=== PATIENT | male | born 1955 | race African-American/Black ===

== ENCOUNTER 2021-09-23 06:32 | Inpatient (IN) | payer MEDICARE, MEDICAID, SELFPAY ==
[2021-09-23] VITALS (21 sets, daily range): BP systolic 114–186; BP diastolic 67–95; PULSE 62–111; RESP 14–22; TEMP 35–37.8; O2SAT 78–100; BMI 43.9
--- NOTE | ~2021-09-23 | XR_ITS ---
EXAMINATION: XR CHEST CLINICAL INFORMATION: Post intubation. COMPARISON: Most recent CT chest dated 07/17/2018. TECHNIQUE: Frontal view of the chest was obtained. FINDINGS: Endotracheal tube with its tip approximately 3.7 cm proximal to the irma. Endotracheal tube with its tip beneath the left hemidiaphragm and extending beyond the imaged field of view. Patchy bibasilar opacities which may represent atelectasis versus early infiltrates. Trace right-sided pleural effusion. No pneumothorax. XR/XR chest 1V IMPRESSION: 1. Endotracheal tube with its tip approximately 3.7 cm proximal to the irma. Enterogastric tube in appropriate position. 2. Patchy bibasilar atelectasis versus early infiltrates. 3. Trace right-sided pleural effusion.
--- NOTE | ~2021-09-23 | CT_ITS ---
EXAMINATION: CT HEAD WITHOUT CONTRAST CT CERVICAL SPINE WITHOUT CONTRAST CLINICAL INFORMATION: Fall. COMPARISON: None TECHNIQUE: Contiguous axial imaging was performed from the skull base to vertex without intravenous administration of contrast. Contiguous axial CT images of the cervical spine were obtained without contrast. Sagittal and coronal reformats were provided and reviewed. This CT examination was performed using dose optimization techniques as appropriate, variously including the following: *Automated exposure control *Adjustment of mA and/or kV according to patient size (this includes techniques or standardized protocols for targeted exams where dose is matched to indication/reason for exam; i.e. extremities or head) *Use of iterative reconstruction technique DLP: 1843 mGy-cm FINDINGS: HEAD: There is no evidence of acute intracranial hemorrhage or territorial infarction. No abnormal mass effect or midline shift is seen. [place] to white matter differentiation is well preserved. No extra-axial fluid collections are identified. The ventricles are normal in size. There is no abnormal attenuation within the brain parenchyma. The osseous structures and soft tissues are normal. The mastoid air cells and visualized portions of the paranasal sinuses are well aerated. CERVICAL SPINE: Straightening of the normal cervical lordosis, which may be positional or related to muscular spasm. No acute fracture or subluxation. No loss of vertebral body height. Multilevel loss of intervertebral disc with anterior endplate osteophytes at C3 through C7. Mild bilateral facet arthropathy, right greater than left. Unremarkable prevertebral soft tissues. No abnormal soft tissue mass or fluid collection. Partially visualized enterogastric and endotracheal tubes. Small layering effusion within the right lung apex. Mild right neural foraminal stenosis at C5-C6. CT/CT cervical spine wo con IMPRESSION: HEAD: No acute intracranial hemorrhage or mass effect. CERVICAL SPINE: No acute fracture or subluxation. Straightening of the normal cervical lordosis, which may be positional or related to muscular spasm. Multilevel degenerative disc disease and mild bilateral facet arthropathy with mild right neural foraminal stenosis at C5-C6. Small, layering right-sided pleural effusion seen within the right lung apex.
--- NOTE | ~2021-09-23 | CT_ITS ---
EXAMINATION: CT ANGIOGRAM OF THE CHEST WITH AND WITHOUT CONTRAST (CT PULMONARY ANGIOGRAM FOR PE) CLINICAL INFORMATION: Reason for Exam hypoxia, covid+ COMPARISON: None TECHNIQUE: Prior to contrast administration, noncontrast localization images were obtained. Subsequently, multidetector volumetric imaging was performed from the thoracic inlet to below the diaphragms following the administration of 80 mL Omnipaque 350 intravenous contrast. No contrast reaction reported Sagittal, coronal, and MIP oblique sagittal reformatted images were obtained on the CT workstation, uploaded to PACS, and reviewed. This CT examination was performed using dose optimization techniques as appropriate, variously including the following: *Automated exposure control *Adjustment of mA and/or kV according to patient size (this includes techniques or standardized protocols for targeted exams where dose is matched to indication/reason for exam; i.e. extremities or head) *Use of iterative reconstruction technique Total exam dose-length product 646 mGy-cm FINDINGS: QUALITY OF STUDY/CONTRAST BOLUS: Satisfactory. PULMONARY ARTERIES: No central or segmental pulmonary emboli. THORACIC AORTA: No aneurysm or dissection. LUNG: There is dependent bibasilar atelectasis/consolidation. PLEURA: Small bilateral pleural effusions seen minimally greater on the right. Rest lungs are clear. MEDIASTINUM: Heart size is enlarged. No pericardial effusion seen. The central trachea and the bronchi widely patent. There is an endotracheal tube with its tip 3.2 cm above the correct irma. Tip of enteric tube is in the pylorus. No abnormal size based lymph nodes or mass seen. CHEST WALL/AXILLA: No axillary or internal mammary lymphadenopathy. OSSEOUS STRUCTURES: No lytic or sclerotic process seen UPPER ABDOMEN: Visualized liver and spleen is unremarkable., spleen, pancreas and bilateral No reflux of contrast into the hepatic veins to suggest elevated right heart pressures. CT/CT angio chest PE protocol IMPRESSION: No evidence of PE. No evidence aortic dissection or aneurysm. Bilateral lower lobe consolidation with small bilateral pleural effusions. VTE: negative
--- NOTE | ~2021-09-23 | XR_ITS ---
EXAMINATION: XR CHEST CLINICAL INFORMATION: New CVP COMPARISON: Chest x-ray 09/24/2021 TECHNIQUE: Frontal portable view of the chest was obtained. 1700 hours FINDINGS: Right IJ catheter tip just distal to the caval atrial junction in the right atrium by about 2 cm. There is no pneumothorax. The cardiac and mediastinal contours are unchanged. Lung volume remains low. No focal dense consolidation. No large pleural effusion XR/XR chest 1V IMPRESSION: Right IJ catheter tip just distal to the caval atrial junction in the right atrium by about 2 cm. There is no pneumothorax.
--- NOTE | ~2021-09-23 | XR_ITS ---
EXAMINATION: XR CHEST CLINICAL INFORMATION: Status post CVP attempt COMPARISON: Chest radiograph 09/23/2021 TECHNIQUE: Frontal view of the chest was obtained. FINDINGS: Endotracheal and enteric tubes have been removed since the previous study. Lung volumes are diminished resulting in crowding of bronchovascular structures. Previously noted atelectasis and pleural fluid are better demonstrated on previous studies. There are no new focal airspace opacities. There is no pneumothorax. Structures of the chest wall are unremarkable and the cardiomediastinal contours are unchanged. XR/XR chest 1V IMPRESSION: Low lung volume study without evidence of periprocedural complication relating to CVP attempt. Pleural fluid and atelectasis are better demonstrated on prior studies and likely unchanged. Interval removal of endotracheal and enteric tubes.
--- NOTE | 2021-09-23 06:53 | PC.NURSE ---
call placed to [facility] transfer for ICU bed at [id number], no bed available
--- NOTE | 2021-09-23 06:57 | PC.NURSE ---
call placed to [facility] for ICU bed, no bed available
--- NOTE | 2021-09-23 07:01 | PC.NURSE ---
call placed to [facility] for ICU bed, no bed available at this time
--- NOTE | 2021-09-23 07:02 | ED_ITS ---
HPI - Fall General Chief Complaint: Altered Mental Status Stated Complaint: Fall w/ AMS/head strike/low O2 from SNF Time Seen by Provider: 09/23/21 07:02 Source: EMS Mode of arrival: EMS History of Present Illness HPI Narrative: Patient from snf arrived at 06:47 with history of schizophrenia had an unwitnessed fall was in his room going to the bathroom and fell roommate called the nurse when they went to see him he was sitting in his bed with bleeding from the nose and broken front to when EMS reached patient was not responding saturating low 70s blood pressure [id number], RR 19 On arrival in the ER patient on not responding supple to be verbal but nonverbal when EMS arrived on arrival patient was sedated and intubated for airway protection as there was no gag reflex Related Data Home Medications Medication Instructions Recorded Confirmed amlodipine 10 mg tablet 1 tab PO DAILY 09/23/21 09/23/21 benztropine 0.5 mg tablet 1 tab PO DAILY 09/23/21 09/23/21 budesonide-formoterol HFA 160 INHALATION 09/23/21 mcg-4.5 mcg/actuation aerosol inhaler (Symbicort) gabapentin 300 mg capsule 1 cap PO TID 09/23/21 09/23/21 metoprolol succinate 50 mg 1 tab PO DAILY 09/23/21 09/23/21 tablet,extended release 24 hr montelukast 10 mg tablet 1 tab PO DAILY 09/23/21 09/23/21 pravastatin 20 mg tablet 1 tab PO DAILY 09/23/21 09/23/21 risperidone 1 mg tablet 1 tab PO BID 09/23/21 09/23/21 tiotropium bromide 18 mcg capsule 1 cap INHALATION DAILY 09/23/21 09/23/21 with inhalation device (Spiriva with HandiHaler) Allergies Allergy/AdvReac Type Severity Reaction Status Date / Time No Known Allergies Allergy Verified 09/23/21 07:03 Review of Systems Review of Systems: Yes Unobtainable due to mental condition [facility] Past Medical History Medical History (Updated 09/23/21 @ 16:24 by Delon Minor MD) COPD (chronic obstructive pulmonary disease) History of COVID-19 Hypertension Metabolic encephalopathy Obstructive sleep apnea Schizophrenia Thrombocytopenia Social History Social History Alcohol intake: unknown Patient Tobacco Use Status: Tobacco use Unknown Use of substances other than those prescribed or required for medical reasons: Unknown Advance Directives: No Advance Directives Information Provided: No Physical Exam Vital Signs: Vital Signs: Last Vital Signs Temp 99.7 F 09/23/21 14:26 Pulse 102 H 09/23/21 14:26 Resp 16 09/23/21 14:26 BP 180/90 H 09/23/21 14:26 Pulse Ox 86 L 09/23/21 14:26 BMI result Body Mass Index 43.9 Appearance: Obese not responding dried blood in the nostril Eyes: PERRLA, No Nystagmus ENT: Pharynx normal. Oral Mucosa moist Neck: Normal inspection. Neck supple. CVS: Normal heart rate and rhythm. Pulses normal. Respiratory: No respiratory distress. Equal air entry bilateral, no wheezing/rales/rhonchi Abdomen: Soft and nontender. Bowel sounds are present, no mass palpable, no CVA tenderness Skin: Skin warm and dry. Normal skin color. Normal skin turgor. Extremities: No lower extremity edema. No calf tenderness Neuro: Oriented X 3. No motor deficit. 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 aware and watching patient, will admit to ICU once extubated and bed is available Time: 16:22 Procedures Intubation Time out performed: Yes sedative: Etomidate Mg Given: 20 paralytic: Rocuronium Mg Given: 100 Laryngoscope: Reny ET Tube Size: 7.5 ET Tube Uncuffed: Yes Tube Secured Depth (cm): 23 Tube Secured Location: lips Tube Placement Confirmation: visualized tube passing through cords Patient Tolerated Procedure: well Intubation Complications: none MDM - Fall MDM Narrative Medical decision making narrative: Case discussed with the staff at the snf patient has sleep apnea and COPD heavy smoker ambulatory is supposed to use oxygen as needed and BiPAP in the night but patient is not using it patient was lethargic after the fall likely hypoxic secondary to COVID. Patient was intubated as had poor gag reflex CTA chest done which showed no PE only bilateral lower lobe infiltrate at this time patient is saturating 92% on 40% ventilator plan is to taper him off from the ventilator and plan to put him on BiPAP if he tolerates and admit to ICU Lab Data Attestation: I reviewed the patient's lab results. Result diagrams: 09/23/21 07:25 09/23/21 10:47 Labs: Lab Results 09/23/21 09/23/21 09/23/21 Range/Units 07:25 07:25 07:25 WBC 10.7 (4.8-10.8) X10*3/uL RBC 4.69 (4.60-5.80) X10*6/uL Hgb 13.4 L (14.0-18.0) g/dl Hct 44.7 (42.0-52.0) % MCV 95.3 (80.0-98.0) fL MCH 28.6 (27.0-33.0) pg MCHC 30.0 L (31.0-36.0) g/dl RDW 14.2 (11.0-16.0) % Plt Count 124 L (160-400) X10*3/uL MPV 10.8 (9.4-12.4) fL Immature Gran % (Auto) Cancelled Neut % (Auto) Cancelled Lymph % (Auto) Cancelled [place] % (Auto) Cancelled Eos % (Auto) Cancelled Baso % (Auto) Cancelled Lymph # (Auto) Cancelled [place] # (Auto) Cancelled Eos # (Auto) Cancelled Baso # (Auto) Cancelled Abs Immat Gran (auto) Cancelled Absolute Neuts (auto) Cancelled Absolute Nucleated RBC 0.060 H (0.0-0.012) X10*3/uL Nucleated RBC % (auto) 0.6 H (0.0-0.2) /100WBC Neutrophils % (Manual) 86 H (45-73) % Band Neutrophils % 3 (3-5) % Lymphocytes % (Manual) 5 L (20-40) % Monocytes % (Manual) 5 (2-11) % Eosinophils % (Manual) 1 (0-4) % Abs Neuts (Manual) 9.5 H (2.0-8.3) X10*3/uL Lymphocytes # (Manual) 0.5 L (1.2-4.9) X10*3/uL Monocytes # (Manual) 0.5 (0.1-1.2) X10*3/uL Eosinophils # (Manual) 0.1 (0.0-0.4) X10*3/uL Toxic Vacuolation PRESENT Platelet Estimate DECREASED (NORMAL) Large Platelets PRESENT Plt Morphology Comment NOTED RBC Morphology NOTED Macrocytosis 1+ (5-14) /OIF Ovalocytes 1+ (5-14) /OIF Fountain Cells 1+ (0-2) /OIF PT 11.9 (9.9-13.0) SEC INR 1.0 (0.9-1.1) O2 Saturation % ABG pH at Pt Temp (7.35-7.45) ABG pH (Temp Correct) (7.35-7.45) ABG pCO2 at Pt Temp (32-45) mmHg ABG pCO2 (Temp Corrct (32-45) mmHg ABG pO2 at Pt Temp (83-108) mmHg ABG pO2 (Temp Correct (83-108) ABG HCO3 (22-26) mmol/L ABG Base Excess (Actual) mmol/L Sodium 132 L (135-145) mmol/L Potassium 6.4 H* (3.3-5.1) mmol/L Chloride 94 L (96-108) mmol/L Carbon Dioxide 36 H (22-29) mmol/L Anion Gap 8 L (12-20) BUN 19 H (9-16) mg/dL Creatinine 0.80 (0.5-1.4) mg/dL Estim Creat Clear Calc 129.4 Estimated GFR > 60 Random Glucose 139 H (60-115) mg/dL Lactic Acid (0.5-2.0) mmol/L Calcium 8.9 (8.4-10.2) mg/dL Magnesium 2.0 (1.6-2.6) mg/dL Total Bilirubin 0.2 (0.0-1.0) mg/dL AST 21 (5-37) U/L ALT 18 (0-40) U/L Alkaline Phosphatase 86 (39-117) U/L Troponin I High Sens (<3.5-35.0) ng/L B-Natriuretic Peptide (<100) pg/mL Total Protein 6.9 (6.5-8.0) g/dL Albumin 3.8 (3.5-5.0) g/dL Urine Color Urine Appearance Urine pH (5.0-8.0) Ur Specific [place] (1.005-1.025) Urine Protein (NEG-TRACE) MG/DL Urine Glucose (UA) (NEG) MG/DL Urine Ketones (NEG) MG/DL Urine Blood (NEG) Urine Nitrite (NEG) Ur Leukocyte Esterase (NEG) Urine RBC (0) /HPF Urine WBC (0-4) /HPF Ur Squamous Epith Cells /LPF Amorphous Sediment /LPF Urine Bacteria /LPF Hyaline Casts /LPF Urine Mucus /LPF Urine Opiates Screen (Not Detect) Urine Fentanyl Screen (Not Detect) Ur Barbiturates Screen (Not Detect) Ur Phencyclidine Scrn (Not Detect) Ur Amphetamines Screen (Not Detect) U Benzodiazepines Scrn (Not Detect) Urine Cocaine Screen (Not Detect) U Marijuana (THC) Screen (Not Detect) COVID-19 ([facility]) (Negative) COVID-19 Clin Com 09/23/21 09/23/21 09/23/21 Range/Units 07:25 07:25 07:25 WBC (4.8-10.8) X10*3/uL RBC (4.60-5.80) X10*6/uL Hgb (14.0-18.0) g/dl Hct (42.0-52.0) % MCV (80.0-98.0) fL MCH (27.0-33.0) pg MCHC (31.0-36.0) g/dl RDW (11.0-16.0) % Plt Count (160-400) X10*3/uL MPV (9.4-12.4) fL Immature Gran % (Auto) Neut % (Auto) Lymph % (Auto) [place] % (Auto) Eos % (Auto) Baso % (Auto) Lymph # (Auto) [place] # (Auto) Eos # (Auto) Baso # (Auto) Abs Immat Gran (auto) Absolute Neuts (auto) Absolute Nucleated RBC (0.0-0.012) X10*3/uL Nucleated RBC % (auto) (0.0-0.2) /100WBC Neutrophils % (Manual) (45-73) % Band Neutrophils % (3-5) % Lymphocytes % (Manual) (20-40) % Monocytes % (Manual) (2-11) % Eosinophils % (Manual) (0-4) % Abs Neuts (Manual) (2.0-8.3) X10*3/uL Lymphocytes # (Manual) (1.2-4.9) X10*3/uL Monocytes # (Manual) (0.1-1.2) X10*3/uL Eosinophils # (Manual) (0.0-0.4) X10*3/uL Toxic Vacuolation Platelet Estimate (NORMAL) Large Platelets Plt Morphology Comment RBC Morphology Macrocytosis /OIF Ovalocytes /OIF Marcus Cells /OIF PT (9.9-13.0) SEC INR (0.9-1.1) O2 Saturation % ABG pH at Pt Temp (7.35-7.45) ABG pH (Temp Correct) (7.35-7.45) ABG pCO2 at Pt Temp (32-45) mmHg ABG pCO2 (Temp Corrct (32-45) mmHg ABG pO2 at Pt Temp (83-108) mmHg ABG pO2 (Temp Correct (83-108) ABG HCO3 (22-26) mmol/L ABG Base Excess (Actual) mmol/L Sodium (135-145) mmol/L Potassium (3.3-5.1) mmol/L Chloride (96-108) mmol/L Carbon Dioxide (22-29) mmol/L Anion Gap (12-20) BUN (9-16) mg/dL Creatinine (0.5-1.4) mg/dL Estim Creat Clear Calc Estimated GFR Random Glucose (60-115) mg/dL Lactic Acid (0.5-2.0) mmol/L Calcium (8.4-10.2) mg/dL Magnesium (1.6-2.6) mg/dL Total Bilirubin (0.0-1.0) mg/dL AST (5-37) U/L ALT (0-40) U/L Alkaline Phosphatase (39-117) U/L Troponin I High Sens 10.4 (<3.5-35.0) ng/L B-Natriuretic Peptide 213 H (<100) pg/mL Total Protein (6.5-8.0) g/dL Albumin (3.5-5.0) g/dL Urine Color Urine Appearance Urine pH (5.0-8.0) Ur Specific [place] (1.005-1.025) Urine Protein (NEG-TRACE) MG/DL Urine Glucose (UA) (NEG) MG/DL Urine Ketones (NEG) MG/DL Urine Blood (NEG) Urine Nitrite (NEG) Ur Leukocyte Esterase (NEG) Urine RBC (0) /HPF Urine WBC (0-4) /HPF Ur Squamous Epith Cells /LPF Amorphous Sediment /LPF Urine Bacteria /LPF Hyaline Casts /LPF Urine Mucus /LPF Urine Opiates Screen (Not Detect) Urine Fentanyl Screen (Not Detect) Ur Barbiturates Screen (Not Detect) Ur Phencyclidine Scrn (Not Detect) Ur Amphetamines Screen (Not Detect) U Benzodiazepines Scrn (Not Detect) Urine Cocaine Screen (Not Detect) U Marijuana (THC) Screen (Not Detect) COVID-19 ([facility]) Positive A (Negative) COVID-19 Clin Com See Note 09/23/21 09/23/21 09/23/21 Range/Units 07:31 07:31 10:18 WBC (4.8-10.8) X10*3/uL RBC (4.60-5.80) X10*6/uL Hgb (14.0-18.0) g/dl Hct (42.0-52.0) % MCV (80.0-98.0) fL MCH (27.0-33.0) pg MCHC (31.0-36.0) g/dl RDW (11.0-16.0) % Plt Count (160-400) X10*3/uL MPV (9.4-12.4) fL Immature Gran % (Auto) Neut % (Auto) Lymph % (Auto) [place] % (Auto) Eos % (Auto) Baso % (Auto) Lymph # (Auto) [place] # (Auto) Eos # (Auto) Baso # (Auto) Abs Immat Gran (auto) Absolute Neuts (auto) Absolute Nucleated RBC (0.0-0.012) X10*3/uL Nucleated RBC % (auto) (0.0-0.2) /100WBC Neutrophils % (Manual) (45-73) % Band Neutrophils % (3-5) % Lymphocytes % (Manual) (20-40) % Monocytes % (Manual) (2-11) % Eosinophils % (Manual) (0-4) % Abs Neuts (Manual) (2.0-8.3) X10*3/uL Lymphocytes # (Manual) (1.2-4.9) X10*3/uL Monocytes # (Manual) (0.1-1.2) X10*3/uL Eosinophils # (Manual) (0.0-0.4) X10*3/uL Toxic Vacuolation Platelet Estimate (NORMAL) Large Platelets Plt Morphology Comment RBC Morphology Macrocytosis /OIF Ovalocytes /OIF Fountain Cells /OIF PT (9.9-13.0) SEC INR (0.9-1.1) O2 Saturation 91.0 % ABG pH at Pt Temp 7.48 H (7.35-7.45) ABG pH (Temp Correct) 7.48 H (7.35-7.45) ABG pCO2 at Pt Temp 38 (32-45) mmHg ABG pCO2 (Temp Corrct 38 (32-45) mmHg ABG pO2 at Pt Temp 59 L (83-108) mmHg ABG pO2 (Temp Correct 60 L (83-108) ABG HCO3 29 H (22-26) mmol/L ABG Base Excess (Actual) 5.6 mmol/L Sodium (135-145) mmol/L Potassium (3.3-5.1) mmol/L Chloride (96-108) mmol/L Carbon Dioxide (22-29) mmol/L Anion Gap (12-20) BUN (9-16) mg/dL Creatinine (0.5-1.4) mg/dL Estim Creat Clear Calc Estimated GFR Random Glucose (60-115) mg/dL Lactic Acid (0.5-2.0) mmol/L Calcium (8.4-10.2) mg/dL Magnesium (1.6-2.6) mg/dL Total Bilirubin (0.0-1.0) mg/dL AST (5-37) U/L ALT (0-40) U/L Alkaline Phosphatase (39-117) U/L Troponin I High Sens (<3.5-35.0) ng/L B-Natriuretic Peptide (<100) pg/mL Total Protein (6.5-8.0) g/dL Albumin (3.5-5.0) g/dL Urine Color YELLOW Urine Appearance HAZY Urine pH 5.5 (5.0-8.0) Ur Specific [place] >= 1.030 H (1.005-1.025) Urine Protein 2+ H (NEG-TRACE) MG/DL Urine Glucose (UA) NEG (NEG) MG/DL Urine Ketones NEG (NEG) MG/DL Urine Blood 3+ H (NEG) Urine Nitrite NEG (NEG) Ur Leukocyte Esterase NEG (NEG) Urine RBC 5-9 H (0) /HPF Urine WBC 0 (0-4) /HPF Ur Squamous Epith Cells NONE /LPF Amorphous Sediment 1+ /LPF Urine Bacteria NONE /LPF Hyaline Casts 0-2 /LPF Urine Mucus 1+ /LPF Urine Opiates Screen Not Detected (Not Detect) Urine Fentanyl Screen POSITIVE H (Not Detect) Ur Barbiturates Screen Not Detected (Not Detect) Ur Phencyclidine Scrn Not Detected (Not Detect) Ur Amphetamines Screen Not Detected (Not Detect) U Benzodiazepines Scrn Not Detected (Not Detect) Urine Cocaine Screen Not Detected (Not Detect) U Marijuana (THC) Screen Not Detected (Not Detect) COVID-19 ([facility]) (Negative) COVID-19 Clin Com 09/23/21 09/23/21 09/23/21 Range/Units 10:47 10:47 14:33 WBC (4.8-10.8) X10*3/uL RBC (4.60-5.80) X10*6/uL Hgb (14.0-18.0) g/dl Hct (42.0-52.0) % MCV (80.0-98.0) fL MCH (27.0-33.0) pg MCHC (31.0-36.0) g/dl RDW (11.0-16.0) % Plt Count (160-400) X10*3/uL MPV (9.4-12.4) fL Immature Gran % (Auto) Neut % (Auto) Lymph % (Auto) [place] % (Auto) Eos % (Auto) Baso % (Auto) Lymph # (Auto) [place] # (Auto) Eos # (Auto) Baso # (Auto) Abs Immat Gran (auto) Absolute Neuts (auto) Absolute Nucleated RBC (0.0-0.012) X10*3/uL Nucleated RBC % (auto) (0.0-0.2) /100WBC Neutrophils % (Manual) (45-73) % Band Neutrophils % (3-5) % Lymphocytes % (Manual) (20-40) % Monocytes % (Manual) (2-11) % Eosinophils % (Manual) (0-4) % Abs Neuts (Manual) (2.0-8.3) X10*3/uL Lymphocytes # (Manual) (1.2-4.9) X10*3/uL Monocytes # (Manual) (0.1-1.2) X10*3/uL Eosinophils # (Manual) (0.0-0.4) X10*3/uL Toxic Vacuolation Platelet Estimate (NORMAL) Large Platelets Plt Morphology Comment RBC Morphology Macrocytosis /OIF Ovalocytes /OIF Fountain Cells /OIF PT (9.9-13.0) SEC INR (0.9-1.1) O2 Saturation 81.0 % ABG pH at Pt Temp 7.34 L (7.35-7.45) ABG pH (Temp Correct) 7.33 L (7.35-7.45) ABG pCO2 at Pt Temp 69 H* (32-45) mmHg ABG pCO2 (Temp Corrct 69 H* (32-45) mmHg ABG pO2 at Pt Temp 55 L (83-108) mmHg ABG pO2 (Temp Correct 55 L (83-108) ABG HCO3 37 H (22-26) mmol/L ABG Base Excess (Actual) 8.5 mmol/L Sodium 133 L (135-145) mmol/L Potassium 5.4 H (3.3-5.1) mmol/L Chloride 93 L (96-108) mmol/L Carbon Dioxide 32 H (22-29) mmol/L Anion Gap 13 (12-20) BUN 20 H (9-16) mg/dL Creatinine 0.74 (0.5-1.4) mg/dL Estim Creat Clear Calc 139.9 Estimated GFR > 60 Random Glucose 121 H (60-115) mg/dL Lactic Acid 2.5 H* (0.5-2.0) mmol/L Calcium 9.7 D (8.4-10.2) mg/dL Magnesium (1.6-2.6) mg/dL Total Bilirubin (0.0-1.0) mg/dL AST (5-37) U/L ALT (0-40) U/L Alkaline Phosphatase (39-117) U/L Troponin I High Sens (<3.5-35.0) ng/L B-Natriuretic Peptide (<100) pg/mL Total Protein (6.5-8.0) g/dL Albumin (3.5-5.0) g/dL Urine Color Urine Appearance Urine pH (5.0-8.0) Ur Specific [place] (1.005-1.025) Urine Protein (NEG-TRACE) MG/DL Urine Glucose (UA) (NEG) MG/DL Urine Ketones (NEG) MG/DL Urine Blood (NEG) Urine Nitrite (NEG) Ur Leukocyte Esterase (NEG) Urine RBC (0) /HPF Urine WBC (0-4) /HPF Ur Squamous Epith Cells /LPF Amorphous Sediment /LPF Urine Bacteria /LPF Hyaline Casts /LPF Urine Mucus /LPF Urine Opiates Screen (Not Detect) Urine Fentanyl Screen (Not Detect) Ur Barbiturates Screen (Not Detect) Ur Phencyclidine Scrn (Not Detect) Ur Amphetamines Screen (Not Detect) U Benzodiazepines Scrn (Not Detect) Urine Cocaine Screen (Not Detect) U Marijuana (THC) Screen (Not Detect) COVID-19 ([facility]) (Negative) COVID-19 Clin Com Critical Care Time Critical Care Time Critical Care Time: Yes Total Critical Care Time: 70 Attestation: I spent 70 minutes of critical care, with interventions, assessments, speaking to patient, consultants, Discharge Plan Discharge Clinical Impression: Acute hypoxemic respiratory failure due to COVID-19, Status post fall Patient Disposition: Admitted As Inpatient
--- NOTE | 2021-09-23 07:02 | PC.NURSE ---
call placed to [facility] for ICU bed, no beds available at this time
--- NOTE | 2021-09-23 07:03 | PC.NURSE ---
call placed to [facility] for ICU beds, no beds available at this time
--- NOTE | 2021-09-23 07:03 | ECG_ITS ---
Test Reason : dyspnea Blood Pressure : / mmHG Vent. Rate : 068 BPM Atrial Rate : 068 BPM P-R Int : 168 ms QRS Dur : 112 ms QT Int : 374 ms P-R-T Axes : 028 -13 031 degrees QTc Int : 397 ms Sinus rhythm with Premature atrial complexes Otherwise normal ECG No previous ECGs available Referred By: Delon Minor Electronically Signed By:PHILIP CALDWELL
--- NOTE | 2021-09-23 07:09 | PC.NURSE ---
call placed to [facility], no beds available
[2021-09-23 07:38] LABS: Appearance Urine HAZY; Color Urine YELLOW; Glucose Urine UA NEG (NEG); Leukocyte Esterase Urine NEG (NEG); Nitrite Urine NEG (NEG); PH 5.5 (5.0-8.0); Specific Gravity - Urine >= 1.030 (1.005-1.025); UACC Culture Trigger NO; Urine Blood 3+ (NEG); Urine Ketones NEG (NEG); Urine Protein 2+ MG/DL (NEG-TRACE)
[2021-09-23 07:39] LABS: Hematocrit 44.7 % (42.0-52.0); Hemoglobin 13.4 g/dl (14.0-18.0); Mean Corpuscular Hemoglobin 28.6 pg (27.0-33.0); Mean Corpuscular Volume 95.3 fL (80.0-98.0); Mean Platelet Volume 10.8 fL (9.4-12.4); NRBC Pct Auto 0.6 /100WBC (0.0-0.2); Platelet Count 124 X10*3/uL (160-400); Red Blood Count 4.69 X10*6/uL (4.60-5.80); Red Cell Distribution Width 14.2 % (11.0-16.0)
[2021-09-23 07:40] LABS: WBC ABN SCTR FOR CBC 1
[2021-09-23 07:42] LABS: Prothrombin Time 11.9 SEC (9.9-13.0)
[2021-09-23 07:46] LABS: COVID-19 Test Positive (Negative); IDNOW Serial# 9DD0AD1C
[2021-09-23] MEDS: 0.9 % Sodium Chloride 1,000 ML 999 ML IV (07:48)
[2021-09-23 07:49] LABS: WBC Urine 0 /HPF (0-4)
[2021-09-23] MEDS: propofoL 1,000 MG/100 ML VIAL 16.68 MG IVCONT (07:49)
[2021-09-23 07:50] LABS: Mucus Urine 1+ /LPF
[2021-09-23 07:52] LABS: Amorphous Sediment Urine 1+ /LPF; Hyaline Casts Urine 0-2 /LPF
[2021-09-23 07:54] LABS: Amphetamine Screen Urine Not Detected (Not Detect); Barbiturates, Urine Not Detected (Not Detect); Benzodiazepines Screen Urine Not Detected (Not Detect); Cannabinoid Screen Urine Not Detected (Not Detect); Cocaine Screen Urine Not Detected (Not Detect); Fentanyl, urine POSITIVE (Not Detect); Opiate Screen Urine Not Detected (Not Detect); Phencyclidine Screen Urine Not Detected (Not Detect)
[2021-09-23 07:56] LABS: Band Neutrophils Percent 3 % (3-5); Eosinophils Percent Manual 1 % (0-4); Lymphocytes Percent Manual 5 % (20-40); Monocytes Percent Manual 5 % (2-11); Neutrophils Percent Manual 86 % (45-73)
[2021-09-23 07:57] LABS: Large Platelet PRESENT; Macrocytosis 1+ (5-14) /OIF; Platelet Estimate DECREASED (NORMAL); Platelet Morphology Comment NOTED; RBC Morphology NOTED
[2021-09-23 07:58] LABS: Burr Cells 1+ (0-2) /OIF; Ovalocytes 1+ (5-14) /OIF; Toxic Vacuolation PRESENT
[2021-09-23 07:59] LABS: B Type Natriuretic Peptide 213 pg/mL (<100); Eosinophils Absolute Manual 0.1 X10*3/uL (0.0-0.4); Lymphocytes Absolute Manual 0.5 X10*3/uL (1.2-4.9); Monocytes Absolute Manual 0.5 X10*3/uL (0.1-1.2); Neutrophils Absolute Manual 9.5 X10*3/uL (2.0-8.3); Troponin-I High Sensitivity 10.4 ng/L (<3.5-35.0); White Blood Count 10.7 X10*3/uL (4.8-10.8)
[2021-09-23 08:05] LABS: Alanine Aminotransferase 18 U/L (0-40); Albumin Level 3.8 g/dL (3.5-5.0); Alkaline Phosphatase 86 U/L (39-117); Anion Gap 8 (12-20); Aspartate Amino Transferase 21 U/L (5-37); Bilirubin Total 0.2 mg/dL (0.0-1.0); Blood Urea Nitrogen 19 mg/dL (9-16); Calcium 8.9 mg/dL (8.4-10.2); Carbon Dioxide 36 mmol/L (22-29); Chloride 94 mmol/L (96-108); Creatinine Clr Calc Pharmacy 129.4; Estimated Glomerular Filt Rate > 60; Glucose Random 139 mg/dL (60-115); Potassium 6.4 mmol/L (3.3-5.1); Sodium 132 mmol/L (135-145); Total Protein 6.9 g/dL (6.5-8.0)
[2021-09-23] MEDS: Midazolam HCl/NS 50 MG/50 ML PLAST..BAG IVCONT (08:22)
[2021-09-23] MEDS: Insulin Regular, Human 100 UNIT/ML 3 ML VIAL IVPUSH (08:57)
[2021-09-23] MEDS: Calcium Gluconate/NaCl,Iso-Osm 1 GM/50 ML PLAST..BAG IV (08:59)
[2021-09-23 10:24] LABS: ABG Refer to POC result
[2021-09-23 10:25] LABS: ABG Base Excess 5.6 mmol/L; ABG HCO3 29 mmol/L (22-26); ABG pCO2 38 mmHg (32-45); ABG pCO2 TC 38 mmHg (32-45); ABG pH 7.48 (7.35-7.45); ABG pH TC 7.48 (7.35-7.45); ABG pO2 59 mmHg (83-108); ABG pO2 TC 60 (83-108)
--- NOTE | 2021-09-23 10:27 | PC.NURSE ---
pt intubated and sedated, had head ct and cxr, unremarkable. blood work completed, further blood work needed for cultures and lactic, pt very difficult stick requiring phlebotomy. pt also given meds for potassium shift, awaiting repeat chemistry. [facility] for dc needs.
[2021-09-23] MEDS: cefTRIAXone sodium 1 GM in 0.9 % Sodium Chloride 50 ML IV (10:48)
[2021-09-23 11:06] LABS: Lactic Acid 2.5 mmol/L (0.5-2.0)
[2021-09-23 11:09] LABS: Anion Gap 13 (12-20); Blood Urea Nitrogen 20 mg/dL (9-16); Calcium 9.7 mg/dL (8.4-10.2); Carbon Dioxide 32 mmol/L (22-29); Chloride 93 mmol/L (96-108); Creatinine Clr Calc Pharmacy 139.9; Estimated Glomerular Filt Rate > 60; Glucose Random 121 mg/dL (60-115); Potassium 5.4 mmol/L (3.3-5.1); Sodium 133 mmol/L (135-145)
[2021-09-23 12:48] LABS: Reflex Lactate? Lactic Acid Added
[2021-09-23] MEDS: iohexoL 350 MG/ML 100 ML INFUS..BTL IV (12:56)
[2021-09-23] MEDS: Albuterol Sulfate (0.083%) 2.5 MG/3 ML VIAL.NEB 5 MG INHALE (14:09)
[2021-09-23] MEDS: Albuterol/Iprat 2.5/0.5MG 3 ML AMPUL.NEB INHALE (14:09)
[2021-09-23] MEDS: fentaNYL citrate/PF 100 MCG/2 ML VIAL IVPUSH ×2 (14:23→14:25)
[2021-09-23] MEDS: Glycopyrrolate 0.2 MG/ML VIAL IVPUSH (14:23)
[2021-09-23] MEDS: flumazeniL 0.5 MG/5 ML VIAL 0.2 MG IVPUSH (14:23)
[2021-09-23] MEDS: dexAMETHasone sod phosphate 10 MG/ML VIAL IVPUSH (14:25)
--- NOTE | 2021-09-23 14:27 | PC.NURSE ---
attempting to ween pt off mechanical vent, sedation turned off. pt slow to wake up, tidal volumes low, poor o2 sat. pt given flumazenil and fentanyl to facilitate better work of breathing, pt more comfortable, waking up and able to follow some commands. will monitor for opportunity to extubate.
[2021-09-23 14:39] LABS: ABG Refer to POC result
[2021-09-23 14:44] LABS: ABG Base Excess 8.5 mmol/L; ABG HCO3 37 mmol/L (22-26); ABG pCO2 69 mmHg (32-45); ABG pCO2 TC 69 mmHg (32-45); ABG pH 7.34 (7.35-7.45); ABG pH TC 7.33 (7.35-7.45); ABG pO2 55 mmHg (83-108); ABG pO2 TC 55 (83-108)
--- NOTE | 2021-09-23 14:49 | W.PM.CCCN ---
History of Present Illness Data of Consult Service Date: 09/23/21 Requesting physician: Delon Minor Primary Care Provider: Unknown Physician HPI Reason for consult: Acute respiratory failure I was asked by Dr. Bailey to assist with mgmnt of Mr. Traore who in intubated and mechanically ventilated in the ED. History is from the ED staff. The patient is a 66 yo senior care resident w PMHx of schizophrenia, HTN, heavy smoker, COPD on prn oxygen, LYNN noncompliant with BiPAP, metabolic encephalopathy, thrombocytopenia. ?According to the ED note, the patient has a h/o COVID-19, but I don?t know whether that?s a recent dx or a past dx.? No report from the [facility] that the patient had any recent acute resp problems.? The patient has never been to [facility] before. Had an unwitnessed fall was in his room going to the bathroom.? His roommate called the nurse.? The patient had reportedly gotten up and was sitting on his bed with bleeding from his nose and broken front tooth.? When EMS arrived, the patient was not responding.? Sat low 70s on room air.? BP 186/95, RR 19.? Transported by ambulance to the [facility] ED. On arrival in the ER, patient was not responding, no gag reflex.? The patient was intubated for airway protection.? He was put on propofol, versed, and given Abx. Labs in ED notable for white count 10, hemoglobin 13, platelet count [id number], sodium 132, BUN/creatinine 19/0.8, potassium 6.4, bicarb 36, glucose 139, normal LFTs, albumin 3.8, normal troponin, BNP 213.? Urinalysis showed 0 WBCs. Head and C-spine CT negative. CXR shows patchy bibasilar atelectasis with likely right-sided pleural effusion. CHEST CTPA shows marked LVH w underfilled LV.? RV looks enlarged, with RV:LV cavity ratio approx 1.5.? RA is enlarged.? Main PA top normal.? No PE.? Lungs are clear with some shmutz in both dependent LL areas, along with tiny left pleural eff, slightly larger right pleural eff. On my exam in the ED at about 1430, this is a large man, with a large head and short neck, classic LYNN anatomy, almost Pickwickian appearing.? HR 102, SR, BP 180/90.? On PSV 8/100%/+5, RR was 60, Vt 150cc, Sat 90%.? He had copious secretions drooling from his mouth.? 700cc orange fluid in the canister from his OG-tube. The propofol and Versed drips were turned off. ?We gave him flumazenil 0.5 mg, fentanyl 100 mcg, and glycopyrrolate.? RR slowed to 12, Vt jodi to 480 cc.? On 50%/+10, sat was 86%.? Arterial blood gas showed 7.34/69/55/8.? We gave him additional fentanyl.? At the end of about half an hour in the room, RR 15, Vt 500-600 cc, Ve 8L, Sat 93%. I went back at 1535.? Dropped his PSV to 16/34%/+8 -> RR 14, Vt 580cc, Ve 7.8L, Sat 96%.? At that time, with prompting, the patient opened his eyes to stimulation and was consistently appropriately responsive to simple commands.? He has an excellent cough. IMPRESSION: 1. Underlying obesity and mental illness 2. Undoubtedly has LYNN, based on history, head and neck habitus, and obesity. 3. History of COPD.? 2? smoking. 4. He is definitely a CO2 retainer based on his serum bicarb and the arterial blood gases.? No surprise.? Started him on Dimaox. 5. Altered mental status after the fall at the senior care.? Given the negative head CT, not sure what happened, but it could be a close head injury.? Now seems to be returning to normal mental status. 6. Acute resp failure.? I?m not surprised that he was intubated.? He has fearsome looking head and neck anatomy, not surprised that he was intubated right off the bat when he presented obtunded and with no gag reflex.? Otherwise, there?s not much on his CXR or Chest CT to explain his resp failure and signif hypoxemia.? Certainly doesn?t have COVID pneumonia.? It may be mostly atelectasis (low lung volumes), which would explain the rapid improvement in oxygenation once PEEP was applied. 7. GI.? Has had quite a bit of output from his gtube since the morning.? I gave him Robinul, which has definitely dried up his secretions, and gave him Reglan to improve gastric emptying. Plan to admit him to ICU later tonight when a better opens up.? Hopefully will be extubatable later tonight or by tomorrow morning.? Needs to wake up a bit more.? The Versed infusion he was on earlier today didn?t help. ADDENDUM at 7pm. Saw the patient in ED. Fully awake, appropriate, and strong. HR 93, BP 165/90. On PSV 8/30%/+10, RR 24, Vt 280, Sat 98%. We'll slow his RR with fentanyl now and then extubate. Critical care time:? 90+ min [facility] Past Medical History Medical History (Updated 09/23/21 @ 16:24 by Delon Minor MD) COPD (chronic obstructive pulmonary disease) History of COVID-19 Hypertension Metabolic encephalopathy Obstructive sleep apnea Schizophrenia Thrombocytopenia Social History Social History Alcohol intake: unknown Patient Tobacco Use Status: Tobacco use Unknown Use of substances other than those prescribed or required for medical reasons: Unknown Advance Directives: No Advance Directives Information Provided: No Meds Allergies Allergy/AdvReac Type Severity Reaction Status Date / Time No Known Allergies Allergy Verified 09/23/21 07:03 Active Medications: Current Medications Propofol (Diprivan) 1,000 mg in 100 mls @ 0 mls/hr IVCONT .Q0M [facility]; Protocol Last Titration: 09/23/21 14:06 Dose: Infused Documented by: Midazolam HCl (Versed) 50 mg in 50 mls @ 2 mls/hr IVCONT .Q24H [facility] Last Admin: 09/23/21 08:22 Dose: 2 mg/hr, 2 mls/hr Documented by: Home Medications Medication Instructions Recorded Confirmed Last Taken Type amlodipine 10 mg tablet 1 tab PO DAILY 09/23/21 09/23/21 Unknown History benztropine 0.5 mg tablet 1 tab PO DAILY 09/23/21 09/23/21 Unknown History budesonide-formoterol HFA 160 INHALATION 09/23/21 Unknown History mcg-4.5 mcg/actuation aerosol inhaler (Symbicort) gabapentin 300 mg capsule 1 cap PO TID 09/23/21 09/23/21 Unknown History metoprolol succinate 50 mg 1 tab PO DAILY 09/23/21 09/23/21 Unknown History tablet,extended release 24 hr montelukast 10 mg tablet 1 tab PO DAILY 09/23/21 09/23/21 Unknown History pravastatin 20 mg tablet 1 tab PO DAILY 09/23/21 09/23/21 Unknown History risperidone 1 mg tablet 1 tab PO BID 09/23/21 09/23/21 Unknown History tiotropium bromide 18 mcg capsule 1 cap INHALATION DAILY 09/23/21 09/23/21 Unknown History with inhalation device (Spiriva with HandiHaler) Physical Exam Vital Signs: Vital Signs: Last Vital Signs Temp 99.7 F 09/23/21 14:26 Pulse 102 H 09/23/21 14:26 Resp 16 09/23/21 14:26 BP 180/90 H 09/23/21 14:26 Pulse Ox 86 L 09/23/21 14:26 BMI result Body Mass Index 43.9 Results Labs CBC & Chem 7: 09/23/21 07:25 09/23/21 10:47 Labs: Short CBC 09/23/21 Range/Units 07:25 WBC 10.7 (4.8-10.8) X10*3/uL Hgb 13.4 L (14.0-18.0) g/dl Hct 44.7 (42.0-52.0) % Plt Count 124 L (160-400) X10*3/uL BMP 09/23/21 09/23/21 07:25 10:47 Sodium 132 L 133 L Potassium 6.4 H* 5.4 H Chloride 94 L 93 L Carbon Dioxide 36 H 32 H BUN 19 H 20 H Creatinine 0.80 0.74 Calcium 8.9 9.7 D Liver Function 09/23/21 Range/Units 07:25 Total Bilirubin 0.2 (0.0-1.0) mg/dL AST 21 (5-37) U/L ALT 18 (0-40) U/L Alkaline Phosphatase 86 (39-117) U/L Albumin 3.8 (3.5-5.0) g/dL Urine 09/23/21 Range/Units 07:31 Urine Color YELLOW Urine Appearance HAZY Urine pH 5.5 (5.0-8.0) Ur Specific [place] >= 1.030 H (1.005-1.025) Urine Protein 2+ H (NEG-TRACE) MG/DL Urine Glucose (UA) NEG (NEG) MG/DL Critical Care Time Critical Care Time (minutes): 90
[2021-09-23] MEDS: Famotidine/PF 20 MG/2 ML VIAL 40 MG IVPUSH (14:52)
[2021-09-23] MEDS: Metoclopramide HCl 10 MG/2 ML VIAL IVPUSH (14:52)
[2021-09-23] MEDS: acetaZOLAMIDE sodium 500 MG VIAL IVPUSH (15:14)
[2021-09-23 18:19] LABS: ABG Refer to POC result
[2021-09-23 18:20] LABS: ABG Base Excess 6.7 mmol/L; ABG HCO3 34 mmol/L (22-26); ABG pCO2 60 mmHg (32-45); ABG pCO2 TC 63 mmHg (32-45); ABG pH 7.36 (7.35-7.45); ABG pH TC 7.34 (7.35-7.45); ABG pO2 54 mmHg (83-108); ABG pO2 TC 58 (83-108)
[2021-09-23] MEDS: HYDROmorphone HCl 1 MG/ML SYRINGE IVPUSH (19:11)
--- NOTE | 2021-09-23 19:20 | PC.NURSE ---
this RN at bedside with RT and tile grinder (PA) to extubate pt
[2021-09-23 21:37] LABS: ABG Refer to POC result
[2021-09-23 21:37] LABS: ABG Base Excess 3.2 mmol/L; ABG HCO3 34 mmol/L (22-26); ABG pCO2 84 mmHg (32-45); ABG pCO2 TC 87 mmHg (32-45); ABG pH 7.21 (7.35-7.45); ABG pO2 75 mmHg (83-108); ABG pO2 TC 79 (83-108)
--- NOTE | 2021-09-23 23:07 | PM.CCHP ---
History of Present Illness Date of Service: 09/23/21 Attending physician on admission: Xavier Ackerman Chief Complaint: hypoxic respiratory failure with hypercarbic state, COVID-19 infection HPI: ?Patient 66-year-old gentleman from a retirement facility who has a history of hypertension, COPD due to smoking on p.r.n. oxygen, schizophrenia, obstructive sleep apnea noncompliant with BiPAP, metabolic encephalopathy, thrombocytopenia among others.? Patient had arrived to the emergency room via ambulance, he has a history of COVID but the actual diagnosis date is unknown, per ER records and retirement did not report any respiratory symptoms.? The patient had an unwitnessed fall while going to the bathroom, he had then gotten up and was sitting on his bed with bleeding from his nose and with a broken tooth, his roommate alerted the nursing personnel.? Upon arrival of EMS the patient was not responding with a sat in the 70s room air and a blood pressure of 186/95, on arrival to the ER the patient had no gag reflex and the patient was intubated for airway protection. ?At the time, his workup revealed a white count of 10 hemoglobin 13, platelet count of 124 1000, sodium 132, creatinine 0.8, potassium 6.4, bicarb of 36, BNP of 213 in no evidence of UTI.? His trauma survey including head and neck CT were negative, chest x-ray showed patchy bibasilar atelectasis with likely right-sided pleural effusion.? Chest CT a showed no PE.? Pleural effusions on both sides right greater than left. ?Slowly into the day the patient had been taking of sedation and his Versed and propofol were turned off, secretions were managed and the patient was switched 2 PSVT with a subsequent extubation done in the emergency room by me, subsequently placed on high-flow O2 but the patient continued to retain CO2 the R4 and even though he was mentating well, the patient was placed on BiPAP and will be taken to the ICU for further management.? Certainly he is a chronic CO2 retainer and will be placed on Diamox and Lasix. ?Currently patient mental status still great and he is following commands, answering questions appropriately. ?ROS:? Not able to obtain at this point as the patient is on BiPAP ?Past Medical History:? As above ?Past Surgical History:? As above ?Family history: ?Noncontributory ?Social History:? Patient is from a senior care facility, it is not high a was a smoker but the quantity is unknown, unknown if he ever use drugs or alcohol. CODE STATUS:? Full code Allergies: ?No known drug allergies Home Medications:? Please see [facility] rec PHYSICAL EXAM: VS: ?Blood pressure 144/82, heart rate 84, respirations 15, O2 sat 95% on BiPAP with FiO2 of 55% General:? Morbidly obese Alert oriented to person no acute distress.? Speaking slow full sentences.? Speech is well articulated. Following all commands. Skin:? Intact, no lesions, edema, erythema, clubbing or cyanosis.? No ulcers. HEENT:? Head is normocephalic, atraumatic, pupils equal round reactive to light accommodation bilaterally.? Extraocular movements appear intact.? Buccal mucosa is moist, Neck is supple thick and large. Cardiac:? Clear S1-S2, no murmurs rubs or gallops. Pulmonary:? Diminished lung sounds bilaterally with fine minor crackles at the right base, no wheezes, rales, rhonchi. Abdomen:? Protuberant, positive bowel sounds in all 4 quadrants.? Soft, nontender, no rebound or guarding.? Musculoskeletal:? Moving all 4 extremities upon request a major joints, there is no crepitus or tenderness.? The strength is 5/5 bilaterally and throughout all 4 extremities.? There 1+ pitting edema bilaterally, no calf tenderness , no leg asymmetry.? Gait not assessed at this point. Neurologic:? As above, cranial nerves 2-12 are grossly intact.? No focal deficits noted. Motor strength as above.? Vascular:? 2+ pulses upper and lower extremities distally. SIGNIFICANT LABORATORY DATA: ?As above, in addition REVIEW OF IMAGES: ?As above EKG REVIEW: ?Sinus rhythm with PACs, rate 68 beats per minute.? No ST elevations, no depressions.? QTC 397, no comparison available. ASSESSMENT AND PLAN: 1. Hypoxic respiratory failure with hypercarbic state status post intubation currently on BiPAP 2. PickwickIan syndrome 3. COVID positive without evidence of COVID pneumonia 4. Obstructive sleep apnea noncompliant with BiPAP 5. Metabolic encephalopathy 6. Stable hypertension 7. History of COPD due to smoking without active exacerbation 8. Morbid obesity 9. Right-sided heart failure appears acute Patient was successfully extubated in the ED by me, placed on high-flow initially with 30% FiO2 but did require increased to 50% as the patient got Dilaudid.? A repeat blood gas 1 hour after revealed respiratory acidosis with a increase pCO2 of 89 from 60 to and although the patient is mentating well, I will place the patient on BiPAP.? Will diurese him with Lasix and add Diamox as he does have chronic CO2 retention and a significant base excess. Will continue with supportive support and repeat labs in the morning, blood gas and management of his comorbidities. GI PROPHYLAXIS:? IV Protonix DVT PROPHYLAXIS:? Lovenox subQ Critical care time used for critical evaluation of this patient, diagnosis, treatment and coordination of care, review her records and documentation TOTAL CRITICAL CARE TIME 90 MIN . Patient's care was discussed in detail with Dr. Ackerman.? He is aware of all the above as well as the plan of care for this patient. [facility] Past Medical History Medical History (Updated 09/23/21 @ 16:24 by Delon Minor MD) COPD (chronic obstructive pulmonary disease) History of COVID-19 Hypertension Metabolic encephalopathy Obstructive sleep apnea Schizophrenia Thrombocytopenia Social History Social History Alcohol intake: unknown Patient Tobacco Use Status: Tobacco use Unknown Use of substances other than those prescribed or required for medical reasons: Unknown Advance Directives: No Advance Directives Information Provided: No Meds Allergies Allergy/AdvReac Type Severity Reaction Status Date / Time No Known Allergies Allergy Verified 09/23/21 07:03 Active Medications: Current Medications Acetazolamide (Acetazolamide Sodium 500 Mg Vial) 500 mg IVPUSH Q8H DOMINGUEZ Enoxaparin Sodium (Enoxaparin Sodium 40 Mg/0.4 Ml Syringe) 40 mg SUBCUT Q24H DOMINGUEZ Furosemide (Furosemide 40 Mg/4 Ml Vial) 40 mg IVPUSH DAILY STA; Protocol Stop: 09/23/21 23:01 Hydromorphone HCl (Hydromorphone Hcl 1 Mg/Ml Syringe) 1 mg IVPUSH Q1H PRN; Protocol PRN Reason: WOB Hydromorphone HCl (Hydromorphone Hcl 1 Mg/Ml Syringe) 0.5 mg IVPUSH Q1H PRN; Protocol PRN Reason: WOB Propofol (Diprivan) 1,000 mg in 100 mls @ 0 mls/hr IVCONT .Q0M DOMINGUEZ; Protocol Last Titration: 09/23/21 14:06 Dose: Infused Documented by: Midazolam HCl (Versed) 50 mg in 50 mls @ 2 mls/hr IVCONT .Q24H DOMINGUEZ Last Infusion: 09/23/21 19:00 Dose: 0 mg/hr, 0 mls/hr Documented by: Metoprolol Tartrate 5 mg/ (Sodium Chloride) 55 mls @ 220 mls/hr IV Q6H DOMINGUEZ Pantoprazole Sodium (Pantoprazole Sodium 40 Mg/10 Ml Vial) 40 mg IVPUSH DAILY ONE Stop: 09/23/21 23:01 Home Medications Medication Instructions Recorded Confirmed Last Taken Type amlodipine 10 mg tablet 1 tab PO DAILY 09/23/21 09/23/21 Unknown History benztropine 0.5 mg tablet 1 tab PO DAILY 09/23/21 09/23/21 Unknown History budesonide-formoterol HFA 160 INHALATION 09/23/21 Unknown History mcg-4.5 mcg/actuation aerosol inhaler (Symbicort) gabapentin 300 mg capsule 1 cap PO TID 09/23/21 09/23/21 Unknown History metoprolol succinate 50 mg 1 tab PO DAILY 09/23/21 09/23/21 Unknown History tablet,extended release 24 hr montelukast 10 mg tablet 1 tab PO DAILY 09/23/21 09/23/21 Unknown History pravastatin 20 mg tablet 1 tab PO DAILY 09/23/21 09/23/21 Unknown History risperidone 1 mg tablet 1 tab PO BID 09/23/21 09/23/21 Unknown History tiotropium bromide 18 mcg capsule 1 cap INHALATION DAILY 09/23/21 09/23/21 Unknown History with inhalation device (Spiriva with HandiHaler) Physical Exam Vital Signs: Vital Signs: Last Vital Signs Temp 100.1 F 09/23/21 19:21 Pulse 84 09/23/21 22:29 Resp 15 09/23/21 22:29 BP 144/82 H 09/23/21 22:29 Pulse Ox 95 09/23/21 22:29 BMI result Body Mass Index 43.9 Results Labs CBC and Chem 7: 09/23/21 07:25 09/23/21 23:26 Labs: Laboratory Results - last 24 hr 01/06/0609/23/21 09/23/21 07:25 07:25 07:25 MCV 95.3 MCH 28.6 MCHC 30.0 L RDW 14.2 Plt Count 124 L MPV 10.8 Immature Gran % (Auto) Cancelled Neut % (Auto) Cancelled Lymph % (Auto) Cancelled [place] % (Auto) Cancelled Eos % (Auto) Cancelled Baso % (Auto) Cancelled Lymph # (Auto) Cancelled [place] # (Auto) Cancelled Eos # (Auto) Cancelled Baso # (Auto) Cancelled Abs Immat Gran (auto) Cancelled Absolute Neuts (auto) Cancelled Absolute Nucleated RBC 0.060 H Nucleated RBC % (auto) 0.6 H Neutrophils % (Manual) 86 H Band Neutrophils % 3 Lymphocytes % (Manual) 5 L Monocytes % (Manual) 5 Eosinophils % (Manual) 1 Abs Neuts (Manual) 9.5 H Lymphocytes # (Manual) 0.5 L Monocytes # (Manual) 0.5 Eosinophils # (Manual) 0.1 Toxic Vacuolation PRESENT Platelet Estimate DECREASED Large Platelets PRESENT Plt Morphology Comment NOTED RBC Morphology NOTED Macrocytosis 1+ (5-14) Ovalocytes 1+ (5-14) Marcus Cells 1+ (0-2) PT 11.9 INR 1.0 O2 Saturation ABG pH at Pt Temp ABG pH (Temp Correct) ABG pCO2 at Pt Temp ABG pCO2 (Temp Corrct ABG pO2 at Pt Temp ABG pO2 (Temp Correct ABG HCO3 ABG Base Excess (Actual) Anion Gap 8 L Estim Creat Clear Calc 129.4 Estimated GFR > 60 Random Glucose 139 H Lactic Acid Calcium 8.9 Magnesium 2.0 Total Bilirubin 0.2 AST 21 ALT 18 Alkaline Phosphatase 86 Troponin I High Sens B-Natriuretic Peptide Total Protein 6.9 Albumin 3.8 Urine Color Urine Appearance Urine pH Ur Specific [place] Urine Protein Urine Glucose (UA) Urine Ketones Urine Blood Urine Nitrite Ur Leukocyte Esterase Urine RBC Urine WBC Ur Squamous Epith Cells Amorphous Sediment Urine Bacteria Hyaline Casts Urine Mucus Urine Opiates Screen Urine Fentanyl Screen Ur Barbiturates Screen Ur Phencyclidine Scrn Ur Amphetamines Screen U Benzodiazepines Scrn Urine Cocaine Screen U Marijuana (THC) Screen COVID-19 ([facility]) COVID-19 Clin Com 09/23/21 09/23/21 09/23/21 07:25 07:25 07:25 MCV MCH MCHC RDW Plt Count MPV Immature Gran % (Auto) Neut % (Auto) Lymph % (Auto) [place] % (Auto) Eos % (Auto) Baso % (Auto) Lymph # (Auto) [place] # (Auto) Eos # (Auto) Baso # (Auto) Abs Immat Gran (auto) Absolute Neuts (auto) Absolute Nucleated RBC Nucleated RBC % (auto) Neutrophils % (Manual) Band Neutrophils % Lymphocytes % (Manual) Monocytes % (Manual) Eosinophils % (Manual) Abs Neuts (Manual) Lymphocytes # (Manual) Monocytes # (Manual) Eosinophils # (Manual) Toxic Vacuolation Platelet Estimate Large Platelets Plt Morphology Comment RBC Morphology Macrocytosis Ovalocytes [place] Cells PT INR O2 Saturation ABG pH at Pt Temp ABG pH (Temp Correct) ABG pCO2 at Pt Temp ABG pCO2 (Temp Corrct ABG pO2 at Pt Temp ABG pO2 (Temp Correct ABG HCO3 ABG Base Excess (Actual) Anion Gap Estim Creat Clear Calc Estimated GFR Random Glucose Lactic Acid Calcium Magnesium Total Bilirubin AST ALT Alkaline Phosphatase Troponin I High Sens 10.4 B-Natriuretic Peptide 213 H Total Protein Albumin Urine Color Urine Appearance Urine pH Ur Specific [place] Urine Protein Urine Glucose (UA) Urine Ketones Urine Blood Urine Nitrite Ur Leukocyte Esterase Urine RBC Urine WBC Ur Squamous Epith Cells Amorphous Sediment Urine Bacteria Hyaline Casts Urine Mucus Urine Opiates Screen Urine Fentanyl Screen Ur Barbiturates Screen Ur Phencyclidine Scrn Ur Amphetamines Screen U Benzodiazepines Scrn Urine Cocaine Screen U Marijuana (THC) Screen COVID-19 ([facility]) Positive A COVID-19 Clin Com See Note 09/23/21 09/23/21 09/23/21 07:31 07:31 10:18 MCV MCH MCHC RDW Plt Count MPV Immature Gran % (Auto) Neut % (Auto) Lymph % (Auto) [place] % (Auto) Eos % (Auto) Baso % (Auto) Lymph # (Auto) [place] # (Auto) Eos # (Auto) Baso # (Auto) Abs Immat Gran (auto) Absolute Neuts (auto) Absolute Nucleated RBC Nucleated RBC % (auto) Neutrophils % (Manual) Band Neutrophils % Lymphocytes % (Manual) Monocytes % (Manual) Eosinophils % (Manual) Abs Neuts (Manual) Lymphocytes # (Manual) Monocytes # (Manual) Eosinophils # (Manual) Toxic Vacuolation Platelet Estimate Large Platelets Plt Morphology Comment RBC Morphology Macrocytosis Ovalocytes [place] Cells PT INR O2 Saturation 91.0 ABG pH at Pt Temp 7.48 H ABG pH (Temp Correct) 7.48 H ABG pCO2 at Pt Temp 38 ABG pCO2 (Temp Corrct 38 ABG pO2 at Pt Temp 59 L ABG pO2 (Temp Correct 60 L ABG HCO3 29 H ABG Base Excess (Actual) 5.6 Anion Gap Estim Creat Clear Calc Estimated GFR Random Glucose Lactic Acid Calcium Magnesium Total Bilirubin AST ALT Alkaline Phosphatase Troponin I High Sens B-Natriuretic Peptide Total Protein Albumin Urine Color YELLOW Urine Appearance HAZY Urine pH 5.5 Ur Specific [place] >= 1.030 H Urine Protein 2+ H Urine Glucose (UA) NEG Urine Ketones NEG Urine Blood 3+ H Urine Nitrite NEG Ur Leukocyte Esterase NEG Urine RBC 5-9 H Urine WBC 0 Ur Squamous Epith Cells NONE Amorphous Sediment 1+ Urine Bacteria NONE Hyaline Casts 0-2 Urine Mucus 1+ Urine Opiates Screen Not Detected Urine Fentanyl Screen POSITIVE H Ur Barbiturates Screen Not Detected Ur Phencyclidine Scrn Not Detected Ur Amphetamines Screen Not Detected U Benzodiazepines Scrn Not Detected Urine Cocaine Screen Not Detected U Marijuana (THC) Screen Not Detected COVID-19 ([facility]) COVID-19 Clin Com 09/23/21 09/23/21 09/23/21 10:47 10:47 14:33 MCV MCH MCHC RDW Plt Count MPV Immature Gran % (Auto) Neut % (Auto) Lymph % (Auto) [place] % (Auto) Eos % (Auto) Baso % (Auto) Lymph # (Auto) [place] # (Auto) Eos # (Auto) Baso # (Auto) Abs Immat Gran (auto) Absolute Neuts (auto) Absolute Nucleated RBC Nucleated RBC % (auto) Neutrophils % (Manual) Band Neutrophils % Lymphocytes % (Manual) Monocytes % (Manual) Eosinophils % (Manual) Abs Neuts (Manual) Lymphocytes # (Manual) Monocytes # (Manual) Eosinophils # (Manual) Toxic Vacuolation Platelet Estimate Large Platelets Plt Morphology Comment RBC Morphology Macrocytosis Ovalocytes [place] Cells PT INR O2 Saturation 81.0 ABG pH at Pt Temp 7.34 L ABG pH (Temp Correct) 7.33 L ABG pCO2 at Pt Temp 69 H* ABG pCO2 (Temp Corrct 69 H* ABG pO2 at Pt Temp 55 L ABG pO2 (Temp Correct 55 L ABG HCO3 37 H ABG Base Excess (Actual) 8.5 Anion Gap 13 Estim Creat Clear Calc 139.9 Estimated GFR > 60 Random Glucose 121 H Lactic Acid 2.5 H* Calcium 9.7 D Magnesium Total Bilirubin AST ALT Alkaline Phosphatase Troponin I High Sens B-Natriuretic Peptide Total Protein Albumin Urine Color Urine Appearance Urine pH Ur Specific [place] Urine Protein Urine Glucose (UA) Urine Ketones Urine Blood Urine Nitrite Ur Leukocyte Esterase Urine RBC Urine WBC Ur Squamous Epith Cells Amorphous Sediment Urine Bacteria Hyaline Casts Urine Mucus Urine Opiates Screen Urine Fentanyl Screen Ur Barbiturates Screen Ur Phencyclidine Scrn Ur Amphetamines Screen U Benzodiazepines Scrn Urine Cocaine Screen U Marijuana (THC) Screen COVID-19 ([facility]) COVID-19 Clin Com 09/23/21 09/23/21 18:08 21:21 MCV MCH MCHC RDW Plt Count MPV Immature Gran % (Auto) Neut % (Auto) Lymph % (Auto) [place] % (Auto) Eos % (Auto) Baso % (Auto) Lymph # (Auto) [place] # (Auto) Eos # (Auto) Baso # (Auto) Abs Immat Gran (auto) Absolute Neuts (auto) Absolute Nucleated RBC Nucleated RBC % (auto) Neutrophils % (Manual) Band Neutrophils % Lymphocytes % (Manual) Monocytes % (Manual) Eosinophils % (Manual) Abs Neuts (Manual) Lymphocytes # (Manual) Monocytes # (Manual) Eosinophils # (Manual) Toxic Vacuolation Platelet Estimate Large Platelets Plt Morphology Comment RBC Morphology Macrocytosis Ovalocytes Marcus Cells PT INR O2 Saturation 80.0 90.0 ABG pH at Pt Temp 7.36 7.21 L ABG pH (Temp Correct) 7.34 L 7.20 L* ABG pCO2 at Pt Temp 60 H* 84 H* ABG pCO2 (Temp Corrct 63 H* 87 H* ABG pO2 at Pt Temp 54 L 75 L ABG pO2 (Temp Correct 58 L 79 L ABG HCO3 34 H 34 H ABG Base Excess (Actual) 6.7 3.2 Anion Gap Estim Creat Clear Calc Estimated GFR Random Glucose Lactic Acid Calcium Magnesium Total Bilirubin AST ALT Alkaline Phosphatase Troponin I High Sens B-Natriuretic Peptide Total Protein Albumin Urine Color Urine Appearance Urine pH Ur Specific [place] Urine Protein Urine Glucose (UA) Urine Ketones Urine Blood Urine Nitrite Ur Leukocyte Esterase Urine RBC Urine WBC Ur Squamous Epith Cells Amorphous Sediment Urine Bacteria Hyaline Casts Urine Mucus Urine Opiates Screen Urine Fentanyl Screen Ur Barbiturates Screen Ur Phencyclidine Scrn Ur Amphetamines Screen U Benzodiazepines Scrn Urine Cocaine Screen U Marijuana (THC) Screen COVID-19 ([facility]) COVID-19 Clin Com Imaging Radiologist's Impressions: Impressions Head CT 09/23/21 08:02 IMPRESSION: HEAD: No acute intracranial hemorrhage or mass effect. CERVICAL SPINE: No acute fracture or subluxation. Straightening of the normal cervical lordosis, which may be positional or related to muscular spasm. Multilevel degenerative disc disease and mild bilateral facet arthropathy with mild right neural foraminal stenosis at C5-C6. Small, layering right-sided pleural effusion seen within the right lung apex. Cervical Spine CT 09/23/21 08:03 IMPRESSION: HEAD: No acute intracranial hemorrhage or mass effect. CERVICAL SPINE: No acute fracture or subluxation. Straightening of the normal cervical lordosis, which may be positional or related to muscular spasm. Multilevel degenerative disc disease and mild bilateral facet arthropathy with mild right neural foraminal stenosis at C5-C6. Small, layering right-sided pleural effusion seen within the right lung apex. Chest X-Ray 09/23/21 08:15 IMPRESSION: 1. Endotracheal tube with its tip approximately 3.7 cm proximal to the irma. Enterogastric tube in appropriate position. 2. Patchy bibasilar atelectasis versus early infiltrates. 3. Trace right-sided pleural effusion. Chest CTA 09/23/21 12:59 IMPRESSION: No evidence of PE. No evidence aortic dissection or aneurysm. Bilateral lower lobe consolidation with small bilateral pleural effusions. VTE: negative
[2021-09-23 23:36] LABS: Venous Blood Gas Refer to POC result
[2021-09-23 23:36] LABS: VBG Base Excess 3.1 mmol/L; VBG HCO3 32 mmol/L (22-26); VBG pCO2 68 mmHg; VBG pH 7.28 (7.32-7.43); VBG pO2 83 mmHg
[2021-09-23] MEDS: Furosemide 40 MG/4 ML VIAL IVPUSH (23:41)
[2021-09-23] MEDS: Metoprolol Tartrate 5 MG in 0.9 % Sodium Chloride 50 ML 220 MG IV (23:44)
[2021-09-23 23:47] LABS: ~Lactic Acid-LAB USE ONLY 0.7 mmol/L (0.5-2.0)
--- NOTE | 2021-09-23 23:54 | PC.NURSE ---
nurse to nurse report given to Raudel RN in ICU
[2021-09-23 23:55] LABS: Alanine Aminotransferase 18 U/L (0-40); Albumin Level 3.9 g/dL (3.5-5.0); Alkaline Phosphatase 90 U/L (39-117); Anion Gap 9 (12-20); Aspartate Amino Transferase 20 U/L (5-37); Bilirubin Total 0.3 mg/dL (0.0-1.0); Blood Urea Nitrogen 17 mg/dL (9-16); Calcium 9.5 mg/dL (8.4-10.2); Carbon Dioxide 34 mmol/L (22-29); Chloride 97 mmol/L (96-108); Creatinine Clr Calc Pharmacy 124.7; Estimated Glomerular Filt Rate > 60; Glucose Random 121 mg/dL (60-115); Potassium 4.8 mmol/L (3.3-5.1); Sodium 135 mmol/L (135-145); Total Protein 7.2 g/dL (6.5-8.0)
[2021-09-24] VITALS (29 sets, daily range): BP systolic 126–161; BP diastolic 54–92; PULSE 71–88; RESP 11–21; TEMP 37–37.3; O2SAT 90–97; BMI 43.9
[2021-09-24 00:01] LABS: Troponin-I High Sensitivity 19.8 ng/L (<3.5-35.0)
--- NOTE | 2021-09-24 02:15 | W.PM.CCHP ---
Procedures Date of Service Date of Service: 09/24/21 Central Line Placement Right IJ: Consent for Procedure: Elective - informed consent obtained (from pt) Time out performed: Yes Sterile Technique Used: Yes Patient placed on monitor/pulse ox: Yes prep: mask, gown and gloves Central line prep: Chlorhexidine scrub Local anesthesia used: lidocaine 1% Amount of anesthesia used (ml): 5 Ultrasound used for placement: Yes Central line lumen inserted: triple Post procedure: sutured in place, good blood return and all ports aspirated, flushed, capped (all the ports aspirated well, when flushed the blue port showed a leak at the base of the catheter neck and saline leaked to the side of the patient's body; this was recheck and it happened again only with the same port, therefore the cath was removed as it appears to be a defective one) Post procedure x-ray: other (as above cath removed despite its good placement and good blood return, I tried to refeed the guide wire over it to change it but it would not advance, so the cath was removed. ) Patient tolerated procedure: well Complications: other (some 20 ccs of bleeding was noted, patient monitored, no hypoxia, no hypotension, no tachypnea so I am not concern for Ptx no xr obtained. )
[2021-09-24] MEDS: Enoxaparin Sodium 40 MG/0.4 ML SYRINGE SUBCUT ×2 (03:32→23:10)
--- NOTE | 2021-09-24 05:02 | PC.NURSE ---
ADMIT TO 260-1 APPROX 12:30AM...CONTINUED ON BIPAP 18/10 FIO2 45%...RR 15-20...Ve 8-11 L/M...SAO2 92-94%...NAPPING...AWAKE TO VERBAL STIMULI...VAGUE BUT FOLLOWS COMMANDS..TOBAR..ASSISTS REPOSITIONING IN BED...NSR..NO ECTOPY...SOUZA DRAINING LARGE AMOUNTS YELLOW URINE...LEFT AC IV SITELEAKING...LEFT HAND IV SITE PAINFUL WITH ATTEMPTED FLUSHE..MULTIPLE ATTEMPTS AT PERIPHERAL IV RESTART BY SEVERAL RN'S W/O SUCCESS...ICU GISELLE ATTEMPTED ULTRASOUND GUIDED PERIPHERAL IV ACCESS W/O SUCCESS...LEFT IJ TLC INSERTION INSERTION ATTEMPTED BY GISELLE W/O SUCCESS...SEE PROGRESS NOTE...IV MEDS HELD BY GISELLE...#20 ANGIO/PRN ADAPTOR EVENTUALLY INSERTED RIGHT ARM...
[2021-09-24 06:10] LABS: Hemoglobin 14.5 g/dl (14.0-18.0); Lymphocytes Percent Auto 9.7 % (20-40); Mean Corpuscular Hemoglobin 28.7 pg (27.0-33.0); NRBC Pct Auto 0.3 /100WBC (0.0-0.2); PLT CLUMP 1; SCAN SMEAR FLAG 1
[2021-09-24 06:12] LABS: Basophils Percent Auto 0.1 % (0-2); Hematocrit 47.5 % (42.0-52.0); Imm Gran Abs Auto 0.07 X10*3/uL (0.00-0.03); Imm Gran Pct Auto 0.6 % (0.0-0.4); Lymphocytes Absolute Auto 1.1 X10*3/uL (1.2-4.9); MANUAL DIFF FLAG NO; Mean Corpuscular HGB Conc 30.5 g/dl (31.0-36.0); Mean Corpuscular Volume 93.9 fL (80.0-98.0); Mean Platelet Volume 11.6 fL (9.4-12.4); Monocytes Absolute Auto 1.3 X10*3/uL (0.1-1.2); Monocytes Percent Auto 11.3 % (2-11); Neutrophils Absolute Auto 9.2 x10*3/uL (2.0-8.3); Neutrophils Percent Auto 78.3 % (45-73); Red Blood Count 5.06 X10*6/uL (4.60-5.80); Red Cell Distribution Width 14.5 % (11.0-16.0); White Blood Count 11.7 X10*3/uL (4.8-10.8)
[2021-09-24 06:39] LABS: Alanine Aminotransferase 16 U/L (0-40); Albumin Level 3.9 g/dL (3.5-5.0); Alkaline Phosphatase 86 U/L (39-117); Anion Gap 12 (12-20); Aspartate Amino Transferase 21 U/L (5-37); Bilirubin Total 0.5 mg/dL (0.0-1.0); Blood Urea Nitrogen 17 mg/dL (9-16); Calcium 9.2 mg/dL (8.4-10.2); Carbon Dioxide 29 mmol/L (22-29); Chloride 99 mmol/L (96-108); Creatinine Clr Calc Pharmacy 132.7; Estimated Glomerular Filt Rate > 60; Glucose Random 88 mg/dL (60-115); Potassium 4.7 mmol/L (3.3-5.1); Sodium 135 mmol/L (135-145); Total Protein 7.2 g/dL (6.5-8.0)
[2021-09-24 06:40] LABS: Platelet Count 122 X10*3/uL (160-400)
[2021-09-24 06:58] LABS: VBG Base Excess 6.9 mmol/L; VBG HCO3 37 mmol/L (22-26); VBG pCO2 77 mmHg; VBG pH 7.28 (7.32-7.43); VBG pO2 79 mmHg
[2021-09-24 06:59] LABS: Venous Blood Gas Refer to POC result
[2021-09-24] MEDS: acetaZOLAMIDE sodium 500 MG VIAL IVPUSH (09:02)
[2021-09-24] MEDS: Metoprolol Tartrate 5 MG in 0.9 % Sodium Chloride 50 ML 220 MG IV (09:59)
--- NOTE | 2021-09-24 10:12 | MHC.CM.PN ---
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 Original Note: PATIENT IS IN FROM [facility] CALL TO CONTACT NORMA @ [phone] MESSAGE LEFT FOR CALL BACK TO THIS BOX TR[employer] W[employer]ER. OF THIS NOTE, IT IS UNCLEAR IF NORMA IS HCP AGENT. IF SO, COPY WILL BE REQUESTED, NO DOCUMENTS FROM FACILITY WERE FOUND IN PATIENT CHART. REFERRAL PLACED FOR PATIENT'S RETURN. IMM WILL BE ADDRESSED AT TIME OF CONTACT WITH NORMA.
[2021-09-24] MEDS: Albuterol/Iprat 2.5/0.5MG 3 ML AMPUL.NEB INHALE ×2 (12:28→20:10)
[2021-09-24] MEDS: Enalaprilat Dihydrate 1.25 MG/ML VIAL 0.625 MG IVPUSH ×3 (12:40→23:11)
[2021-09-24] MEDS: levoFLOXacin/D5W 500 MG/100 ML PIGGYBACK 100 MG IV (12:40)
[2021-09-24] MEDS: methylPREDNISolone Sod Succ 40 MG/ML VIAL IVPUSH ×3 (12:40→23:10)
--- NOTE | 2021-09-24 16:11 | MHC.CM.PN ---
HCP RECEIVED FROM [facility] HCP IS ANA/ SISTER [phone]) SAYS THAT PATIENT AT [facility] LIVES ALONE WITH HELP IN THE HOME FOR CLEANING AND COOKING. ANA ALSO TAKES CARE OF PATIENT'S BILL PAYING. HER PLAN IS FOR PATIENT TO RETURN TO [facility], UNLESS HE DECIDES HE WANTS TO HOME HCP UPLOADED INTO [email or web address] AND PLACED IN CHART. IMM 09/24 DISCUSSED AND PLACED IN CHART
[2021-09-24] MEDS: Midazolam HCl/PF 2 MG/2 ML VIAL 3 MG IM (16:15)
--- NOTE | 2021-09-24 16:42 | P.PCNCC_ITS ---
Procedures Date of Service Date of Service: 09/24/21 Central Line Placement Right IJ: Central Line Comments: after explaining to the patient who had no IV access and sterile preparation and draping utilizing ultrasound guidance I gained easy access to the right internal jugular vein passing retrograde with Seldinger technique J tipped guidewire to the right atrium over which a triple- lumen central venous pressure catheter 20 cm length was then placed sterilely dressed sewn into place chest x-ray is pending without complication Consent for Procedure: Elective - informed consent obtained Time out performed: Yes Sterile Technique Used: Yes Patient placed on monitor/pulse ox: Yes prep: mask, gown and gloves Central line prep: Chlorhexidine scrub Local anesthesia used: lidocaine 1% Ultrasound used for placement: Yes Central line lumen inserted: triple Post procedure: sutured in place, good blood return, all ports aspirated, flushed, capped and sterile dressing applied Post procedure x-ray: tip of catheter in good position and no pneumothorax seen Patient tolerated procedure: well and no complications Complications: none
[2021-09-24 18:05] LABS: VBG Base Excess 4.9 mmol/L; VBG HCO3 34 mmol/L (22-26); VBG pCO2 68 mmHg; VBG pO2 76 mmHg
[2021-09-24 18:05] LABS: Venous Blood Gas Refer to POC result
[2021-09-24 20:52] LABS: VBG Base Excess 2.4 mmol/L; VBG HCO3 31 mmol/L (22-26); VBG pCO2 62 mmHg; VBG pH 7.29 (7.32-7.43); VBG pO2 67 mmHg
[2021-09-24 21:28] LABS: Venous Blood Gas Refer to POC result
[2021-09-25] VITALS (29 sets, daily range): BP systolic 118–158; BP diastolic 50–98; PULSE 75–92; RESP 11–25; TEMP 36.9–37.3; O2SAT 88–98; BMI 41.3
[2021-09-25] MEDS: methylPREDNISolone Sod Succ 40 MG/ML VIAL IVPUSH ×4 (04:15→23:32)
[2021-09-25] MEDS: Enalaprilat Dihydrate 1.25 MG/ML VIAL 0.625 MG IVPUSH ×4 (04:15→23:32)
[2021-09-25 05:51] LABS: VBG Base Excess 2.7 mmol/L; VBG HCO3 31 mmol/L (22-26); VBG pCO2 63 mmHg; VBG pH 7.29 (7.32-7.43); VBG pO2 61 mmHg
[2021-09-25 05:53] LABS: Venous Blood Gas Refer to POC result
[2021-09-25 05:56] LABS: HIV AB/AG Nonreactive (Nonreactive)
[2021-09-25 05:57] LABS: Hemoglobin 14.5 g/dl (14.0-18.0); Lymphocytes Percent Auto 8.7 % (20-40); PLT CLUMP 1; Red Cell Distribution Width 14.3 % (11.0-16.0); SCAN SMEAR FLAG 1
[2021-09-25 05:59] LABS: Basophils Percent Auto 0.1 % (0-2); Hematocrit 47.9 % (42.0-52.0); Imm Gran Abs Auto 0.02 X10*3/uL (0.00-0.03); Imm Gran Pct Auto 0.3 % (0.0-0.4); Lymphocytes Absolute Auto 0.6 X10*3/uL (1.2-4.9); Mean Corpuscular HGB Conc 30.3 g/dl (31.0-36.0); Mean Corpuscular Hemoglobin 28.6 pg (27.0-33.0); Mean Corpuscular Volume 94.5 fL (80.0-98.0); Mean Platelet Volume 12.1 fL (9.4-12.4); Monocytes Absolute Auto 0.2 X10*3/uL (0.1-1.2); Monocytes Percent Auto 3.1 % (2-11); Neutrophils Absolute Auto 6.2 x10*3/uL (2.0-8.3); Neutrophils Percent Auto 87.8 % (45-73); Red Blood Count 5.07 X10*6/uL (4.60-5.80)
[2021-09-25 06:01] LABS: MANUAL DIFF FLAG NO; Platelet Count 125 X10*3/uL (160-400); White Blood Count 7.1 X10*3/uL (4.8-10.8)
[2021-09-25 06:15] LABS: Alanine Aminotransferase 12 U/L (0-40); Albumin Level 3.6 g/dL (3.5-5.0); Alkaline Phosphatase 82 U/L (39-117); Anion Gap 9 (12-20); Aspartate Amino Transferase 13 U/L (5-37); Bilirubin Total 0.5 mg/dL (0.0-1.0); Blood Urea Nitrogen 24 mg/dL (9-16); Calcium 9.2 mg/dL (8.4-10.2); Carbon Dioxide 32 mmol/L (22-29); Chloride 99 mmol/L (96-108); Creatinine Clr Calc Pharmacy 129.4; Estimated Glomerular Filt Rate > 60; Glucose Random 115 mg/dL (60-115); Potassium 4.8 mmol/L (3.3-5.1); Sodium 135 mmol/L (135-145); Total Protein 6.8 g/dL (6.5-8.0)
[2021-09-25] MEDS: Albuterol/Iprat 2.5/0.5MG 3 ML AMPUL.NEB INHALE ×3 (07:50→20:25)
[2021-09-25 08:00] LABS: HBc Num1 0.06 S/CO (0.00-0.79); Hepatitis B Core Antibody Nonreactive (Nonreactive); Hepatitis B Surface Antigen Negative (Negative)
[2021-09-25 08:09] LABS: HBsAGNum1 0.18 S/CO (0.00-0.99); ~HepC Num1 0.15 S/CO (0.00-0.79)
[2021-09-25 08:15] LABS: HBS Num1 0.22 mIU/mL (0-7.99); ~Hepatitis B Surface Antibody NONREACTIVE (Nonreactive)
[2021-09-25 08:27] LABS: Hepatitis C Ab Exposure Source NonReactive (Nonreactive)
[2021-09-25 08:36] LABS: HIV Num 1 0.09 S/CO (0.00-0.99)
[2021-09-25] MEDS: levoFLOXacin/D5W 500 MG/100 ML PIGGYBACK 100 MG IV (11:08)
--- NOTE | 2021-09-25 14:04 | MHC.CM.PN ---
Pt continues in ICU: now on nasal cannula and showing signs of improvement. Clinical updates sent to [facility] where pt had been receiving STR. D/C plan is for a return when medically stable.
--- NOTE | 2021-09-25 17:55 | PM.CCPN ---
Subjective Subjective Date of Service: 09/25/21 Interval History: 66-year-old morbidly obese man who is a heavy smoker with severe COPD and untreated obstructive sleep apnea and was noted to have had a syncopal episode and face planted on the floor brought in with acute on chronic hypoxic and hypercapnic respiratory failure was briefly intubated and sedated for due to encephalopathy and and the subsequently extubated placed on BiPAP and very gradually acute hypercapnia resolving and he is very close to complete compensation with pCO2 comfortably at 53-56 and my bedside echo revealing mild left ventricular hypertrophy but normal LV dimensions and reserve but there is some dilatation of the right ventricle probably reflecting chronic pulmonary hypertension and just from the support mechanism he has diuresed considerably with a minimal pre renal azotemia but he is eating he is tolerating the nasal cannula for long periods and only is now requiring nocturnal BiPAP he has been and empirically on Levaquin but probably simply had by a basilar atelectasis and also he has been on steroids which can begin to wean as well as inhaled bronchodilator treatment and clearly improving Critical Care Time (minutes): 45 Physical Exam Vital Signs: Vital Signs: Last Vital Signs Temp 99.1 F 09/25/21 17:00 Pulse 79 09/25/21 17:00 Resp 15 09/25/21 17:00 BP 151/77 H 09/25/21 17:00 Pulse Ox 95 09/25/21 17:00 BMI result Body Mass Index 41.3 awaken cooperative despite schizophrenia diagnosis and nonfocal neurologically CVP measurement was approximately 6 with normal bedside echo lungs without adventitious sounds abdomen soft and no organomegaly skin intact and no peripheral edema Objective Data Labs CBC & Chem 7: 09/26/21 05:20 09/26/21 05:20 Labs: Laboratory Results - last 24 hr 09/24/21 09/24/21 09/24/21 17:58 20:46 22:29 WBC RBC Hgb Hct MCV MCH MCHC RDW Plt Count MPV Immature Gran % (Auto) Neut % (Auto) Lymph % (Auto) [place] % (Auto) Eos % (Auto) Baso % (Auto) Lymph # (Auto) [place] # (Auto) Eos # (Auto) Baso # (Auto) Abs Immat Gran (auto) Absolute Neuts (auto) Absolute Nucleated RBC Nucleated RBC % (auto) VBG pH 7.30 L 7.29 L VBG pCO2 68 62 VBG pO2 76 67 VBG HCO3 34 H 31 H VBG O2 Saturation 94.0 89.0 VBG Base Excess 4.9 2.4 Sodium Potassium Chloride Carbon Dioxide Anion Gap BUN Creatinine Estim Creat Clear Calc Estimated GFR Random Glucose Calcium Total Bilirubin AST ALT Alkaline Phosphatase Total Protein Albumin Hepatitis A IgM Ab Cancelled Hep Bs Antigen Negative Hep Bs Antibody NONREACTIVE Hep B Core Total Ab Nonreactive Hepatitis C Antibody NonReactive Hepatitis C Ab (EIA) Cancelled HIV 1&2 Ab/P24 Ag 4thGn Nonreactive 09/25/21 09/25/21 09/25/21 05:45 05:47 05:47 WBC 7.1 RBC 5.07 Hgb 14.5 Hct 47.9 MCV 94.5 MCH 28.6 MCHC 30.3 L RDW 14.3 Plt Count 125 L MPV 12.1 Immature Gran % (Auto) 0.3 Neut % (Auto) 87.8 H Lymph % (Auto) 8.7 L [place]kinson % (Auto) 3.1 Eos % (Auto) 0.0 Baso % (Auto) 0.1 Lymph # (Auto) 0.6 L [place]kinson # (Auto) 0.2 Eos # (Auto) 0.0 Baso # (Auto) 0.0 Abs Immat Gran (auto) 0.02 Absolute Neuts (auto) 6.2 Absolute Nucleated RBC 0.000 Nucleated RBC % (auto) 0.0 VBG pH 7.29 L VBG pCO2 63 VBG pO2 61 VBG HCO3 31 H VBG O2 Saturation 85.0 VBG Base Excess 2.7 Sodium 135 Potassium 4.8 Chloride 99 Carbon Dioxide 32 H Anion Gap 9 L BUN 24 H Creatinine 0.80 Estim Creat Clear Calc 129.4 Estimated GFR > 60 Random Glucose 115 Calcium 9.2 Total Bilirubin 0.5 AST 13 ALT 12 Alkaline Phosphatase 82 Total Protein 6.8 Albumin 3.6 Hepatitis A IgM Ab Hep Bs Antigen Hep Bs Antibody Hep B Core Total Ab Hepatitis C Antibody Hepatitis C Ab (EIA) HIV 1&2 Ab/P24 Ag 4thGn Microbiology Microbiology Results: Microbiology 09/23/21 10:47 Blood - Venous Blood Culture - Preliminary No growth after 48 hours. 09/23/21 10:09 Blood - Venous Blood Culture - Preliminary No growth after 48 hours. Progress Note: A&P Assessment and plan (1) Acute hypoxemic respiratory failure due to COVID-19: Status: Acute (2) Status post fall: Status: Acute (3) Morbid obesity: Status: Acute (4) Obstructive sleep apnea: Status: Acute (5) COPD with exacerbation: Status: Acute (6) Cor, pulmonale, acute: Status: Acute Assessment and Plan: 66-year-old morbidly obese smoker with both COPD and untreated obstructive sleep apnea with acute on chronic hypercapnic and hypoxic respiratory failure with syncope is a manifestation and encephalopathy briefly intubated now weaned off of daytime BiPAP and just using it nocturnally with pCO2 now in the 50s close to his normal chronic state and and plan is to send him to the floor Quality Stroke Does the patient have a stroke diagnosis?: No VTE Prior VTE?: No VTE Risk Level:: Medical - moderate - high VTE Device Contraindication: N/A - Device Ordered VTE Drug Contraindication: N/A - Med Ordered
[2021-09-25 18:19] LABS: Venous Blood Gas Refer to POC result
[2021-09-25 18:20] LABS: VBG Base Excess 0.8 mmol/L; VBG HCO3 26 mmol/L (22-26); VBG pCO2 45 mmHg; VBG pH 7.37 (7.32-7.43); VBG pO2 110 mmHg
[2021-09-25 22:04] LABS: VBG Base Excess 1.1 mmol/L; VBG HCO3 28 mmol/L (22-26); VBG pCO2 53 mmHg; VBG pH 7.32 (7.32-7.43); VBG pO2 54 mmHg
[2021-09-25 22:09] LABS: Venous Blood Gas Refer to POC result
[2021-09-26] VITALS (21 sets, daily range): BP systolic 145–162; BP diastolic 70–109; PULSE 72–92; RESP 5–20; TEMP 36.8–37.5; O2SAT 90–96; BMI 41.3
[2021-09-26] MEDS: Enoxaparin Sodium 40 MG/0.4 ML SYRINGE SUBCUT ×2 (01:04→22:36)
--- NOTE | 2021-09-26 04:29 | PC.NURSE ---
initial contact. Pt was alert. Pt conversed appropriately. Pt was only oriented to self, so he was reoriented to time date, place, situation. Pt was able to demonstrate improved orientation upon later assessments. Pt was on jackson nasal cannula at 6 liters satting well. At approximately 2200 he was transitioned to Bipap for LYNN during sleep. Pt is tolerating at this time. Bipap settings are 18 IPAP, 10 EPAP, 40% rate of 12. No desaturations and tolerates appropriately. LS are dim throughout. Pt had an initial cardiac rhythm of 1st degree HB, but has since come out of it and is currently NS on the monitor. He does have +2 pitting edema on left hand. GI- pt abd is firm, large, and distended. Pt states he feels distended but denies pain. Pt states last BM was yesterday. BS present. - pt has campo in place with good output 30ml-50ml/hr. Pt has skin trear/abraision on left elbow bandaged with foam gauze clean dry intact. Pt has bilateral lower abd quadrant bruising, moderate in size, roughly size of pts hand. When asked pt states he did hit his belly on something the other day. Musculoskeletal, pt is able to shift positions in bed at will, moves all ext.
[2021-09-26] MEDS: methylPREDNISolone Sod Succ 40 MG/ML VIAL IVPUSH (05:17)
[2021-09-26] MEDS: Enalaprilat Dihydrate 1.25 MG/ML VIAL 0.625 MG IVPUSH (05:17)
[2021-09-26 05:28] LABS: VBG Base Excess 2.6 mmol/L; VBG HCO3 30 mmol/L (22-26); VBG pCO2 56 mmHg; VBG pH 7.33 (7.32-7.43); VBG pO2 53 mmHg
[2021-09-26 05:49] LABS: MANUAL DIFF FLAG NO
[2021-09-26 06:01] LABS: Eosinophils Percent Auto 0.1 % (0-4); Hematocrit 50.6 % (42.0-52.0); Hemoglobin 15.3 g/dl (14.0-18.0); Imm Gran Abs Auto 0.04 X10*3/uL (0.00-0.03); Imm Gran Pct Auto 0.4 % (0.0-0.4); Lymphocytes Absolute Auto 0.8 X10*3/uL (1.2-4.9); Lymphocytes Percent Auto 6.9 % (20-40); Mean Corpuscular HGB Conc 30.2 g/dl (31.0-36.0); Mean Corpuscular Volume 92.7 fL (80.0-98.0); Mean Platelet Volume 12.4 fL (9.4-12.4); Monocytes Absolute Auto 0.6 X10*3/uL (0.1-1.2); Monocytes Percent Auto 5.1 % (2-11); Neutrophils Percent Auto 87.5 % (45-73); Platelet Count 153 X10*3/uL (160-400); Red Blood Count 5.46 X10*6/uL (4.60-5.80); Red Cell Distribution Width 14.3 % (11.0-16.0); White Blood Count 11.4 X10*3/uL (4.8-10.8)
[2021-09-26 06:10] LABS: Alanine Aminotransferase 12 U/L (0-40); Albumin Level 3.9 g/dL (3.5-5.0); Alkaline Phosphatase 83 U/L (39-117); Anion Gap 11 (12-20); Aspartate Amino Transferase 14 U/L (5-37); Bilirubin Total 0.5 mg/dL (0.0-1.0); Blood Urea Nitrogen 29 mg/dL (9-16); Calcium 9.8 mg/dL (8.4-10.2); Carbon Dioxide 29 mmol/L (22-29); Chloride 102 mmol/L (96-108); Estimated Glomerular Filt Rate > 60; Glucose Random 124 mg/dL (60-115); Potassium 4.8 mmol/L (3.3-5.1); Sodium 137 mmol/L (135-145); Total Protein 7.2 g/dL (6.5-8.0)
[2021-09-26 06:42] LABS: Venous Blood Gas Refer to POC result
--- NOTE | 2021-09-26 07:20 | PM.CCPN ---
Subjective Subjective Date of Service: 09/26/21 Interval History: 66-year-old morbidly obese schizophrenic man who lives in a nursing facility syncopal episode and encephalopathy due to acute on chronic hypercapnic and hypoxic respiratory failure with COPD exacerbation on bronchodilator therapy and steroids which now need to be weaned and empiric Levaquin though he had only bibasilar atelectasis briefly intubated and has been extubated for several days now weaned off of the daytime BiPAP only on it nocturnally tolerating nasal cannula eating and resolved pCO2 now in the 50s and is ready for transfer to the floor possible physical therapy and maybe even psychiatric consult to determine any need for antipsychotic medication Critical Care Time (minutes): 35 Physical Exam Vital Signs: Vital Signs: Last Vital Signs Temp 98.2 F 09/26/21 07:00 Pulse 77 09/26/21 07:00 Resp 13 09/26/21 07:00 BP 149/104 H 09/26/21 07:00 Pulse Ox 95 09/26/21 07:00 Oxygen Flow Rate 23.7 09/26/21 00:00 BMI result Body Mass Index 41.3 he is awake alert good cognitive function nonfocal bedside echo with normal LV function but mild right ventricular dilatation and had had IVC dilatation but has since diuresed 6-7 L just from respiratory support lungs without adventitious sounds abdomen benign resolved peripheral edema Objective Data Labs CBC & Chem 7: 09/26/21 05:20 09/26/21 05:20 Labs: Laboratory Results - last 24 hr 09/24/21 09/25/21 09/25/21 22:29 18:14 21:58 WBC RBC Hgb Hct MCV MCH MCHC RDW Plt Count MPV Immature Gran % (Auto) Neut % (Auto) Lymph % (Auto) [place] % (Auto) Eos % (Auto) Baso % (Auto) Lymph # (Auto) [place] # (Auto) Eos # (Auto) Baso # (Auto) Abs Immat Gran (auto) Absolute Neuts (auto) Absolute Nucleated RBC Nucleated RBC % (auto) VBG pH 7.37 7.32 VBG pCO2 45 53 VBG pO2 110 54 VBG HCO3 26 28 H VBG O2 Saturation 99.0 83.0 VBG Base Excess 0.8 1.1 Sodium Potassium Chloride Carbon Dioxide Anion Gap BUN Creatinine Estim Creat Clear Calc Estimated GFR Random Glucose Calcium Total Bilirubin AST ALT Alkaline Phosphatase Total Protein Albumin Hep Bs Antigen Negative Hep Bs Antibody NONREACTIVE Hep B Core Total Ab Nonreactive Hepatitis C Antibody NonReactive 09/26/21 09/26/21 09/26/21 05:20 05:20 05:20 WBC 11.4 H RBC 5.46 Hgb 15.3 Hct 50.6 MCV 92.7 MCH 28.0 MCHC 30.2 L RDW 14.3 Plt Count 153 L MPV 12.4 Immature Gran % (Auto) 0.4 Neut % (Auto) 87.5 H Lymph % (Auto) 6.9 L [place] % (Auto) 5.1 Eos % (Auto) 0.1 Baso % (Auto) 0.0 Lymph # (Auto) 0.8 L [place] # (Auto) 0.6 Eos # (Auto) 0.0 Baso # (Auto) 0.0 Abs Immat Gran (auto) 0.04 H Absolute Neuts (auto) 10.0 H Absolute Nucleated RBC 0.000 Nucleated RBC % (auto) 0.0 VBG pH 7.33 VBG pCO2 56 VBG pO2 53 VBG HCO3 30 H VBG O2 Saturation 77.0 VBG Base Excess 2.6 Sodium 137 Potassium 4.8 Chloride 102 Carbon Dioxide 29 Anion Gap 11 L BUN 29 H Creatinine 0.80 Estim Creat Clear Calc 125.0 Estimated GFR > 60 Random Glucose 124 H Calcium 9.8 D Total Bilirubin 0.5 AST 14 ALT 12 Alkaline Phosphatase 83 Total Protein 7.2 Albumin 3.9 Hep Bs Antigen Hep Bs Antibody Hep B Core Total Ab Hepatitis C Antibody Microbiology Microbiology Results: Microbiology 09/23/21 10:47 Blood - Venous Blood Culture - Preliminary No growth after 48 hours. 09/23/21 10:09 Blood - Venous Blood Culture - Preliminary No growth after 48 hours. Progress Note: A&P Assessment and plan (1) Cor, pulmonale, acute: Status: Acute (2) COPD with exacerbation: Status: Acute (3) Obstructive sleep apnea: Status: Acute (4) Morbid obesity: Status: Acute (5) Acute hypoxemic respiratory failure due to COVID-19: Status: Acute (6) Status post fall: Status: Acute Assessment and Plan: plan is to continue his nocturnal BiPAP or CPAP possible pulmonary consult for and may discontinue the empiric use of Levaquin and begin to wean his steroids Quality Stroke Does the patient have a stroke diagnosis?: No VTE Prior VTE?: No VTE Risk Level:: Medical - moderate - high VTE Device Contraindication: N/A - Device Ordered VTE Drug Contraindication: N/A - Med Ordered
[2021-09-26] MEDS: predniSONE 20 MG TABLET 40 MG PO (08:05)
[2021-09-26] MEDS: Albuterol/Iprat 2.5/0.5MG 3 ML AMPUL.NEB INHALE ×3 (08:18→15:34)
--- NOTE | 2021-09-26 23:17 | PC.NURSE ---
Assumed care at 19:00 from [facility]. Patient transferred [place] [facility] Well tolerated. Maki removed at 21:00 and due to void at 3 am. full bed changed and bathed
[2021-09-27] VITALS (12 sets, daily range): BP systolic 127–153; BP diastolic 61–90; PULSE 70–89; RESP 15–25; TEMP 36.3–37.1; O2SAT 87–99; BMI 41.4
[2021-09-27] MEDS: Albuterol/Iprat 2.5/0.5MG 3 ML AMPUL.NEB INHALE ×4 (08:07→20:32)
[2021-09-27] MEDS: predniSONE 20 MG TABLET 40 MG PO (09:44)
--- NOTE | 2021-09-27 13:41 | P.PNIM_ITS ---
Subjective Subjective Date of Service: 09/27/21 Interval History: no acute issues overnight. Remains tolerant of BiPAP Review of Systems denies nausea vomiting diarrhea Denies shortness of breath Denies chest pain Physical Exam Vital Signs: Vital Signs: Last Vital Signs Temp 97.7 F 09/27/21 11:11 Pulse 84 09/27/21 11:11 Resp 18 09/27/21 11:34 BP 140/65 H 09/27/21 11:11 Pulse Ox 95 09/27/21 11:11 Oxygen Flow Rate 40 09/27/21 08:00 BMI result Body Mass Index 41.4 Const: Other: no acute distress Resp: Other: clear auscultation bilaterally no rales rhonchi or wheezes Cardio: Other: no S4; positive S1-S2; no S3 murmu GI: Other: soft nontender nondistended with normoactive bowel sounds no rebound or guarding Extrem: Other: no edema bilaterally Objective Data Active Medications Albuterol/Ipratropium (Albuterol/Iprat 2.5/0.5mg 3 Ml Ampul.Neb) 3 ml INHALE RQ4H WHILE AWAKE [facility] Last Admin: 09/27/21 11:30 Dose: 3 ml Documented by: PEPITO Budesonide (Budesonide 180 Mcg Aer.Pow.Ba) 1 puff INHALE BID [facility] Last Admin: 09/27/21 12:18 Dose: Not Given Documented by: NYA Non-Admin Reason: Med Not Available Enalapril Maleate (Enalapril Maleate 2.5 Mg Tablet) 2.5 mg PO BID [facility]; Protocol Last Admin: 09/27/21 09:44 Dose: 2.5 mg Documented by: NYA Enoxaparin Sodium (Enoxaparin Sodium 40 Mg/0.4 Ml Syringe) 40 mg SUBCUT Q24H [facility] Last Admin: 09/26/21 22:36 Dose: 40 mg Documented by: MANUEL Prednisone (Prednisone 20 Mg Tablet) 40 mg PO DAILY [facility] Last Admin: 09/27/21 09:44 Dose: 40 mg Documented by: NYA Labs CBC & Chem 7: 09/26/21 05:20 09/26/21 05:20 Assessment and Plan (1) Obstructive sleep apnea: Status: Acute (2) COPD with exacerbation: Status: Acute (3) Acute hypoxemic respiratory failure due to COVID-19: Status: Acute Assessment and Plan: 66-year-old morbidly obese schizophrenic man who lives in a nursing facility syncopal episode and encephalopathy due to acute on chronic hypercapnic and hypoxic respiratory failure with COPD exacerbation on bronchodilator therapy and steroids; initially intubated but quickly extubated now maintaining on BiPAP. 1.Acute on chronic hypoxic respiratory failure secondary to COVID-19 will continue slow taper of prednisone; continue inhalers as ordered 2.Hypercapnic respiratory failure continue nocturnal BiPAP supplemental O2 during the day. Wean as tolerated 3.Hypertension continue lisinopril as ordered disposition. . . PT consult hopeful return to SNF Lovenox/full code Quality Stroke Does the patient have a stroke diagnosis?: No VTE Prior VTE?: No VTE Risk Level:: Medical - moderate - high VTE Device Contraindication: N/A - Device Ordered VTE Drug Contraindication: N/A - Med Ordered
[2021-09-27] MEDS: Enoxaparin Sodium 40 MG/0.4 ML SYRINGE SUBCUT (21:52)
[2021-09-28] VITALS (9 sets, daily range): BP systolic 140–146; BP diastolic 75–84; PULSE 67–80; RESP 14–23; TEMP 36.3–36.7; O2SAT 91–98; BMI 42.3
[2021-09-28 05:59] LABS: PLT CLUMP 1
[2021-09-28 06:01] LABS: Hematocrit 46.2 % (42.0-52.0); Hemoglobin 13.9 g/dl (14.0-18.0); Mean Corpuscular HGB Conc 30.1 g/dl (31.0-36.0); Mean Corpuscular Hemoglobin 28.1 pg (27.0-33.0); Mean Corpuscular Volume 93.3 fL (80.0-98.0); Mean Platelet Volume 11.3 fL (9.4-12.4); Red Blood Count 4.95 X10*6/uL (4.60-5.80); Red Cell Distribution Width 14.3 % (11.0-16.0); WBC ABN SCTR FOR CBC 1
[2021-09-28 06:11] LABS: Platelet Count 116 X10*3/uL (160-400); White Blood Count 9.6 X10*3/uL (4.8-10.8)
[2021-09-28 06:43] LABS: Alanine Aminotransferase 8 U/L (0-40); Albumin Level 3.3 g/dL (3.5-5.0); Alkaline Phosphatase 72 U/L (39-117); Anion Gap 4 (12-20); Aspartate Amino Transferase 12 U/L (5-37); Band Neutrophils Percent 1 % (3-5); Bilirubin Total 0.6 mg/dL (0.0-1.0); Blood Urea Nitrogen 22 mg/dL (9-16); Carbon Dioxide 36 mmol/L (22-29); Chloride 98 mmol/L (96-108); Creatinine Clr Calc Pharmacy 140.9; Estimated Glomerular Filt Rate > 60; Glucose Fasting 99 mg/dL (60-99); Lymphocytes Absolute Manual 1.3 X10*3/uL (1.2-4.9); Lymphocytes Percent Manual 14 % (20-40); Monocytes Absolute Manual 0.9 X10*3/uL (0.1-1.2); Monocytes Percent Manual 9 % (2-11); Neutrophils Absolute Manual 7.4 X10*3/uL (2.0-8.3); Neutrophils Percent Manual 76 % (45-73); Sodium 134 mmol/L (135-145)
[2021-09-28 06:44] LABS: Burr Cells 1+ (0-2) /OIF; Platelet Estimate SLIGHTLY DECREASED (NORMAL); Polychromasia 1+ (0-2) /OIF; RBC Morphology NOTED
[2021-09-28 06:45] LABS: Large Platelet PRESENT; Platelet Morphology Comment NOTED
[2021-09-28 06:49] LABS: Calcium 9.2 mg/dL (8.4-10.2); Potassium 3.8 mmol/L (3.3-5.1)
[2021-09-28] MEDS: Albuterol/Iprat 2.5/0.5MG 3 ML AMPUL.NEB INHALE ×2 (08:05→11:55)
[2021-09-28] MEDS: predniSONE 20 MG TABLET 40 MG PO (09:23)
[2021-09-28] MEDS: Budesonide 180 MCG AER.POW.BA 1 PUFF INHALE (09:30)
--- NOTE | 2021-09-28 12:35 | MHC.CM.PN ---
Per [facility]OUNDS, Patient will be medically cleared for dc to STR/SNF today. Patient will dc to [facility] today at 2PM, via [facility].CM has left a message for only Contact/Josefa @ [phone], informing her of the dc plan. IMM to be sent with Patient.
--- NOTE | 2021-09-28 12:48 | MHC.CM.PN ---
CHRISTOPHER discovered HCP in paper chart. Francia @ [phone] is Patient's HCP and CHRISTOPHER informed her of the dc plan, to which she replied, oh wonderful; I have been waiting for some good news. It's a blessing.
--- NOTE | 2021-09-28 12:54 | PM.DS ---
DS: Providers Provider Date of Service: 09/28/21 Date of admission: 09/23/21 22:59 Date of discharge: 09/28/21 Primary care physician: Unknown Physician DS: Diagnosis Discharge Diagnosis (1) Obstructive sleep apnea: Status: Acute (2) COPD with exacerbation: Status: Acute (3) Acute hypoxemic respiratory failure due to COVID-19: Status: Acute DS: Summary Hospital Course Hospital Course: Patient 66-year-old gentleman from a residential facility who has a history of hypertension, COPD due to smoking on p.r.n. oxygen, schizophrenia, obstructive sleep apnea noncompliant with BiPAP, metabolic encephalopathy, thrombocytopenia among others.? Patient had arrived to the emergency room via ambulance, he has a history of COVID but the actual diagnosis date is unknown, per ER records and residential did not report any respiratory symptoms.? The patient had an unwitnessed fall while going to the bathroom, he had then gotten up and was sitting on his bed with bleeding from his nose and with a broken tooth, his roommate alerted the nursing personnel.? Upon arrival of EMS the patient was not responding with a sat in the 70s room air and a blood pressure of 186/95, on arrival to the ER the patient had no gag reflex and the patient was intubated for airway protection. Patient was successfully extubated in the ED by me, placed on high-flow initially with 30% FiO2 but did require increased to 50% as the patient got Dilaudid.? A repeat blood gas 1 hour after revealed respiratory acidosis with a increase pCO2 of 89 from 60 to and although the patient is mentating well, placed patient on BiPAP.?Diuresed him with Lasix and add Diamox as he does have chronic CO2 retention and a significant base excess. hospital course admitted to ICU: continued on BiPAP during the day and was subsequently weaned to nasal O2 during the day and BiPAP at night. Transferred to general medical floor without issue. At the time of transfer, he is satting appropriately with nasal cannula and utilizing BiPAP at night. He will be transferred to SNF for aggressive rehab Time Spent with Patient Time attestation: Total time spent providing and/or coordinating discharge services: Discharge coordination time: Greater than 30 minutes Quality: Stroke Does the patient have a stroke diagnosis?: No Physical Exam Vital Signs: Vital Signs: Last Vital Signs Temp 98.0 F 09/28/21 11:23 Pulse 67 09/28/21 11:55 Resp 16 09/28/21 11:55 BP 146/84 H 09/28/21 11:23 Pulse Ox 95 09/28/21 11:23 Oxygen Flow Rate 40 09/27/21 08:00 BMI result Body Mass Index 42.3 Const: Other: no acute distress Resp: Other: clear auscultation bilaterally no rales rhonchi or wheezes Cardio: Other: no S4; positive S1-S2; no S3 murmu GI: Other: soft nontender nondistended with normoactive bowel sounds no rebound or guarding Extrem: Other: no edema bilaterally DS: Data Data Completed and Pending Labs on day of discharge: Laboratory Results - last 24 hr 09/28/21 09/28/21 05:27 05:27 WBC 9.6 RBC 4.95 Hgb 13.9 L Hct 46.2 MCV 93.3 MCH 28.1 MCHC 30.1 L RDW 14.3 Plt Count 116 L MPV 11.3 Immature Gran % (Auto) Cancelled Neut % (Auto) Cancelled Lymph % (Auto) Cancelled [place] % (Auto) Cancelled Eos % (Auto) Cancelled Baso % (Auto) Cancelled Lymph # (Auto) Cancelled [place] # (Auto) Cancelled Eos # (Auto) Cancelled Baso # (Auto) Cancelled Abs Immat Gran (auto) Cancelled Absolute Neuts (auto) Cancelled Absolute Nucleated RBC 0.000 Nucleated RBC % (auto) 0.0 Neutrophils % (Manual) 76 H Band Neutrophils % 1 L Lymphocytes % (Manual) 14 L Monocytes % (Manual) 9 Abs Neuts (Manual) 7.4 Lymphocytes # (Manual) 1.3 Monocytes # (Manual) 0.9 Platelet Estimate SLIGHTLY DECREASED Large Platelets PRESENT Plt Morphology Comment NOTED RBC Morphology NOTED Polychromasia 1+ (0-2) [place] 1+ (0-2) Sodium 134 L Potassium 3.8 D Chloride 98 Carbon Dioxide 36 H Anion Gap 4 L BUN 22 H Creatinine 0.72 Estim Creat Clear Calc 140.9 Estimated GFR > 60 Fasting Glucose 99 Calcium 9.2 D Total Bilirubin 0.6 AST 12 ALT 8 Alkaline Phosphatase 72 Total Protein 6.0 L Albumin 3.3 L Discharge Plan Discharge Patient Disposition: [facility] Discharge Diagnosis: hypoxic respiratory failure secondary to Pickwickian syndrome Referrals: [facility] [Outside] - 1 Week Physician,Kushal Powers [Primary Care Provider] - 1 Week Discharge Medications: New enalapril maleate 2.5 mg Tablet 2.5 mg PO BID Qty: 30 RF: 0 Continued benztropine 0.5 mg tablet 1 tab PO DAILY RF: 0 metoprolol succinate 50 mg tablet extended release 24 hr 1 tab PO DAILY RF: 0 amlodipine 10 mg tablet 1 tab PO DAILY RF: 0 gabapentin 300 mg capsule 1 cap PO TID RF: 0 montelukast 10 mg tablet 1 tab PO DAILY RF: 0 pravastatin 20 mg tablet 1 tab PO DAILY RF: 0 risperidone 1 mg tablet 1 tab PO BID RF: 0 Spiriva with HandiHaler 18 mcg capsule, w/inhalation device 1 cap inhalation DAILY RF: 0 budesonide-formoterol [Symbicort] 160-4.5 mcg/actuation HFA aerosol inhaler inhalation RF: 0 Discharge Orders: Discharge Order (Routine); Ordered 09/28/21 Ordered By: Jesse Zhou Diet: advance to usual diet Activity on Discharge: As tolerated Stand Alone Forms: Patient Portal Discharge page Care Plan Goals: BiPAP at bedtime; IP AP 16 /EPA P 8; backup rate 12 Health Concerns: complete rehab as outlined by receiving facility Plan of Treatment: the plan as ordered Assessment: see H&P /discharge summary for details
[2021-09-28 14:39] LABS: COVID-19 Test Negative (Negative); IDNOW Serial# 9DD0AD1C
== END 2021-09-28 16:10 | disposition skilled nursing facility (03) | DRG 208 ==
LOC: HO.ED 16:24 → HO.EDOVER 23:03 → HO.ICU 23:46 → HO.IMC 09-26 18:43
PROVIDERS: Hospitalist; Internal Medicine Cardiovascular Disease; Physician Assistant Medical; Admitting Provider Anesthesiology; Emergency Provider Internal Medicine; Visit Provider Hospitalist
DX: U07.1 COVID-19 (principal); J96.01 Acute respiratory failure with hypoxia; J96.02 Acute respiratory failure with hypercapnia; G93.41 Metabolic encephalopathy; Z68.41 Body mass index [BMI] 40.0-44.9, adult; G47.33 Obstructive sleep apnea (adult) (pediatric); F20.9 Schizophrenia, unspecified; I11.0 Hypertensive heart disease with heart failure; F17.210 Nicotine dependence, cigarettes, uncomplicated; I27.81 Cor pulmonale (chronic); Z71.6 Tobacco abuse counseling; Z91.19 Patient's noncompliance with other medical treatment and regimen; E66.01 Morbid (severe) obesity due to excess calories; I50.811 Acute right heart failure; Z79.899 Other long term (current) drug therapy
CPT/HCPCS: 36415; 70450; 71045; 71275; 72125; 80048; 80053; 80307; 81001; 82803; 83605; 83735; 83880; 84484; 85007; 85025; 85027; 85610; 86704; 86706; 86709; 86803; 87040; 87340; 87389; 87635; 93005; 94002; 94003; 94640; 94644; 94660; 97162; 99285; J0610; J0696; J1100; J1170; J1650; J1940; J1956; J2250; J2765; J2920; J3010; Q9967

== ENCOUNTER 2021-09-29 12:32 | Emergency (ER) | payer MEDICARE, MEDICAID, SELFPAY ==
[2021-09-29 12:39] VITALS: BP 128/76; BP 163/68; PULSE 80; RESP 22; O2SAT 93; O2SAT 94; BMI 37.6
--- NOTE | 2021-09-29 12:50 | ED.GENADULT ---
HPI - General Adult General Chief complaint: General Medical Stated complaint: NEED FOR TRIPLE LUMEN CATH REMOVAL PER SNF Time Seen by Provider: 09/29/21 12:37 Source: patient and EMS Mode of arrival: EMS Limitations: no limitations History of Present Illness HPI narrative: 66-year-old male [facility] for right IJ triple-lumen catheter removal. This was placed on September 24 well in the intensive care unit at [facility]. He was accidentally discharged with the catheter in place on September 28. Hospitalist thought that the catheter was removed. He was not discharged on IV abx. He has not had any fevers, pain at the site, or concerns for infection. MD complaint: TLC removal Location: neck Radiation: non-radiation Relieving factors: none Exacerbating factors: none Associated symptoms: denies other symptoms Treatments prior to arrival: none Related Data Home Medications Medication Instructions Recorded Confirmed amlodipine 10 mg tablet 1 tab PO DAILY 09/23/21 09/23/21 benztropine 0.5 mg tablet 1 tab PO DAILY 09/23/21 09/23/21 budesonide-formoterol HFA 160 INHALATION 09/23/21 mcg-4.5 mcg/actuation aerosol inhaler (Symbicort) gabapentin 300 mg capsule 1 cap PO TID 09/23/21 09/23/21 metoprolol succinate 50 mg 1 tab PO DAILY 09/23/21 09/23/21 tablet,extended release 24 hr montelukast 10 mg tablet 1 tab PO DAILY 09/23/21 09/23/21 pravastatin 20 mg tablet 1 tab PO DAILY 09/23/21 09/23/21 risperidone 1 mg tablet 1 tab PO BID 09/23/21 09/23/21 tiotropium bromide 18 mcg capsule 1 cap INHALATION DAILY 09/23/21 09/23/21 with inhalation device (Spiriva with HandiHaler) Previous Rx's Medication Instructions Recorded enalapril maleate 2.5 mg tablet 2.5 mg PO BID #30 tab 09/28/21 Allergies Allergy/AdvReac Type Severity Reaction Status Date / Time No Known Allergies Allergy Verified 09/23/21 07:03 Review of Systems Review of Systems: Constitutional: No Fever, No Chills Cardiovascular: No Chest Pain, No SOB Skin: No Skin Lesions, No rash Neuro: No Weakness, No Numbness, No Dizziness, No Headache Heme/Lymph: No Bruising PMFSH Past Medical History Medical History (Updated 09/29/21 @ 12:53 by GISELLE Henderson) COPD (chronic obstructive pulmonary disease) History of COVID-19 Hypertension Metabolic encephalopathy Morbid obesity Obstructive sleep apnea Obstructive sleep apnea Schizophrenia Thrombocytopenia Social History Social History Alcohol intake: unknown Patient Tobacco Use Status: Tobacco use Unknown Advance Directives: No Advance Directives Information Provided: Yes service: No Current occupational status: disabled Physical Exam Vital Signs: Vital Signs: Last Vital Signs Pulse 80 09/29/21 12:39 Resp 22 H 09/29/21 12:39 BP 163/68 H 09/29/21 12:39 Pulse Ox 93 09/29/21 12:39 BMI result Body Mass Index 37.6 Appearance: Alert. Oriented X3. No acute distress. HEENT: Right IJ triple-lumen catheter in place in the right neck. Surrounding skin with no erythema, tenderness, drainage of pus. CVS: Normal heart rate and rhythm. Pulses normal. Respiratory: No respiratory distress. Skin: Skin warm and dry. Normal skin color. Normal skin turgor. No rashes. Extremities: normal inspection, normal ROM Neuro: Oriented X 3. Grossly normal, nonfocal Course Course Course Narrative: 66-year-old male presents to the ER for triple-lumen catheter removal. He was inadvertently discharge from [facility] with the catheter in place. No indication for triple-lumen catheter to be in place. This was successfully removed. Pressure dressing applied. No bleeding or complications. Stable for discharge back to [facility] peer Procedures Procedure Narrative Procedure Narrative: central line removal. Central line dressing was removed. Two sutures used to secure the catheter in place were cut and removed. Area was cleaned with Betadine. The catheter was removed, completely intact. No evidence of infection. Patient tolerated well. No bleeding at the site. Pressure was applied for several minutes. Pressure dressing was applied. Patient tolerated well without any complications. Critical Care Time Critical Care Time Critical Care Time: No Discharge Plan Discharge Clinical Impression: Central line complication Qualifiers: Encounter type: initial encounter Qualified Code(s): T82.9XXA - Unspecified complication of cardiac and vascular prosthetic device, implant and graft, initial encounter Patient Disposition: [facility] Transfer Details: Ama Additional Instructions: Triple-lumen catheter was removed in the emergency department today. Keep clean dry dressing on the area. If bleeding occurs apply pressure. Monitor for signs of infection including redness, swelling, pain, drainage of pus from the site. Prescriptions: No Action benztropine 0.5 mg tablet 1 tab PO DAILY RF: 0 metoprolol succinate 50 mg tablet extended release 24 hr 1 tab PO DAILY RF: 0 amlodipine 10 mg tablet 1 tab PO DAILY RF: 0 gabapentin 300 mg capsule 1 cap PO TID RF: 0 montelukast 10 mg tablet 1 tab PO DAILY RF: 0 pravastatin 20 mg tablet 1 tab PO DAILY RF: 0 risperidone 1 mg tablet 1 tab PO BID RF: 0 Spiriva with HandiHaler 18 mcg capsule, w/inhalation device 1 cap inhalation DAILY RF: 0 budesonide-formoterol [Symbicort] 160-4.5 mcg/actuation HFA aerosol inhaler inhalation RF: 0 enalapril maleate 2.5 mg Tablet 2.5 mg PO BID Qty: 30 RF: 0
[2021-09-29 16:36] VITALS: BP 144/69; PULSE 70; RESP 18; TEMP 36.1; O2SAT 92
--- NOTE | 2021-09-29 17:46 | PC.NURSE ---
PT AWAITING EMS RIDE HOME.
== END 2021-09-29 20:29 | disposition skilled nursing facility (03) ==
LOC: HO.ED 12:57
PROVIDERS: Emergency Provider Emergency Medicine
DX: T82.897A Other specified complication of cardiac prosthetic devices, implants and grafts, initial encounter (principal); Y71.3 Surgical instruments, materials and cardiovascular devices (including sutures) associated with adverse incidents; Y92.129 Unspecified place in nursing home as the place of occurrence of the external cause; I10 Essential (primary) hypertension
CPT/HCPCS: 99284

== ENCOUNTER 2021-11-04 21:54 | Inpatient (IN) | payer MEDICARE, MEDICAID, SELFPAY ==
[2021-11-04] VITALS (7 sets, daily range): BP systolic 130–187; BP diastolic 75–99; PULSE 66–81; RESP 15–23; TEMP 36; O2SAT 78–94; BMI 39.7; BMI 44.9
--- NOTE | ~2021-11-04 | XR_ITS ---
EXAMINATION: XR CHEST CLINICAL INFORMATION: Right IJ catheter placement COMPARISON: Earlier same date TECHNIQUE: Frontal view of the chest was obtained. XR/XR chest 1V FINDINGS/IMPRESSION: Endotracheal tube terminates 1.9 cm above the irma. Right internal jugular central venous catheter terminates near the superior cavoatrial junction. No pneumothorax. Small-moderate right and small left pleural effusions with accompanying atelectasis. Cardiomegaly and pulmonary venous congestion without overt edema. No acute osseous abnormalities.
--- NOTE | ~2021-11-04 | XR_ITS ---
EXAMINATION: XR CHEST CLINICAL INFORMATION: Fever COMPARISON: Previous day TECHNIQUE: Frontal view of the chest was obtained. FINDINGS: Endotracheal tube terminates 3.4 cm above the irma. Right internal jugular central venous catheter terminates at the superior cavoatrial junction. Enteric tube terminates within the stomach. Cardiomegaly and pulmonary venous congestion without overt edema. Small bilateral pleural effusions and accompanying atelectasis, larger on the right. No pneumothorax. XR/XR chest 1V IMPRESSION: Stable exam
--- NOTE | ~2021-11-04 | XR_ITS ---
EXAMINATION: XR CHEST CLINICAL INFORMATION: Shortness breath COMPARISON: 09/24/2021 TECHNIQUE: Frontal view of the chest was obtained. FINDINGS: Cardiomegaly and pulmonary venous congestion. No overt edema. No large pleural effusion. No pneumothorax. No acute or suspicious osseous abnormalities. XR/XR chest 1V IMPRESSION: Cardiomegaly and pulmonary venous congestion without overt edema.
--- NOTE | ~2021-11-04 | XR_ITS ---
EXAMINATION: XR CHEST CLINICAL INFORMATION: Intubation COMPARISON: 11/05/2021, 4 hours prior TECHNIQUE: Frontal view of the chest was obtained. XR/XR chest 1V FINDINGS/IMPRESSION: Endotracheal tube terminates 3.3 cm above the irma. New moderate right and likely small left pleural effusions with accompanying atelectasis. Pulmonary venous congestion without overt edema. No pneumothorax.
[2021-11-04 22:15] LABS: Glucose, Whole Blood 115 mg/dL (60-115)
--- NOTE | 2021-11-04 22:18 | ECG_ITS ---
Test Reason : COPD Blood Pressure : / mmHG Vent. Rate : 072 BPM Atrial Rate : 072 BPM P-R Int : 154 ms QRS Dur : 108 ms QT Int : 378 ms P-R-T Axes : 044 -11 030 degrees QTc Int : 413 ms Normal sinus rhythm with sinus arrhythmia Possible Left atrial enlargement RSR' or QR pattern in V1 suggests right ventricular conduction delay Minimal voltage criteria for LVH, may be normal variant ( [place] product ) Borderline ECG When compared with ECG of 23-SEP-2021 09:08, RSR' pattern in V1 is now Present Referred By: Delon Minor Electronically Signed By:PHILIP CALDWELL
[2021-11-04] MEDS: Albuterol/Iprat 2.5/0.5MG 3 ML AMPUL.NEB INHALE (22:32)
--- NOTE | 2021-11-04 22:32 | ED.SOB ---
HPI - SOB/Dyspnea General Chief Complaint: Dyspnea Stated Complaint: sob/confusion Time Seen by Provider: 11/04/21 22:17 Source: patient and EMS Mode of arrival: EMS Limitations: altered mental status History of Present Illness HPI Narrative: Patient is 66 years old, obese with history of schizophrenia, hypertension, heavy smoker, COPD on p.r.n. oxygen, LYNN noncompliant with BiPAP, metabolic encephalopathy, thrombocytopenia was admitted here last month with acute respiratory failure intubated comes here as nursing staff from below senior living noticed that patient is more short of breath since yesterday got worse today was saturating 30% at room air with increased lethargy and confusion was placed on 8 L increase to 78% EMS put him on non-rebreather was saturating 95% on arrival patient was lethargic falling asleep often. According to patient he is not using BiPAP very often, no fever no recent fall or head injury Related Data Home Medications Medication Instructions Recorded Confirmed Spiriva with HandiHaler 1 cap INHALATION BEDTIME 11/05/21 11/05/21 acetaminophen 325 mg tablet 650 mg PO Q4H PRN 11/05/21 11/05/21 (Tylenol) amlodipine 10 mg tablet 10 mg PO DAILY 11/05/21 11/05/21 benztropine 0.5 mg tablet 0.5 mg PO DAILY 11/05/21 11/05/21 bisacodyl 10 mg rectal suppository 10 mg VT PRN 11/05/21 budesonide-formoterol HFA 160 2 puff INHALATION BID 11/05/21 11/05/21 mcg-4.5 mcg/actuation aerosol inhaler (Symbicort) gabapentin 300 mg capsule 300 mg PO TID 11/05/21 11/05/21 losartan 50 mg tablet 50 mg PO DAILY 11/05/21 11/05/21 metoprolol succinate 25 mg 50 mg PO DAILY 11/05/21 11/05/21 tablet,extended release 24 hr montelukast 10 mg tablet 10 mg PO DAILY 11/05/21 11/05/21 (Singulair) pravastatin 20 mg tablet 20 mg PO DAILY 11/05/21 11/05/21 risperidone 1 mg tablet 1 mg PO BID 11/05/21 11/05/21 Allergies Allergy/AdvReac Type Severity Reaction Status Date / Time TRUMAN Inhibitors Allergy Unknown Verified 11/04/21 22:28 Review of Systems Review of Systems: Limited review of system as patient is lethargic falling sleep Yes Unobtainable due to mental status PMFSH Past Medical History Medical History COPD (chronic obstructive pulmonary disease) History of COVID-19 Hypertension Metabolic encephalopathy Morbid obesity Obstructive sleep apnea Obstructive sleep apnea Schizophrenia Thrombocytopenia Social History Social History Alcohol intake: unknown Patient Tobacco Use Status: Tobacco use Unknown Advance Directives: No Advance Directives Information Provided: No service: No Current occupational status: disabled Physical Exam Vital Signs: Vital Signs: Last Vital Signs Temp 98.2 F 11/05/21 00:53 Pulse 82 11/05/21 00:53 Resp 16 11/05/21 00:53 BP 167/95 H 11/05/21 00:53 Pulse Ox 98 11/05/21 00:53 BMI result Body Mass Index 44.9 Appearance: Alert. Oriented X2 falling asleep lethargic Eyes: People 2 mm bilateral slow to react ENT: Pharynx normal. Oral Mucosa moist atraumatic normocephalic Neck: Normal inspection. Neck supple. CVS: Normal heart rate and rhythm. Pulses normal. Respiratory: Moderate respiratory distress. Equal air entry bilateral, decreased air entry bilateral shallow respiration Abdomen: Soft and nontender. Bowel sounds are present, no mass palpable, Skin: Skin warm and dry. Normal skin color. Normal skin turgor. Extremities: 2+ lower extremity edema. No calf tenderness Neuro: Oriented X 3. No motor deficit. No sensory deficit MDM - SOB/Dyspnea MDM Narrative Medical decision making narrative: Patient with acute on chronic respiratory failure with history of sleep apnea and COPD obtunded but arousable on arrival venous gases on arrival showed pH of 7.25 with pCO2 100 placed on BiPAP ABG within half an hour of the venous gases showed pH of 7.18 pCO2 121 PO2 71. Case discussed with Dr. Garcia lead installer would like to hold on to intubation for now will take the patient to ICU and watch him closely and if gets worse will intubated in ICU at this time patient had a volume is 300-350 cc IPAP 20 EPAP 8 FiO2 40% saturating 88%. Medical Records Attestation: I reviewed the patient's medical records. Lab Data Attestation: I reviewed the patient's lab results. Result diagrams: 11/04/21 22:28 11/04/21 22:28 Labs: Lab Results 11/04/21 11/04/21 11/04/21 Range/Units 22:11 22:28 22:28 WBC 12.4 H (4.8-10.8) X10*3/uL RBC 4.92 (4.60-5.80) X10*6/uL Hgb 13.8 L (14.0-18.0) g/dl Hct 46.6 (42.0-52.0) % MCV 94.7 (80.0-98.0) fL MCH 28.0 (27.0-33.0) pg MCHC 29.6 L (31.0-36.0) g/dl RDW 14.5 (11.0-16.0) % Plt Count 191 D (160-400) X10*3/uL MPV 11.0 (9.4-12.4) fL Immature Gran % (Auto) Cancelled Neut % (Auto) Cancelled Lymph % (Auto) Cancelled [place] % (Auto) Cancelled Eos % (Auto) Cancelled Baso % (Auto) Cancelled Lymph # (Auto) Cancelled [place] # (Auto) Cancelled Eos # (Auto) Cancelled Baso # (Auto) Cancelled Abs Immat Gran (auto) Cancelled Absolute Neuts (auto) Cancelled Absolute Nucleated RBC 0.390 H (0.0-0.012) X10*3/uL Nucleated RBC % (auto) 3.1 H (0.0-0.2) /100WBC Neutrophils % (Manual) 67 (45-73) % Band Neutrophils % 0 L (3-5) % Lymphocytes % (Manual) 19 L (20-40) % Monocytes % (Manual) 14 H (2-11) % Abs Neuts (Manual) 8.3 (2.0-8.3) X10*3/uL Lymphocytes # (Manual) 2.4 (1.2-4.9) X10*3/uL Monocytes # (Manual) 1.7 H (0.1-1.2) X10*3/uL Nucleated RBCs 3 H (0-0) /100WBC Smudge Cells PRESENT Toxic Vacuolation PRESENT Platelet Estimate SLIGHTLY DECREASED (NORMAL) Large Platelets PRESENT Plt Morphology Comment NOTED RBC Morphology NORMAL Polychromasia 2+ (3-5) /OIF Ovalocytes 1+ (5-14) /OIF [place] Cells 2+ (3-5) /OIF Acanthocytes (Spur) 1+ (0-2) /OIF PT 13.0 (9.9-13.0) SEC INR 1.1 (0.9-1.1) O2 Saturation % ABG pH at Pt Temp (7.35-7.45) ABG pCO2 at Pt Temp (32-45) mmHg ABG pO2 at Pt Temp (83-108) mmHg ABG HCO3 (22-26) mmol/L ABG Base Excess (Actual) mmol/L VBG pH (7.32-7.43) VBG pCO2 mmHg VBG pO2 mmHg VBG HCO3 (22-26) mmol/L VBG O2 Saturation % VBG Base Excess mmol/L Sodium (135-145) mmol/L Potassium (3.3-5.1) mmol/L Chloride (96-108) mmol/L Carbon Dioxide (22-29) mmol/L Anion Gap (12-20) BUN (9-16) mg/dL Creatinine (0.5-1.4) mg/dL Estim Creat Clear Calc Estimated GFR POC Glucose 115 (60-115) mg/dL Random Glucose (60-115) mg/dL Lactic Acid (0.5-2.0) mmol/L Calcium (8.4-10.2) mg/dL Total Bilirubin (0.0-1.0) mg/dL AST (5-37) U/L ALT (0-40) U/L Alkaline Phosphatase (39-117) U/L Troponin I High Sens (<3.5-35.0) ng/L B-Natriuretic Peptide (<100) pg/mL Total Protein (6.5-8.0) g/dL Albumin (3.5-5.0) g/dL COVID-19 (MARINA) (Negative) COVID-19 Clin Com 11/04/21 11/04/21 11/04/21 Range/Units 22:28 22:28 22:28 WBC (4.8-10.8) X10*3/uL RBC (4.60-5.80) X10*6/uL Hgb (14.0-18.0) g/dl Hct (42.0-52.0) % MCV (80.0-98.0) fL MCH (27.0-33.0) pg MCHC (31.0-36.0) g/dl RDW (11.0-16.0) % Plt Count (160-400) X10*3/uL MPV (9.4-12.4) fL Immature Gran % (Auto) Neut % (Auto) Lymph % (Auto) [place] % (Auto) Eos % (Auto) Baso % (Auto) Lymph # (Auto) [place] # (Auto) Eos # (Auto) Baso # (Auto) Abs Immat Gran (auto) Absolute Neuts (auto) Absolute Nucleated RBC (0.0-0.012) X10*3/uL Nucleated RBC % (auto) (0.0-0.2) /100WBC Neutrophils % (Manual) (45-73) % Band Neutrophils % (3-5) % Lymphocytes % (Manual) (20-40) % Monocytes % (Manual) (2-11) % Abs Neuts (Manual) (2.0-8.3) X10*3/uL Lymphocytes # (Manual) (1.2-4.9) X10*3/uL Monocytes # (Manual) (0.1-1.2) X10*3/uL Nucleated RBCs (0-0) /100WBC Smudge Cells Toxic Vacuolation Platelet Estimate (NORMAL) Large Platelets Plt Morphology Comment RBC Morphology Polychromasia /OIF Ovalocytes /OIF [place] Cells /OIF Acanthocytes (Spur) /OIF PT (9.9-13.0) SEC INR (0.9-1.1) O2 Saturation % ABG pH at Pt Temp (7.35-7.45) ABG pCO2 at Pt Temp (32-45) mmHg ABG pO2 at Pt Temp (83-108) mmHg ABG HCO3 (22-26) mmol/L ABG Base Excess (Actual) mmol/L VBG pH (7.32-7.43) VBG pCO2 mmHg VBG pO2 mmHg VBG HCO3 (22-26) mmol/L VBG O2 Saturation % VBG Base Excess mmol/L Sodium 135 (135-145) mmol/L Potassium 5.4 H D (3.3-5.1) mmol/L Chloride 92 L (96-108) mmol/L Carbon Dioxide 39 H (22-29) mmol/L Anion Gap 9 L (12-20) BUN 28 H (9-16) mg/dL Creatinine 0.73 (0.5-1.4) mg/dL Estim Creat Clear Calc 138.2 Estimated GFR > 60 POC Glucose (60-115) mg/dL Random Glucose 111 (60-115) mg/dL Lactic Acid 0.5 (0.5-2.0) mmol/L Calcium 9.5 (8.4-10.2) mg/dL Total Bilirubin 0.5 (0.0-1.0) mg/dL AST 33 D (5-37) U/L ALT 37 (0-40) U/L Alkaline Phosphatase 89 D (39-117) U/L Troponin I High Sens 17.2 D (<3.5-35.0) ng/L B-Natriuretic Peptide 442 H (<100) pg/mL Total Protein 6.9 (6.5-8.0) g/dL Albumin 3.8 (3.5-5.0) g/dL COVID-19 (MARINA) (Negative) COVID-19 Clin Com 11/04/21 11/04/21 11/04/21 Range/Units 22:28 22:33 23:01 WBC (4.8-10.8) X10*3/uL RBC (4.60-5.80) X10*6/uL Hgb (14.0-18.0) g/dl Hct (42.0-52.0) % MCV (80.0-98.0) fL MCH (27.0-33.0) pg MCHC (31.0-36.0) g/dl RDW (11.0-16.0) % Plt Count (160-400) X10*3/uL MPV (9.4-12.4) fL Immature Gran % (Auto) Neut % (Auto) Lymph % (Auto) [place] % (Auto) Eos % (Auto) Baso % (Auto) Lymph # (Auto) [place] # (Auto) Eos # (Auto) Baso # (Auto) Abs Immat Gran (auto) Absolute Neuts (auto) Absolute Nucleated RBC (0.0-0.012) X10*3/uL Nucleated RBC % (auto) (0.0-0.2) /100WBC Neutrophils % (Manual) (45-73) % Band Neutrophils % (3-5) % Lymphocytes % (Manual) (20-40) % Monocytes % (Manual) (2-11) % Abs Neuts (Manual) (2.0-8.3) X10*3/uL Lymphocytes # (Manual) (1.2-4.9) X10*3/uL Monocytes # (Manual) (0.1-1.2) X10*3/uL Nucleated RBCs (0-0) /100WBC Smudge Cells Toxic Vacuolation Platelet Estimate (NORMAL) Large Platelets Plt Morphology Comment RBC Morphology Polychromasia /OIF Ovalocytes /OIF [place] Cells /OIF Acanthocytes (Spur) /OIF PT (9.9-13.0) SEC INR (0.9-1.1) O2 Saturation 86.0 % ABG pH at Pt Temp 7.18 L* (7.35-7.45) ABG pCO2 at Pt Temp 121 H* (32-45) mmHg ABG pO2 at Pt Temp 71 L (83-108) mmHg ABG HCO3 46 H (22-26) mmol/L ABG Base Excess (Actual) 11.6 mmol/L VBG pH 7.25 L (7.32-7.43) VBG pCO2 100 mmHg VBG pO2 114 mmHg VBG HCO3 44 H (22-26) mmol/L VBG O2 Saturation 98.0 % VBG Base Excess 11.9 mmol/L Sodium (135-145) mmol/L Potassium (3.3-5.1) mmol/L Chloride (96-108) mmol/L Carbon Dioxide (22-29) mmol/L Anion Gap (12-20) BUN (9-16) mg/dL Creatinine (0.5-1.4) mg/dL Estim Creat Clear Calc Estimated GFR POC Glucose (60-115) mg/dL Random Glucose (60-115) mg/dL Lactic Acid (0.5-2.0) mmol/L Calcium (8.4-10.2) mg/dL Total Bilirubin (0.0-1.0) mg/dL AST (5-37) U/L ALT (0-40) U/L Alkaline Phosphatase (39-117) U/L Troponin I High Sens (<3.5-35.0) ng/L B-Natriuretic Peptide (<100) pg/mL Total Protein (6.5-8.0) g/dL Albumin (3.5-5.0) g/dL COVID-19 (MARINA) Negative (Negative) COVID-19 Clin Com See Note ECG Data Attestation: I personally reviewed and interpreted this ECG as follows: Interpretation: Normal sinus rhythm heart rate 72 beats per minute LVH normal no acute ischemic change Critical Care Time Critical Care Time Critical Care Time: Yes Total Critical Care Time: 55 Attestation: I spent 55 minutes of critical care, with interventions, assessments, speaking to patient, consultants, Discharge Plan Discharge Clinical Impression: Acute and chronic respiratory failure with hypercapnia, Acute exacerbation of chronic obstructive airways disease, Congestive heart failure, Obstructive sleep apnea syndrome in adult Patient Disposition: Admitted As Inpatient
[2021-11-04] MEDS: methylPREDNISolone Sod Succ 125 MG/2 ML VIAL IVPUSH (22:34)
[2021-11-04] MEDS: 0.9 % Sodium Chloride 1,000 ML 999 ML IV (22:34)
--- NOTE | 2021-11-04 22:39 | PC.NURSE ---
Pt placed on bipap by RT per Dr Bailey instructions upon RT arrival to bedside, O2 increased to 88%, continues to improve
[2021-11-04 22:40] LABS: Hematocrit 46.6 % (42.0-52.0); Hemoglobin 13.8 g/dl (14.0-18.0); Mean Corpuscular HGB Conc 29.6 g/dl (31.0-36.0); Mean Corpuscular Volume 94.7 fL (80.0-98.0); Platelet Count 191 X10*3/uL (160-400); Red Blood Count 4.92 X10*6/uL (4.60-5.80); Red Cell Distribution Width 14.5 % (11.0-16.0)
[2021-11-04 22:41] LABS: Venous Blood Gas Refer to POC result
[2021-11-04 22:41] LABS: VBG Base Excess 11.9 mmol/L; VBG HCO3 44 mmol/L (22-26); VBG pCO2 100 mmHg; VBG pH 7.25 (7.32-7.43); VBG pO2 114 mmHg
[2021-11-04] MEDS: Naloxone HCl 0.4 MG/ML VIAL IVPUSH (22:45)
[2021-11-04 22:46] LABS: NRBC Pct Auto 3.1 /100WBC (0.0-0.2); WBC ABN SCTR FOR CBC 1
[2021-11-04 22:50] LABS: INTERNATIONAL NORM RATIO 1.1 (0.9-1.1)
--- NOTE | 2021-11-04 22:50 | PC.NURSE ---
This RN notes pinned pupils and RT reports minimal breath sounds. Anwer aware, thsi RN requests narcan. Med ordered and admin without good effect
[2021-11-04 22:53] LABS: Lactic Acid 0.5 mmol/L (0.5-2.0)
[2021-11-04 22:56] LABS: COVID-19 Test Negative (Negative)
[2021-11-04 23:04] LABS: B Type Natriuretic Peptide 442 pg/mL (<100); Troponin-I High Sensitivity 17.2 ng/L (<3.5-35.0)
[2021-11-04 23:06] LABS: Acanthocytes 1+ (0-2) /OIF; Band Neutrophils Percent 0 % (3-5); Large Platelet PRESENT; Lymphocytes Percent Manual 19 % (20-40); Monocytes Percent Manual 14 % (2-11); Neutrophils Percent Manual 67 % (45-73); Nucleated Red Blood Cells 3 /100WBC (0-0); Platelet Estimate SLIGHTLY DECREASED (NORMAL); Platelet Morphology Comment NOTED; RBC Morphology NORMAL
[2021-11-04 23:07] LABS: Burr Cells 2+ (3-5) /OIF; Ovalocytes 1+ (5-14) /OIF; Polychromasia 2+ (3-5) /OIF; Smudge Cells PRESENT; Toxic Vacuolation PRESENT
[2021-11-04 23:08] LABS: Lymphocytes Absolute Manual 2.4 X10*3/uL (1.2-4.9); Monocytes Absolute Manual 1.7 X10*3/uL (0.1-1.2); Neutrophils Absolute Manual 8.3 X10*3/uL (2.0-8.3); White Blood Count 12.4 X10*3/uL (4.8-10.8)
[2021-11-04 23:09] LABS: ABG Refer to POC result
[2021-11-04 23:09] LABS: ABG Base Excess 11.6 mmol/L; ABG HCO3 46 mmol/L (22-26); ABG pCO2 121 mmHg (32-45); ABG pH 7.18 (7.35-7.45); ABG pO2 71 mmHg (83-108)
[2021-11-04 23:09] LABS: Alanine Aminotransferase 37 U/L (0-40); Albumin Level 3.8 g/dL (3.5-5.0); Alkaline Phosphatase 89 U/L (39-117); Anion Gap 9 (12-20); Aspartate Amino Transferase 33 U/L (5-37); Bilirubin Total 0.5 mg/dL (0.0-1.0); Blood Urea Nitrogen 28 mg/dL (9-16); Calcium 9.5 mg/dL (8.4-10.2); Carbon Dioxide 39 mmol/L (22-29); Chloride 92 mmol/L (96-108); Creatinine Clr Calc Pharmacy 138.2; Estimated Glomerular Filt Rate > 60; Glucose Random 111 mg/dL (60-115); Potassium 5.4 mmol/L (3.3-5.1); Sodium 135 mmol/L (135-145); Total Protein 6.9 g/dL (6.5-8.0)
--- NOTE | 2021-11-04 23:13 | PC.NURSE ---
pt's critical labs provided to Dr Bailey who states pt is to be intubated.
--- NOTE | 2021-11-04 23:35 | PC.NURSE ---
pt transferred to ed 4 for intubation, sheet draw to stretcher with bedscale. pt weight entered. RT and anwer to bedside, [facility] states ICU GISELLE Shields does not want intubation at this time. Pt sat 84% on bipap 20/10 fio2 40% NPA placed in both nares by Dr Singh at bedside.
[2021-11-04] MEDS: Albuterol Sulfate (0.083%) 2.5 MG/3 ML VIAL.NEB 7.5 MG INHALE (23:37)
[2021-11-04] MEDS: Magnesium Sulfate/H2O 2 GM/50 ML PIGGYBACK IV (23:44)
[2021-11-04] MEDS: Furosemide 40 MG/4 ML VIAL IVPUSH (23:46)
--- NOTE | 2021-11-04 23:54 | PC.NURSE ---
pt becoming more responsive as he arouses to verbal and light touch, does not maintain eye opening as instructed. mag infusing, lasix given as ordered
[2021-11-05] VITALS (34 sets, daily range): BP systolic 104–167; BP diastolic 43–99; PULSE 62–90; RESP 10–30; TEMP 34.1–37.7; O2SAT 84–98; BMI 42.1
--- NOTE | 2021-11-05 00:23 | PC.NURSE ---
report called to roxi MAYER in ICU
[2021-11-05 00:30] LABS: Appearance Urine CLEAR; Color Urine STRAW; Glucose Urine UA NEG (NEG); Leukocyte Esterase Urine NEG (NEG); Nitrite Urine NEG (NEG); Urine Blood TRACE (NEG); Urine Ketones NEG (NEG); Urine Protein 1+ MG/DL (NEG-TRACE)
[2021-11-05 00:36] LABS: Calcium Phosphate Crystals Ur 1+ /LPF; Hyaline Casts Urine 0-2 /LPF; Mucus Urine 1+ /LPF; RBC Urine 0-2 /HPF (0); WBC Urine 0-2 /HPF (0-4)
[2021-11-05 00:55] LABS: Amphetamine Screen Urine Not Detected (Not Detect); Barbiturates, Urine Not Detected (Not Detect); Benzodiazepines Screen Urine Not Detected (Not Detect); Cannabinoid Screen Urine Not Detected (Not Detect); Cocaine Screen Urine Not Detected (Not Detect); Fentanyl, urine Not Detected (Not Detect); Opiate Screen Urine Not Detected (Not Detect); Phencyclidine Screen Urine Not Detected (Not Detect)
--- NOTE | 2021-11-05 01:14 | P.HPCC_ITS ---
History of Present Illness Date of Service: 11/05/21 Attending physician on admission: Xavier Ackerman Chief Complaint: Acute respiratory failure with hypoxic and hypercapnic state HPI:??Patient 66-year-old gentleman from a correction facility who recently admitted and discharged from this hospital on 09/28/2021 due to hypoxic respiratory failure with hypercarbic state who at the time was intubated, admitted to the ICU, then extubated and placed on BiPAP, patient resides at a correction, has a history of hypertension, COPD due to smoking on p.r.n. oxygen, schizophrenia, obstructive sleep apnea noncompliant with BiPAP, metabolic encephalopathy, thrombocytopenia among others.? Patient had arrived to the emergency room via ambulance, he has a history of COVID but the actual diagnosis date is unknown. Per the ER records, correction personal reported the patient has had difficulty breathing since yesterday and worsened today setting 30% her room air and having increased episodes of lethargy and confusion, placed on 8 L nasal cannula which increased his oxygen to 78%, patient was transported via EMS who put him on a non-rebreather mask and increase his saturation to 95%.? On arrival to the ER the patient appeared to be lethargic and falling asleep, reportedly the patient continues to be noncompliant with BiPAP. The ER workup revealed a white count of 12.4, H&H of 13.8 and 46.6 respectively, platelets of 191, differential shows no bandemia, coagulation profile is normal.? ABG shows pH of 7.18, pCO2 of 121, PO2 71, HC03 of 46, base excess 11.6.? Initially the thought was to intubate this patient but after consulting with Dr. Ackerman the patient was placed on BiPAP.? His chemistry shows sodium 135, potassium 5.4 for which Lasix and an albuterol extended treatment was given, chloride 92, anion gap of 9, BUN 28, creatinine 0.73 LFTs are normal.? BNP is 442 which is twice his baseline.? Urine tox screen is pending. ?No x-rays done in the ER. ?Currently patient continues to be on BiPAP, still somnolent, not following commands. ?ROS:??Not able to obtain at this point as the patient is on BiPAP ?Past Medical History:??As above ?Past Surgical History:??As above ?Family history: ?Noncontributory ?Social History:??Patient is from a detention facility, it is not high a was a smoker but the quantity is unknown, unknown if he ever use drugs or alcohol. CODE STATUS:??Full code Allergies: ?No known drug allergies Home Medications:??Please see med rec PHYSICAL EXAM: VS: ?Blood pressure 167/95, heart rate 80, respirations 20, O2 sat 9 4 % on BiPAP 20/10 with FiO2 of 40 % General:? Morbidly obese , somnolent no following commands Skin:? Intact, no lesions, edema, erythema, clubbing or cyanosis.? No ulcers. HEENT:? Head is normocephalic, atraumatic, pupils equal round reactive to light accommodation bilaterally.?Buccal mucosa is moist, Neck taking large, left EJ line in place Cardiac:? Clear S1-S2, no murmurs rubs or gallops. Pulmonary:? Diminished lung sounds bilaterally with fine minor crackles at the right base, no wheezes, rales, rhonchi. Abdomen:? Protuberant, positive bowel sounds in all 4 quadrants.? Soft, nontender, no rebound or guarding.? Musculoskeletal:? Moving all 4 extremities upon request a major joints, there is no crepitus or tenderness.? The strength is 5/5 bilaterally and throughout all 4 extremities.? There 1+ pitting edema bilaterally up to distal tibia, no calf tenderness , no leg asymmetry.? Gait not assessed at this point. Neurologic:? As above, No focal deficits noted. Motor strength as above.? Vascular:? 2+ pulses upper and lower extremities distally. SIGNIFICANT LABORATORY DATA: ?As above, in addition REVIEW OF IMAGES: ?A chest x-ray obtained at bedside in the ICU revealed patent airway, no bony abnormalities, cardiac silhouette appears to be enlarged.? Diaphragms are well-defined bilaterally without evidence of pleural effusions, no infiltrates to my view although there is minimal patchiness on the right lower lobe.? There is minimal increased vascular congestion noted in the upper aspect of the cardiac silhouette which could represent pulmonary edema.? Final reading by radiologist is pending. ? EKG REVIEW: ?Sinus rhythm 72 beats per minute.? LVH criteria.? Early development of possible right bundle-branch block noted.? No ST elevations, no depressions.? QTC 413.? No comparison available. ? ASSESSMENT AND PLAN: 1. Hypoxic respiratory failure with hypercarbic state currently on BiPAP 2. PickwickIan syndrome 3. Obstructive sleep apnea noncompliant with BiPAP 4. Metabolic encephalopathy 5. Stable hypertension 6. History of COPD due to smoking without active exacerbation 7. Morbid obesity 8. Right-sided heart failure appears acute 9. ?Acute respiratory acidosis due to 1 and mild superimpossed diastolic CHF likely due to uncontrolled HTN Patient will be admitted to the ICU, will continue with BiPAP at the current settings, repeat a blood gas in the morning, reassess for his hypoxic metabolic encephalopathy, I do not think he has a superimposed COPD exacerbation, I do however think that the patient has mild vascular congestion per chest x-ray and BNP is higher than usual, Lasix along with Diamox will be given for his known to be a CO2 retainer and he has the high base excess.? Will resume p.o. blood p ressure medications when the patient is of BiPAP, in the meantime I will use IV form low-dose Lopressor IV as he is on Metoprolol XL. GI PROPHYLAXIS:? IV Protonix DVT PROPHYLAXIS:? Lovenox subQ Critical care time used for critical evaluation of this patient, diagnosis, tr eatment and coordination of care, review her records and documentation?TOTAL CRITICAL CARE TIME 90?MIN . Patient's care was discussed in detail with Dr. Ackermna.? He is aware of all the above as well as the plan of care for this patient. [facility] Past Medical History Medical History COPD (chronic obstructive pulmonary disease) History of COVID-19 Hypertension Metabolic encephalopathy Morbid obesity Obstructive sleep apnea Obstructive sleep apnea Schizophrenia Thrombocytopenia Social History Social History Alcohol intake: unknown Patient Tobacco Use Status: Tobacco use Unknown Advance Directives: No Advance Directives Information Provided: No service: No Current occupational status: disabled Meds Allergies Allergy/AdvReac Type Severity Reaction Status Date / Time TRUMAN Inhibitors Allergy Unknown Verified 11/04/21 22:28 Home Medications Medication Instructions Recorded Confirmed Last Taken Type Spiriva with HandiHaler 1 cap INHALATION BEDTIME 11/05/21 11/05/21 Unknown History acetaminophen 325 mg tablet 650 mg PO Q4H PRN 11/05/21 11/05/21 Unknown History (Tylenol) amlodipine 10 mg tablet 10 mg PO DAILY 11/05/21 11/05/21 Unknown History benztropine 0.5 mg tablet 0.5 mg PO DAILY 11/05/21 11/05/21 Unknown History bisacodyl 10 mg rectal suppository 10 mg CO PRN 11/05/21 Unknown History budesonide-formoterol HFA 160 2 puff INHALATION BID 11/05/21 11/05/21 Unknown History mcg-4.5 mcg/actuation aerosol inhaler (Symbicort) gabapentin 300 mg capsule 300 mg PO TID 11/05/21 11/05/21 Unknown History losartan 50 mg tablet 50 mg PO DAILY 11/05/21 11/05/21 Unknown History metoprolol succinate 25 mg 50 mg PO DAILY 11/05/21 11/05/21 Unknown History tablet,extended release 24 hr montelukast 10 mg tablet 10 mg PO DAILY 11/05/21 11/05/21 Unknown History (Singulair) pravastatin 20 mg tablet 20 mg PO DAILY 11/05/21 11/05/21 Unknown History risperidone 1 mg tablet 1 mg PO BID 11/05/21 11/05/21 Unknown History Physical Exam Vital Signs: Vital Signs: Last Vital Signs Temp 98.2 F 11/05/21 00:53 Pulse 82 11/05/21 00:53 Resp 16 11/05/21 00:53 BP 167/95 H 11/05/21 00:53 Pulse Ox 98 11/05/21 00:53 BMI result Body Mass Index 44.9 Results Labs CBC and Chem 7: 11/04/21 22:28 11/04/21 22:28 Labs: Laboratory Results - last 24 hr 11/04/21 11/04/21 11/04/21 22:11 22:28 22:28 MCV 94.7 MCH 28.0 MCHC 29.6 L RDW 14.5 Plt Count 191 D MPV 11.0 Immature Gran % (Auto) Cancelled Neut % (Auto) Cancelled Lymph % (Auto) Cancelled [place] % (Auto) Cancelled Eos % (Auto) Cancelled Baso % (Auto) Cancelled Lymph # (Auto) Cancelled [place] # (Auto) Cancelled Eos # (Auto) Cancelled Baso # (Auto) Cancelled Abs Immat Gran (auto) Cancelled Absolute Neuts (auto) Cancelled Absolute Nucleated RBC 0.390 H Nucleated RBC % (auto) 3.1 H Neutrophils % (Manual) 67 Band Neutrophils % 0 L Lymphocytes % (Manual) 19 L Monocytes % (Manual) 14 H Abs Neuts (Manual) 8.3 Lymphocytes # (Manual) 2.4 Monocytes # (Manual) 1.7 H Nucleated RBCs 3 H Smudge Cells PRESENT Toxic Vacuolation PRESENT Platelet Estimate SLIGHTLY DECREASED Large Platelets PRESENT Plt Morphology Comment NOTED RBC Morphology NORMAL Polychromasia 2+ (3-5) Ovalocytes 1+ (5-14) Marcus Cells 2+ (3-5) Acanthocytes (Spur) 1+ (0-2) PT 13.0 INR 1.1 O2 Saturation ABG pH at Pt Temp ABG pCO2 at Pt Temp ABG pO2 at Pt Temp ABG HCO3 ABG Base Excess (Actual) VBG pH VBG pCO2 VBG pO2 VBG HCO3 VBG O2 Saturation VBG Base Excess Anion Gap Estim Creat Clear Calc Estimated GFR POC Glucose 115 Random Glucose Lactic Acid Calcium Total Bilirubin AST ALT Alkaline Phosphatase B-Natriuretic Peptide Total Protein Albumin Urine Color Urine Appearance Urine pH Ur Specific [place] Urine Protein Urine Glucose (UA) Urine Ketones Urine Blood Urine Nitrite Ur Leukocyte Esterase Urine RBC Urine WBC Ur Squamous Epith Cells Calcium Phosphate Cryst Urine Bacteria Hyaline Casts Urine Mucus Urine Opiates Screen Urine Fentanyl Screen Ur Barbiturates Screen Ur Phencyclidine Scrn Ur Amphetamines Screen U Benzodiazepines Scrn Urine Cocaine Screen U Marijuana (THC) Screen COVID-19 ([facility]) COVID-19 Clin Com 11/04/21 11/04/21 11/04/21 22:28 22:28 22:28 MCV MCH MCHC RDW Plt Count MPV Immature Gran % (Auto) Neut % (Auto) Lymph % (Auto) [place] % (Auto) Eos % (Auto) Baso % (Auto) Lymph # (Auto) [place] # (Auto) Eos # (Auto) Baso # (Auto) Abs Immat Gran (auto) Absolute Neuts (auto) Absolute Nucleated RBC Nucleated RBC % (auto) Neutrophils % (Manual) Band Neutrophils % Lymphocytes % (Manual) Monocytes % (Manual) Abs Neuts (Manual) Lymphocytes # (Manual) Monocytes # (Manual) Nucleated RBCs Smudge Cells Toxic Vacuolation Platelet Estimate Large Platelets Plt Morphology Comment RBC Morphology Polychromasia Ovalocytes Marcus Cells Acanthocytes (Spur) PT INR O2 Saturation ABG pH at Pt Temp ABG pCO2 at Pt Temp ABG pO2 at Pt Temp ABG HCO3 ABG Base Excess (Actual) VBG pH VBG pCO2 VBG pO2 VBG HCO3 VBG O2 Saturation VBG Base Excess Anion Gap 9 L Estim Creat Clear Calc 138.2 Estimated GFR > 60 POC Glucose Random Glucose 111 Lactic Acid 0.5 Calcium 9.5 Total Bilirubin 0.5 AST 33 D ALT 37 Alkaline Phosphatase 89 D B-Natriuretic Peptide 442 H Total Protein 6.9 Albumin 3.8 Urine Color Urine Appearance Urine pH Ur Specific [place] Urine Protein Urine Glucose (UA) Urine Ketones Urine Blood Urine Nitrite Ur Leukocyte Esterase Urine RBC Urine WBC Ur Squamous Epith Cells Calcium Phosphate Cryst Urine Bacteria Hyaline Casts Urine Mucus Urine Opiates Screen Urine Fentanyl Screen Ur Barbiturates Screen Ur Phencyclidine Scrn Ur Amphetamines Screen U Benzodiazepines Scrn Urine Cocaine Screen U Marijuana (THC) Screen COVID-19 ([facility]) COVID-19 Clin Com 11/04/21 11/04/21 11/04/21 22:28 22:33 23:01 MCV MCH MCHC RDW Plt Count MPV Immature Gran % (Auto) Neut % (Auto) Lymph % (Auto) [place] % (Auto) Eos % (Auto) Baso % (Auto) Lymph # (Auto) [place] # (Auto) Eos # (Auto) Baso # (Auto) Abs Immat Gran (auto) Absolute Neuts (auto) Absolute Nucleated RBC Nucleated RBC % (auto) Neutrophils % (Manual) Band Neutrophils % Lymphocytes % (Manual) Monocytes % (Manual) Abs Neuts (Manual) Lymphocytes # (Manual) Monocytes # (Manual) Nucleated RBCs Smudge Cells Toxic Vacuolation Platelet Estimate Large Platelets Plt Morphology Comment RBC Morphology Polychromasia Ovalocytes Marcus Cells Acanthocytes (Spur) PT INR O2 Saturation 86.0 ABG pH at Pt Temp 7.18 L* ABG pCO2 at Pt Temp 121 H* ABG pO2 at Pt Temp 71 L ABG HCO3 46 H ABG Base Excess (Actual) 11.6 VBG pH 7.25 L VBG pCO2 100 VBG pO2 114 VBG HCO3 44 H VBG O2 Saturation 98.0 VBG Base Excess 11.9 Anion Gap Estim Creat Clear Calc Estimated GFR POC Glucose Random Glucose Lactic Acid Calcium Total Bilirubin AST ALT Alkaline Phosphatase B-Natriuretic Peptide Total Protein Albumin Urine Color Urine Appearance Urine pH Ur Specific [place] Urine Protein Urine Glucose (UA) Urine Ketones Urine Blood Urine Nitrite Ur Leukocyte Esterase Urine RBC Urine WBC Ur Squamous Epith Cells Calcium Phosphate Cryst Urine Bacteria Hyaline Casts Urine Mucus Urine Opiates Screen Urine Fentanyl Screen Ur Barbiturates Screen Ur Phencyclidine Scrn Ur Amphetamines Screen U Benzodiazepines Scrn Urine Cocaine Screen U Marijuana (THC) Screen COVID-19 ([facility]) Negative COVID-19 Clin Com See Note 11/05/21 11/05/21 00:22 00:22 MCV MCH MCHC RDW Plt Count MPV Immature Gran % (Auto) Neut % (Auto) Lymph % (Auto) [place] % (Auto) Eos % (Auto) Baso % (Auto) Lymph # (Auto) [place] # (Auto) Eos # (Auto) Baso # (Auto) Abs Immat Gran (auto) Absolute Neuts (auto) Absolute Nucleated RBC Nucleated RBC % (auto) Neutrophils % (Manual) Band Neutrophils % Lymphocytes % (Manual) Monocytes % (Manual) Abs Neuts (Manual) Lymphocytes # (Manual) Monocytes # (Manual) Nucleated RBCs Smudge Cells Toxic Vacuolation Platelet Estimate Large Platelets Plt Morphology Comment RBC Morphology Polychromasia Ovalocytes Marcus Cells Acanthocytes (Spur) PT INR O2 Saturation ABG pH at Pt Temp ABG pCO2 at Pt Temp ABG pO2 at Pt Temp ABG HCO3 ABG Base Excess (Actual) VBG pH VBG pCO2 VBG pO2 VBG HCO3 VBG O2 Saturation VBG Base Excess Anion Gap Estim Creat Clear Calc Estimated GFR POC Glucose Random Glucose Lactic Acid Calcium Total Bilirubin AST ALT Alkaline Phosphatase B-Natriuretic Peptide Total Protein Albumin Urine Color STRAW Urine Appearance CLEAR Urine pH 6.0 Ur Specific [place] 1.020 Urine Protein 1+ H Urine Glucose (UA) NEG Urine Ketones NEG Urine Blood TRACE Urine Nitrite NEG Ur Leukocyte Esterase NEG Urine RBC 0-2 Urine WBC 0-2 Ur Squamous Epith Cells NONE Calcium Phosphate Cryst 1+ Urine Bacteria NONE Hyaline Casts 0-2 Urine Mucus 1+ Urine Opiates Screen Not Detected Urine Fentanyl Screen Not Detected Ur Barbiturates Screen Not Detected Ur Phencyclidine Scrn Not Detected Ur Amphetamines Screen Not Detected U Benzodiazepines Scrn Not Detected Urine Cocaine Screen Not Detected U Marijuana (THC) Screen Not Detected COVID-19 ([facility]) COVID-19 Clin Com
[2021-11-05] MEDS: acetaZOLAMIDE sodium 500 MG VIAL IVPUSH ×2 (01:55→08:13)
[2021-11-05] MEDS: Enoxaparin Sodium 40 MG/0.4 ML SYRINGE SUBCUT (01:55)
[2021-11-05] MEDS: Metoprolol Tartrate 5 MG/5 ML VIAL 2.5 MG IVPUSH (01:56)
[2021-11-05] MEDS: Naloxone HCl 0.4 MG/ML VIAL IVPUSH (04:20)
[2021-11-05 04:30] LABS: ABG Base Excess 13.7 mmol/L; ABG HCO3 52 mmol/L (22-26); ABG pCO2 158 mmHg (32-45); ABG pH 7.12 (7.35-7.45); ABG pO2 66 mmHg (83-108)
[2021-11-05] MEDS: propofoL 200 MG/20 ML VIAL 100 MG IVPUSH ×3 (04:49→05:20)
[2021-11-05] MEDS: Rocuronium Bromide 50 MG/5 ML VIAL 100 MG IVPUSH (04:52)
[2021-11-05] MEDS: propofoL 1,000 MG/100 ML VIAL 17.52 MG IVCONT (05:00)
--- NOTE | 2021-11-05 05:11 | W.PM.CCHP ---
Procedures Date of Service Date of Service: 11/05/21 <GISELLE Brito Last Filed: 11/05/21 06:24> Intubation Intubation Comments: initially the patient had been on BiPAP and chest like in the ER he was somewhat arousable, with react to touch stimuli however around 4 in the morning, nurse reported that the patient was less arousable on more obtunded, when they move him in the bed to change position, he was not responding. We checked his pupils, they appeared to be still pinpoint and fixed, Narcan 0.4 mg IV x1 was given without any effect, I obtained an ABG at bedside which shows a pH of 7.1 and a pCO2 158) higher than 122, at this point, I made decision to intubate him for clearly BiPAP is not working for him. His obtundation is most likely due to significant hypercapnia. <GISELLE Brito Last Filed: 11/05/21 06:24> Consent for Procedure: Emergent-no informed consent obtained <GISELLE Brito Last Filed: 11/05/21 06:24> Time out performed: Yes <GISELLE Brito Last Filed: 11/05/21 06:24> Sedative: propofol <GISELLE Brito Last Filed: 11/05/21 06:24> Mg given: 100 <GISELLE Brito Last Filed: 11/05/21 06:24> Paralytic: rocuronium <GISELLE Brito Last Filed: 11/05/21 06:24> Mg given: 50 <GISELLE Brito Last Filed: 11/05/21 06:24> Laryngoscope: fiber optic video scope <GISELLE Brito Last Filed: 11/05/21 06:24> ET tube size: 8 <GISELLE Brito Last Filed: 11/05/21 06:24> ET tube uncuffed: Yes <GISELLE Brito Last Filed: 11/05/21 06:24> Tube secured depth (cm): 27 <GISELLE Brito Last Filed: 11/05/21 06:24> Tube secured location: lips <GISELLE Brito Last Filed: 11/05/21 06:24> Tube placement confirmation: visualized tube passing through cords, equal breath sounds bilaterally, no breath sounds over epigastrium and confirmation by capnometry <GISELLE Brito - Last Filed: 11/05/21 06:24> Patient tolerated procedure: well and no complications <GISELLE Brito - Last Filed: 11/05/21 06:24> Intubation complications: none <GISELLE Brito Last Filed: 11/05/21 06:24>
--- NOTE | 2021-11-05 05:16 | W.PM.CCHP ---
Procedures Date of Service Date of Service: 11/05/21 <GISELLE Brito - Last Filed: 11/05/21 06:23> Central Line Placement Right IJ: Central Line Comments: ? A quick time-out was made for clarification and proper patient identification, patient was positioned, landmarks were identified, US used to locate a? large compressible IJ.? The right neck was widely prepped and draped in a full sterile fashion.? Ultrasound was used to locate again the right IJ, the vein was cannulated on the 1st pass with an 18 gauge thin needle, dark nonpulsatile blood return was obtained.? The wire was threaded, a small incision was made at its base and dilator inserted.? A triple-lumen central venous catheter was advanced into the vein up to the hub without problems, wired was removed. Ports had? good blood return and flushed x3.? The catheter was secured with 3 sutures at 3 sites, a Biopatch and dry sterile dressing were applied. Post procedure chest x-ray showed the line to be in good position without pneumothorax.? No bleeding or complications noted. <GISELLE Brito - Last Filed: 11/05/21 06:23> Consent for Procedure: Emergent-no informed consent obtained <GISELLE Brito - Last Filed: 11/05/21 06:23> Time out performed: Yes <GISELLE Brito Last Filed: 11/05/21 06:23> Sterile Technique Used: Yes <GISELLE Brito Last Filed: 11/05/21 06:23> Patient placed on monitor/pulse ox: Yes <GISELLE Brito Last Filed: 11/05/21 06:23> MD prep: mask, gown and gloves <GISELLE Brito Last Filed: 11/05/21 06:23> Central line prep: Chlorhexidine scrub <GISELLE Brito - Last Filed: 11/05/21 06:23> Ultrasound used for placement: Yes <GISELLE Brito - Last Filed: 11/05/21 06:23> Central line lumen inserted: triple <GISELLE Brito Last Filed: 11/05/21 06:23> Post procedure: sutured in place, good blood return, all ports aspirated, flushed, capped and sterile dressing applied <GISELLE Brito - Last Filed: 11/05/21 06:23> Post procedure x-ray: tip of catheter in good position and no pneumothorax seen <GISELLE Brito - Last Filed: 11/05/21 06:23> Patient tolerated procedure: well and no complications <GISELLE Brito - Last Filed: 11/05/21 06:23> Complications: none <GISELLE Brito - Last Filed: 11/05/21 06:23>
[2021-11-05] MEDS: fentaNYL citrate/NS 1,000 MCG/100 ML PLAST..BAG 20 MCG IVCONT (06:00)
--- NOTE | 2021-11-05 06:14 | PC.NURSE ---
At appx. 0400, this RN went into pt.'s room for assessment. SPO2 sat noted to be decreasing, went to assess pt. and make sure that BiPap did not have an air leak. GISELLE Shields notified re: pt.'s decreasing SPO2 sat and this RN repositioned pt. to improve oxygenation. Upon repositioning pt., it was noted that pt.'s limbs were flaccid and pt. was unresponsive to painful stimuli/sternal rubbing. GISELLE Shields at bedside as well. ABGs drawn. 0.4mg Narcan given at appx. 0420 re: pinpoint pupils. Decision to intubate and place central line. 0449 50 Prop. given, followed by an additional 100 Prop. at 0450, 0452 50 Jadiel given. Intubated size 8.0, 29 at lip. Started on Prop. gtt, Levophed gtt. Good breath sounds. Bedside x-ray complete. Prior to central line placement, pt. started to wake up. IVP Prop. 100 given. Additional Jadiel 50 given. Fentanyl gtt started at 200. 3x Lumen central line placed to R IJ. Bedside x-ray complete.
[2021-11-05] MEDS: propofoL 1,000 MG/100 ML VIAL 43.8 MG IVCONT ×2 (06:15→08:20)
[2021-11-05] MEDS: Pantoprazole Sodium 40 MG/10 ML VIAL IVPUSH (07:03)
[2021-11-05 07:07] LABS: VBG Base Excess 11.2 mmol/L; VBG HCO3 39 mmol/L (22-26); VBG pCO2 62 mmHg; VBG pO2 48 mmHg
[2021-11-05 07:11] LABS: Basophils Percent Auto 0.1 % (0-2); Hematocrit 46.5 % (42.0-52.0); Imm Gran Abs Auto 0.13 X10*3/uL (0.00-0.03); Imm Gran Pct Auto 1.2 % (0.0-0.4); Lymphocytes Absolute Auto 0.7 X10*3/uL (1.2-4.9); Lymphocytes Percent Auto 6.5 % (20-40); MANUAL DIFF FLAG SCAN; Mean Corpuscular HGB Conc 30.1 g/dl (31.0-36.0); Mean Corpuscular Hemoglobin 28.2 pg (27.0-33.0); Mean Corpuscular Volume 93.6 fL (80.0-98.0); Mean Platelet Volume 11.6 fL (9.4-12.4); Monocytes Absolute Auto 0.2 X10*3/uL (0.1-1.2); Monocytes Percent Auto 1.7 % (2-11); Neutrophils Absolute Auto 10.1 x10*3/uL (2.0-8.3); Neutrophils Percent Auto 90.5 % (45-73); Platelet Count 184 X10*3/uL (160-400); Red Blood Count 4.97 X10*6/uL (4.60-5.80); Red Cell Distribution Width 14.3 % (11.0-16.0); SCAN SMEAR FLAG 1; White Blood Count 11.2 X10*3/uL (4.8-10.8)
[2021-11-05 07:12] LABS: NRBC Pct Auto 3.7 /100WBC (0.0-0.2)
[2021-11-05 07:24] LABS: Alanine Aminotransferase 36 U/L (0-40); Albumin Level 3.7 g/dL (3.5-5.0); Alkaline Phosphatase 89 U/L (39-117); Anion Gap 10 (12-20); Aspartate Amino Transferase 25 U/L (5-37); Bilirubin Total 0.7 mg/dL (0.0-1.0); Blood Urea Nitrogen 24 mg/dL (9-16); Calcium 9.5 mg/dL (8.4-10.2); Carbon Dioxide 36 mmol/L (22-29); Chloride 93 mmol/L (96-108); Creatinine Clr Calc Pharmacy 133.5; Estimated Glomerular Filt Rate > 60; Glucose Random 162 mg/dL (60-115); Potassium 4.2 mmol/L (3.3-5.1); Sodium 135 mmol/L (135-145); Total Protein 6.7 g/dL (6.5-8.0)
[2021-11-05 07:48] LABS: SLIDE REVIEW VERIFIED
[2021-11-05] MEDS: Furosemide 20 MG/2 ML VIAL IVPUSH (08:13)
[2021-11-05 08:25] LABS: Venous Blood Gas Refer to POC result
--- NOTE | 2021-11-05 08:34 | PHA.MEDREC ---
Pharmacy Consult ? Medication Reconciliation Pharmacy has completed the medication reconciliation. Reviewed med rec completed by nurse, compared to senior living MAR and updated as needed. Rose KothariD
[2021-11-05] MEDS: fentaNYL citrate/NS 1,000 MCG/100 ML PLAST..BAG 15 MCG IVCONT (09:53)
[2021-11-05] MEDS: propofoL 1,000 MG/100 ML VIAL 35.04 MG IVCONT ×2 (10:51→13:45)
--- NOTE | 2021-11-05 10:58 | MHC.CM.PN ---
Pt transferred to ICU and required emergent intubation: Review of EMR notes pt resides at [facility]. MOLST on file indicating full supportive and resucitative measures: Message left for Josefa Araiza, pt's next of contact requesting a call back. Attempted to speak with staff at [facility] center x 4: staff on unit does not pickle pumper. Inquiring on COVID vax, HCP status. Will attempt on 11/06. IMM addendum completed and will be left in pt's room: Pt re referred to [facility] for continuation of care needs. CM to follow.
--- NOTE | 2021-11-05 12:19 | PM.CCPN ---
Subjective Subjective Date of Service: 11/05/21 Interval History: 66-year-old morbidly obese male with a history of untreated obstructive sleep apnea and probable chronic obesity/ hypoventilation syndrome and this of course because of his own lack of cooperation at as an underlying schizoaffective and the 1 of a number of presentations with acute on chronic hypercarbic and hypoxic respiratory failure with altered mental status and on arousability creating a need for intubation now completely compensated on the ventilator given at least 1 dose of intravenous Diamox and Lasix on the ventilator pCO2 is 62 with pH of 7.4 so now compensated with evidence of preserve renal function bedside echo demonstrating normal IVC size but lack of inspiratory collapse normal left ventricular systolic function with no wall motion abnormality 60% ejection fraction no primary valve or pericardial disease and possibly a borderline degree of right ventricular hypertrophy min I am sure reflecting chronic pulmonary hypertension and at this point he should auto diurese just based on the vaso dilatory effect from the ventilator so I will stop but diuretics of follow renal function and electrolytes no evidence of an infectious exacerbation that I could see and clearly the no there is evidence of chronic cor pulmonale with peripheral edema Critical Care Time (minutes): 45 Physical Exam Vital Signs: Vital Signs: Last Vital Signs Temp 98.4 F 11/05/21 11:53 Pulse 67 11/05/21 11:53 Resp 30 H 11/05/21 11:53 BP 118/65 11/05/21 11:53 Pulse Ox 91 L 11/05/21 11:53 Oxygen Flow Rate 50 11/05/21 04:00 BMI result Body Mass Index 42.1 vital signs are so are stable in normal sinus rhythm on a minimal amount of Levophed support because of the prop ofol and fentanyl affect nonfocal neurologically cardiovascular by bedside echo lungs clear to auscultation with no adventitious sounds no excessive respiratory effort abdomen benign even by imaging OG tube is placed Objective Data Labs CBC & Chem 7: 11/05/21 06:50 11/05/21 06:50 Labs: Laboratory Results - last 24 hr 11/04/21 11/04/21 11/04/21 22:11 22:28 22:28 WBC 12.4 H RBC 4.92 Hgb 13.8 L Hct 46.6 MCV 94.7 MCH 28.0 MCHC 29.6 L RDW 14.5 Plt Count 191 D MPV 11.0 Immature Gran % (Auto) Cancelled Neut % (Auto) Cancelled Lymph % (Auto) Cancelled [place] % (Auto) Cancelled Eos % (Auto) Cancelled Baso % (Auto) Cancelled Lymph # (Auto) Cancelled [place] # (Auto) Cancelled Eos # (Auto) Cancelled Baso # (Auto) Cancelled Abs Immat Gran (auto) Cancelled Absolute Neuts (auto) Cancelled Absolute Nucleated RBC 0.390 H Nucleated RBC % (auto) 3.1 H Neutrophils % (Manual) 67 Band Neutrophils % 0 L Lymphocytes % (Manual) 19 L Monocytes % (Manual) 14 H Abs Neuts (Manual) 8.3 Lymphocytes # (Manual) 2.4 Monocytes # (Manual) 1.7 H Nucleated RBCs 3 H Smudge Cells PRESENT Toxic Vacuolation PRESENT Platelet Estimate SLIGHTLY DECREASED Large Platelets PRESENT Plt Morphology Comment NOTED RBC Morphology NORMAL Polychromasia 2+ (3-5) Ovalocytes 1+ (5-14) Marcus Cells 2+ (3-5) Acanthocytes (Spur) 1+ (0-2) Smear Tech's Comments PT 13.0 INR 1.1 O2 Saturation ABG pH at Pt Temp ABG pCO2 at Pt Temp ABG pO2 at Pt Temp ABG HCO3 ABG Base Excess (Actual) VBG pH VBG pCO2 VBG pO2 VBG HCO3 VBG O2 Saturation VBG Base Excess Sodium Potassium Chloride Carbon Dioxide Anion Gap BUN Creatinine Estim Creat Clear Calc Estimated GFR POC Glucose 115 Random Glucose Lactic Acid Calcium Total Bilirubin AST ALT Alkaline Phosphatase Troponin I High Sens B-Natriuretic Peptide Total Protein Albumin Urine Color Urine Appearance Urine pH Ur Specific [place] Urine Protein Urine Glucose (UA) Urine Ketones Urine Blood Urine Nitrite Ur Leukocyte Esterase Urine RBC Urine WBC Ur Squamous Epith Cells Calcium Phosphate Cryst Urine Bacteria Hyaline Casts Urine Mucus Urine Opiates Screen Urine Fentanyl Screen Ur Barbiturates Screen Ur Phencyclidine Scrn Ur Amphetamines Screen U Benzodiazepines Scrn Urine Cocaine Screen U Marijuana (THC) Screen COVID-19 ([facility]) COVID-19 Clin Com 11/04/21 11/04/21 11/04/21 22:28 22:28 22:28 WBC RBC Hgb Hct MCV MCH MCHC RDW Plt Count MPV Immature Gran % (Auto) Neut % (Auto) Lymph % (Auto) [place] % (Auto) Eos % (Auto) Baso % (Auto) Lymph # (Auto) [place] # (Auto) Eos # (Auto) Baso # (Auto) Abs Immat Gran (auto) Absolute Neuts (auto) Absolute Nucleated RBC Nucleated RBC % (auto) Neutrophils % (Manual) Band Neutrophils % Lymphocytes % (Manual) Monocytes % (Manual) Abs Neuts (Manual) Lymphocytes # (Manual) Monocytes # (Manual) Nucleated RBCs Smudge Cells Toxic Vacuolation Platelet Estimate Large Platelets Plt Morphology Comment RBC Morphology Polychromasia Ovalocytes Marcus Cells Acanthocytes (Spur) Smear Tech's Comments PT INR O2 Saturation ABG pH at Pt Temp ABG pCO2 at Pt Temp ABG pO2 at Pt Temp ABG HCO3 ABG Base Excess (Actual) VBG pH VBG pCO2 VBG pO2 VBG HCO3 VBG O2 Saturation VBG Base Excess Sodium 135 Potassium 5.4 H D Chloride 92 L Carbon Dioxide 39 H Anion Gap 9 L BUN 28 H Creatinine 0.73 Estim Creat Clear Calc 138.2 Estimated GFR > 60 POC Glucose Random Glucose 111 Lactic Acid 0.5 Calcium 9.5 Total Bilirubin 0.5 AST 33 D ALT 37 Alkaline Phosphatase 89 D Troponin I High Sens 17.2 D B-Natriuretic Peptide 442 H Total Protein 6.9 Albumin 3.8 Urine Color Urine Appearance Urine pH Ur Specific [place] Urine Protein Urine Glucose (UA) Urine Ketones Urine Blood Urine Nitrite Ur Leukocyte Esterase Urine RBC Urine WBC Ur Squamous Epith Cells Calcium Phosphate Cryst Urine Bacteria Hyaline Casts Urine Mucus Urine Opiates Screen Urine Fentanyl Screen Ur Barbiturates Screen Ur Phencyclidine Scrn Ur Amphetamines Screen U Benzodiazepines Scrn Urine Cocaine Screen U Marijuana (THC) Screen COVID-19 ([facility]) COVID-19 Clin Com 11/04/21 11/04/21 11/04/21 22:28 22:33 23:01 WBC RBC Hgb Hct MCV MCH MCHC RDW Plt Count MPV Immature Gran % (Auto) Neut % (Auto) Lymph % (Auto) [place] % (Auto) Eos % (Auto) Baso % (Auto) Lymph # (Auto) [place] # (Auto) Eos # (Auto) Baso # (Auto) Abs Immat Gran (auto) Absolute Neuts (auto) Absolute Nucleated RBC Nucleated RBC % (auto) Neutrophils % (Manual) Band Neutrophils % Lymphocytes % (Manual) Monocytes % (Manual) Abs Neuts (Manual) Lymphocytes # (Manual) Monocytes # (Manual) Nucleated RBCs Smudge Cells Toxic Vacuolation Platelet Estimate Large Platelets Plt Morphology Comment RBC Morphology Polychromasia Ovalocytes Marcus Cells Acanthocytes (Spur) Smear Tech's Comments PT INR O2 Saturation 86.0 ABG pH at Pt Temp 7.18 L* ABG pCO2 at Pt Temp 121 H* ABG pO2 at Pt Temp 71 L ABG HCO3 46 H ABG Base Excess (Actual) 11.6 VBG pH 7.25 L VBG pCO2 100 VBG pO2 114 VBG HCO3 44 H VBG O2 Saturation 98.0 VBG Base Excess 11.9 Sodium Potassium Chloride Carbon Dioxide Anion Gap BUN Creatinine Estim Creat Clear Calc Estimated GFR POC Glucose Random Glucose Lactic Acid Calcium Total Bilirubin AST ALT Alkaline Phosphatase Troponin I High Sens B-Natriuretic Peptide Total Protein Albumin Urine Color Urine Appearance Urine pH Ur Specific [place] Urine Protein Urine Glucose (UA) Urine Ketones Urine Blood Urine Nitrite Ur Leukocyte Esterase Urine RBC Urine WBC Ur Squamous Epith Cells Calcium Phosphate Cryst Urine Bacteria Hyaline Casts Urine Mucus Urine Opiates Screen Urine Fentanyl Screen Ur Barbiturates Screen Ur Phencyclidine Scrn Ur Amphetamines Screen U Benzodiazepines Scrn Urine Cocaine Screen U Marijuana (THC) Screen COVID-19 ([facility]) Negative COVID-19 Clin Com See Note 11/05/21 11/05/21 11/05/21 00:22 00:22 04:23 WBC RBC Hgb Hct MCV MCH MCHC RDW Plt Count MPV Immature Gran % (Auto) Neut % (Auto) Lymph % (Auto) [place] % (Auto) Eos % (Auto) Baso % (Auto) Lymph # (Auto) [place] # (Auto) Eos # (Auto) Baso # (Auto) Abs Immat Gran (auto) Absolute Neuts (auto) Absolute Nucleated RBC Nucleated RBC % (auto) Neutrophils % (Manual) Band Neutrophils % Lymphocytes % (Manual) Monocytes % (Manual) Abs Neuts (Manual) Lymphocytes # (Manual) Monocytes # (Manual) Nucleated RBCs Smudge Cells Toxic Vacuolation Platelet Estimate Large Platelets Plt Morphology Comment RBC Morphology Polychromasia Ovalocytes Marcus Cells Acanthocytes (Spur) Smear Tech's Comments PT INR O2 Saturation 82.0 ABG pH at Pt Temp 7.12 L* ABG pCO2 at Pt Temp 158 H* ABG pO2 at Pt Temp 66 L ABG HCO3 52 H ABG Base Excess (Actual) 13.7 VBG pH VBG pCO2 VBG pO2 VBG HCO3 VBG O2 Saturation VBG Base Excess Sodium Potassium Chloride Carbon Dioxide Anion Gap BUN Creatinine Estim Creat Clear Calc Estimated GFR POC Glucose Random Glucose Lactic Acid Calcium Total Bilirubin AST ALT Alkaline Phosphatase Troponin I High Sens B-Natriuretic Peptide Total Protein Albumin Urine Color STRAW Urine Appearance CLEAR Urine pH 6.0 Ur Specific [place] 1.020 Urine Protein 1+ H Urine Glucose (UA) NEG Urine Ketones NEG Urine Blood TRACE Urine Nitrite NEG Ur Leukocyte Esterase NEG Urine RBC 0-2 Urine WBC 0-2 Ur Squamous Epith Cells NONE Calcium Phosphate Cryst 1+ Urine Bacteria NONE Hyaline Casts 0-2 Urine Mucus 1+ Urine Opiates Screen Not Detected Urine Fentanyl Screen Not Detected Ur Barbiturates Screen Not Detected Ur Phencyclidine Scrn Not Detected Ur Amphetamines Screen Not Detected U Benzodiazepines Scrn Not Detected Urine Cocaine Screen Not Detected U Marijuana (THC) Screen Not Detected COVID-19 ([facility]) COVID-19 Clin Com 11/05/21 11/05/21 11/05/21 06:50 06:50 06:59 WBC 11.2 H RBC 4.97 Hgb 14.0 Hct 46.5 MCV 93.6 MCH 28.2 MCHC 30.1 L RDW 14.3 Plt Count 184 MPV 11.6 Immature Gran % (Auto) 1.2 H Neut % (Auto) 90.5 H Lymph % (Auto) 6.5 L [place] % (Auto) 1.7 L Eos % (Auto) 0.0 Baso % (Auto) 0.1 Lymph # (Auto) 0.7 L [place] # (Auto) 0.2 Eos # (Auto) 0.0 Baso # (Auto) 0.0 Abs Immat Gran (auto) 0.13 H Absolute Neuts (auto) 10.1 H Absolute Nucleated RBC 0.410 H Nucleated RBC % (auto) 3.7 H Neutrophils % (Manual) Band Neutrophils % Lymphocytes % (Manual) Monocytes % (Manual) Abs Neuts (Manual) Lymphocytes # (Manual) Monocytes # (Manual) Nucleated RBCs Smudge Cells Toxic Vacuolation Platelet Estimate Large Platelets Plt Morphology Comment RBC Morphology Polychromasia Ovalocytes Marcus Cells Acanthocytes (Spur) Smear Tech's Comments VERIFIED PT INR O2 Saturation ABG pH at Pt Temp ABG pCO2 at Pt Temp ABG pO2 at Pt Temp ABG HCO3 ABG Base Excess (Actual) VBG pH 7.40 VBG pCO2 62 VBG pO2 48 VBG HCO3 39 H VBG O2 Saturation 79.0 VBG Base Excess 11.2 Sodium 135 Potassium 4.2 D Chloride 93 L Carbon Dioxide 36 H Anion Gap 10 L BUN 24 H Creatinine 0.78 Estim Creat Clear Calc 133.5 Estimated GFR > 60 POC Glucose Random Glucose 162 H D Lactic Acid Calcium 9.5 Total Bilirubin 0.7 AST 25 ALT 36 Alkaline Phosphatase 89 Troponin I High Sens B-Natriuretic Peptide Total Protein 6.7 Albumin 3.7 Urine Color Urine Appearance Urine pH Ur Specific [place] Urine Protein Urine Glucose (UA) Urine Ketones Urine Blood Urine Nitrite Ur Leukocyte Esterase Urine RBC Urine WBC Ur Squamous Epith Cells Calcium Phosphate Cryst Urine Bacteria Hyaline Casts Urine Mucus Urine Opiates Screen Urine Fentanyl Screen Ur Barbiturates Screen Ur Phencyclidine Scrn Ur Amphetamines Screen U Benzodiazepines Scrn Urine Cocaine Screen U Marijuana (THC) Screen COVID-19 ([facility]) COVID-19 Clin Com Progress Note: A&P Assessment and plan (1) Acute and chronic respiratory failure with hypercapnia: Status: Acute (2) Acute exacerbation of chronic obstructive airways disease: Status: Acute (3) Congestive heart failure: Status: Acute (4) Obstructive sleep apnea syndrome in adult: Status: Acute (5) Morbid obesity: Status: Acute (6) Schizoaffective disorder: Status: Acute (7) Cor pulmonale (chronic): Status: Acute Plan stopping diuretics no IV fluid withholding feeding for 24 hours continued sedation on the ventilator to allow him to auto diurese and become euvolemic and when we have achieved that assessment will then try to wean the ventilator and I have no expectations of cooperation on his part I might try to wean him to a nasal high-flow device to enable transfer to the floor Quality Stroke Does the patient have a stroke diagnosis?: No VTE Prior VTE?: No VTE Risk Level:: Medical - moderate - high VTE Device Contraindication: N/A - Device Ordered VTE Drug Contraindication: N/A - Med Ordered
[2021-11-05] MEDS: fentaNYL citrate/NS 1,000 MCG/100 ML PLAST..BAG 12.5 MCG IVCONT ×2 (14:59→23:05)
[2021-11-05] MEDS: propofoL 1,000 MG/100 ML VIAL 26.28 MG IVCONT ×3 (16:50→23:09)
[2021-11-05 20:30] LABS: Anion Gap 9 (12-20); Blood Urea Nitrogen 23 mg/dL (9-16); Calcium 9.4 mg/dL (8.4-10.2); Carbon Dioxide 32 mmol/L (22-29); Chloride 101 mmol/L (96-108); Creatinine Clr Calc Pharmacy 125.4; Estimated Glomerular Filt Rate > 60; Glucose Random 102 mg/dL (60-115); Phosphorus 4.1 mg/dL (2.7-4.5); Potassium 3.8 mmol/L (3.3-5.1); Sodium 138 mmol/L (135-145)
[2021-11-06] VITALS (32 sets, daily range): BP systolic 94–144; BP diastolic 48–101; PULSE 57–87; RESP 11–21; TEMP 34–37.1; O2SAT 26–96; BMI 40.8; BMI 37.6
[2021-11-06] MEDS: propofoL 1,000 MG/100 ML VIAL 26.28 MG IVCONT ×2 (02:23→05:34)
[2021-11-06] MEDS: Enoxaparin Sodium 40 MG/0.4 ML SYRINGE SUBCUT (02:24)
[2021-11-06] MEDS: fentaNYL citrate/NS 1,000 MCG/100 ML PLAST..BAG 12.5 MCG IVCONT (05:35)
[2021-11-06] MEDS: Pantoprazole Sodium 40 MG/10 ML VIAL IVPUSH (05:36)
[2021-11-06 05:38] LABS: VBG Base Excess 5.2 mmol/L; VBG HCO3 30 mmol/L (22-26); VBG pCO2 43 mmHg; VBG pH 7.44 (7.32-7.43); VBG pO2 52 mmHg
[2021-11-06 05:39] LABS: MANUAL DIFF FLAG NO
[2021-11-06 05:41] LABS: Basophils Percent Auto 0.2 % (0-2); Eosinophils Percent Auto 0.2 % (0-4); Hematocrit 43.5 % (42.0-52.0); Hemoglobin 13.4 g/dl (14.0-18.0); Imm Gran Abs Auto 0.06 X10*3/uL (0.00-0.03); Imm Gran Pct Auto 0.5 % (0.0-0.4); Lymphocytes Absolute Auto 1.8 X10*3/uL (1.2-4.9); Lymphocytes Percent Auto 15.2 % (20-40); Mean Corpuscular HGB Conc 30.8 g/dl (31.0-36.0); Mean Corpuscular Hemoglobin 28.1 pg (27.0-33.0); Mean Corpuscular Volume 91.2 fL (80.0-98.0); Mean Platelet Volume 10.2 fL (9.4-12.4); Monocytes Absolute Auto 0.9 X10*3/uL (0.1-1.2); Monocytes Percent Auto 7.8 % (2-11); Neutrophils Absolute Auto 8.8 x10*3/uL (2.0-8.3); Neutrophils Percent Auto 76.1 % (45-73); Platelet Count 162 X10*3/uL (160-400); Red Blood Count 4.77 X10*6/uL (4.60-5.80); White Blood Count 11.5 X10*3/uL (4.8-10.8)
[2021-11-06 05:47] LABS: Venous Blood Gas Refer to POC result
[2021-11-06 06:01] LABS: Alanine Aminotransferase 24 U/L (0-40); Albumin Level 3.1 g/dL (3.5-5.0); Alkaline Phosphatase 71 U/L (39-117); Anion Gap 10 (12-20); Aspartate Amino Transferase 16 U/L (5-37); Bilirubin Direct 0.2 mg/dL (0.0-0.5); Bilirubin Total 0.6 mg/dL (0.0-1.0); Blood Urea Nitrogen 25 mg/dL (9-16); Carbon Dioxide 30 mmol/L (22-29); Chloride 103 mmol/L (96-108); Creatinine Clr Calc Pharmacy 122.5; Estimated Glomerular Filt Rate > 60; Glucose Random 97 mg/dL (60-115); Magnesium 2.2 mg/dL (1.6-2.6); Phosphorus 3.6 mg/dL (2.7-4.5); Potassium 3.7 mmol/L (3.3-5.1); Sodium 139 mmol/L (135-145); Total Protein 5.4 g/dL (6.5-8.0)
[2021-11-06 06:06] LABS: B Type Natriuretic Peptide 44 pg/mL (<100)
--- NOTE | 2021-11-06 08:08 | P.CDIC_ITS ---
CDI Concurrent Query Documentation Clarification: PHYSICIAN'S DOCUMENTATION REQUEST Date of Query: 11/06/21808 Patient Name: Luis Carlos Traore Admit Date: 11/04/21 Dear Doctor, A review of the medical record indicates additional documentation may be needed. Please review below and update the documentation accordingly. Risk Factors/Clinical Indicators/Treatments On 11/04/21, potassium level 5.4 On 11/05/21, potassium level 4.2 Based on the above, could you clarify in the Progress Notes the appropriate di agnosis, if significant, that supports the above abnormalities and additional evaluation, monitoring, and/or treatment rendered: * Labs indicate a diagnosis of (please specify) * Other (please specify) * Unable to determine Use of terms such as suspected, likely, concern for, or probable (associated with a specific diagnosis that is being evaluated, monitored, or treated as if it exists) are acceptable and can be coded in the inpatient setting, when documented at the time of discharge. Thank you, Malika Godinez RN Extension: [phone] Please use your independent medical judgment in providing your response. THIS QUERY IS PART OF THE PERMANENT MEDICAL RECORD Provider Response: Other Other Diagnosis: Hyperkalemia
--- NOTE | 2021-11-06 10:46 | MHC.CLN ---
F/U PT'S PLAN TO EXTUBATE TODAY PER PT IS CURRENTLY NPO IF TF NEEDED; RECOMMEND PROMOTE AT MAX GOAL RATE 45ML/HR TO PROVIDE 1080KCALS (1774KCALS WITH SEDATION; 23KCALS/KG), 67.5G PROTEIN, 906CC FREE WATER FROM FORMULA MONITOR TOLERANCE, RESIDUALS AND LYTES IF DIET TO ADVANCE; RECOMMEND REGULAR DIET MONITOR PO INTAKE CLOSELY
--- NOTE | 2021-11-06 12:35 | PM.CCPN ---
Subjective Subjective Date of Service: 11/06/21 Interval History: 66-year-old morbidly obese male who is a chronic obstructive sleep apnea/ obesity and hypoventilation with an acute on chronic hypercarbic respiratory failure altered mental status status post 48 hours of intubation and coming off the sedation he had completely normal recovery of cognitive function and we watched him for several hours on a on a pressure support mechanism maintaining tidal volumes in the 500s and respiratory rates in the low 20s no use of accessory muscles no obstructive pattern to his breathing maintaining adequate but borderline oxygen saturation which was very much tidal volume dependent and he is sick currently weaned extubated very comfortable on nasal high-flow and repeat gas is pending and he definitely will be on nocturnal BiPAP as well to which she has consented and will test to swallow and potentially initiate clear liquids Critical Care Time (minutes): 45 Physical Exam Vital Signs: Vital Signs: Last Vital Signs Temp 97.3 F 11/06/21 12:00 Pulse 81 11/06/21 12:00 Resp 12 11/06/21 12:00 BP 144/66 H 11/06/21 12:00 Pulse Ox 92 11/06/21 12:00 Oxygen Flow Rate 50 11/05/21 04:00 BMI result Body Mass Index 37.6 awake and alert with a nonfocal neurologically cardiovascular by bedside echo normal LV function normal RV at this somewhat hypertrophic in borderline diameter but no primary valve or pericardial disease resolved peripheral edema and after a 5 L diuresis with preserve renal function the appears to be euvolemic abdomen benign Objective Data Labs CBC & Chem 7: 11/06/21 05:30 11/06/21 05:30 Labs: Laboratory Results - last 24 hr 11/05/21 11/05/21 11/06/21 06:50 19:50 05:30 WBC RBC Hgb Hct MCV MCH MCHC RDW Plt Count MPV Immature Gran % (Auto) Neut % (Auto) Lymph % (Auto) [place] % (Auto) Eos % (Auto) Baso % (Auto) Lymph # (Auto) [place] # (Auto) Eos # (Auto) Baso # (Auto) Abs Immat Gran (auto) Absolute Neuts (auto) Absolute Nucleated RBC Nucleated RBC % (auto) Smear Path Review SEE NOTE VBG pH VBG pCO2 VBG pO2 VBG HCO3 VBG O2 Saturation VBG Base Excess Sodium 138 139 Potassium 3.8 3.7 Chloride 101 103 Carbon Dioxide 32 H 30 H Anion Gap 9 L 10 L BUN 23 H 25 H Creatinine 0.83 0.85 Estim Creat Clear Calc 125.4 122.5 Estimated GFR > 60 > 60 Random Glucose 102 D 97 Calcium 9.4 9.0 Phosphorus 4.1 3.6 Magnesium 2.0 2.2 Total Bilirubin 0.6 Direct Bilirubin 0.2 AST 16 ALT 24 Alkaline Phosphatase 71 D B-Natriuretic Peptide Total Protein 5.4 L Albumin 3.1 L 11/06/21 11/06/21 11/06/21 05:30 05:30 05:31 WBC 11.5 H RBC 4.77 Hgb 13.4 L Hct 43.5 MCV 91.2 MCH 28.1 MCHC 30.8 L RDW 15.0 Plt Count 162 MPV 10.2 Immature Gran % (Auto) 0.5 H Neut % (Auto) 76.1 H Lymph % (Auto) 15.2 L [place] % (Auto) 7.8 Eos % (Auto) 0.2 Baso % (Auto) 0.2 Lymph # (Auto) 1.8 [place] # (Auto) 0.9 Eos # (Auto) 0.0 Baso # (Auto) 0.0 Abs Immat Gran (auto) 0.06 H Absolute Neuts (auto) 8.8 H Absolute Nucleated RBC 0.110 H Nucleated RBC % (auto) 1.0 H Smear Path Review VBG pH 7.44 H VBG pCO2 43 VBG pO2 52 VBG HCO3 30 H VBG O2 Saturation 80.0 VBG Base Excess 5.2 Sodium Potassium Chloride Carbon Dioxide Anion Gap BUN Creatinine Estim Creat Clear Calc Estimated GFR Random Glucose Calcium Phosphorus Magnesium Total Bilirubin Direct Bilirubin AST ALT Alkaline Phosphatase B-Natriuretic Peptide 44 Total Protein Albumin Microbiology Microbiology Results: Microbiology 11/04/21 22:32 Blood - Venous Blood Culture - Preliminary No growth after 24 hours. 11/04/21 22:32 Blood - Venous Blood Culture - Preliminary No growth after 24 hours. Progress Note: A&P Assessment and plan (1) Cor pulmonale (chronic): Status: Acute (2) Schizoaffective disorder: Status: Acute (3) Morbid obesity: Status: Acute (4) Acute and chronic respiratory failure with hypercapnia: Status: Acute (5) Acute exacerbation of chronic obstructive airways disease: Status: Acute (6) Congestive heart failure: Status: Acute (7) Obstructive sleep apnea syndrome in adult: Status: Acute Plan plan is to check a blood gas on the nasal high-flow for adequacy in and that being the case nocturnal BiPAP and then on the floor transfer and with pulmonary consult to qualify him for a home device Quality Stroke Does the patient have a stroke diagnosis?: No VTE Prior VTE?: No VTE Risk Level:: Medical - moderate - high VTE Device Contraindication: N/A - Device Ordered VTE Drug Contraindication: N/A - Med Ordered
[2021-11-06] MEDS: ARIPiprazole 2 MG TABLET PO (13:26)
--- NOTE | 2021-11-06 14:39 | MHC.SL.SWA ---
Speech Pathologist Impression: Oral Phase Dysphagia Risk of Aspiration Due to: Hx of Recent Extubation Dysphasia Diet Status: Liquid Consistency and Strategies for Safe Swallow: Liquid Intake Recommendation: Thin Liquid Intake Strategies: Small Sips Solid Food Consistency: Dietary Recommendations: Chopped/Advanced (NDD3) Additional Modifications to Solid Foods: Avoid difficulty to chew foods. Oral Medication Intake: Please contact the pharmacy regarding appropriate crushable or liquid drug formulations that are available if modifications to medication delivery is recommended. Whole with Puree Compensatory Strategies and Precautions to be Taken for Safe Swallow: Sitting Upright (90 deg) Small Bites and Sips Alternate Liquids/Solids Supervision While Eating and Drinking for Safe Swallow: Intermittent Supervision Foods to Avoid: Hard, difficult to chew foods. Swallowing Recommended Treatments: Compens. Strategy Educat. Recommendation for Speech: Inpatient Speech Therapy Comment: Pt presents w/ mild oral phase dysphagia due to prolonged oral phase on more solid food consistencies. Swallow WNL on Thin Liquid, Puree consistencies. Recommend start diet of THIN Liquid w/Chopped/Advanced (NDD3) diet consistency w/ pills whole in Puree or w/Liquid. Pt recently s/p extubation, should be reassessed for toleration of diet and advancement if warranted. Diet consistency order given to MD in person in written format, MD likely to start on PT on Full Liquid Diet initially. Frequency/Duration: [employer] to follow M-F Date Range for Service Req: Timeline to reassess: Pediatric Cns Clinican/Clinical Fellow: No Supervisory Statement: I have reviewed and agree with the student/clinical fellow's documentation: N/A Speech Language Pathologist: Sarah Hanley M.A., CCC-[employer]
[2021-11-06 14:55] LABS: Venous Blood Gas Refer to POC result
[2021-11-06 14:56] LABS: VBG HCO3 33 mmol/L (22-26); VBG pCO2 62 mmHg; VBG pH 7.33 (7.32-7.43); VBG pO2 70 mmHg
--- NOTE | 2021-11-06 14:59 | MHC.CM.PN ---
Pt has been extubated and is on high flow. D/C plan is for a return to [facility] where he is a bed hold. Clinical updates sent to facility in anticipation of a return in 2-3 days.
[2021-11-07] VITALS (19 sets, daily range): BP systolic 111–152; BP diastolic 60–82; PULSE 68–85; RESP 12–23; TEMP 36.1–37.4; O2SAT 89–98; BMI 40.4
[2021-11-07] MEDS: Enoxaparin Sodium 40 MG/0.4 ML SYRINGE SUBCUT (03:36)
[2021-11-07 05:34] LABS: MANUAL DIFF FLAG NO
[2021-11-07 05:36] LABS: VBG Base Excess 7.7 mmol/L; VBG HCO3 36 mmol/L (22-26); VBG pCO2 66 mmHg; VBG pH 7.34 (7.32-7.43); VBG pO2 57 mmHg
[2021-11-07 05:39] LABS: Basophils Percent Auto 0.3 % (0-2); Eosinophils Absolute Auto 0.1 X10*3/uL (0.0-0.4); Eosinophils Percent Auto 0.6 % (0-4); Hematocrit 45.2 % (42.0-52.0); Hemoglobin 13.5 g/dl (14.0-18.0); Imm Gran Abs Auto 0.04 X10*3/uL (0.00-0.03); Imm Gran Pct Auto 0.4 % (0.0-0.4); Lymphocytes Absolute Auto 1.2 X10*3/uL (1.2-4.9); Lymphocytes Percent Auto 12.4 % (20-40); Mean Corpuscular HGB Conc 29.9 g/dl (31.0-36.0); Mean Corpuscular Hemoglobin 27.7 pg (27.0-33.0); Mean Corpuscular Volume 92.8 fL (80.0-98.0); Mean Platelet Volume 10.5 fL (9.4-12.4); Monocytes Absolute Auto 0.9 X10*3/uL (0.1-1.2); Monocytes Percent Auto 9.6 % (2-11); Neutrophils Absolute Auto 7.1 x10*3/uL (2.0-8.3); Neutrophils Percent Auto 76.7 % (45-73); Platelet Count 163 X10*3/uL (160-400); Red Blood Count 4.87 X10*6/uL (4.60-5.80); Red Cell Distribution Width 15.1 % (11.0-16.0); White Blood Count 9.3 X10*3/uL (4.8-10.8)
[2021-11-07] MEDS: Pantoprazole Sodium 40 MG/10 ML VIAL IVPUSH (05:45)
[2021-11-07 05:59] LABS: Alanine Aminotransferase 20 U/L (0-40); Albumin Level 3.3 g/dL (3.5-5.0); Alkaline Phosphatase 76 U/L (39-117); Anion Gap 11 (12-20); Aspartate Amino Transferase 11 U/L (5-37); Bilirubin Direct 0.3 mg/dL (0.0-0.5); Bilirubin Total 0.8 mg/dL (0.0-1.0); Blood Urea Nitrogen 22 mg/dL (9-16); Calcium 9.2 mg/dL (8.4-10.2); Carbon Dioxide 29 mmol/L (22-29); Chloride 101 mmol/L (96-108); Creatinine Clr Calc Pharmacy 136.2; Estimated Glomerular Filt Rate > 60; Glucose Random 98 mg/dL (60-115); Magnesium 2.1 mg/dL (1.6-2.6); Phosphorus 3.5 mg/dL (2.7-4.5); Sodium 137 mmol/L (135-145); Total Protein 6.1 g/dL (6.5-8.0)
[2021-11-07 06:07] LABS: B Type Natriuretic Peptide 16 pg/mL (<100)
[2021-11-07 06:21] LABS: Venous Blood Gas Refer to POC result
[2021-11-07] MEDS: ARIPiprazole 2 MG TABLET PO (07:50)
--- NOTE | 2021-11-07 08:11 | P.PNCC_ITS ---
Subjective Subjective Date of Service: 11/07/21 Interval History: 66-year-old morbidly obese male with obstructive sleep apnea and obesity hypoventilation essentially untreated with background schizoaffective disorder came in with acute hypercarbic respiratory failure with acute on chronic cor pulmonale and 1st 24 hours with ventilatory support unloaded 5 L of 3rd space fluid comfortably weaned off the ventilator 24 hours ago and whereby his presenting and pCO2 was greater than 120 with a severely altered mental status he now is in the low to mid 60s which seems to be his chronic and compensated state she can and he is eating doing well during the day on nasal high-flow and nocturnal BiPAP and probably prior to discharge needs pulmonary consult to qualify him for a home device is long as he is willing to cooperate Critical Care Time (minutes): 35 Physical Exam Vital Signs: Vital Signs: Last Vital Signs Temp 98.1 F 11/07/21 08:00 Pulse 80 11/07/21 08:00 Resp 12 11/07/21 08:00 BP 138/77 11/07/21 08:00 Pulse Ox 93 11/07/21 08:00 Oxygen Flow Rate 40 11/07/21 07:41 BMI result Body Mass Index 40.4 awake alert and nonfocal di d bedside echo with normal LV systolic function and right ventricular hypertrophy but no primary valve or pericardial disease lungs remain clear without adventitious sounds abdomen benign with no organomegaly no no further peripheral edema Objective Data Labs CBC & Chem 7: 11/07/21 05:30 11/07/21 05:30 Labs: Laboratory Results - last 24 hr 11/05/21 11/06/21 11/07/21 06:50 14:49 05:29 WBC RBC Hgb Hct MCV MCH MCHC RDW Plt Count MPV Immature Gran % (Auto) Neut % (Auto) Lymph % (Auto) [place] % (Auto) Eos % (Auto) Baso % (Auto) Lymph # (Auto) [place] # (Auto) Eos # (Auto) Baso # (Auto) Abs Immat Gran (auto) Absolute Neuts (auto) Absolute Nucleated RBC Nucleated RBC % (auto) Smear Path Review SEE NOTE VBG pH 7.33 7.34 VBG pCO2 62 66 VBG pO2 70 57 VBG HCO3 33 H 36 H VBG O2 Saturation 89.0 82.0 VBG Base Excess 5.0 7.7 Sodium Potassium Chloride Carbon Dioxide Anion Gap BUN Creatinine Estim Creat Clear Calc Estimated GFR Random Glucose Calcium Phosphorus Magnesium Total Bilirubin Direct Bilirubin AST ALT Alkaline Phosphatase B-Natriuretic Peptide Total Protein Albumin 11/07/21 11/07/21 11/07/21 05:30 05:30 05:30 WBC 9.3 RBC 4.87 Hgb 13.5 L Hct 45.2 MCV 92.8 MCH 27.7 MCHC 29.9 L RDW 15.1 Plt Count 163 MPV 10.5 Immature Gran % (Auto) 0.4 Neut % (Auto) 76.7 H Lymph % (Auto) 12.4 L [place] % (Auto) 9.6 Eos % (Auto) 0.6 Baso % (Auto) 0.3 Lymph # (Auto) 1.2 [place] # (Auto) 0.9 Eos # (Auto) 0.1 Baso # (Auto) 0.0 Abs Immat Gran (auto) 0.04 H Absolute Neuts (auto) 7.1 Absolute Nucleated RBC 0.000 Nucleated RBC % (auto) 0.0 Smear Path Review VBG pH VBG pCO2 VBG pO2 VBG HCO3 VBG O2 Saturation VBG Base Excess Sodium 137 Potassium 4.0 Chloride 101 Carbon Dioxide 29 Anion Gap 11 L BUN 22 H Creatinine 0.72 Estim Creat Clear Calc 136.2 Estimated GFR > 60 Random Glucose 98 Calcium 9.2 Phosphorus 3.5 Magnesium 2.1 Total Bilirubin 0.8 Direct Bilirubin 0.3 AST 11 ALT 20 Alkaline Phosphatase 76 B-Natriuretic Peptide 16 Total Protein 6.1 L Albumin 3.3 L Microbiology Microbiology Results: Microbiology 11/04/21 22:32 Blood - Venous Blood Culture - Preliminary No growth after 48 hours. 11/04/21 22:32 Blood - Venous Blood Culture - Preliminary No growth after 48 hours. Progress Note: A&P Assessment and plan (1) Cor pulmonale (chronic): Status: Acute (2) Schizoaffective disorder: Status: Acute (3) Morbid obesity: Status: Acute (4) Acute and chronic respiratory failure with hypercapnia: Status: Acute (5) Acute exacerbation of chronic obstructive airways disease: Status: Acute (6) Congestive heart failure: Status: Acute (7) Obstructive sleep apnea syndrome in adult: Status: Acute Plan plan at this point is to discontinue Maki begin to mobilize him and transfer him to [facility] Quality Stroke Does the patient have a stroke diagnosis?: No VTE Prior VTE?: No VTE Risk Level:: Medical - moderate - high VTE Device Contraindication: N/A - Device Ordered VTE Drug Contraindication: N/A - Med Ordered
--- NOTE | 2021-11-07 08:51 | PC.NURSE ---
Addendum entered by Aleena Koch RN 11/07/21 14:26: TLC REMOVED FROM RIJ. OCCULSIVE DRESSING APPLIED. Original Note: SOUZA REMOVED ORDERED BY AT 0845. DTV AT 1500. WILL CONTINUE TO MONITOR.
--- NOTE | 2021-11-07 09:59 | MHC.CLN ---
F/U PT EXTUBATED 11/06 AERIAL INSTALLER REC CHOPPED DIET-SEE NOTE DIET RX: CHOPPED-APPROPRIATE MONITOR PO INTAKE CLOSELY
--- NOTE | 2021-11-07 12:01 | MHC.SL.SWA ---
Speech Pathologist Impression: Oral Phase Dysphagia Risk of Aspiration Due to: Hx of Recent Extubation Dysphasia Diet Status: Upgrade Liquid Consistency and Strategies for Safe Swallow: Liquid Intake Recommendation: Thin Liquid Intake Strategies: Small Sips Solid Food Consistency: Dietary Recommendations: Regular Additional Modifications to Solid Foods: Recommend UPGRADE to REGULAR solids and maintain THIN liquids, pills WHOLE with LIQUID or PUREE. Continue aspiration precautions. D/C speech therapy as patient is at his baseline. Please re-refer if there are any changes or if we can be of further assistance. PHOTOENGRAVING APPRENTICE updated diet order in [facility] Sent message to MD, RN, RD via [employer]. Oral Medication Intake: Whole with Puree or Liquid Please contact the pharmacy regarding appropriate crushable or liquid drug formulations that are available whenever modified delivery is recommended. Compensatory Strategies and Precautions to be Taken for Safe Swallow: Sitting Upright (90 deg) Small Bites and Sips Alternate Liquids/Solids Rate of Ingestion Change Avoid Specific Foods Supervision While Eating and Drinking for Safe Swallow: Intermittent Supervision Foods to Avoid: Hard, difficult to chew foods. Swallowing Recommended Treatments: Compens. Strategy Educat. Recommendation for Speech: D/C Internet Marketing Director Clinican/Clinical Fellow: No Supervisory Statement: I have reviewed and agree with the student/clinical fellow's documentation: N/A Speech Language Pathologist: Monika Liz M.A., [facility]-PHOTOENGRAVING APPRENTICE
[2021-11-07] MEDS: Acetaminophen 325 MG TABLET 650 MG PO (18:08)
[2021-11-07] MEDS: Budesonide 180 MCG AER.POW.BA 1 PUFF INHALE (22:38)
[2021-11-08] VITALS (10 sets, daily range): BP systolic 128–161; BP diastolic 63–88; PULSE 70–80; RESP 15–21; TEMP 37.1–37.2; O2SAT 92–97; BMI 40.7
[2021-11-08] MEDS: Enoxaparin Sodium 40 MG/0.4 ML SYRINGE SUBCUT (00:51)
[2021-11-08 05:35] LABS: VBG Base Excess 5.5 mmol/L; VBG HCO3 32 mmol/L (22-26); VBG pCO2 58 mmHg; VBG pH 7.35 (7.32-7.43); VBG pO2 83 mmHg
[2021-11-08 05:55] LABS: MANUAL DIFF FLAG NO
[2021-11-08 06:03] LABS: Basophils Percent Auto 0.2 % (0-2); Eosinophils Absolute Auto 0.1 X10*3/uL (0.0-0.4); Eosinophils Percent Auto 1.3 % (0-4); Hematocrit 45.4 % (42.0-52.0); Hemoglobin 13.4 g/dl (14.0-18.0); Imm Gran Abs Auto 0.04 X10*3/uL (0.00-0.03); Imm Gran Pct Auto 0.4 % (0.0-0.4); Lymphocytes Absolute Auto 1.2 X10*3/uL (1.2-4.9); Lymphocytes Percent Auto 13.1 % (20-40); Mean Corpuscular HGB Conc 29.5 g/dl (31.0-36.0); Mean Corpuscular Hemoglobin 27.7 pg (27.0-33.0); Mean Corpuscular Volume 93.8 fL (80.0-98.0); Mean Platelet Volume 11.1 fL (9.4-12.4); Monocytes Percent Auto 10.3 % (2-11); NRBC Pct Auto 0.2 /100WBC (0.0-0.2); Neutrophils Absolute Auto 6.9 x10*3/uL (2.0-8.3); Neutrophils Percent Auto 74.7 % (45-73); Platelet Count 156 X10*3/uL (160-400); Red Blood Count 4.84 X10*6/uL (4.60-5.80); Red Cell Distribution Width 14.8 % (11.0-16.0); White Blood Count 9.2 X10*3/uL (4.8-10.8)
[2021-11-08 06:06] LABS: Venous Blood Gas Refer to POC result
[2021-11-08] MEDS: Pantoprazole Sodium 40 MG/10 ML VIAL IVPUSH (06:19)
[2021-11-08 06:22] LABS: Alanine Aminotransferase 15 U/L (0-40); Albumin Level 3.3 g/dL (3.5-5.0); Alkaline Phosphatase 82 U/L (39-117); Anion Gap 10 (12-20); Aspartate Amino Transferase 12 U/L (5-37); Bilirubin Direct 0.2 mg/dL (0.0-0.5); Bilirubin Total 0.5 mg/dL (0.0-1.0); Blood Urea Nitrogen 20 mg/dL (9-16); Calcium 9.2 mg/dL (8.4-10.2); Carbon Dioxide 31 mmol/L (22-29); Chloride 101 mmol/L (96-108); Creatinine Clr Calc Pharmacy 146.1; Estimated Glomerular Filt Rate > 60; Glucose Random 141 mg/dL (60-115); Phosphorus 2.5 mg/dL (2.7-4.5); Potassium 3.9 mmol/L (3.3-5.1); Sodium 138 mmol/L (135-145); Total Protein 6.1 g/dL (6.5-8.0)
[2021-11-08 06:28] LABS: B Type Natriuretic Peptide 10 pg/mL (<100)
[2021-11-08] MEDS: ARIPiprazole 2 MG TABLET PO (09:06)
[2021-11-08] MEDS: Budesonide 180 MCG AER.POW.BA 1 PUFF INHALE ×2 (09:06→21:21)
--- NOTE | 2021-11-08 10:58 | HO.PM.IMPN ---
Subjective Subjective Date of Service: 11/08/21 Interval History: no acute issues overnight Review of Systems denies chest pain Admits to shortness of breath at rest Denies nausea vomiting diarrhea Physical Exam Vital Signs: Vital Signs: Last Vital Signs Temp 99.4 F 11/07/21 20:00 Pulse 71 11/08/21 08:00 Resp 15 11/08/21 08:00 BP 151/84 H 11/08/21 08:00 Pulse Ox 94 11/08/21 08:00 Oxygen Flow Rate 40 11/08/21 04:00 BMI result Body Mass Index 40.7 Const: Other: awake alert no acute distress Resp: Other: clear to auscultation all burks no rales rhonchi or wheezes Cardio: Other: no S4; positive S1-S2; no S3 murmurs rubs or gallops GI: Other: obese; positive bowel sounds Extrem: Other: no edema bilaterally Objective Data Active Medications Acetaminophen (Acetaminophen 325 Mg Tablet) 650 mg PO Q6H PRN PRN Reason: Pain, Moderate (Pain Scale 4-6 Last Admin: 11/07/21 18:08 Dose: 650 mg Documented by: ARIS Aripiprazole (Aripiprazole 2 Mg Tablet) 2 mg PO DAILY [facility] Last Admin: 11/08/21 09:06 Dose: 2 mg Documented by: PRAVIN Budesonide (Budesonide 180 Mcg Aer.Pow.Ba) 1 puff INHALE BID [facility] Last Admin: 11/08/21 09:06 Dose: 1 puff Documented by: PRAVIN Enoxaparin Sodium (Enoxaparin Sodium 40 Mg/0.4 Ml Syringe) 40 mg SUBCUT Q24H [facility] Last Admin: 11/08/21 00:51 Dose: 40 mg Documented by: KARAN Labs CBC & Chem 7: 11/08/21 05:28 11/08/21 05:28 Labs: Laboratory Results - last 24 hr 11/08/21 11/08/21 11/08/21 05:27 05:28 05:28 MCV 93.8 MCH 27.7 MCHC 29.5 L RDW 14.8 Plt Count 156 L MPV 11.1 Immature Gran % (Auto) 0.4 Neut % (Auto) 74.7 H Lymph % (Auto) 13.1 L [place] % (Auto) 10.3 Eos % (Auto) 1.3 Baso % (Auto) 0.2 Lymph # (Auto) 1.2 [place] # (Auto) 1.0 Eos # (Auto) 0.1 Baso # (Auto) 0.0 Abs Immat Gran (auto) 0.04 H Absolute Neuts (auto) 6.9 Absolute Nucleated RBC 0.020 H Nucleated RBC % (auto) 0.2 VBG pH 7.35 VBG pCO2 58 VBG pO2 83 VBG HCO3 32 H VBG O2 Saturation 96.0 VBG Base Excess 5.5 Anion Gap 10 L Estim Creat Clear Calc 146.1 Estimated GFR > 60 Random Glucose 141 H D Calcium 9.2 Phosphorus 2.5 L Magnesium 2.0 Total Bilirubin 0.5 Direct Bilirubin 0.2 AST 12 ALT 15 Alkaline Phosphatase 82 B-Natriuretic Peptide Total Protein 6.1 L Albumin 3.3 L 11/08/21 05:28 MCV MCH MCHC RDW Plt Count MPV Immature Gran % (Auto) Neut % (Auto) Lymph % (Auto) [place] % (Auto) Eos % (Auto) Baso % (Auto) Lymph # (Auto) [place] # (Auto) Eos # (Auto) Baso # (Auto) Abs Immat Gran (auto) Absolute Neuts (auto) Absolute Nucleated RBC Nucleated RBC % (auto) VBG pH VBG pCO2 VBG pO2 VBG HCO3 VBG O2 Saturation VBG Base Excess Anion Gap Estim Creat Clear Calc Estimated GFR Random Glucose Calcium Phosphorus Magnesium Total Bilirubin Direct Bilirubin AST ALT Alkaline Phosphatase B-Natriuretic Peptide 10 Total Protein Albumin Assessment and Plan (1) Acute exacerbation of chronic obstructive airways disease: Status: Acute (2) Congestive heart failure: Status: Acute (3) Schizoaffective disorder: Status: Acute Plan 66-year-old male with a known history of COPD hypertension schizophrenia along with LYNN presents to the emergency room with respiratory distress and lethargy. Despite BiPAP patient required intubation and ICU admission. Over the course next 48 hours he was successfully intubated and has been doing well with high-flow oxygen 1.Hypercarbic respiratory failure - continue nocturnal BiPAP as ordered - wean O2 as tolerated - p.r.n. nebs 2.HTN -add low dose ARB -titrate as indicated -follow renals/divalents 3.Schizophrenia - started on Abilify -titrate as indicated Full Code Lovenox Quality Stroke Does the patient have a stroke diagnosis?: No VTE Prior VTE?: No VTE Risk Level:: Medical - moderate - high VTE Device Contraindication: N/A - Device Ordered VTE Drug Contraindication: N/A - Med Ordered
[2021-11-09] VITALS (11 sets, daily range): BP systolic 148–173; BP diastolic 75–95; PULSE 68–81; RESP 16–24; TEMP 36.3–37.5; O2SAT 94–99
[2021-11-09] MEDS: Enoxaparin Sodium 40 MG/0.4 ML SYRINGE SUBCUT (03:27)
[2021-11-09 06:43] LABS: MANUAL DIFF FLAG NO
[2021-11-09 06:47] LABS: Venous Blood Gas Refer to POC result
[2021-11-09 06:48] LABS: Basophils Percent Auto 0.2 % (0-2); Eosinophils Absolute Auto 0.1 X10*3/uL (0.0-0.4); Eosinophils Percent Auto 1.2 % (0-4); Hematocrit 43.7 % (42.0-52.0); Hemoglobin 12.9 g/dl (14.0-18.0); Imm Gran Abs Auto 0.02 X10*3/uL (0.00-0.03); Imm Gran Pct Auto 0.2 % (0.0-0.4); Lymphocytes Absolute Auto 1.1 X10*3/uL (1.2-4.9); Lymphocytes Percent Auto 13.5 % (20-40); Mean Corpuscular HGB Conc 29.5 g/dl (31.0-36.0); Mean Corpuscular Hemoglobin 27.3 pg (27.0-33.0); Mean Corpuscular Volume 92.6 fL (80.0-98.0); Mean Platelet Volume 10.2 fL (9.4-12.4); Monocytes Absolute Auto 0.9 X10*3/uL (0.1-1.2); Monocytes Percent Auto 10.9 % (2-11); Neutrophils Absolute Auto 6.1 x10*3/uL (2.0-8.3); Platelet Count 150 X10*3/uL (160-400); Red Blood Count 4.72 X10*6/uL (4.60-5.80); Red Cell Distribution Width 14.6 % (11.0-16.0); White Blood Count 8.3 X10*3/uL (4.8-10.8)
[2021-11-09 06:49] LABS: VBG Base Excess 11.8 mmol/L; VBG HCO3 41 mmol/L (22-26); VBG pCO2 73 mmHg; VBG pH 7.35 (7.32-7.43); VBG pO2 105 mmHg
[2021-11-09 07:06] LABS: B Type Natriuretic Peptide 19 pg/mL (<100)
[2021-11-09 07:07] LABS: Alanine Aminotransferase 14 U/L (0-40); Albumin Level 3.3 g/dL (3.5-5.0); Alkaline Phosphatase 74 U/L (39-117); Anion Gap 8 (12-20); Aspartate Amino Transferase 11 U/L (5-37); Bilirubin Direct 0.2 mg/dL (0.0-0.5); Bilirubin Total 0.5 mg/dL (0.0-1.0); Blood Urea Nitrogen 19 mg/dL (9-16); Calcium 9.3 mg/dL (8.4-10.2); Carbon Dioxide 35 mmol/L (22-29); Chloride 101 mmol/L (96-108); Creatinine Clr Calc Pharmacy 164.9; Estimated Glomerular Filt Rate > 60; Glucose Random 101 mg/dL (60-115); Magnesium 1.8 mg/dL (1.6-2.6); Phosphorus 2.4 mg/dL (2.7-4.5); Potassium 4.2 mmol/L (3.3-5.1); Sodium 140 mmol/L (135-145); Total Protein 6.1 g/dL (6.5-8.0)
[2021-11-09] MEDS: Budesonide 180 MCG AER.POW.BA 1 PUFF INHALE ×2 (07:43→22:26)
[2021-11-09] MEDS: ARIPiprazole 2 MG TABLET PO (11:38)
[2021-11-09] MEDS: Losartan Potassium 25 MG TABLET PO (11:38)
--- NOTE | 2021-11-09 13:17 | HO.PM.IMPN ---
Subjective Subjective Date of Service: 11/09/21 Interval History: no acute issues overnight Review of Systems denies chest pain Admits to shortness of breath at rest Denies nausea vomiting diarrhea Physical Exam Vital Signs: Vital Signs: Last Vital Signs Temp 97.6 F 11/09/21 12:00 Pulse 75 11/09/21 12:00 Resp 19 11/09/21 12:00 BP 170/85 H 11/09/21 12:00 Pulse Ox 95 11/09/21 12:00 Oxygen Flow Rate 40 11/08/21 04:00 BMI result Body Mass Index 40.7 Const: Other: awake alert no acute distress Resp: Other: clear to auscultation all burks no rales rhonchi or wheezes Cardio: Other: no S4; positive S1-S2; no S3 murmurs rubs or gallops GI: Other: obese; positive bowel sounds Extrem: Other: no edema bilaterally Objective Data Active Medications Acetaminophen (Acetaminophen 325 Mg Tablet) 650 mg PO Q6H PRN PRN Reason: Pain, Moderate (Pain Scale 4-6 Last Admin: 11/07/21 18:08 Dose: 650 mg Documented by: ARIS Aripiprazole (Aripiprazole 2 Mg Tablet) 2 mg PO DAILY [facility] Last Admin: 11/09/21 11:38 Dose: 2 mg Documented by: SUE Budesonide (Budesonide 180 Mcg Aer.Pow.Ba) 1 puff INHALE BID [facility] Last Admin: 11/09/21 07:43 Dose: 1 puff Documented by: PEPITO Enoxaparin Sodium (Enoxaparin Sodium 40 Mg/0.4 Ml Syringe) 40 mg SUBCUT Q24H [facility] Last Admin: 11/09/21 03:27 Dose: 40 mg Documented by: MANUEL Losartan Potassium (Losartan Potassium 25 Mg Tablet) 25 mg PO DAILY [facility]; Protocol Last Admin: 11/09/21 11:38 Dose: 25 mg Documented by: SUE Labs CBC & Chem 7: 11/09/21 06:37 11/09/21 06:37 Labs: Laboratory Results - last 24 hr 11/09/21 11/09/21 11/09/21 06:37 06:37 06:37 MCV 92.6 MCH 27.3 MCHC 29.5 L RDW 14.6 Plt Count 150 L MPV 10.2 Immature Gran % (Auto) 0.2 Neut % (Auto) 74.0 H Lymph % (Auto) 13.5 L [place] % (Auto) 10.9 Eos % (Auto) 1.2 Baso % (Auto) 0.2 Lymph # (Auto) 1.1 L [place] # (Auto) 0.9 Eos # (Auto) 0.1 Baso # (Auto) 0.0 Abs Immat Gran (auto) 0.02 Absolute Neuts (auto) 6.1 Absolute Nucleated RBC 0.000 Nucleated RBC % (auto) 0.0 VBG pH VBG pCO2 VBG pO2 VBG HCO3 VBG O2 Saturation VBG Base Excess Anion Gap 8 L Estim Creat Clear Calc 164.9 Estimated GFR > 60 Random Glucose 101 Calcium 9.3 Phosphorus 2.4 L Magnesium 1.8 Total Bilirubin 0.5 Direct Bilirubin 0.2 AST 11 ALT 14 Alkaline Phosphatase 74 B-Natriuretic Peptide 19 Total Protein 6.1 L Albumin 3.3 L 11/09/21 06:41 MCV MCH MCHC RDW Plt Count MPV Immature Gran % (Auto) Neut % (Auto) Lymph % (Auto) [place] % (Auto) Eos % (Auto) Baso % (Auto) Lymph # (Auto) [place] # (Auto) Eos # (Auto) Baso # (Auto) Abs Immat Gran (auto) Absolute Neuts (auto) Absolute Nucleated RBC Nucleated RBC % (auto) VBG pH 7.35 VBG pCO2 73 VBG pO2 105 VBG HCO3 41 H VBG O2 Saturation 99.0 VBG Base Excess 11.8 Anion Gap Estim Creat Clear Calc Estimated GFR Random Glucose Calcium Phosphorus Magnesium Total Bilirubin Direct Bilirubin AST ALT Alkaline Phosphatase B-Natriuretic Peptide Total Protein Albumin Assessment and Plan (1) Hypercapnic respiratory failure: Status: Acute (2) Obstructive sleep apnea syndrome in adult: Status: Acute (3) Schizoaffective disorder: Status: Acute Plan 66-year-old male with a known history of COPD hypertension schizophrenia along with LYNN presents to the emergency room with respiratory distress and lethargy. Despite BiPAP patient required intubation and ICU admission. Over the course next 48 hours he was successfully extubated and has been doing well with high-flow oxygen 1.Hypercarbic respiratory failure - continue nocturnal BiPAP as ordered - wean O2 as tolerated...remains on HFO - p.r.n. nebs -DC when O2 requirement is acceptable 2.HTN -add low dose ARB -titrate as indicated -follow renals/divalents 3.Schizophrenia - started on Abilify -titrate as indicated Full Code Lovenox Quality Stroke Does the patient have a stroke diagnosis?: No VTE Prior VTE?: No VTE Risk Level:: Medical - moderate - high VTE Device Contraindication: N/A - Device Ordered VTE Drug Contraindication: N/A - Med Ordered
[2021-11-10] VITALS (8 sets, daily range): BP systolic 130–171; BP diastolic 75–83; PULSE 62–77; RESP 16–20; TEMP 36.5–37.5; O2SAT 95–100
[2021-11-10] MEDS: Enoxaparin Sodium 40 MG/0.4 ML SYRINGE SUBCUT (01:12)
[2021-11-10] MEDS: Losartan Potassium 25 MG TABLET PO (05:54)
[2021-11-10 07:13] LABS: MANUAL DIFF FLAG NO
[2021-11-10 07:19] LABS: Basophils Percent Auto 0.3 % (0-2); Eosinophils Absolute Auto 0.1 X10*3/uL (0.0-0.4); Eosinophils Percent Auto 1.4 % (0-4); Hematocrit 44.3 % (42.0-52.0); Imm Gran Abs Auto 0.02 X10*3/uL (0.00-0.03); Imm Gran Pct Auto 0.3 % (0.0-0.4); Lymphocytes Absolute Auto 1.2 X10*3/uL (1.2-4.9); Lymphocytes Percent Auto 14.5 % (20-40); Mean Corpuscular HGB Conc 29.3 g/dl (31.0-36.0); Mean Corpuscular Hemoglobin 27.4 pg (27.0-33.0); Mean Corpuscular Volume 93.5 fL (80.0-98.0); Mean Platelet Volume 11.2 fL (9.4-12.4); Monocytes Absolute Auto 0.9 X10*3/uL (0.1-1.2); Monocytes Percent Auto 11.1 % (2-11); Neutrophils Absolute Auto 5.7 x10*3/uL (2.0-8.3); Neutrophils Percent Auto 72.4 % (45-73); Platelet Count 160 X10*3/uL (160-400); Red Blood Count 4.74 X10*6/uL (4.60-5.80); Red Cell Distribution Width 14.6 % (11.0-16.0); White Blood Count 7.9 X10*3/uL (4.8-10.8)
[2021-11-10 07:35] LABS: B Type Natriuretic Peptide 32 pg/mL (<100)
[2021-11-10 07:44] LABS: Alanine Aminotransferase 13 U/L (0-40); Albumin Level 3.3 g/dL (3.5-5.0); Alkaline Phosphatase 72 U/L (39-117); Aspartate Amino Transferase 11 U/L (5-37); Bilirubin Direct 0.3 mg/dL (0.0-0.5); Bilirubin Total 0.6 mg/dL (0.0-1.0); Blood Urea Nitrogen 18 mg/dL (9-16); Calcium 9.4 mg/dL (8.4-10.2); Creatinine Clr Calc Pharmacy 170.4; Estimated Glomerular Filt Rate > 60; Glucose Random 100 mg/dL (60-115); Magnesium 1.8 mg/dL (1.6-2.6); Phosphorus 2.5 mg/dL (2.7-4.5); Total Protein 6.1 g/dL (6.5-8.0)
[2021-11-10 08:27] LABS: Anion Gap 10 (12-20); Carbon Dioxide 35 mmol/L (22-29); Chloride 100 mmol/L (96-108); Potassium 4.4 mmol/L (3.3-5.1); Sodium 141 mmol/L (135-145)
[2021-11-10] MEDS: Budesonide 180 MCG AER.POW.BA 1 PUFF INHALE ×2 (08:57→21:00)
[2021-11-10] MEDS: ARIPiprazole 2 MG TABLET PO (08:57)
[2021-11-10 09:01] LABS: Venous Blood Gas Refer to POC result
[2021-11-10 09:01] LABS: VBG Base Excess 15.5 mmol/L; VBG HCO3 45 mmol/L (22-26); VBG pCO2 77 mmHg; VBG pH 7.37 (7.32-7.43); VBG pO2 121 mmHg
[2021-11-10] MEDS: Acetaminophen 325 MG TABLET 650 MG PO (14:15)
--- NOTE | 2021-11-10 15:32 | HO.PM.IMPN ---
Subjective Subjective Date of Service: 11/10/21 Interval History: no acute issues overnight Review of Systems denies chest pain Admits to shortness of breath at rest Denies nausea vomiting diarrhea Physical Exam Vital Signs: Vital Signs: Last Vital Signs Temp 97.9 F 11/10/21 11:43 Pulse 70 11/10/21 11:43 Resp 19 11/10/21 11:43 BP 149/78 H 11/10/21 11:43 Pulse Ox 96 11/10/21 11:43 Oxygen Flow Rate 40 11/08/21 04:00 BMI result Body Mass Index 40.7 Const: Other: awake alert no acute distress Resp: Other: clear to auscultation all burks no rales rhonchi or wheezes Cardio: Other: no S4; positive S1-S2; no S3 murmurs rubs or gallops GI: Other: obese; positive bowel sounds Extrem: Other: no edema bilaterally Objective Data Active Medications Acetaminophen (Acetaminophen 325 Mg Tablet) 650 mg PO Q6H PRN PRN Reason: Pain, Moderate (Pain Scale 4-6 Last Admin: 11/10/21 14:15 Dose: 650 mg Documented by: KAYLENE Aripiprazole (Aripiprazole 2 Mg Tablet) 2 mg PO DAILY [facility] Last Admin: 11/10/21 08:57 Dose: 2 mg Documented by: KAYLENE Budesonide (Budesonide 180 Mcg Aer.Pow.Ba) 1 puff INHALE BID [facility] Last Admin: 11/10/21 08:57 Dose: 1 puff Documented by: KAYLENE Enoxaparin Sodium (Enoxaparin Sodium 40 Mg/0.4 Ml Syringe) 40 mg SUBCUT Q24H [facility] Last Admin: 11/10/21 01:12 Dose: 40 mg Documented by: DENISE Losartan Potassium (Losartan Potassium 25 Mg Tablet) 25 mg PO DAILY [facility]; Protocol Last Admin: 11/10/21 05:54 Dose: 25 mg Documented by: DENISE Comments: To be given early per overnight hospitalist Labs CBC & Chem 7: 11/10/21 07:05 11/10/21 07:05 Labs: Laboratory Results - last 24 hr 11/10/21 11/10/21 11/10/21 07:05 07:05 07:05 MCV 93.5 MCH 27.4 MCHC 29.3 L RDW 14.6 Plt Count 160 MPV 11.2 Immature Gran % (Auto) 0.3 Neut % (Auto) 72.4 Lymph % (Auto) 14.5 L [place] % (Auto) 11.1 H Eos % (Auto) 1.4 Baso % (Auto) 0.3 Lymph # (Auto) 1.2 [place] # (Auto) 0.9 Eos # (Auto) 0.1 Baso # (Auto) 0.0 Abs Immat Gran (auto) 0.02 Absolute Neuts (auto) 5.7 Absolute Nucleated RBC 0.000 Nucleated RBC % (auto) 0.0 VBG pH VBG pCO2 VBG pO2 VBG HCO3 VBG O2 Saturation VBG Base Excess Anion Gap 10 L Estim Creat Clear Calc 170.4 Estimated GFR > 60 Random Glucose 100 Calcium 9.4 Phosphorus 2.5 L Magnesium 1.8 Total Bilirubin 0.6 Direct Bilirubin 0.3 AST 11 ALT 13 Alkaline Phosphatase 72 B-Natriuretic Peptide 32 Total Protein 6.1 L Albumin 3.3 L 11/10/21 07:11 MCV MCH MCHC RDW Plt Count MPV Immature Gran % (Auto) Neut % (Auto) Lymph % (Auto) [place] % (Auto) Eos % (Auto) Baso % (Auto) Lymph # (Auto) [place] # (Auto) Eos # (Auto) Baso # (Auto) Abs Immat Gran (auto) Absolute Neuts (auto) Absolute Nucleated RBC Nucleated RBC % (auto) VBG pH 7.37 VBG pCO2 77 VBG pO2 121 VBG HCO3 45 H VBG O2 Saturation 100.0 VBG Base Excess 15.5 Anion Gap Estim Creat Clear Calc Estimated GFR Random Glucose Calcium Phosphorus Magnesium Total Bilirubin Direct Bilirubin AST ALT Alkaline Phosphatase B-Natriuretic Peptide Total Protein Albumin Microbiology Microbiology Results: Microbiology 11/04/21 22:32 Blood Culture - Final Blood - Venous No growth after 5 days. 11/04/21 22:32 Blood Culture - Final Blood - Venous No growth after 5 days. Assessment and Plan (1) Hypercapnic respiratory failure: Status: Acute (2) Schizoaffective disorder: Status: Acute Plan 66-year-old male with a known history of COPD hypertension schizophrenia along with LYNN presents to the emergency room with respiratory distress and lethargy. Despite BiPAP patient required intubation and ICU admission. Over the course next 48 hours he was successfully extubated and has been doing well with high-flow oxygen 1.Hypercarbic respiratory failure - continue nocturnal BiPAP as ordered - wean O2 as tolerated( difficult)..remains on HFO - p.r.n. nebs 2.HTN -add low dose ARB -titrate as indicated -follow renals/divalents 3.Schizophrenia - started on Abilify -titrate as indicated Full Code Lovenox Quality Stroke Does the patient have a stroke diagnosis?: No VTE Prior VTE?: No VTE Risk Level:: Medical - moderate - high VTE Device Contraindication: N/A - Device Ordered VTE Drug Contraindication: N/A - Med Ordered
[2021-11-11] VITALS (7 sets, daily range): BP systolic 155–159; BP diastolic 75–98; PULSE 74–85; RESP 16–24; TEMP 36.4–37.1; O2SAT 91–97; BMI 41.8
[2021-11-11] MEDS: Enoxaparin Sodium 40 MG/0.4 ML SYRINGE SUBCUT (00:15)
[2021-11-11 07:06] LABS: Venous Blood Gas Refer to POC result
[2021-11-11 07:06] LABS: VBG Base Excess 17.4 mmol/L; VBG HCO3 47 mmol/L (22-26); VBG pCO2 78 mmHg; VBG pH 7.38 (7.32-7.43); VBG pO2 92 mmHg
[2021-11-11 07:34] LABS: Alanine Aminotransferase 11 U/L (0-40); Albumin Level 3.4 g/dL (3.5-5.0); Alkaline Phosphatase 76 U/L (39-117); Anion Gap 9 (12-20); Aspartate Amino Transferase 12 U/L (5-37); Bilirubin Direct 0.3 mg/dL (0.0-0.5); Bilirubin Total 0.8 mg/dL (0.0-1.0); Blood Urea Nitrogen 18 mg/dL (9-16); Calcium 9.7 mg/dL (8.4-10.2); Carbon Dioxide 39 mmol/L (22-29); Chloride 99 mmol/L (96-108); Creatinine Clr Calc Pharmacy 162.1; Estimated Glomerular Filt Rate > 60; Glucose Random 101 mg/dL (60-115); Magnesium 1.9 mg/dL (1.6-2.6); Phosphorus 2.5 mg/dL (2.7-4.5); Potassium 4.6 mmol/L (3.3-5.1); Sodium 142 mmol/L (135-145); Total Protein 6.4 g/dL (6.5-8.0)
[2021-11-11 08:35] LABS: Basophils Percent Auto 0.3 % (0-2); Eosinophils Absolute Auto 0.1 X10*3/uL (0.0-0.4); Eosinophils Percent Auto 1.8 % (0-4); Hematocrit 41.9 % (42.0-52.0); Hemoglobin 11.9 g/dl (14.0-18.0); Imm Gran Abs Auto 0.06 X10*3/uL (0.00-0.03); Imm Gran Pct Auto 0.9 % (0.0-0.4); Lymphocytes Absolute Auto 1.2 X10*3/uL (1.2-4.9); Lymphocytes Percent Auto 17.4 % (20-40); MANUAL DIFF FLAG SCAN; Mean Corpuscular HGB Conc 28.4 g/dl (31.0-36.0); Mean Corpuscular Hemoglobin 26.7 pg (27.0-33.0); Mean Corpuscular Volume 93.9 fL (80.0-98.0); Mean Platelet Volume 12.2 fL (9.4-12.4); Monocytes Absolute Auto 0.7 X10*3/uL (0.1-1.2); Monocytes Percent Auto 10.1 % (2-11); Neutrophils Absolute Auto 4.6 x10*3/uL (2.0-8.3); Neutrophils Percent Auto 69.5 % (45-73); PLT CLUMP 1; Red Blood Count 4.46 X10*6/uL (4.60-5.80); Red Cell Distribution Width 14.6 % (11.0-16.0); SCAN SMEAR FLAG 1
[2021-11-11 08:37] LABS: Platelet Count 149 X10*3/uL (160-400); White Blood Count 6.7 X10*3/uL (4.8-10.8)
[2021-11-11 08:55] LABS: B Type Natriuretic Peptide 30 pg/mL (<100)
[2021-11-11 09:04] LABS: SLIDE REVIEW VERIFIED
[2021-11-11] MEDS: ARIPiprazole 2 MG TABLET PO (09:19)
[2021-11-11] MEDS: Losartan Potassium 25 MG TABLET PO (09:19)
--- NOTE | 2021-11-11 13:36 | P.PNIM_ITS ---
Subjective Subjective Date of Service: 11/11/21 Interval History: no acute issues overnight Review of Systems denies chest pain Admits to shortness of breath at rest Denies nausea vomiting diarrhea Physical Exam Vital Signs: Vital Signs: Last Vital Signs Temp 97.6 F 11/11/21 12:00 Pulse 78 11/11/21 12:00 Resp 24 H 11/11/21 12:00 BP 157/98 H 11/11/21 12:00 Pulse Ox 92 11/11/21 12:00 Oxygen Flow Rate 40 11/08/21 04:00 BMI result Body Mass Index 41.8 Const: Other: awake alert no acute distress Resp: Other: clear to auscultation all burks no rales rhonchi or wheezes Cardio: Other: no S4; positive S1-S2; no S3 murmurs rubs or gallops GI: Other: obese; positive bowel sounds Extrem: Other: no edema bilaterally Objective Data Active Medications Acetaminophen (Acetaminophen 325 Mg Tablet) 650 mg PO Q6H PRN PRN Reason: Pain, Moderate (Pain Scale 4-6 Last Admin: 11/10/21 14:15 Dose: 650 mg Documented by: KAYLENE Aripiprazole (Aripiprazole 2 Mg Tablet) 2 mg PO DAILY [facility] Last Admin: 11/11/21 09:19 Dose: 2 mg Documented by: DESTIN Budesonide (Budesonide 180 Mcg Aer.Pow.Ba) 1 puff INHALE BID [facility] Last Admin: 11/11/21 13:32 Dose: Not Given Documented by: DESTIN Non-Admin Reason: resp med Enoxaparin Sodium (Enoxaparin Sodium 40 Mg/0.4 Ml Syringe) 40 mg SUBCUT Q24H [facility] Last Admin: 11/11/21 00:15 Dose: 40 mg Documented by: SANDEEP Losartan Potassium (Losartan Potassium 25 Mg Tablet) 25 mg PO DAILY [facility]; Protocol Last Admin: 11/11/21 09:19 Dose: 25 mg Documented by: DESTIN Labs CBC & Chem 7: 11/11/21 06:52 11/11/21 06:52 Labs: Laboratory Results - last 24 hr 11/11/21 11/11/21 11/11/21 06:52 06:52 06:52 MCV 93.9 MCH 26.7 L MCHC 28.4 L RDW 14.6 Plt Count 149 L MPV 12.2 Immature Gran % (Auto) 0.9 H Neut % (Auto) 69.5 Lymph % (Auto) 17.4 L [place] % (Auto) 10.1 Eos % (Auto) 1.8 Baso % (Auto) 0.3 Lymph # (Auto) 1.2 [place] # (Auto) 0.7 Eos # (Auto) 0.1 Baso # (Auto) 0.0 Abs Immat Gran (auto) 0.06 H Absolute Neuts (auto) 4.6 Absolute Nucleated RBC 0.000 Nucleated RBC % (auto) 0.0 Smear Tech's Comments VERIFIED VBG pH VBG pCO2 VBG pO2 VBG HCO3 VBG O2 Saturation VBG Base Excess Anion Gap 9 L Estim Creat Clear Calc 162.1 Estimated GFR > 60 Random Glucose 101 Calcium 9.7 Phosphorus 2.5 L Magnesium 1.9 Total Bilirubin 0.8 Direct Bilirubin 0.3 AST 12 ALT 11 Alkaline Phosphatase 76 B-Natriuretic Peptide 30 Total Protein 6.4 L Albumin 3.4 L 11/11/21 06:59 MCV MCH MCHC RDW Plt Count MPV Immature Gran % (Auto) Neut % (Auto) Lymph % (Auto) [place] % (Auto) Eos % (Auto) Baso % (Auto) Lymph # (Auto) [place] # (Auto) Eos # (Auto) Baso # (Auto) Abs Immat Gran (auto) Absolute Neuts (auto) Absolute Nucleated RBC Nucleated RBC % (auto) Smear Tech's Comments VBG pH 7.38 VBG pCO2 78 VBG pO2 92 VBG HCO3 47 H VBG O2 Saturation 98.0 VBG Base Excess 17.4 Anion Gap Estim Creat Clear Calc Estimated GFR Random Glucose Calcium Phosphorus Magnesium Total Bilirubin Direct Bilirubin AST ALT Alkaline Phosphatase B-Natriuretic Peptide Total Protein Albumin Assessment and Plan (1) Hypercapnic respiratory failure: Status: Acute (2) Schizoaffective disorder: Status: Acute Plan 66-year-old male with a known history of COPD hypertension schizophrenia along with LYNN presents to the emergency room with respiratory distress and lethargy. Despite BiPAP patient required intubation and ICU admission. Over the course next 48 hours he was successfully extubated and has been doing well with high- flow oxygen.Remains difficult to wean O2 1.Hypercarbic respiratory failure - continue nocturnal BiPAP as ordered - wean O2 as tolerated( difficult). - p.r.n. nebs 2.HTN -add low dose ARB -titrate as indicated -follow renals/divalents 3.Schizophrenia - started on Abilify -titrate as indicated Full Code Emilynox Quality Stroke Does the patient have a stroke diagnosis?: No VTE Prior VTE?: No VTE Risk Level:: Medical - moderate - high VTE Device Contraindication: N/A - Device Ordered VTE Drug Contraindication: N/A - Med Ordered
[2021-11-12] VITALS (7 sets, daily range): BP systolic 143–166; BP diastolic 72–91; PULSE 75–79; RESP 16–22; TEMP 36.4–37.7; O2SAT 91–100; BMI 41.2
[2021-11-12] MEDS: Enoxaparin Sodium 40 MG/0.4 ML SYRINGE SUBCUT (02:32)
[2021-11-12 06:04] LABS: Venous Blood Gas Refer to POC result
[2021-11-12 06:05] LABS: MANUAL DIFF FLAG NO
[2021-11-12 06:09] LABS: VBG Base Excess 16.7 mmol/L; VBG HCO3 46 mmol/L (22-26); VBG pCO2 78 mmHg; VBG pH 7.37 (7.32-7.43); VBG pO2 123 mmHg
[2021-11-12 06:11] LABS: Basophils Percent Auto 0.3 % (0-2); Eosinophils Absolute Auto 0.1 X10*3/uL (0.0-0.4); Eosinophils Percent Auto 1.1 % (0-4); Hematocrit 44.8 % (42.0-52.0); Hemoglobin 12.9 g/dl (14.0-18.0); Imm Gran Abs Auto 0.02 X10*3/uL (0.00-0.03); Imm Gran Pct Auto 0.3 % (0.0-0.4); Lymphocytes Absolute Auto 1.2 X10*3/uL (1.2-4.9); Lymphocytes Percent Auto 16.3 % (20-40); Mean Corpuscular HGB Conc 28.8 g/dl (31.0-36.0); Mean Corpuscular Hemoglobin 27.4 pg (27.0-33.0); Mean Corpuscular Volume 95.3 fL (80.0-98.0); Mean Platelet Volume 10.7 fL (9.4-12.4); Monocytes Absolute Auto 0.9 X10*3/uL (0.1-1.2); Platelet Count 154 X10*3/uL (160-400); Red Cell Distribution Width 14.3 % (11.0-16.0); White Blood Count 7.2 X10*3/uL (4.8-10.8)
[2021-11-12 06:28] LABS: B Type Natriuretic Peptide 28 pg/mL (<100)
[2021-11-12 06:42] LABS: Alanine Aminotransferase 11 U/L (0-40); Albumin Level 3.3 g/dL (3.5-5.0); Alkaline Phosphatase 74 U/L (39-117); Anion Gap 6 (12-20); Aspartate Amino Transferase 11 U/L (5-37); Bilirubin Direct 0.2 mg/dL (0.0-0.5); Bilirubin Total 0.5 mg/dL (0.0-1.0); Blood Urea Nitrogen 18 mg/dL (9-16); Calcium 9.7 mg/dL (8.4-10.2); Carbon Dioxide 42 mmol/L (22-29); Chloride 98 mmol/L (96-108); Creatinine Clr Calc Pharmacy 168.6; Estimated Glomerular Filt Rate > 60; Glucose Random 110 mg/dL (60-115); Magnesium 1.9 mg/dL (1.6-2.6); Phosphorus 2.5 mg/dL (2.7-4.5); Potassium 4.4 mmol/L (3.3-5.1); Sodium 142 mmol/L (135-145); Total Protein 6.2 g/dL (6.5-8.0)
[2021-11-12] MEDS: Losartan Potassium 25 MG TABLET PO (09:22)
[2021-11-12] MEDS: Montelukast Sodium 10 MG TABLET PO (09:23)
[2021-11-12] MEDS: Benztropine Mesylate 0.5 MG TABLET PO (09:23)
[2021-11-12] MEDS: risperiDONE 1 MG TABLET PO ×2 (09:23→21:54)
[2021-11-12] MEDS: amLODIPine Besylate 10 MG TABLET PO (09:23)
[2021-11-12] MEDS: Multivitamin TABLET 1 TAB PO (09:23)
[2021-11-12] MEDS: Pravastatin Sodium 20 MG TABLET PO (09:23)
[2021-11-12 11:37] LABS: Glucose, Whole Blood 116 mg/dL (60-115)
--- NOTE | 2021-11-12 14:43 | P.PNIM_ITS ---
Subjective Subjective Date of Service: 11/12/21 Interval History: Somnolent but oriented. Denies any complaints. Denies noncompliance with BiPAP Review of Systems Review of Systems: Yes all other systems are reviewed and are negative Physical Exam Vital Signs: Vital Signs: Last Vital Signs Temp 97.5 F 11/12/21 11:36 Pulse 79 11/12/21 11:36 Resp 16 11/12/21 11:36 BP 143/72 H 11/12/21 11:36 Pulse Ox 97 11/12/21 11:36 Oxygen Flow Rate 40 11/08/21 04:00 BMI result Body Mass Index 41.2 Gen: in no acute distress HEENT: sclera anicteric, moist mucus membranes Neck: supple Lungs: diminished Heart: regular rate and rhythm, no murmurs Abd: soft, non-tender, non-distended, morbidly obese Ext: no edema Skin: warm/well-perfused Neuro: alert and oriented x3, no focal findings Psych: appropriate affect Objective Data Active Medications Acetaminophen (Acetaminophen 325 Mg Tablet) 650 mg PO Q6H PRN PRN Reason: Pain, Moderate (Pain Scale 4-6 Last Admin: 11/10/21 14:15 Dose: 650 mg Documented by: KAYLENE Amlodipine Besylate (Amlodipine Besylate 10 Mg Tablet) 10 mg PO DAILY [facility]; Protocol Last Admin: 11/12/21 09:23 Dose: 10 mg Documented by: JIN Benztropine Mesylate (Benztropine Mesylate 0.5 Mg Tablet) 0.5 mg PO DAILY [facility] Last Admin: 11/12/21 09:23 Dose: 0.5 mg Documented by: JIN Bisacodyl (Bisacodyl 10 Mg Supp.Rect) 10 mg GA DAILY PRN PRN Reason: Constipation Enoxaparin Sodium (Enoxaparin Sodium 40 Mg/0.4 Ml Syringe) 40 mg SUBCUT Q24H [facility] Last Admin: 11/12/21 02:32 Dose: 40 mg Documented by: SAMSON Fluticasone/Vilanterol (Fluticasone/Vilanterol 200/25 Blst.W.Dev) 1 puff INHALE RDAILY [facility] Last Admin: 11/12/21 11:08 Dose: Not Given Documented by: SKIP Non-Admin Reason: Med Not Available Losartan Potassium (Losartan Potassium 25 Mg Tablet) 25 mg PO DAILY [facility]; Protocol Last Admin: 11/12/21 09:22 Dose: 25 mg Documented by: JIN Montelukast Sodium (Montelukast Sodium 10 Mg Tablet) 10 mg PO DAILY [facility] Last Admin: 11/12/21 09:23 Dose: 10 mg Documented by: JIN Multivitamins/Vitamin C (Multivitamin Tablet) 1 tab PO DAILY [facility] Last Admin: 11/12/21 09:23 Dose: 1 tab Documented by: JIN Pravastatin Sodium (Pravastatin Sodium 20 Mg Tablet) 20 mg PO DAILY [facility] Last Admin: 11/12/21 09:23 Dose: 20 mg Documented by: JIN Risperidone (Risperidone 1 Mg Tablet) 1 mg PO BID [facility] Last Admin: 11/12/21 09:23 Dose: 1 mg Documented by: JIN Tiotropium [place] (Tiotropium [place] 18 Mcg Cap.W.Dev) 1 puff INHALE RDAILY [facility] Last Admin: 11/12/21 11:08 Dose: Not Given Documented by: SKIP Non-Admin Reason: Med Not Available Labs CBC & Chem 7: 11/12/21 05:53 11/12/21 05:53 Labs: Laboratory Results - last 24 hr 11/12/21 11/12/21 11/12/21 05:53 05:53 05:53 MCV 95.3 MCH 27.4 MCHC 28.8 L RDW 14.3 Plt Count 154 L MPV 10.7 Immature Gran % (Auto) 0.3 Neut % (Auto) 70.0 Lymph % (Auto) 16.3 L [place] % (Auto) 12.0 H Eos % (Auto) 1.1 Baso % (Auto) 0.3 Lymph # (Auto) 1.2 [place] # (Auto) 0.9 Eos # (Auto) 0.1 Baso # (Auto) 0.0 Abs Immat Gran (auto) 0.02 Absolute Neuts (auto) 5.0 Absolute Nucleated RBC 0.000 Nucleated RBC % (auto) 0.0 VBG pH VBG pCO2 VBG pO2 VBG HCO3 VBG O2 Saturation VBG Base Excess Anion Gap 6 L Estim Creat Clear Calc 168.6 Estimated GFR > 60 POC Glucose Random Glucose 110 Calcium 9.7 Phosphorus 2.5 L Magnesium 1.9 Total Bilirubin 0.5 Direct Bilirubin 0.2 AST 11 ALT 11 Alkaline Phosphatase 74 B-Natriuretic Peptide 28 Total Protein 6.2 L Albumin 3.3 L 11/12/21 11/12/21 05:59 11:34 MCV MCH MCHC RDW Plt Count MPV Immature Gran % (Auto) Neut % (Auto) Lymph % (Auto) [place] % (Auto) Eos % (Auto) Baso % (Auto) Lymph # (Auto) [place] # (Auto) Eos # (Auto) Baso # (Auto) Abs Immat Gran (auto) Absolute Neuts (auto) Absolute Nucleated RBC Nucleated RBC % (auto) VBG pH 7.37 VBG pCO2 78 VBG pO2 123 VBG HCO3 46 H VBG O2 Saturation 99.0 VBG Base Excess 16.7 Anion Gap Estim Creat Clear Calc Estimated GFR POC Glucose 116 H Random Glucose Calcium Phosphorus Magnesium Total Bilirubin Direct Bilirubin AST ALT Alkaline Phosphatase B-Natriuretic Peptide Total Protein Albumin Assessment and Plan (1) Hypercapnic respiratory failure: Status: Acute (2) Schizoaffective disorder: Status: Acute [facility] hospital d#8 66yo M with COPD, HTN, schizophrenia, LYNN presented to ED with lethargy, respiratory distress; placed on BiPAP but required intubation extubated to [facility], stepped down to C 11/07/21 # acute/chronic hypoxic/hypercapneic respiratory failure - likely due to LYNN/OHS - continue nocturnal BiPAP, adherence emphasized - wean O2 as tolerated # COPD - resp failure thought due to LYNN/OHS, not COPD - not on steroids - continue controller LAMA + ICS/LABA - prn nebs # HTN - resumed losartan + amlodipine, add back metoprolol as needed # schizophrenia - resume risperidone, benztropine # VTE ppx - LMWH # dispo - eventual return to [facility] once on less O2 Quality Stroke Does the patient have a stroke diagnosis?: No VTE Prior VTE?: No VTE Risk Level:: Medical - moderate - high VTE Device Contraindication: N/A - Device Ordered VTE Drug Contraindication: N/A - Med Ordered
[2021-11-13] VITALS (7 sets, daily range): BP systolic 141–164; BP diastolic 70–85; PULSE 72–82; RESP 16–20; TEMP 36.6–37.1; O2SAT 93–100; BMI 41.1
[2021-11-13] MEDS: Enoxaparin Sodium 40 MG/0.4 ML SYRINGE SUBCUT (00:09)
[2021-11-13 06:51] LABS: VBG HCO3 53 mmol/L (22-26); VBG pCO2 82 mmHg; VBG pH 7.41 (7.32-7.43); VBG pO2 187 mmHg
[2021-11-13 06:55] LABS: Venous Blood Gas Refer to POC result
[2021-11-13 07:04] LABS: Anion Gap 7 (12-20); Blood Urea Nitrogen 16 mg/dL (9-16); Calcium 9.8 mg/dL (8.4-10.2); Carbon Dioxide 41 mmol/L (22-29); Chloride 98 mmol/L (96-108); Creatinine Clr Calc Pharmacy 165.7; Estimated Glomerular Filt Rate > 60; Glucose Random 103 mg/dL (60-115); Magnesium 1.9 mg/dL (1.6-2.6); Potassium 4.3 mmol/L (3.3-5.1); Sodium 142 mmol/L (135-145)
[2021-11-13] MEDS: Fluticasone/Vilanterol 200/25 BLST.W.DEV 1 PUFF INHALE (07:42)
[2021-11-13] MEDS: Pravastatin Sodium 20 MG TABLET PO (08:28)
[2021-11-13] MEDS: Multivitamin TABLET 1 TAB PO (08:28)
[2021-11-13] MEDS: risperiDONE 1 MG TABLET PO (08:28)
[2021-11-13] MEDS: Losartan Potassium 25 MG TABLET PO (08:28)
[2021-11-13] MEDS: Benztropine Mesylate 0.5 MG TABLET PO (08:28)
[2021-11-13] MEDS: amLODIPine Besylate 10 MG TABLET PO (08:28)
[2021-11-13] MEDS: Montelukast Sodium 10 MG TABLET PO (08:28)
--- NOTE | 2021-11-13 12:04 | PM.DS ---
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 oxygen, schizophrenia, obstructive sleep apnea noncompliant with BiPAP, metabolic encephalopathy, thrombocytopenia among others.? Patient had arrived to the emergency room via ambulance, he has a history of COVID but the actual diagnosis date is unknown. Per the ER records, correction personal reported the patient has had difficulty breathing since yesterday and worsened today setting 30% her room air and having increased episodes of lethargy and confusion, placed on 8 L nasal cannula which increased his oxygen to 78%, patient was transported via EMS who put him on a non-rebreather mask and increase his saturation to 95%.? On arrival to the ER the patient appeared to be lethargic and falling asleep, reportedly the patient continues to be noncompliant with BiPAP. The ER workup revealed a white count of 12.4, H&H of 13.8 and 46.6 respectively, platelets of 191, differential shows no bandemia, coagulation profile is normal.? ABG shows pH of 7.18, pCO2 of 121, PO2 71, HC03 of 46, base excess 11.6.? Initially the thought was to intubate this patient but after consulting with Dr. Ackerman the patient was placed on BiPAP.? His chemistry shows sodium 135, potassium 5.4 for which Lasix and an albuterol extended treatment was given, chloride 92, anion gap of 9, BUN 28, creatinine 0.73 LFTs are normal.? BNP is 442 which is twice his baseline.? Urine tox screen is pending. ?No x-rays done in the ER. ?Currently patient continues to be on BiPAP, still somnolent, not following commands. This 66 year-old male with COPD, HTN, schizophrenia, LYNN, and morbid obesity with likely OHS presented to the ED with lethargy and respiratory distress. Initially, he was placed on BiPAP but ended up requiring endotracheal intubation and mechanical ventilation for 2 nights. He was extubated to [facility] and stepped down to [facility] on 11/07/21. He was placed on nocturnal BiPAP and was counseled on the critical importance of full adherence. O2 was weaned to 3L to achieve SaO2 target of 88-92% given chronic CO2 retention. He was not thought to have a significant component of COPD exacerbation and was not given steroids. He was discharged back to long-term care at his SNF with instructions to comply with BiPAP and follow up with Pulmonology. Time Spent with Patient Time attestation: Total time spent providing and/or coordinating discharge services: Discharge coordination time: Greater than 30 minutes Quality: Stroke Does the patient have a stroke diagnosis?: No Physical Exam Vital Signs: Vital Signs: Last Vital Signs Temp 98.2 F 11/13/21 11:13 Pulse 80 11/13/21 11:13 Resp 18 11/13/21 11:13 BP 164/77 H 11/13/21 11:13 Pulse Ox 97 11/13/21 11:13 Oxygen Flow Rate 40 11/08/21 04:00 BMI result Body Mass Index 41.1 DS: Data Data Completed and Pending Completed studies during hospitalization [Text1]: Procedures Assistance with Respiratory Ventilation, 24-96 Consecutive Hours, Continuous Positive Airway Pressure (09/23/21) Insertion of Endotracheal Airway into Trachea, Via Natural or Artificial Opening (09/23/21) Insertion of Infusion Device into Right Internal Jugular Vein, Percutaneous Approach (09/23/21) Insertion of Infusion Device into Superior Vena Cava, Percutaneous Approach (09/23/21) Respiratory Ventilation, Less than 24 Consecutive Hours (09/23/21) Labs on day of discharge: Laboratory Results - last 24 hr 11/13/21 11/13/21 06:28 06:33 VBG pH 7.41 VBG pCO2 82 VBG pO2 187 VBG HCO3 53 H VBG O2 Saturation 100.0 VBG Base Excess 23.0 Sodium 142 Potassium 4.3 Chloride 98 Carbon Dioxide 41 H* Anion Gap 7 L BUN 16 Creatinine 0.62 Estim Creat Clear Calc 165.7 Estimated GFR > 60 Random Glucose 103 Calcium 9.8 Magnesium 1.9 Discharge Plan Discharge Patient Disposition: Xfer SNF Discharge Diagnosis: acute/chronic hypoxic/hypercapneic respiratory failure likely due to LYNN/OHS Referrals: Chloe Harkins MD [Physician] - 1 Week Physician,Kushal Powers [Primary Care Provider] - 1 Week [facility] [Provider Group] - 2 Weeks Discharge Medications: New ipratropium-albuterol 0.5 mg-3 mg(2.5 mg base)/3 mL Solution For Nebulization 3 ml inhalation RQ4H PRN (Reason: shorntess of breath/weheeze) Qty: 1 0RF Continued losartan 50 mg Tablet 50 mg PO DAILY 0RF acetaminophen [Tylenol] 325 mg Tablet 650 mg PO Q4H PRN (Reason: Fever Or Pain) 0RF benztropine 0.5 mg Tablet 0.5 mg PO DAILY 0RF amlodipine 10 mg Tablet 10 mg PO DAILY 0RF bisacodyl 10 mg Suppository 10 mg PA ONCE PRN (Reason: Constipation) 0RF gabapentin 300 mg Capsule 300 mg PO TID 0RF montelukast [Singulair] 10 mg Tablet 10 mg PO DAILY 0RF pravastatin 20 mg Tablet 20 mg PO DAILY 0RF metoprolol succinate 25 mg Tablet Extended Release 24 Hr 50 mg PO DAILY 0RF risperidone 1 mg Tablet 1 mg PO BID 0RF budesonide-formoterol [Symbicort] 160-4.5 mcg/actuation Hfa Aerosol Inhaler 2 puff INHALATION BID 0RF Spiriva with HandiHaler 1 cap inhalation BEDTIME 0RF multivitamin Tablet 1 tab PO DAILY 0RF Discharge Orders: Discharge Order (Routine); Ordered 11/13/21 Ordered By: Jorje Devine Diet: advance to usual diet and low salt diet Activity on Discharge: As tolerated Stand Alone Forms: Patient Portal Discharge page Care Plan Goals: respiratory health Health Concerns: acute/chronic hypoxic/hypercapneic respiratory failure likely due to LYNN/OHS Plan of Treatment: BiPAP at night and for naps, 16/6 cm H20, fiO2 40% Supplemental O2 3-4L during the day, target SaO2 88-92% [no higher due to chronic CO2 retention] Weight loss advised Outpatient pulmonology follow-up Assessment: see Discharge Summary Patient Instructions: BiPAP (GEN)
[2021-11-13 12:26] LABS: COVID-19 Test Negative (Negative); IDNOW Serial# 55D5AD1C
--- NOTE | 2021-11-13 13:55 | MHC.CM.PN ---
Patient has been medically cleared for dc to SNF/LTC today. Patient will return to LTC at [facility] today at 2:30 PM, via [facility]. Patient is unable to sign IMM; CM left a detailed message for only Contact/Josefa at [phone], informing her of the dc plan.
--- NOTE | 2021-11-13 14:47 | MHC.CM.PN ---
CM was unable to find an address for Contact/Josefa so CM looked back in notes from previous stays. Patient's Sister/Francia at [phone] is listed as Patient's HCP; CM informed Francia of the dc plan.
== END 2021-11-13 17:00 | disposition skilled nursing facility (03) | DRG 208 ==
LOC: HO.ED 23:47 → HO.EDOVER 11-05 00:08 → HO.ICU 11-05 00:08 → HO.IMC 11-08 14:13
PROVIDERS: Hospitalist; Internal Medicine Cardiovascular Disease; Physician Assistant; Admitting Provider Physician Assistant Medical; Emergency Provider Internal Medicine; Visit Provider Family Medicine
DX: J44.1 Chronic obstructive pulmonary disease with (acute) exacerbation (principal); J96.22 Acute and chronic respiratory failure with hypercapnia; J96.21 Acute and chronic respiratory failure with hypoxia; G93.41 Metabolic encephalopathy; E66.2 Morbid (severe) obesity with alveolar hypoventilation; Z68.41 Body mass index [BMI] 40.0-44.9, adult; I27.81 Cor pulmonale (chronic); E87.5 Hyperkalemia; I11.0 Hypertensive heart disease with heart failure; I50.811 Acute right heart failure; F17.210 Nicotine dependence, cigarettes, uncomplicated; Z71.6 Tobacco abuse counseling; F20.9 Schizophrenia, unspecified; Z20.822 Contact with and (suspected) exposure to COVID-19; Z79.899 Other long term (current) drug therapy
CPT/HCPCS: 36415; 71045; 80048; 80053; 80076; 80307; 81001; 82803; 82947; 83605; 83735; 83880; 84100; 84484; 85007; 85025; 85027; 85610; 87040; 87635; 92526; 92610; 93005; 94002; 94003; 94640; 94644; 94660; 94799; 96361; 96365; 96375; 99285; 99291; C1758; J1650; J1940; J2930; J3010; J3475

== ENCOUNTER 2022-01-08 04:43 | Inpatient (IN) | payer MEDICARE, MEDICAID, SELFPAY ==
[2022-01-08] VITALS (30 sets, daily range): BP systolic 98–170; BP diastolic 53–92; PULSE 70–86; RESP 11–30; TEMP 37.2–37.8; O2SAT 14–100; BMI 38.0
--- NOTE | ~2022-01-08 | CT_ITS ---
EXAMINATION: CT CHEST WITHOUT CONTRAST CLINICAL INFORMATION: Dyspnea COMPARISON: Chest radiograph 01/08/2022, CT angiography of the chest 09/23/2021 TECHNIQUE: Multidetector volumetric CT imaging of the chest was done. Axial MIP volume rendering provided. Sagittal and coronal reformatted images were obtained. This CT examination was performed using dose optimization techniques as appropriate, variously including the following: *Automated exposure control *Adjustment of mA and/or kV according to patient size (this includes techniques or standardized protocols for targeted exams where dose is matched to indication/reason for exam; i.e. extremities or head) *Use of iterative reconstruction technique DLP: 800 mGy-cm FINDINGS: Study is mildly limited by respiratory motion. LUNGS: Lung volumes are diminished. There is bibasilar dependent opacity which may represent atelectasis versus developing consolidation. Central and peripheral airways are patent. MEDIASTINUM: Global cardiac enlargement, similar to the prior study with moderate scattered atherosclerotic calcification of the coronary arteries. No pericardial effusion or pericardial thickening. Pulmonary arteries are enlarged suggesting pulmonary hypertension. Somewhat limited evaluation for mediastinal lymph nodes, though there is a 1.3 cm short axis precarinal lymph node (image 98, series 5 and a 1.2 cm short axis lower paratracheal lymph node (image 146, series 5). PLEURA: Trace left pleural fluid. AXILLA: No lymphadenopathy. UPPER ABDOMEN: Partially visualized upper abdomen is notable for several bilateral renal cysts. There is a 2 mm right renal calculus at the midpole. There is a 1.3 cm probable cyst within the left hepatic lobe. OSSEOUS STRUCTURES: Unremarkable. CT/CT chest wo con IMPRESSION: Diminished lung volumes and patchy dependent airspace opacities which could represent pneumonia versus atelectasis in the appropriate clinical setting. There is trace left pleural fluid as well. Mildly enlarged mediastinal lymph nodes, may be reactive. Enlarged pulmonary arteries suggesting pulmonary arterial hypertension. Nonobstructing 2 mm right renal calculus. Fleischner guidelines were followed.
--- NOTE | ~2022-01-08 | XR_ITS ---
EXAMINATION: XR CHEST CLINICAL INFORMATION: Shortness of breath COMPARISON: Chest radiograph 11/06/2021. CT pulmonary injury on 09/23/2021. TECHNIQUE: Frontal view of the chest was obtained. FINDINGS: Multiple external artifacts overlie the thorax. The cardiac silhouette is grossly normal in size. No effusions or pneumothoraces are noted. Mild diffuse vascular indistinctness is present. No focal pulmonary consolidation. XR/XR chest 1V IMPRESSION: *Findings suspicious for mild pulmonary vascular congestion. No focal pulmonary consolidation.
--- NOTE | 2022-01-08 04:47 | ED_ITS ---
HPI - SOB/Dyspnea General Chief Complaint: Dyspnea <Quang Washburn MD - Last Filed: 01/08/22 06:52> Stated Complaint: sob <Quang Washburn MD - Last Filed: 01/08/22 06:52> Time Seen by Provider: 01/08/22 04:47 <Quang Washburn MD - Last Filed: 01/08/22 06:52> Source: family <Quang Washburn MD - Last Filed: 01/08/22 06:52> Mode of arrival: EMS <Quang Washburn MD - Last Filed: 01/08/22 06:52> History of Present Illness HPI Narrative: coming from [facility], found to be O2 saturation of 60%, received a neb, and with oxygen he got his O2 sats in 94%. <Quang Washburn MD - Last Filed: 01/08/22 06:52> MD elicited complaint: shortness of breath <Quang Washburn MD - Last Filed: 01/08/22 06:52> Pertinent past history: COPD <Quang Washburn MD - Last Filed: 01/08/22 06:52> Onset (ago): minute(s) <Quang Washburn MD - Last Filed: 01/08/22 06:52> Timing: constant <Quang Washburn MD - Last Filed: 01/08/22 06:52> Severity: mild <Quang Washburn MD - Last Filed: 01/08/22 06:52> Relieving factors: bronchodilators <Quang Washburn MD - Last Filed: 01/08/22 06:52> Known history of: COPD <Quang Washburn MD - Last Filed: 01/08/22 06:52> Treatment prior to arrival: oxygen and bronchodilator <Quang Washburn MD - Last Filed: 01/08/22 06:52> Related Data Home oxygen amount: 2 liters <Quang Washburn MD - Last Filed: 01/08/22 06:52> Home Medications: Home Medications Medication Instructions Recorded Confirmed acetaminophen 325 mg tablet 650 mg PO Q4H PRN 11/05/21 01/08/22 (Tylenol) amlodipine 10 mg tablet 10 mg PO DAILY 11/05/21 01/08/22 benztropine 0.5 mg tablet 0.5 mg PO DAILY 11/05/21 01/08/22 bisacodyl 10 mg rectal suppository 10 mg ID ONCE PRN 11/05/21 01/08/22 budesonide-formoterol HFA 160 2 puff INHALATION BID 11/05/21 01/08/22 mcg-4.5 mcg/actuation aerosol inhaler (Symbicort) gabapentin 300 mg capsule 300 mg PO TID 11/05/21 01/08/22 losartan 50 mg tablet 50 mg PO DAILY 11/05/21 01/08/22 metoprolol succinate 25 mg 50 mg PO DAILY 11/05/21 01/08/22 tablet,extended release 24 hr montelukast 10 mg tablet 10 mg PO DAILY 11/05/21 01/08/22 (Singulair) multivitamin 1 tab PO DAILY 11/05/21 01/08/22 pravastatin 20 mg tablet 20 mg PO DAILY 11/05/21 01/08/22 risperidone 1 mg tablet 1 mg PO BID 11/05/21 01/08/22 tiotropium bromide 18 mcg capsule 1 cap INHALATION BEDTIME #0 11/05/21 01/08/22 with inhalation device (Spiriva with HandiHaler) furosemide 20 mg tablet 1 tab PO DAILY 01/08/22 01/08/22 menthol 7.5 % topical patch (Icy 1 patch TOPICAL DAILY 01/08/22 01/08/22 Hot Advanced Relief Patch) Previous Rx's Medication Instructions Recorded ipratropium 0.5 mg-albuterol 3 mg 3 ml INHALATION RQ4H PRN #1 ml 11/13/21 (2.5 mg base)/3 mL nebulization soln <Quang Washburn MD - Last Filed: 01/08/22 06:52> Allergies/Adverse Reactions: Allergies Allergy/AdvReac Type Severity Reaction Status Date / Time TRUMAN Inhibitors Allergy Unknown Verified 11/04/21 22:28 <Quang Washburn MD - Last Filed: 01/08/22 06:52> Review of Systems Constitutional: Constitutional: Reports no additional constitutional complaints <Quang Washburn MD - Last Filed: 01/08/22 06:52> Eyes: Eyes: Reports no additional eye complaints <Quang Washburn MD - Last Filed: 01/08/22 06:52> ENT: Denies dizziness <Quang Washburn MD - Last Filed: 01/08/22 06:52> Cardiovascular: Cardiovascular: Reports no additional cardiovascular complaints <Quang Washburn MD - Last Filed: 01/08/22 06:52> Respiratory: Respiratory: Reports as per HPI <Quang Washburn MD - Last Filed: 01/08/22 06:52> Gastrointestinal: Gastrointestinal: Reports no additional gastrointestinal complaints <Quang Washburn MD - Last Filed: 01/08/22 06:52> Musculoskeletal: Musculoskeletal: Reports no additional musculoskeletal complaints <Quang Washburn MD - Last Filed: 01/08/22 06:52> Integumentary/Breasts: Skin/Breast: Denies rash <Quang Washburn MD - Last Filed: 01/08/22 06:52> Neurologic: Reports system reviewed and no additional complaints, except as documented, Denies dizziness and Denies Sensory deficit (Neuro) <Quang Washburn MD - Last Filed: 01/08/22 06:52> Psychiatric: Psychiatric: Denies anxiety <Quang Washburn MD - Last Filed: 01/08/22 06:52> PMFSH Past Medical History Medical History: Medical History Acute and chronic respiratory failure with hypercapnia Acute exacerbation of chronic obstructive airways disease Acute on chronic respiratory failure with hypoxia and hypercapnia Congestive heart failure COPD (chronic obstructive pulmonary disease) Cor pulmonale (chronic) History of COVID-19 Hypercapnic respiratory failure Hypertension Metabolic encephalopathy Morbid obesity Morbid obesity Obesity hypoventilation syndrome Obstructive sleep apnea Obstructive sleep apnea Obstructive sleep apnea syndrome in adult Schizoaffective disorder Schizophrenia Thrombocytopenia <Quang Washburn MD - Last Filed: 01/08/22 06:52> Social History Social History: Social History Household Members: Unknown / Unable to assess Housing: Assisted Living Facility [facility] Other[facility] Unable to assess alcohol history related to: Unable to respond Alcohol intake: unknown Patient Tobacco Use Status: Tobacco use Unknown Advance Directives: No service: No Current occupational status: disabled <Quang Washburn MD - Last Filed: 01/08/22 06:52> Physical Exam Vital Signs: Vital Signs: Last Vital Signs Pulse 71 01/08/22 08:16 Resp 21 H 01/08/22 08:20 BP 149/77 H 01/08/22 08:16 Pulse Ox 93 01/08/22 08:16 Oxygen Flow Rate 14 01/08/22 04:50 BMI result Body Mass Index 38.0 <Quang Washburn MD - Last Filed: 01/08/22 06:52> Vital Signs: Last Vital Signs Pulse 71 01/08/22 08:16 Resp 21 H 01/08/22 08:20 BP 149/77 H 01/08/22 08:16 Pulse Ox 93 01/08/22 08:16 Oxygen Flow Rate 14 01/08/22 04:50 BMI result Body Mass Index 38.0 <Nidhi Scales DO - Last Filed: 01/08/22 10:00> Const: Other: obese male chronically ill, somnolent <Quang Washburn MD - Last Filed: 01/08/22 06:52> Limitations: altered mental status <Quang Washburn MD - Last Filed: 01/08/22 06:52> HEENT: Head: Yes normal to inspection <Quang Washburn MD - Last Filed: 01/08/22 06:52> Ears: external ears normal <Quang Washburn MD - Last Filed: 01/08/22 06:52> General nose exam: Normal external nose present <Quang Washburn MD - Last Filed: 01/08/22 06:52> Mouth: Normal oral and palatal mucosa present and oropharynx normal <Quang Washburn MD - Last Filed: 01/08/22 06:52> Throat: Yes posterior oropharynx normal <Quang Washburn MD - Last Filed: 01/08/22 06:52> Eyes: General: appearance normal, both eyes and all related structures <Quang Washburn MD - Last Filed: 01/08/22 06:52> Neck: Other: supple <Quang Washburn MD - Last Filed: 01/08/22 06:52> Neck: Yes normal visual inspection <Quang Washburn MD - Last Filed: 01/08/22 06:52> Chest: Chest palpation & inspection: normal inspection of the chest <Quang Washburn MD - Last Filed: 01/08/22 06:52> Resp: Other: diffuse rhonchi <Quang Washburn MD - Last Filed: 01/08/22 06:52> Cardio: Jugular venous distension: no JVD <Quang Washburn MD - Last Filed: 01/08/22 06:52> Rate: regular rate <Quang Washburn MD - Last Filed: 01/08/22 06:52> Rhythm: regular rhythm <Quang Washburn MD - Last Filed: 01/08/22 06:52> Heart sounds: S1 normal heart sound present and S2 normal heart sound present <Quang Washburn MD - Last Filed: 01/08/22 06:52> GI: Inspection: Yes normal to inspection <Quang Washburn MD - Last Filed: 01/08/22 06:52> Palpation (GI): Soft to palpation, nontender and No hepatosplenomegaly present <Quang Washburn MD - Last Filed: 01/08/22 06:52> Auscultation: normal bowel sounds <Quang Washburn MD - Last Filed: 01/08/22 06:52> : General: Yes no CVA tenderness <Quang Washburn MD - Last Filed: 01/08/22 06:52> Back/Spine/Pelvis: Back: no CVA tenderness <Quang Washburn MD - Last Filed: 01/08/22 06:52> Skin: General skin exam: no rashes or lesions noted <Quang Washburn MD - Last Filed: 01/08/22 06:52> Neuro: Cranial nerves: Yes CN's II-XII intact bilaterally <Quang Washburn MD - Last Filed: 01/08/22 06:52> Motor exam (neuro): 5/5 motor strength present throughout <Quang Washburn MD - Last Filed: 01/08/22 06:52> Sensory Exam: No Sensory deficit (Neuro) <Quang Washburn MD - Last Filed: 01/08/22 06:52> Extrem: General: Yes normal to inspection <Quang Washburn MD - Last Filed: 01/08/22 06:52> Psych: Appearance: grossly normal <Quang Washburn MD - Last Filed: 0 01/08/22 06:52> Course Course Course Narrative: received sign out at 7am - histopathologist has been involved and RT - tried nebs, IV lasix, settings on Bipap switched by RT and ICU attending no improvement in ABG at this time plan to admit to ICU, dry CT scan of chest prior to admission critical care time 60 minutes, reviewing records, changing bipap settings, repeat ABGs, medical consults, admission to ICU I attest to this time spent taking care of the patient <Nidhi Scales DO - Last Filed: 01/08/22 10:00> Reevaluation(s) Reevaluation #1: Patient is not sepsis, straight COPD exacerbation with respiratory failure. Discussed with Dr. Dodson who states the patient needs to be off of BiPAP to go to the floor <Quang Washburn MD - Last Filed: 01/08/22 06:52> Time: 06:51 <Quang Washburn MD - Last Filed: 01/08/22 06:52> MDM - SOB/Dyspnea Lab Data Result diagrams: : 01/08/22 05:05 01/08/22 05:05 <Quang Washburn MD - Last Filed: 01/08/22 06:52> Labs: Lab Results 01/08/22 01/08/22 01/08/22 Range/Units 05:05 05:05 05:05 WBC 11.5 H (4.8-10.8) X10*3/uL RBC 4.94 (4.60-5.80) X10*6/uL Hgb 13.5 L (14.0-18.0) g/dl Hct 45.1 (42.0-52.0) % MCV 91.3 (80.0-98.0) fL MCH 27.3 (27.0-33.0) pg MCHC 29.9 L (31.0-36.0) g/dl RDW 14.6 (11.0-16.0) % Plt Count 154 L (160-400) X10*3/uL MPV 10.8 (9.4-12.4) fL Immature Gran % (Auto) 0.8 H (0.0-0.4) % Neut % (Auto) 75.4 H (45-73) % Lymph % (Auto) 12.5 L (20-40) % [place] % (Auto) 10.9 (2-11) % Eos % (Auto) 0.1 (0-4) % Baso % (Auto) 0.3 (0-2) % Lymph # (Auto) 1.4 (1.2-4.9) X10*3/uL [place] # (Auto) 1.3 H (0.1-1.2) X10*3/uL Eos # (Auto) 0.0 (0.0-0.4) X10*3/uL Baso # (Auto) 0.0 (0.0-0.2) X10*3/uL Abs Immat Gran (auto) 0.09 H (0.00-0.03) X10*3/uL Absolute Neuts (auto) 8.7 H (2.0-8.3) x10*3/uL Absolute Nucleated RBC 0.170 H (0.0-0.012) X10*3/uL Nucleated RBC % (auto) 1.5 H (0.0-0.2) /100WBC O2 Saturation % ABG pH at Pt Temp (7.35-7.45) ABG pCO2 at Pt Temp (32-45) mmHg ABG pO2 at Pt Temp (83-108) mmHg ABG HCO3 (22-26) mmol/L ABG Base Excess (Actual) mmol/L Sodium 132 L (135-145) mmol/L Potassium 5.3 H D (3.3-5.1) mmol/L Chloride 90 L (96-108) mmol/L Carbon Dioxide 38 H (22-29) mmol/L Anion Gap 9 L (12-20) BUN 25 H D (9-16) mg/dL Creatinine 0.71 (0.5-1.4) mg/dL Estim Creat Clear Calc 126.7 Estimated GFR > 60 Random Glucose 111 (60-115) mg/dL Lactic Acid 0.6 (0.5-2.0) mmol/L Calcium 9.6 (8.4-10.2) mg/dL Troponin I High Sens (<3.5-35.0) ng/L B-Natriuretic Peptide (<100) pg/mL Urine Color Urine Appearance Urine pH (5.0-8.0) Ur Specific [place] (1.005-1.025) Urine Protein (NEG-TRACE) MG/DL Urine Glucose (UA) (NEG) MG/DL Urine Ketones (NEG) MG/DL Urine Blood (NEG) Urine Nitrite (NEG) Ur Leukocyte Esterase (NEG) Urine RBC (0) /HPF Urine WBC (0-4) /HPF Ur Squamous Epith Cells /LPF Urine Bacteria /LPF COVID-19 ([facility]) (Negative) COVID-19 Clin Com 01/08/22 01/08/22 01/08/22 Range/Units 05:05 05:50 06:01 WBC (4.8-10.8) X10*3/uL RBC (4.60-5.80) X10*6/uL Hgb (14.0-18.0) g/dl Hct (42.0-52.0) % MCV (80.0-98.0) fL MCH (27.0-33.0) pg MCHC (31.0-36.0) g/dl RDW (11.0-16.0) % Plt Count (160-400) X10*3/uL MPV (9.4-12.4) fL Immature Gran % (Auto) (0.0-0.4) % Neut % (Auto) (45-73) % Lymph % (Auto) (20-40) % [place] % (Auto) (2-11) % Eos % (Auto) (0-4) % Baso % (Auto) (0-2) % Lymph # (Auto) (1.2-4.9) X10*3/uL [place] # (Auto) (0.1-1.2) X10*3/uL Eos # (Auto) (0.0-0.4) X10*3/uL Baso # (Auto) (0.0-0.2) X10*3/uL Abs Immat Gran (auto) (0.00-0.03) X10*3/uL Absolute Neuts (auto) (2.0-8.3) x10*3/uL Absolute Nucleated RBC (0.0-0.012) X10*3/uL Nucleated RBC % (auto) (0.0-0.2) /100WBC O2 Saturation 82.0 % ABG pH at Pt Temp 7.28 L (7.35-7.45) ABG pCO2 at Pt Temp 87 H* (32-45) mmHg ABG pO2 at Pt Temp 57 L (83-108) mmHg ABG HCO3 41 H (22-26) mmol/L ABG Base Excess (Actual) 9.7 mmol/L Sodium (135-145) mmol/L Potassium (3.3-5.1) mmol/L Chloride (96-108) mmol/L Carbon Dioxide (22-29) mmol/L Anion Gap (12-20) BUN (9-16) mg/dL Creatinine (0.5-1.4) mg/dL Estim Creat Clear Calc Estimated GFR Random Glucose (60-115) mg/dL Lactic Acid (0.5-2.0) mmol/L Calcium (8.4-10.2) mg/dL Troponin I High Sens 15.0 (<3.5-35.0) ng/L B-Natriuretic Peptide (<100) pg/mL Urine Color YELLOW Urine Appearance CLEAR Urine pH 6.0 (5.0-8.0) Ur Specific [place] >= 1.030 H (1.005-1.025) Urine Protein 2+ H (NEG-TRACE) MG/DL Urine Glucose (UA) NEG (NEG) MG/DL Urine Ketones NEG (NEG) MG/DL Urine Blood TRACE (NEG) Urine Nitrite NEG (NEG) Ur Leukocyte Esterase NEG (NEG) Urine RBC 1-4 (0) /HPF Urine WBC 1-4 (0-4) /HPF Ur Squamous Epith Cells 1+ /LPF Urine Bacteria 1+ /LPF COVID-19 ([facility]) (Negative) COVID-19 Clin Com 01/08/22 01/08/22 01/08/22 Range/Units 07:08 07:54 07:59 WBC (4.8-10.8) X10*3/uL RBC (4.60-5.80) X10*6/uL Hgb (14.0-18.0) g/dl Hct (42.0-52.0) % MCV (80.0-98.0) fL MCH (27.0-33.0) pg MCHC (31.0-36.0) g/dl RDW (11.0-16.0) % Plt Count (160-400) X10*3/uL MPV (9.4-12.4) fL Immature Gran % (Auto) (0.0-0.4) % Neut % (Auto) (45-73) % Lymph % (Auto) (20-40) % [place] % (Auto) (2-11) % Eos % (Auto) (0-4) % Baso % (Auto) (0-2) % Lymph # (Auto) (1.2-4.9) X10*3/uL [place] # (Auto) (0.1-1.2) X10*3/uL Eos # (Auto) (0.0-0.4) X10*3/uL Baso # (Auto) (0.0-0.2) X10*3/uL Abs Immat Gran (auto) (0.00-0.03) X10*3/uL Absolute Neuts (auto) (2.0-8.3) x10*3/uL Absolute Nucleated RBC (0.0-0.012) X10*3/uL Nucleated RBC % (auto) (0.0-0.2) /100WBC O2 Saturation 85.0 % ABG pH at Pt Temp 7.21 L (7.35-7.45) ABG pCO2 at Pt Temp 106 H* (32-45) mmHg ABG pO2 at Pt Temp 63 L (83-108) mmHg ABG HCO3 43 H (22-26) mmol/L ABG Base Excess (Actual) 9.5 mmol/L Sodium (135-145) mmol/L Potassium (3.3-5.1) mmol/L Chloride (96-108) mmol/L Carbon Dioxide (22-29) mmol/L Anion Gap (12-20) BUN (9-16) mg/dL Creatinine (0.5-1.4) mg/dL Estim Creat Clear Calc Estimated GFR Random Glucose (60-115) mg/dL Lactic Acid (0.5-2.0) mmol/L Calcium (8.4-10.2) mg/dL Troponin I High Sens (<3.5-35.0) ng/L B-Natriuretic Peptide 748 H (<100) pg/mL Urine Color Urine Appearance Urine pH (5.0-8.0) Ur Specific [place] (1.005-1.025) Urine Protein (NEG-TRACE) MG/DL Urine Glucose (UA) (NEG) MG/DL Urine Ketones (NEG) MG/DL Urine Blood (NEG) Urine Nitrite (NEG) Ur Leukocyte Esterase (NEG) Urine RBC (0) /HPF Urine WBC (0-4) /HPF Ur Squamous Epith Cells /LPF Urine Bacteria /LPF COVID-19 ([facility]) Negative (Negative) COVID-19 Clin Com See Note 01/08/22 Range/Units 09:47 WBC (4.8-10.8) X10*3/uL RBC (4.60-5.80) X10*6/uL Hgb (14.0-18.0) g/dl Hct (42.0-52.0) % MCV (80.0-98.0) fL MCH (27.0-33.0) pg MCHC (31.0-36.0) g/dl RDW (11.0-16.0) % Plt Count (160-400) X10*3/uL MPV (9.4-12.4) fL Immature Gran % (Auto) (0.0-0.4) % Neut % (Auto) (45-73) % Lymph % (Auto) (20-40) % [place] % (Auto) (2-11) % Eos % (Auto) (0-4) % Baso % (Auto) (0-2) % Lymph # (Auto) (1.2-4.9) X10*3/uL [place] # (Auto) (0.1-1.2) X10*3/uL Eos # (Auto) (0.0-0.4) X10*3/uL Baso # (Auto) (0.0-0.2) X10*3/uL Abs Immat Gran (auto) (0.00-0.03) X10*3/uL Absolute Neuts (auto) (2.0-8.3) x10*3/uL Absolute Nucleated RBC (0.0-0.012) X10*3/uL Nucleated RBC % (auto) (0.0-0.2) /100WBC O2 Saturation 80.0 % ABG pH at Pt Temp 7.20 L* (7.35-7.45) ABG pCO2 at Pt Temp 110 H* (32-45) mmHg ABG pO2 at Pt Temp 59 L (83-108) mmHg ABG HCO3 44 H (22-26) mmol/L ABG Base Excess (Actual) 10.2 mmol/L Sodium (135-145) mmol/L Potassium (3.3-5.1) mmol/L Chloride (96-108) mmol/L Carbon Dioxide (22-29) mmol/L Anion Gap (12-20) BUN (9-16) mg/dL Creatinine (0.5-1.4) mg/dL Estim Creat Clear Calc Estimated GFR Random Glucose (60-115) mg/dL Lactic Acid (0.5-2.0) mmol/L Calcium (8.4-10.2) mg/dL Troponin I High Sens (<3.5-35.0) ng/L B-Natriuretic Peptide (<100) pg/mL Urine Color Urine Appearance Urine pH (5.0-8.0) Ur Specific [place] (1.005-1.025) Urine Protein (NEG-TRACE) MG/DL Urine Glucose (UA) (NEG) MG/DL Urine Ketones (NEG) MG/DL Urine Blood (NEG) Urine Nitrite (NEG) Ur Leukocyte Esterase (NEG) Urine RBC (0) /HPF Urine WBC (0-4) /HPF Ur Squamous Epith Cells /LPF Urine Bacteria /LPF COVID-19 ([facility]) (Negative) COVID-19 Clin Com <Quang Washburn MD - Last Filed: 01/08/22 06:52> Lab Results 01/08/22 01/08/22 01/08/22 Range/Units 05:05 05:05 05:05 WBC 11.5 H (4.8-10.8) X10*3/uL RBC 4.94 (4.60-5.80) X10*6/uL Hgb 13.5 L (14.0-18.0) g/dl Hct 45.1 (42.0-52.0) % MCV 91.3 (80.0-98.0) fL MCH 27.3 (27.0-33.0) pg MCHC 29.9 L (31.0-36.0) g/dl RDW 14.6 (11.0-16.0) % Plt Count 154 L (160-400) X10*3/uL MPV 10.8 (9.4-12.4) fL Immature Gran % (Auto) 0.8 H (0.0-0.4) % Neut % (Auto) 75.4 H (45-73) % Lymph % (Auto) 12.5 L (20-40) % [place] % (Auto) 10.9 (2-11) % Eos % (Auto) 0.1 (0-4) % Baso % (Auto) 0.3 (0-2) % Lymph # (Auto) 1.4 (1.2-4.9) X10*3/uL [place] # (Auto) 1.3 H (0.1-1.2) X10*3/uL Eos # (Auto) 0.0 (0.0-0.4) X10*3/uL Baso # (Auto) 0.0 (0.0-0.2) X10*3/uL Abs Immat Gran (auto) 0.09 H (0.00-0.03) X10*3/uL Absolute Neuts (auto) 8.7 H (2.0-8.3) x10*3/uL Absolute Nucleated RBC 0.170 H (0.0-0.012) X10*3/uL Nucleated RBC % (auto) 1.5 H (0.0-0.2) /100WBC O2 Saturation % ABG pH at Pt Temp (7.35-7.45) ABG pCO2 at Pt Temp (32-45) mmHg ABG pO2 at Pt Temp (83-108) mmHg ABG HCO3 (22-26) mmol/L ABG Base Excess (Actual) mmol/L Sodium 132 L (135-145) mmol/L Potassium 5.3 H D (3.3-5.1) mmol/L Chloride 90 L (96-108) mmol/L Carbon Dioxide 38 H (22-29) mmol/L Anion Gap 9 L (12-20) BUN 25 H D (9-16) mg/dL Creatinine 0.71 (0.5-1.4) mg/dL Estim Creat Clear Calc 126.7 Estimated GFR > 60 Random Glucose 111 (60-115) mg/dL Lactic Acid 0.6 (0.5-2.0) mmol/L Calcium 9.6 (8.4-10.2) mg/dL Troponin I High Sens (<3.5-35.0) ng/L B-Natriuretic Peptide (<100) pg/mL Urine Color Urine Appearance Urine pH (5.0-8.0) Ur Specific [place] (1.005-1.025) Urine Protein (NEG-TRACE) MG/DL Urine Glucose (UA) (NEG) MG/DL Urine Ketones (NEG) MG/DL Urine Blood (NEG) Urine Nitrite (NEG) Ur Leukocyte Esterase (NEG) Urine RBC (0) /HPF Urine WBC (0-4) /HPF Ur Squamous Epith Cells /LPF Urine Bacteria /LPF COVID-19 ([facility]) (Negative) COVID-19 Clin Com 01/08/22 01/08/22 01/08/22 Range/Units 05:05 05:50 06:01 WBC (4.8-10.8) X10*3/uL RBC (4.60-5.80) X10*6/uL Hgb (14.0-18.0) g/dl Hct (42.0-52.0) % MCV (80.0-98.0) fL MCH (27.0-33.0) pg MCHC (31.0-36.0) g/dl RDW (11.0-16.0) % Plt Count (160-400) X10*3/uL MPV (9.4-12.4) fL Immature Gran % (Auto) (0.0-0.4) % Neut % (Auto) (45-73) % Lymph % (Auto) (20-40) % [place] % (Auto) (2-11) % Eos % (Auto) (0-4) % Baso % (Auto) (0-2) % Lymph # (Auto) (1.2-4.9) X10*3/uL [place] # (Auto) (0.1-1.2) X10*3/uL Eos # (Auto) (0.0-0.4) X10*3/uL Baso # (Auto) (0.0-0.2) X10*3/uL Abs Immat Gran (auto) (0.00-0.03) X10*3/uL Absolute Neuts (auto) (2.0-8.3) x10*3/uL Absolute Nucleated RBC (0.0-0.012) X10*3/uL Nucleated RBC % (auto) (0.0-0.2) /100WBC O2 Saturation 82.0 % ABG pH at Pt Temp 7.28 L (7.35-7.45) ABG pCO2 at Pt Temp 87 H* (32-45) mmHg ABG pO2 at Pt Temp 57 L (83-108) mmHg ABG HCO3 41 H (22-26) mmol/L ABG Base Excess (Actual) 9.7 mmol/L Sodium (135-145) mmol/L Potassium (3.3-5.1) mmol/L Chloride (96-108) mmol/L Carbon Dioxide (22-29) mmol/L Anion Gap (12-20) BUN (9-16) mg/dL Creatinine (0.5-1.4) mg/dL Estim Creat Clear Calc Estimated GFR Random Glucose (60-115) mg/dL Lactic Acid (0.5-2.0) mmol/L Calcium (8.4-10.2) mg/dL Troponin I High Sens 15.0 (<3.5-35.0) ng/L B-Natriuretic Peptide (<100) pg/mL Urine Color YELLOW Urine Appearance CLEAR Urine pH 6.0 (5.0-8.0) Ur Specific [place] >= 1.030 H (1.005-1.025) Urine Protein 2+ H (NEG-TRACE) MG/DL Urine Glucose (UA) NEG (NEG) MG/DL Urine Ketones NEG (NEG) MG/DL Urine Blood TRACE (NEG) Urine Nitrite NEG (NEG) Ur Leukocyte Esterase NEG (NEG) Urine RBC 1-4 (0) /HPF Urine WBC 1-4 (0-4) /HPF Ur Squamous Epith Cells 1+ /LPF Urine Bacteria 1+ /LPF COVID-19 ([facility]) (Negative) COVID-19 Clin Com 0401/08/22 01/08/22 Range/Units 07:08 07:54 07:59 WBC (4.8-10.8) X10*3/uL RBC (4.60-5.80) X10*6/uL Hgb (14.0-18.0) g/dl Hct (42.0-52.0) % MCV (80.0-98.0) fL MCH (27.0-33.0) pg MCHC (31.0-36.0) g/dl RDW (11.0-16.0) % Plt Count (160-400) X10*3/uL MPV (9.4-12.4) fL Immature Gran % (Auto) (0.0-0.4) % Neut % (Auto) (45-73) % Lymph % (Auto) (20-40) % [place] % (Auto) (2-11) % Eos % (Auto) (0-4) % Baso % (Auto) (0-2) % Lymph # (Auto) (1.2-4.9) X10*3/uL [place] # (Auto) (0.1-1.2) X10*3/uL Eos # (Auto) (0.0-0.4) X10*3/uL Baso # (Auto) (0.0-0.2) X10*3/uL Abs Immat Gran (auto) (0.00-0.03) X10*3/uL Absolute Neuts (auto) (2.0-8.3) x10*3/uL Absolute Nucleated RBC (0.0-0.012) X10*3/uL Nucleated RBC % (auto) (0.0-0.2) /100WBC O2 Saturation 85.0 % ABG pH at Pt Temp 7.21 L (7.35-7.45) ABG pCO2 at Pt Temp 106 H* (32-45) mmHg ABG pO2 at Pt Temp 63 L (83-108) mmHg ABG HCO3 43 H (22-26) mmol/L ABG Base Excess (Actual) 9.5 mmol/L Sodium (135-145) mmol/L Potassium (3.3-5.1) mmol/L Chloride (96-108) mmol/L Carbon Dioxide (22-29) mmol/L Anion Gap (12-20) BUN (9-16) mg/dL Creatinine (0.5-1.4) mg/dL Estim Creat Clear Calc Estimated GFR Random Glucose (60-115) mg/dL Lactic Acid (0.5-2.0) mmol/L Calcium (8.4-10.2) mg/dL Troponin I High Sens (<3.5-35.0) ng/L B-Natriuretic Peptide 748 H (<100) pg/mL Urine Color Urine Appearance Urine pH (5.0-8.0) Ur Specific [place] (1.005-1.025) Urine Protein (NEG-TRACE) MG/DL Urine Glucose (UA) (NEG) MG/DL Urine Ketones (NEG) MG/DL Urine Blood (NEG) Urine Nitrite (NEG) Ur Leukocyte Esterase (NEG) Urine RBC (0) /HPF Urine WBC (0-4) /HPF Ur Squamous Epith Cells /LPF Urine Bacteria /LPF COVID-19 ([facility]) Negative (Negative) COVID-19 Clin Com See Note 01/08/22 Range/Units 09:47 WBC (4.8-10.8) X10*3/uL RBC (4.60-5.80) X10*6/uL Hgb (14.0-18.0) g/dl Hct (42.0-52.0) % MCV (80.0-98.0) fL MCH (27.0-33.0) pg MCHC (31.0-36.0) g/dl RDW (11.0-16.0) % Plt Count (160-400) X10*3/uL MPV (9.4-12.4) fL Immature Gran % (Auto) (0.0-0.4) % Neut % (Auto) (45-73) % Lymph % (Auto) (20-40) % [place] % (Auto) (2-11) % Eos % (Auto) (0-4) % Baso % (Auto) (0-2) % Lymph # (Auto) (1.2-4.9) X10*3/uL [place] # (Auto) (0.1-1.2) X10*3/uL Eos # (Auto) (0.0-0.4) X10*3/uL Baso # (Auto) (0.0-0.2) X10*3/uL Abs Immat Gran (auto) (0.00-0.03) X10*3/uL Absolute Neuts (auto) (2.0-8.3) x10*3/uL Absolute Nucleated RBC (0.0-0.012) X10*3/uL Nucleated RBC % (auto) (0.0-0.2) /100WBC O2 Saturation 80.0 % ABG pH at Pt Temp 7.20 L* (7.35-7.45) ABG pCO2 at Pt Temp 110 H* (32-45) mmHg ABG pO2 at Pt Temp 59 L (83-108) mmHg ABG HCO3 44 H (22-26) mmol/L ABG Base Excess (Actual) 10.2 mmol/L Sodium (135-145) mmol/L Potassium (3.3-5.1) mmol/L Chloride (96-108) mmol/L Carbon Dioxide (22-29) mmol/L Anion Gap (12-20) BUN (9-16) mg/dL Creatinine (0.5-1.4) mg/dL Estim Creat Clear Calc Estimated GFR Random Glucose (60-115) mg/dL Lactic Acid (0.5-2.0) mmol/L Calcium (8.4-10.2) mg/dL Troponin I High Sens (<3.5-35.0) ng/L B-Natriuretic Peptide (<100) pg/mL Urine Color Urine Appearance Urine pH (5.0-8.0) Ur Specific [place] (1.005-1.025) Urine Protein (NEG-TRACE) MG/DL Urine Glucose (UA) (NEG) MG/DL Urine Ketones (NEG) MG/DL Urine Blood (NEG) Urine Nitrite (NEG) Ur Leukocyte Esterase (NEG) Urine RBC (0) /HPF Urine WBC (0-4) /HPF Ur Squamous Epith Cells /LPF Urine Bacteria /LPF COVID-19 ([facility]) (Negative) COVID-19 Clin Com <Nidhi Scales, DO - Last Filed: 01/08/22 10:00> Imaging Data Chest x-ray: Radiologist's impression: IMPRESSION: *Findings suspicious for mild pulmonary vascular congestion. No focal pulmonary consolidation. ? <Quang Washburn MD - Last Filed: 01/08/22 06:52> ECG Data Attestation: I personally reviewed and interpreted this ECG as follows: <Quang Washburn MD - Last Filed: 01/08/22 06:52> Interpretation: sinus rate of [address] elevation in V3,no st or twave changes. <Quang Washburn MD - Last Filed: 01/08/22 06:52> Critical Care Time Critical Care Time Attestation: I spent 40 minutes of critical care, with interventions, assessments, speaking to patient, consultants, and family. <Quang Washburn MD - Last Filed: 01/08/22 06:52> Discharge Plan Discharge Clinical Impression: Acute on chronic respiratory failure with hypoxia and hypercapnia, COPD exacerbation, Hypercarbia <Quang Washburn MD - Last Filed: 01/08/22 06:52> Patient Disposition: Admitted As Inpatient <Quang Washburn MD - Last Filed: 01/08/22 06:52>
--- NOTE | 2022-01-08 04:52 | ECG_ITS ---
Test Reason : SOB Blood Pressure : / mmHG Vent. Rate : 074 BPM Atrial Rate : 074 BPM P-R Int : 164 ms QRS Dur : 116 ms QT Int : 368 ms P-R-T Axes : 047 -26 036 degrees QTc Int : 408 ms Normal sinus rhythm Possible Left atrial enlargement Left ventricular hypertrophy with QRS widening ( Bob product ) Abnormal ECG When compared with ECG of 04-NOV-2021 22:28, No significant change was found Referred By: Quang Washburn Electronically Signed By:PHILIP CALDWELL
[2022-01-08] MEDS: methylPREDNISolone Sod Succ 125 MG/2 ML VIAL IVPUSH (05:09)
[2022-01-08 05:10] LABS: MANUAL DIFF FLAG NO
[2022-01-08 05:11] LABS: Basophils Percent Auto 0.3 % (0-2); Eosinophils Percent Auto 0.1 % (0-4); Hematocrit 45.1 % (42.0-52.0); Hemoglobin 13.5 g/dl (14.0-18.0); Imm Gran Abs Auto 0.09 X10*3/uL (0.00-0.03); Imm Gran Pct Auto 0.8 % (0.0-0.4); Lymphocytes Absolute Auto 1.4 X10*3/uL (1.2-4.9); Lymphocytes Percent Auto 12.5 % (20-40); Mean Corpuscular HGB Conc 29.9 g/dl (31.0-36.0); Mean Corpuscular Hemoglobin 27.3 pg (27.0-33.0); Mean Corpuscular Volume 91.3 fL (80.0-98.0); Mean Platelet Volume 10.8 fL (9.4-12.4); Monocytes Absolute Auto 1.3 X10*3/uL (0.1-1.2); Monocytes Percent Auto 10.9 % (2-11); Neutrophils Absolute Auto 8.7 x10*3/uL (2.0-8.3); Neutrophils Percent Auto 75.4 % (45-73); Platelet Count 154 X10*3/uL (160-400); Red Blood Count 4.94 X10*6/uL (4.60-5.80); Red Cell Distribution Width 14.6 % (11.0-16.0); White Blood Count 11.5 X10*3/uL (4.8-10.8)
[2022-01-08 05:15] LABS: NRBC Pct Auto 1.5 /100WBC (0.0-0.2)
[2022-01-08 05:21] LABS: Lactic Acid 0.6 mmol/L (0.5-2.0)
[2022-01-08 05:32] LABS: Anion Gap 9 (12-20); Blood Urea Nitrogen 25 mg/dL (9-16); Calcium 9.6 mg/dL (8.4-10.2); Carbon Dioxide 38 mmol/L (22-29); Chloride 90 mmol/L (96-108); Creatinine Clr Calc Pharmacy 126.7; Estimated Glomerular Filt Rate > 60; Glucose Random 111 mg/dL (60-115); Potassium 5.3 mmol/L (3.3-5.1); Sodium 132 mmol/L (135-145)
--- NOTE | 2022-01-08 05:48 | PC.NURSE ---
abg collected at 0548 by respirtory. unable to amend order lab called and told to send down with date time name
[2022-01-08 06:00] LABS: ABG Refer to POC result
[2022-01-08 06:01] LABS: ABG Base Excess 9.7 mmol/L; ABG HCO3 41 mmol/L (22-26); ABG pCO2 87 mmHg (32-45); ABG pH 7.28 (7.35-7.45); ABG pO2 57 mmHg (83-108)
[2022-01-08 06:09] LABS: Appearance Urine CLEAR; Color Urine YELLOW; Glucose Urine UA NEG (NEG); Leukocyte Esterase Urine NEG (NEG); Nitrite Urine NEG (NEG); Specific Gravity - Urine >= 1.030 (1.005-1.025); UACC Culture Trigger NO; Urine Blood TRACE (NEG); Urine Ketones NEG (NEG); Urine Protein 2+ MG/DL (NEG-TRACE)
[2022-01-08 06:14] LABS: Bacteria Urine 1+ /LPF; Squamous Epithelial Cell Urine 1+ /LPF
--- NOTE | 2022-01-08 06:42 | PC.NURSE ---
Patient on Bipap, O2 saturation jumping between 87-92%. Dr Washburn notified, no new orders. RT at bedside, adjusted bipap. O2 rechecked and now steady at 93%. Patient NAD noted.
[2022-01-08] MEDS: Albuterol Sulfate (0.083%) 2.5 MG/3 ML VIAL.NEB INHALE (07:16)
[2022-01-08] MEDS: Albuterol/Iprat 2.5/0.5MG 3 ML AMPUL.NEB INHALE ×5 (07:17→23:18)
[2022-01-08 07:27] LABS: COVID-19 Test Negative (Negative); IDNOW Serial# 16C4AD1C
[2022-01-08] MEDS: Furosemide 20 MG/2 ML VIAL IVPUSH (07:31)
[2022-01-08] MEDS: cefTRIAXone sodium 1 GM in 0.9 % Sodium Chloride 50 ML IV (07:31)
[2022-01-08 08:07] LABS: ABG Base Excess 9.5 mmol/L; ABG HCO3 43 mmol/L (22-26); ABG pCO2 106 mmHg (32-45); ABG pH 7.21 (7.35-7.45); ABG pO2 63 mmHg (83-108)
[2022-01-08 08:17] LABS: B Type Natriuretic Peptide 748 pg/mL (<100)
--- NOTE | 2022-01-08 09:14 | PC.NURSE ---
pt placed with [place] cath to monitor I&O
--- NOTE | 2022-01-08 09:42 | PC.NURSE ---
no urine output in 2.5 hrs following lasix admin. order received to place campo cath following bladder scan of 557 ml. prepping for cath insertion and pt peed a large amount of urine. campo insertion on hold following repeat bladder scan.
[2022-01-08 09:54] LABS: ABG Base Excess 10.2 mmol/L; ABG HCO3 44 mmol/L (22-26); ABG pCO2 110 mmHg (32-45); ABG pO2 59 mmHg (83-108)
--- NOTE | 2022-01-08 10:15 | P.HPCC_ITS ---
History of Present Illness Date of Service: 01/08/22 Attending physician on admission: Ezequiel Benavides Chief Complaint: Altered mental status 66-year-old schizoaffective at least moderately obese in individual who is hypertensive and hyperlipidemic with underlying COPD very very likely obesity hypoventilation syndrome who does have a BiPAP device for nocturnal use in the longterm facility however he was noted to be altered brought to the ER noted to have acute on chronic hypercarbic and hypoxic respiratory failure moderately elevated BNP and what looked like some peripheral edema despite chronic diuretic therapy known history of cor pulmonale and the possible atelectasis versus infiltrate bibasilar on chest x-ray with a CT scan pending and placed on BiPAP with with progressively more aggressive tidal volume initially 450 and then eventually at 800 cc and pCO2 remained over 100 likely indicating a very extensive space disease Review of Systems Review of Systems: Yes Unobtainable due to mental status PMFSH Past Medical History Medical History (Updated 01/09/22 @ 13:28 by Ezequiel Benavides MD) Acute and chronic respiratory failure with hypercapnia Acute exacerbation of chronic obstructive airways disease Acute on chronic respiratory failure with hypoxia and hypercapnia Congestive heart failure COPD (chronic obstructive pulmonary disease) Cor pulmonale (chronic) Cor pulmonale (chronic) History of COVID-19 Hypercapnic respiratory failure Hypertension Metabolic encephalopathy Morbid obesity Morbid obesity Morbid obesity Obesity hypoventilation syndrome Obstructive sleep apnea Obstructive sleep apnea Obstructive sleep apnea syndrome in adult Schizoaffective disorder Schizophrenia Thrombocytopenia Social History Social History Household Members: Other Household Members Other:: snf Housing: Care Home Housing Other:: [facility] Facility Do you presently have visiting nurse or other home services: No (lives at snf) Unable to assess alcohol history related to: Unable to respond and Unknown Alcohol intake: unknown Patient Tobacco Use Status: Tobacco use Unknown Use of substances other than those prescribed or required for medical reasons: Unable to respond Currently Displaying Signs/Symptoms of Drug Intoxication Withdrawal: No Spiritual Healthcare Practices: unable to assess [facility] Practices: unable to assess Cultural Healthcare Practices: unable to assess Advance Directives: Yes Advance Directives Information Provided: Yes Advance Directives on File: Yes Advance Directives Date on File: 01/08/22 Recently lost weight without trying: Unsure How much weight loss: Unsure Nutrition Risks: On aspiration precautions service: No Current occupational status: disabled Meds Allergies Allergy/AdvReac Type Severity Reaction Status Date / Time TRUMAN Inhibitors Allergy Unknown Verified 11/04/21 22:28 Active Medications: Current Medications Pharmacy Consult (Consult Rx Perform Med Rec) 1 each MISCELLANE ONCE PRN PRN Reason: Consult order Home Medications Medication Instructions Recorded Confirmed Last Taken Type acetaminophen 325 mg tablet 650 mg PO Q4H PRN 11/05/21 01/08/22 Unknown History (Tylenol) amlodipine 10 mg tablet 10 mg PO DAILY 11/05/21 01/08/22 Unknown History benztropine 0.5 mg tablet 0.5 mg PO DAILY 11/05/21 01/08/22 Unknown History bisacodyl 10 mg rectal suppository 10 mg HI ONCE PRN 11/05/21 01/08/22 Unknown History budesonide-formoterol HFA 160 2 puff INHALATION BID 11/05/21 01/08/22 Unknown History mcg-4.5 mcg/actuation aerosol inhaler (Symbicort) gabapentin 300 mg capsule 300 mg PO TID 11/05/21 01/08/22 Unknown History losartan 50 mg tablet 50 mg PO DAILY 11/05/21 01/08/22 Unknown History metoprolol succinate 25 mg 50 mg PO DAILY 11/05/21 01/08/22 Unknown History tablet,extended release 24 hr montelukast 10 mg tablet 10 mg PO DAILY 11/05/21 01/08/22 Unknown History (Singulair) multivitamin 1 tab PO DAILY 11/05/21 01/08/22 Unknown History pravastatin 20 mg tablet 20 mg PO DAILY 11/05/21 01/08/22 Unknown History risperidone 1 mg tablet 1 mg PO BID 11/05/21 01/08/22 Unknown History tiotropium bromide 18 mcg capsule 1 cap INHALATION BEDTIME #0 11/05/21 01/08/22 Unknown History with inhalation device (Spiriva with HandiHaler) furosemide 20 mg tablet 1 tab PO DAILY 01/08/22 01/08/22 Unknown History menthol 7.5 % topical patch (Icy 1 patch TOPICAL DAILY 01/08/22 01/08/22 Unknown History Hot Advanced Relief Patch) Physical Exam Vital Signs: Vital Signs: Last Vital Signs Pulse 71 01/08/22 08:16 Resp 21 H 04/26/22 08:20 BP 149/77 H 01/08/22 08:16 Pulse Ox 93 01/08/22 08:16 Oxygen Flow Rate 14 01/08/22 04:50 BMI result Body Mass Index 38.0 And arousable both to touch in and loud verbal moves all 4 extremities with respiratory rate of 13 to 14 with normal pattern Skin with just trace edema no livedo Cardiac exam at EKG normal sinus rhythm and within normal limits adequate bilateral carotid upstrokes no murmurs no gallops Abdomen soft nontender no organomegaly Results Labs CBC and Chem 7: 01/09/22 05:23 01/09/22 05:23 Labs: Laboratory Results - last 24 hr 01/08/22 01/08/22 01/08/22 05:05 05:05 05:05 MCV 91.3 MCH 27.3 MCHC 29.9 L RDW 14.6 Plt Count 154 L MPV 10.8 Immature Gran % (Auto) 0.8 H Neut % (Auto) 75.4 H Lymph % (Auto) 12.5 L [place] % (Auto) 10.9 Eos % (Auto) 0.1 Baso % (Auto) 0.3 Lymph # (Auto) 1.4 [place] # (Auto) 1.3 H Eos # (Auto) 0.0 Baso # (Auto) 0.0 Abs Immat Gran (auto) 0.09 H Absolute Neuts (auto) 8.7 H Absolute Nucleated RBC 0.170 H Nucleated RBC % (auto) 1.5 H O2 Saturation ABG pH at Pt Temp ABG pCO2 at Pt Temp ABG pO2 at Pt Temp ABG HCO3 ABG Base Excess (Actual) Anion Gap 9 L Estim Creat Clear Calc 126.7 Estimated GFR > 60 Random Glucose 111 Lactic Acid 0.6 Calcium 9.6 Troponin I High Sens B-Natriuretic Peptide Urine Color Urine Appearance Urine pH Ur Specific [place] Urine Protein Urine Glucose (UA) Urine Ketones Urine Blood Urine Nitrite Ur Leukocyte Esterase Urine RBC Urine WBC Ur Squamous Epith Cells Urine Bacteria COVID-19 (MAR[facility]) COVID-19 Clin Com 01/08/22 01/08/22 01/08/22 05:05 05:50 06:01 MCV MCH MCHC RDW Plt Count MPV Immature Gran % (Auto) Neut % (Auto) Lymph % (Auto) [place] % (Auto) Eos % (Auto) Baso % (Auto) Lymph # (Auto) [place] # (Auto) Eos # (Auto) Baso # (Auto) Abs Immat Gran (auto) Absolute Neuts (auto) Absolute Nucleated RBC Nucleated RBC % (auto) O2 Saturation 82.0 ABG pH at Pt Temp 7.28 L ABG pCO2 at Pt Temp 87 H* ABG pO2 at Pt Temp 57 L ABG HCO3 41 H ABG Base Excess (Actual) 9.7 Anion Gap Estim Creat Clear Calc Estimated GFR Random Glucose Lactic Acid Calcium Troponin I High Sens 15.0 B-Natriuretic Peptide Urine Color YELLOW Urine Appearance CLEAR Urine pH 6.0 Ur Specific [place] >= 1.030 H Urine Protein 2+ H Urine Glucose (UA) NEG Urine Ketones NEG Urine Blood TRACE Urine Nitrite NEG Ur Leukocyte Esterase NEG Urine RBC 1-4 Urine WBC 1-4 Ur Squamous Epith Cells 1+ Urine Bacteria 1+ COVID-19 (MAR[facility]) COVID-19 [employer] 01/08/22 01/08/22 01/08/22 07:08 07:54 07:59 MCV MCH MCHC RDW Plt Count MPV Immature Gran % (Auto) Neut % (Auto) Lymph % (Auto) [place] % (Auto) Eos % (Auto) Baso % (Auto) Lymph # (Auto) [place] # (Auto) Eos # (Auto) Baso # (Auto) Abs Immat Gran (auto) Absolute Neuts (auto) Absolute Nucleated RBC Nucleated RBC % (auto) O2 Saturation 85.0 ABG pH at Pt Temp 7.21 L ABG pCO2 at Pt Temp 106 H* ABG pO2 at Pt Temp 63 L ABG HCO3 43 H ABG Base Excess (Actual) 9.5 Anion Gap Estim Creat Clear Calc Estimated GFR Random Glucose Lactic Acid Calcium Troponin I High Sens B-Natriuretic Peptide 748 H Urine Color Urine Appearance Urine pH Ur Specific [place] Urine Protein Urine Glucose (UA) Urine Ketones Urine Blood Urine Nitrite Ur Leukocyte Esterase Urine RBC Urine WBC Ur Squamous Epith Cells Urine Bacteria COVID-19 (MAR[facility]) Negative COVID-19 Clin Com See Note 01/08/22 09:47 MCV MCH MCHC RDW Plt Count MPV Immature Gran % (Auto) Neut % (Auto) Lymph % (Auto) [place] % (Auto) Eos % (Auto) Baso % (Auto) Lymph # (Auto) [place] # (Auto) Eos # (Auto) Baso # (Auto) Abs Immat Gran (auto) Absolute Neuts (auto) Absolute Nucleated RBC Nucleated RBC % (auto) O2 Saturation 80.0 ABG pH at Pt Temp 7.20 L* ABG pCO2 at Pt Temp 110 H* ABG pO2 at Pt Temp 59 L ABG HCO3 44 H ABG Base Excess (Actual) 10.2 Anion Gap Estim Creat Clear Calc Estimated GFR Random Glucose Lactic Acid Calcium Troponin I High Sens B-Natriuretic Peptide Urine Color Urine Appearance Urine pH Ur Specific [place] Urine Protein Urine Glucose (UA) Urine Ketones Urine Blood Urine Nitrite Ur Leukocyte Esterase Urine RBC Urine WBC Ur Squamous Epith Cells Urine Bacteria COVID-19 (MAR[facility]) COVID-19 Clin Com Imaging Radiologist's Impressions: Impressions Chest X-Ray 01/08/22 06:20 IMPRESSION: *Findings suspicious for mild pulmonary vascular congestion. No focal pulmonary consolidation. Assessment and Plan (1) Cor pulmonale (chronic): Status: Acute (2) Morbid obesity: Status: Acute (3) Pneumonia: Status: Acute (4) COPD exacerbation: Status: Acute (5) Hypercarbia: Status: Acute (6) Acute on chronic respiratory failure with hypoxia and hypercapnia: Status: Acute (7) Metabolic encephalopathy: Status: Acute Plan Will keep him on continuous BiPAP now that we have been able to accomplish adequate minute ventilation to compensate for the elevated pCO2 and therefore it looks like will be able to avoid a need for intubation and think once we overcome that he status asthmaticus his hypercarbia will be back to baseline
--- NOTE | 2022-01-08 10:23 | PC.NURSE ---
pt with repeat bladder scan 301 - per Dr. Scales no campo placement at this time, [facility] with [facility]
[2022-01-08 10:30] LABS: ABG Refer to POC result
[2022-01-08 10:30] LABS: ABG Refer to POC result
[2022-01-08] MEDS: Piperacillin Sodium/Tazobactam 4.5 GM in 0.9 % Sodium Chloride 100 ML IV ×3 (11:40→22:23)
[2022-01-08] MEDS: Heparin Sodium,Porcine 5,000 UNIT/ML VIAL 5000 UNIT SUBCUT ×2 (11:40→18:02)
[2022-01-08] MEDS: levoFLOXacin/D5W 750 MG/150 ML PIGGYBACK 100 MG IV (11:40)
--- NOTE | 2022-01-08 12:59 | MHC.CM.PN ---
Pt presents from [facility] with respiratory failure currently on BiPAP in the ICU: Pt unable to fully participate in CM assessment d/t medical condition: information obtained from pt (limited), EMR and conversation with Hawk RN. Pt resides at [facility] and is a LTC resident on a bed hold. He is alert, verbal at baseline and mostly w/c bound with transfer ability. He is able to feed himself and can assist with bathing/dressing. VAX x 3. MOLST and HCP in chart - rereferred to [facility] - pt will need BLS transport. CM to follow.
[2022-01-08] MEDS: Furosemide 40 MG/4 ML VIAL IVPUSH (13:02)
[2022-01-08] MEDS: Albuterol Sulfate (0.083%) 2.5 MG/3 ML VIAL.NEB 5 MG INHALE (13:19)
[2022-01-08 14:10] LABS: ABG Base Excess 10.8 mmol/L; ABG HCO3 43 mmol/L (22-26); ABG pCO2 102 mmHg (32-45); ABG pH 7.23 (7.35-7.45); ABG pO2 110 mmHg (83-108)
[2022-01-08 14:17] LABS: Amphetamine Screen Urine Not Detected (Not Detect); Barbiturates, Urine Not Detected (Not Detect); Benzodiazepines Screen Urine Not Detected (Not Detect); Cannabinoid Screen Urine Not Detected (Not Detect); Cocaine Screen Urine Not Detected (Not Detect); Fentanyl, urine Not Detected (Not Detect); Opiate Screen Urine Not Detected (Not Detect); Phencyclidine Screen Urine Not Detected (Not Detect)
[2022-01-08 14:54] LABS: ABG Refer to POC result
[2022-01-08 15:43] LABS: VBG Base Excess 10.5 mmol/L; VBG HCO3 40 mmol/L (22-26); VBG pCO2 73 mmHg; VBG pH 7.34 (7.32-7.43); VBG pO2 111 mmHg
[2022-01-08 15:59] LABS: Anion Gap 12 (12-20); Blood Urea Nitrogen 25 mg/dL (9-16); Calcium 9.3 mg/dL (8.4-10.2); Carbon Dioxide 37 mmol/L (22-29); Chloride 92 mmol/L (96-108); Creatinine Clr Calc Pharmacy 115.3; Estimated Glomerular Filt Rate > 60; Glucose Random 131 mg/dL (60-115); Potassium 5.6 mmol/L (3.3-5.1); Sodium 135 mmol/L (135-145)
[2022-01-08 19:09] LABS: Venous Blood Gas Refer to POC result
[2022-01-08] MEDS: methylPREDNISolone Sod Succ 125 MG/2 ML VIAL 60 MG IVPUSH (20:39)
[2022-01-08] MEDS: Famotidine/PF 20 MG/2 ML VIAL IVPUSH (20:40)
[2022-01-09] VITALS (30 sets, daily range): BP systolic 111–182; BP diastolic 61–97; PULSE 72–90; RESP 16–24; TEMP 37.2–37.4; O2SAT 85–100; BMI 45.4
[2022-01-09] MEDS: Chlorhexidine Gluc Oral Rinse 15 ML MOUTHWASH BUCCAL ×3 (02:33→20:12)
[2022-01-09] MEDS: Heparin Sodium,Porcine 5,000 UNIT/ML VIAL 5000 UNIT SUBCUT ×3 (02:33→20:12)
--- NOTE | 2022-01-09 03:34 | PC.NURSE ---
Assumed care of patient at 19:00; patient on Bipap face mask as ordered. Selam Smith PAc in to see patient and decreased BIPAP rate to 18. O2 sat mid 90's. No respiratory difficulty.To repeat VBGs in AM. HOB up 30-40 degrees. VS stable; temp low grade 99.3 core. Monitor NSR 70's with occasional pac. urine output >60cc/hr. Patient responsive to name but lethargic and falls asleep quickly. nods head yes/no. T&R q 2 hrs. Skin intact.
[2022-01-09] MEDS: Piperacillin Sodium/Tazobactam 4.5 GM in 0.9 % Sodium Chloride 100 ML IV ×4 (04:32→23:42)
[2022-01-09] MEDS: Albuterol/Iprat 2.5/0.5MG 3 ML AMPUL.NEB INHALE ×6 (04:59→23:12)
[2022-01-09 05:28] LABS: VBG Base Excess 15.3 mmol/L; VBG HCO3 46 mmol/L (22-26); VBG pCO2 90 mmHg; VBG pH 7.32 (7.32-7.43); VBG pO2 70 mmHg
[2022-01-09 05:32] LABS: Venous Blood Gas Refer to POC result
[2022-01-09 05:34] LABS: Basophils Percent Auto 0.1 % (0-2); Hematocrit 44.6 % (42.0-52.0); Imm Gran Abs Auto 0.08 X10*3/uL (0.00-0.03); Imm Gran Pct Auto 0.8 % (0.0-0.4); Lymphocytes Absolute Auto 0.7 X10*3/uL (1.2-4.9); Lymphocytes Percent Auto 6.7 % (20-40); Mean Corpuscular HGB Conc 29.1 g/dl (31.0-36.0); Mean Corpuscular Hemoglobin 27.3 pg (27.0-33.0); Mean Corpuscular Volume 93.5 fL (80.0-98.0); Mean Platelet Volume 10.8 fL (9.4-12.4); Monocytes Absolute Auto 0.5 X10*3/uL (0.1-1.2); Monocytes Percent Auto 5.2 % (2-11); Neutrophils Absolute Auto 8.8 x10*3/uL (2.0-8.3); Neutrophils Percent Auto 87.2 % (45-73); Platelet Count 141 X10*3/uL (160-400); Red Blood Count 4.77 X10*6/uL (4.60-5.80); Red Cell Distribution Width 14.7 % (11.0-16.0)
[2022-01-09 05:35] LABS: NRBC Pct Auto 1.1 /100WBC (0.0-0.2)
[2022-01-09 05:55] LABS: B Type Natriuretic Peptide 180 pg/mL (<100)
[2022-01-09 05:58] LABS: Anion Gap 13 (12-20); Blood Urea Nitrogen 28 mg/dL (9-16); Calcium 9.4 mg/dL (8.4-10.2); Carbon Dioxide 37 mmol/L (22-29); Chloride 92 mmol/L (96-108); Creatinine Clr Calc Pharmacy 121.6; Estimated Glomerular Filt Rate > 60; Glucose Random 124 mg/dL (60-115); Magnesium 2.1 mg/dL (1.6-2.6); Phosphorus 3.8 mg/dL (2.7-4.5); Potassium 5.8 mmol/L (3.3-5.1); Sodium 136 mmol/L (135-145)
[2022-01-09 06:10] LABS: MANUAL DIFF FLAG SCAN; SLIDE REVIEW VERIFIED
[2022-01-09] MEDS: Famotidine/PF 20 MG/2 ML VIAL IVPUSH ×2 (08:11→20:12)
[2022-01-09] MEDS: methylPREDNISolone Sod Succ 125 MG/2 ML VIAL 60 MG IVPUSH ×2 (08:11→20:13)
[2022-01-09 08:41] LABS: ABG Base Excess 14.8 mmol/L; ABG HCO3 44 mmol/L (22-26); ABG pCO2 74 mmHg (32-45); ABG pH 7.38 (7.35-7.45); ABG pO2 59 mmHg (83-108)
[2022-01-09] MEDS: levoFLOXacin/D5W 750 MG/150 ML PIGGYBACK 100 MG IV (10:57)
[2022-01-09 11:31] LABS: ABG Base Excess 17.4 mmol/L; ABG HCO3 48 mmol/L (22-26); ABG pCO2 83 mmHg (32-45); ABG pH 7.36 (7.35-7.45); ABG pO2 55 mmHg (83-108)
--- NOTE | 2022-01-09 13:19 | P.PNCC_ITS ---
Subjective Subjective Date of Service: 01/09/22 Interval History: And 66-year-old obese male longstanding COPD presents with altered mental status manifested by lethargy with acute on chronic primarily hypercarbic respiratory failure evidence of some scattered bilateral lower lobe infiltrates and started on Levaquin and Zosyn as he does reside in a nursing home facility and does use nocturnal BiPAP chronically and he had evidence of a significant obstructive airway pattern with peak pCO2 when he was altered of 110 currently he is better compensated came down to about 75 on the overnight BiPAP but less of an obstructive pattern after aggressive bronchodilator therapy and steroids and in addition he was diuresed because he had evidence of cor pulmonale and the as a result of the the positive-pressure mechanism he he auto diuresed overnight between the 2 it certainly looks like his respiratory effort has considerably calmed and bedside echo that I had done shows mild left ventricular hypertrophy as well as significant right ventricular hypertrophy no primary valve or peric ardial disease normal systolic function and he has spent most of the day today on nasal high-flow at 60 liters/minute and FiO2 of 40-45% doing well being awake just not yet having been fed in case he regressed so it might not be a bad idea to get a swallow evaluation and then study start him on a diet but he will still need as he does chronically nocturnal BiPAP and we used the AVAPS mode seeking a tidal volume greater than 600-700 cc with an extra [place] pressure to help us overcome some of the atelectasis between 8 and 10 Critical Care Time (minutes): 45 Physical Exam Vital Signs: Vital Signs: Last Vital Signs Temp 99.3 F 01/09/22 12:00 Pulse 87 01/09/22 12:00 Resp 20 01/09/22 12:00 BP 141/87 H 01/09/22 12:00 Pulse Ox 95 01/09/22 12:00 Oxygen Flow Rate 45 01/09/22 04:00 BMI result Body Mass Index 45.4 He is awake and conversational today and nonfocal neurologically but he is schizoaffective although pleasant Abdomen is benign soft nontender no organomegaly Skin is intact no livedo Cardiac exam with normal systolic function by bedside echo Chest with diminished breath sounds bilaterally no adventitious sounds Objective Data Labs CBC & Chem 7: 01/09/22 05:23 01/09/22 05:23 Labs: Laboratory Results - last 24 hr 01/08/22 01/08/22 01/08/22 06:01 14:03 15:36 WBC RBC Hgb Hct MCV MCH MCHC RDW Plt Count MPV Immature Gran % (Auto) Neut % (Auto) Lymph % (Auto) [place] % (Auto) Eos % (Auto) Baso % (Auto) Lymph # (Auto) [place] # (Auto) Eos # (Auto) Baso # (Auto) Abs Immat Gran (auto) Absolute Neuts (auto) Absolute Nucleated RBC Nucleated RBC % (auto) Smear Tech's Comments O2 Saturation 98.0 ABG pH at Pt Temp 7.23 L ABG pCO2 at Pt Temp 102 H* ABG pO2 at Pt Temp 110 H ABG HCO3 43 H ABG Base Excess (Actual) 10.8 VBG pH 7.34 VBG pCO2 73 VBG pO2 111 VBG HCO3 40 H VBG O2 Saturation 99.0 VBG Base Excess 10.5 Sodium Potassium Chloride Carbon Dioxide Anion Gap BUN Creatinine Estim Creat Clear Calc Estimated GFR Random Glucose Calcium Phosphorus Magnesium B-Natriuretic Peptide Urine Opiates Screen Not Detected Urine Fentanyl Screen Not Detected Ur Barbiturates Screen Not Detected Ur Phencyclidine Scrn Not Detected Ur Amphetamines Screen Not Detected U Benzodiazepines Scrn Not Detected Urine Cocaine Screen Not Detected U Marijuana (THC) Screen Not Detected 01/08/22 01/09/22 01/09/22 15:39 05:20 05:23 WBC 10.0 RBC 4.77 Hgb 13.0 L Hct 44.6 MCV 93.5 MCH 27.3 MCHC 29.1 L RDW 14.7 Plt Count 141 L MPV 10.8 Immature Gran % (Auto) 0.8 H Neut % (Auto) 87.2 H Lymph % (Auto) 6.7 L [place] % (Auto) 5.2 Eos % (Auto) 0.0 Baso % (Auto) 0.1 Lymph # (Auto) 0.7 L [place] # (Auto) 0.5 Eos # (Auto) 0.0 Baso # (Auto) 0.0 Abs Immat Gran (auto) 0.08 H Absolute Neuts (auto) 8.8 H Absolute Nucleated RBC 0.110 H Nucleated RBC % (auto) 1.1 H Smear Tech's Comments VERIFIED O2 Saturation ABG pH at Pt Temp ABG pCO2 at Pt Temp ABG pO2 at Pt Temp ABG HCO3 ABG Base Excess (Actual) VBG pH 7.32 VBG pCO2 90 VBG pO2 70 VBG HCO3 46 H VBG O2 Saturation 92.0 VBG Base Excess 15.3 Sodium 135 Potassium 5.6 H Chloride 92 L Carbon Dioxide 37 H Anion Gap 12 BUN 25 H Creatinine 0.78 Estim Creat Clear Calc 115.3 Estimated GFR > 60 Random Glucose 131 H Calcium 9.3 Phosphorus Magnesium B-Natriuretic Peptide Urine Opiates Screen Urine Fentanyl Screen Ur Barbiturates Screen Ur Phencyclidine Scrn Ur Amphetamines Screen U Benzodiazepines Scrn Urine Cocaine Screen U Marijuana (THC) Screen 01/09/22 01/09/22 01/09/22 05:23 05:23 08:34 WBC RBC Hgb Hct MCV MCH MCHC RDW Plt Count MPV Immature Gran % (Auto) Neut % (Auto) Lymph % (Auto) [place] % (Auto) Eos % (Auto) Baso % (Auto) Lymph # (Auto) [place] # (Auto) Eos # (Auto) Baso # (Auto) Abs Immat Gran (auto) Absolute Neuts (auto) Absolute Nucleated RBC Nucleated RBC % (auto) Smear Tech's Comments O2 Saturation 91.0 ABG pH at Pt Temp 7.38 ABG pCO2 at Pt Temp 74 H* ABG pO2 at Pt Temp 59 L ABG HCO3 44 H ABG Base Excess (Actual) 14.8 VBG pH VBG pCO2 VBG pO2 VBG HCO3 VBG O2 Saturation VBG Base Excess Sodium 136 Potassium 5.8 H Chloride 92 L Carbon Dioxide 37 H Anion Gap 13 BUN 28 H Creatinine 0.74 Estim Creat Clear Calc 121.6 Estimated GFR > 60 Random Glucose 124 H Calcium 9.4 Phosphorus 3.8 Magnesium 2.1 B-Natriuretic Peptide 180 H Urine Opiates Screen Urine Fentanyl Screen Ur Barbiturates Screen Ur Phencyclidine Scrn Ur Amphetamines Screen U Benzodiazepines Scrn Urine Cocaine Screen U Marijuana (THC) Screen 01/09/22 11:24 WBC RBC Hgb Hct MCV MCH MCHC RDW Plt Count MPV Immature Gran % (Auto) Neut % (Auto) Lymph % (Auto) [place] % (Auto) Eos % (Auto) Baso % (Auto) Lymph # (Auto) [place] # (Auto) Eos # (Auto) Baso # (Auto) Abs Immat Gran (auto) Absolute Neuts (auto) Absolute Nucleated RBC Nucleated RBC % (auto) Smear Tech's Comments O2 Saturation 84.0 ABG pH at Pt Temp 7.36 ABG pCO2 at Pt Temp 83 H* ABG pO2 at Pt Temp 55 L ABG HCO3 48 H ABG Base Excess (Actual) 17.4 VBG pH VBG pCO2 VBG pO2 VBG HCO3 VBG O2 Saturation VBG Base Excess Sodium Potassium Chloride Carbon Dioxide Anion Gap BUN Creatinine Estim Creat Clear Calc Estimated GFR Random Glucose Calcium Phosphorus Magnesium B-Natriuretic Peptide Urine Opiates Screen Urine Fentanyl Screen Ur Barbiturates Screen Ur Phencyclidine Scrn Ur Amphetamines Screen U Benzodiazepines Scrn Urine Cocaine Screen U Marijuana (THC) Screen Microbiology Microbiology Results: Microbiology 01/08/22 05:46 Blood - Venous Blood Culture - Preliminary No growth after 24 hours. 01/08/22 05:23 Blood - Venous Blood Culture - Preliminary No growth after 24 hours. Progress Note: A&P Assessment and plan (1) COPD exacerbation: Status: Acute (2) Hypercarbia: Status: Acute (3) Acute on chronic respiratory failure with hypoxia and hypercapnia: Status: Acute (4) Pneumonia: Status: Acute (5) Morbid obesity: Status: Acute (6) Cor pulmonale (chronic): Status: Acute Plan So this 66-year-old male who was chronically dependent on nocturnal BiPAP presented with a a picture of status asthmaticus/asthmatic bronchitis on antibiotics to cover him because this is institutional related and these defini tely improving 80s compensated at least during daytime now on nasal high-flow and following a swallow study he will be able to eat and he will return to the nursing home facility with a have his nocturnal BiPAP Quality Stroke Does the patient have a stroke diagnosis?: No VTE Prior VTE?: No VTE Risk Level:: Medical - moderate - high VTE Device Contraindication: N/A - Device Ordered VTE Drug Contraindication: N/A - Med Ordered
[2022-01-09 13:47] LABS: VBG Base Excess 17.1 mmol/L; VBG HCO3 46 mmol/L (22-26); VBG pCO2 70 mmHg; VBG pH 7.42 (7.32-7.43); VBG pO2 106 mmHg
--- NOTE | 2022-01-09 13:48 | PC.NURSE ---
SOUZA REMOVED AT 1330. DTV AT 2030. WILL CONTINUE TO MONITOR.
--- NOTE | 2022-01-09 14:28 | PM.EVENT ---
Event Note Date of Service: 01/09/22 Event Note: day hospitalist update S comfortable on HFNC no cough no fever O VS- T 99.3, P 80, BP 157/97, R 20, SaO2 98% on HFNC 40% fiO2 @ 60 Lpm Gen: in no acute distress HEENT: sclera anicteric, moist mucus membranes Neck: supple Lungs: diminished Heart: regular rate and rhythm, no murmurs Abd: soft, non-tender, non-distended, morbidly obese Ext: no edema Skin: warm/well-perfused Neuro: alert and oriented x3, no focal findings Psych: appropriate affect Laboratory Results - last 24 hr 01/08/22 01/08/22 01/09/22 15:36 15:39 05:20 WBC RBC Hgb Hct MCV MCH MCHC RDW Plt Count MPV Immature Gran % (Auto) Neut % (Auto) Lymph % (Auto) George % (Auto) Eos % (Auto) Baso % (Auto) Lymph # (Auto) George # (Auto) Eos # (Auto) Baso # (Auto) Abs Immat Gran (auto) Absolute Neuts (auto) Absolute Nucleated RBC Nucleated RBC % (auto) Smear Tech's Comments O2 Saturation ABG pH at Pt Temp ABG pCO2 at Pt Temp ABG pO2 at Pt Temp ABG HCO3 ABG Base Excess (Actual) VBG pH 7.34 7.32 VBG pCO2 73 90 VBG pO2 111 70 VBG HCO3 40 H 46 H VBG O2 Saturation 99.0 92.0 VBG Base Excess 10.5 15.3 Sodium 135 Potassium 5.6 H Chloride 92 L Carbon Dioxide 37 H Anion Gap 12 BUN 25 H Creatinine 0.78 Estim Creat Clear Calc 115.3 Estimated GFR > 60 Random Glucose 131 H Calcium 9.3 Phosphorus Magnesium B-Natriuretic Peptide 01/09/22 01/09/22 01/09/22 05:23 05:23 05:23 WBC 10.0 RBC 4.77 Hgb 13.0 L Hct 44.6 MCV 93.5 MCH 27.3 MCHC 29.1 L RDW 14.7 Plt Count 141 L MPV 10.8 Immature Gran % (Auto) 0.8 H Neut % (Auto) 87.2 H Lymph % (Auto) 6.7 L George % (Auto) 5.2 Eos % (Auto) 0.0 Baso % (Auto) 0.1 Lymph # (Auto) 0.7 L George # (Auto) 0.5 Eos # (Auto) 0.0 Baso # (Auto) 0.0 Abs Immat Gran (auto) 0.08 H Absolute Neuts (auto) 8.8 H Absolute Nucleated RBC 0.110 H Nucleated RBC % (auto) 1.1 H Smear Tech's Comments VERIFIED O2 Saturation ABG pH at Pt Temp ABG pCO2 at Pt Temp ABG pO2 at Pt Temp ABG HCO3 ABG Base Excess (Actual) VBG pH VBG pCO2 VBG pO2 VBG HCO3 VBG O2 Saturation VBG Base Excess Sodium 136 Potassium 5.8 H Chloride 92 L Carbon Dioxide 37 H Anion Gap 13 BUN 28 H Creatinine 0.74 Estim Creat Clear Calc 121.6 Estimated GFR > 60 Random Glucose 124 H Calcium 9.4 Phosphorus 3.8 Magnesium 2.1 B-Natriuretic Peptide 180 H 01/09/22 01/09/22 01/09/22 08:34 11:24 13:39 WBC RBC Hgb Hct MCV MCH MCHC RDW Plt Count MPV Immature Gran % (Auto) Neut % (Auto) Lymph % (Auto) George % (Auto) Eos % (Auto) Baso % (Auto) Lymph # (Auto) George # (Auto) Eos # (Auto) Baso # (Auto) Abs Immat Gran (auto) Absolute Neuts (auto) Absolute Nucleated RBC Nucleated RBC % (auto) Smear Tech's Comments O2 Saturation 91.0 84.0 ABG pH at Pt Temp 7.38 7.36 ABG pCO2 at Pt Temp 74 H* 83 H* ABG pO2 at Pt Temp 59 L 55 L ABG HCO3 44 H 48 H ABG Base Excess (Actual) 14.8 17.4 VBG pH 7.42 VBG pCO2 70 VBG pO2 106 VBG HCO3 46 H VBG O2 Saturation 99.0 VBG Base Excess 17.1 Sodium Potassium Chloride Carbon Dioxide Anion Gap BUN Creatinine Estim Creat Clear Calc Estimated GFR Random Glucose Calcium Phosphorus Magnesium B-Natriuretic Peptide A/P hospital d#2 66yo M with COPD, HTN, schizophrenia, LYNN/OHS on biPAP, cor pulmonale, long-term resident of [facility] admitted to ICU 01/08/22 with acute/chronic hypoxic/hypercarbic respiratory failure with PNA placed on BiPAP, HFNC, IV diuresis, steroids, and bronchodilators stepped down to IMC # acute/chronic hypoxic/hypercarbic resp failure due to LYNN/OHS - review BiPAP settings at [facility] - HFNC, wean as tolerated # PNA - pip/sushant + levofloxacin d#2, follow BCx + PCT # COPD exacerbation - wean steroids, continue bronchodilators - continue triple controller inhaler therapy # R-sided HF - maintenance furosemide # HTN - losartan + amlodipine + metoprolol # schizophrenia - risperidone + benztropine # VTE ppx -UFH
[2022-01-09 15:39] LABS: Venous Blood Gas Refer to POC result
[2022-01-09 15:43] LABS: ABG Refer to POC result
--- NOTE | 2022-01-09 16:22 | MHC.SL.SWA ---
Speech Pathologist Impression: Severe oropharyngeal dysphagia Risk of Aspiration Due to: Medically Fragile Dysphasia Diet Status: Upgrade Liquid Consistency and Strategies for Safe Swallow: Liquid Intake Recommendation: Pudding Thick Liquid Intake Strategies: Liquids by Teaspoon Only Solid Food Consistency: Dietary Recommendations: Pureed (NDD1) Additional Modifications to Solid Foods: Start on single consistency. 1:1 assistance and aspiration precautions. Oral Medication Intake: Crushed with Puree Please contact the pharmacy regarding appropriate crushable or liquid drug formulations that are available whenever modified delivery is recommended. Compensatory Strategies and Precautions to be Taken for Safe Swallow: Sitting Upright (90 deg) Liquids from Spoon Small Bites and Sips Rate of Ingestion Change Oral Check Supervision While Eating and Drinking for Safe Swallow: Total Assistance (1:1) Swallowing Recommended Treatments: Compens. Strategy Educat. Recommendation for Speech: Inpatient Speech Therapy Comment: 1:1 assist Frequency/Duration: M-F Date Range for Service Req: Timeline to reassess: Supervisor Hand Workers Clinican/Clinical Fellow: No Supervisory Statement: I have reviewed and agree with the student/clinical fellow's documentation: N/A Speech Language Pathologist: Monika Liz M.A., CCC-C S S REPRESENTATIVE
[2022-01-09 18:52] LABS: ABG Refer to POC result
[2022-01-09 19:19] LABS: Procalcitonin 0.04 ng/mL
[2022-01-09] MEDS: risperiDONE 1 MG TABLET PO (20:13)
[2022-01-09] MEDS: Pravastatin Sodium 20 MG TABLET PO (20:13)
[2022-01-10] VITALS (15 sets, daily range): BP systolic 139–162; BP diastolic 72–79; PULSE 64–97; RESP 17–24; TEMP 36.3–37.4; O2SAT 93–98; BMI 44.1
[2022-01-10] MEDS: Albuterol/Iprat 2.5/0.5MG 3 ML AMPUL.NEB INHALE ×6 (04:18→23:11)
[2022-01-10] MEDS: Piperacillin Sodium/Tazobactam 4.5 GM in 0.9 % Sodium Chloride 100 ML IV ×4 (05:45→23:14)
[2022-01-10] MEDS: Heparin Sodium,Porcine 5,000 UNIT/ML VIAL 5000 UNIT SUBCUT (05:45)
[2022-01-10 06:35] LABS: Hematocrit 45.1 % (42.0-52.0); Hemoglobin 13.2 g/dl (14.0-18.0); Mean Corpuscular HGB Conc 29.3 g/dl (31.0-36.0); Mean Corpuscular Hemoglobin 27.5 pg (27.0-33.0); Mean Platelet Volume 10.7 fL (9.4-12.4); NRBC Pct Auto 0.5 /100WBC (0.0-0.2); Platelet Count 147 X10*3/uL (160-400); Red Cell Distribution Width 14.6 % (11.0-16.0)
[2022-01-10 06:36] LABS: WBC ABN SCTR FOR CBC 1
[2022-01-10 06:37] LABS: Venous Blood Gas Refer to POC result
[2022-01-10 06:38] LABS: VBG Base Excess 22.7 mmol/L; VBG HCO3 55 mmol/L (22-26); VBG pCO2 98 mmHg; VBG pH 7.35 (7.32-7.43); VBG pO2 84 mmHg
[2022-01-10 06:59] LABS: B Type Natriuretic Peptide 43 pg/mL (<100)
[2022-01-10 07:03] LABS: Atypical Lymphs Percent Manual 1 % (0-6); Band Neutrophils Percent 0 % (3-5); Eosinophils Percent Manual 1 % (0-4); Lymphocytes Percent Manual 6 % (20-40); Monocytes Percent Manual 3 % (2-11); Neutrophils Percent Manual 89 % (45-73); Nucleated Red Blood Cells 1 /100WBC (0-0)
[2022-01-10 07:09] LABS: Basophilic Stippling 1+ (0-2) /OIF; Hypochromasia 1+ (5-14) /OIF; Macrocytosis 1+ (5-14) /OIF; Platelet Estimate NORMAL (NORMAL); Platelet Morphology Comment NORMAL
[2022-01-10 07:10] LABS: Polychromasia 1+ (0-2) /OIF
[2022-01-10 07:12] LABS: Atypical Lymph Absolute Manual 0.1 x10*3/uL; Eosinophils Absolute Manual 0.1 X10*3/uL (0.0-0.4); Lymphocytes Absolute Manual 0.6 X10*3/uL (1.2-4.9); Monocytes Absolute Manual 0.3 X10*3/uL (0.1-1.2); Neutrophils Absolute Manual 8.5 X10*3/uL (2.0-8.3); RBC Morphology NOTED; White Blood Count 9.5 X10*3/uL (4.8-10.8)
[2022-01-10] MEDS: Fluticasone/Vilanterol 100/25 BLST.W.DEV 1 PUFF INHALE (07:28)
[2022-01-10 07:29] LABS: Anion Gap 8 (12-20); Blood Urea Nitrogen 26 mg/dL (9-16); Calcium 9.5 mg/dL (8.4-10.2); Carbon Dioxide 42 mmol/L (22-29); Chloride 93 mmol/L (96-108); Creatinine Clr Calc Pharmacy 131.9; Estimated Glomerular Filt Rate > 60; Glucose Random 127 mg/dL (60-115); Magnesium 2.2 mg/dL (1.6-2.6); Phosphorus 3.7 mg/dL (2.7-4.5); Potassium 5.4 mmol/L (3.3-5.1); Sodium 138 mmol/L (135-145)
[2022-01-10] MEDS: Sodium Zirconium Cyclosilicate 10 GM POWD.PACK PO (08:57)
[2022-01-10] MEDS: Montelukast Sodium 10 MG TABLET PO (08:58)
[2022-01-10] MEDS: Metoprolol Succinate ER 50 MG TAB.ER.24H PO (08:58)
[2022-01-10] MEDS: risperiDONE 1 MG TABLET PO ×2 (08:59→20:35)
[2022-01-10] MEDS: amLODIPine Besylate 10 MG TABLET PO (08:59)
[2022-01-10] MEDS: Benztropine Mesylate 0.5 MG TABLET PO (08:59)
[2022-01-10] MEDS: Furosemide 20 MG TABLET PO (09:00)
[2022-01-10] MEDS: Multivitamin TABLET 1 TAB PO (09:00)
[2022-01-10] MEDS: Famotidine/PF 20 MG/2 ML VIAL IVPUSH ×2 (09:01→20:35)
[2022-01-10] MEDS: methylPREDNISolone Sod Succ 125 MG/2 ML VIAL 30 MG IVPUSH ×2 (09:01→20:35)
--- NOTE | 2022-01-10 12:04 | P.PNIM_ITS ---
Subjective Subjective Date of Service: 01/10/22 Interval History: Denies dyspnea or cough Review of Systems Review of Systems: Yes all other systems are reviewed and are negative Physical Exam Vital Signs: Vital Signs: Last Vital Signs Temp 99.4 F 01/10/22 11:25 Pulse 69 01/10/22 11:25 Resp 20 01/10/22 11:25 BP 145/74 H 01/10/22 11:25 Pulse Ox 96 01/10/22 11:25 Oxygen Flow Rate 45 01/09/22 04:00 BMI result Body Mass Index 44.1 Gen: in no acute distress HEENT: sclera anicteric, moist mucus membranes Neck: supple Lungs: diminished Heart: regular rate and rhythm, no murmurs Abd: soft, non-tender, non-distended, morbidly obese Ext: 1+ bilateral leg edema Skin: warm/well-perfused Neuro: alert and oriented x3, no focal findings Psych: appropriate affect Objective Data Active Medications Albuterol/Ipratropium (Albuterol/Iprat 2.5/0.5mg 3 Ml Ampul.Neb) 3 ml INHALE RQ4H [facility] Last Admin: 01/10/22 11:05 Dose: 3 ml Documented by: CALVIN Amlodipine Besylate (Amlodipine Besylate 10 Mg Tablet) 10 mg PO DAILY [facility]; Protocol Last Admin: 01/10/22 08:59 Dose: 10 mg Documented by: MICHELLE Benztropine Mesylate (Benztropine Mesylate 0.5 Mg Tablet) 0.5 mg PO DAILY [facility] Last Admin: 01/10/22 08:59 Dose: 0.5 mg Documented by: MICHELLE Bisacodyl (Bisacodyl 10 Mg Supp.Rect) 10 mg [place] ONCE PRN PRN Reason: Constipation Chlorhexidine Gluconate (Chlorhexidine Gluc Oral Rinse 15 Ml Mouthwash) 15 ml BUCCAL Q8H [facility] Last Admin: 01/09/22 23:49 Dose: Not Given Documented by: NEVILLE Non-Admin Reason: Patient Refused Famotidine (Famotidine/Pf 20 Mg/2 Ml Vial) 20 mg IVPUSH BID [facility] Last Admin: 01/10/22 09:01 Dose: 20 mg Documented by: MICHELLE Fluticasone/Vilanterol (Fluticasone/Vilanterol 100/25 Blst.W.Dev) 1 puff INHALE RDAILY [facility] Last Admin: 01/10/22 07:28 Dose: 1 puff Documented by: CALVIN Furosemide (Furosemide 20 Mg Tablet) 20 mg PO DAILY [facility]; Protocol Last Admin: 01/10/22 09:00 Dose: 20 mg Documented by: MICHELLE Heparin Sodium (Porcine) (Heparin Sodium,Porcine 5,000 Unit/Ml Vial) 5,000 unit SUBCUT Q8H [facility] Last Admin: 01/10/22 05:45 Dose: 5,000 unit Documented by: NEVILLE Piperacillin Sod/Tazobactam (Sod 4.5 gm/ Sodium Chloride) 100 mls @ 200 mls/hr IV Q6H [facility] Last Infusion: 01/10/22 06:26 Dose: 0 mls/hr Documented by: NEVILLE Methylprednisolone Sodium Succinate (Methylprednisolone Sod Succ 125 Mg/2 Ml Vial) 30 mg IVPUSH BID [facility] Last Admin: 01/10/22 09:01 Dose: 30 mg Documented by: MICHELLE Metoprolol Succinate (Metoprolol Succinate Er 50 Mg Tab.Er.24h) 50 mg PO DAILY [facility]; Protocol Last Admin: 01/10/22 08:58 Dose: 50 mg Documented by: MICHELLE Montelukast Sodium (Montelukast Sodium 10 Mg Tablet) 10 mg PO DAILY [facility] Last Admin: 01/10/22 08:58 Dose: 10 mg Documented by: MICHELLE Multivitamins/Vitamin C (Multivitamin Tablet) 1 tab PO DAILY [facility] Last Admin: 01/10/22 09:00 Dose: 1 tab Documented by: MICHELLE Pharmacy Consult (Consult Rx Perform Med Rec) 1 each MISCELLANE ONCE PRN PRN Reason: Consult order Pravastatin Sodium (Pravastatin Sodium 20 Mg Tablet) 20 mg PO BEDTIME [facility] Last Admin: 01/09/22 20:13 Dose: 20 mg Documented by: NEVILLE Risperidone (Risperidone 1 Mg Tablet) 1 mg PO BID [facility] Last Admin: 01/10/22 08:59 Dose: 1 mg Documented by: MICHELLE Tiotropium [place] (Tiotropium [place] 18 Mcg Cap.W.Dev) 1 puff INHALE RDAILY [facility] Last Admin: 01/10/22 07:28 Dose: 1 puff Documented by: CALVIN Labs CBC & Chem 7: 01/10/22 06:25 01/10/22 06:25 Labs: Laboratory Results - last 24 hr 01/09/22 01/09/22 01/09/22 05:23 05:23 13:39 MCV MCH MCHC RDW Plt Count MPV Immature Gran % (Auto) Neut % (Auto) Lymph % (Auto) [place] % (Auto) Eos % (Auto) Baso % (Auto) Lymph # (Auto) [place] # (Auto) Eos # (Auto) Baso # (Auto) Abs Immat Gran (auto) Absolute Neuts (auto) Absolute Nucleated RBC Nucleated RBC % (auto) Neutrophils % (Manual) Band Neutrophils % Lymphocytes % (Manual) Atypical Lymphs % (Man) Monocytes % (Manual) Eosinophils % (Manual) Abs Neuts (Manual) Lymphocytes # (Manual) Atyp Lymphs # (Manual) Monocytes # (Manual) Eosinophils # (Manual) Nucleated RBCs Platelet Estimate Plt Morphology Comment RBC Morphology Polychromasia Hypochromasia Basophilic Stippling Macrocytosis Smear Path Review VBG pH 7.42 VBG pCO2 70 VBG pO2 106 VBG HCO3 46 H VBG O2 Saturation 99.0 VBG Base Excess 17.1 Anion Gap Estim Creat Clear Calc Estimated GFR Random Glucose Calcium Phosphorus Magnesium B-Natriuretic Peptide Procalcitonin 0.04 Prolactin Cancelled 01/10/22 01/10/22 01/10/22 06:25 06:25 06:25 MCV 94.0 MCH 27.5 MCHC 29.3 L RDW 14.6 Plt Count 147 L MPV 10.7 Immature Gran % (Auto) Cancelled Neut % (Auto) Cancelled Lymph % (Auto) Cancelled [place] % (Auto) Cancelled Eos % (Auto) Cancelled Baso % (Auto) Cancelled Lymph # (Auto) Cancelled [place] # (Auto) Cancelled Eos # (Auto) Cancelled Baso # (Auto) Cancelled Abs Immat Gran (auto) Cancelled Absolute Neuts (auto) Cancelled Absolute Nucleated RBC 0.050 H Nucleated RBC % (auto) 0.5 H Neutrophils % (Manual) 89 H Band Neutrophils % 0 L Lymphocytes % (Manual) 6 L Atypical Lymphs % (Man) 1 Monocytes % (Manual) 3 Eosinophils % (Manual) 1 Abs Neuts (Manual) 8.5 H Lymphocytes # (Manual) 0.6 L Atyp Lymphs # (Manual) 0.1 Monocytes # (Manual) 0.3 Eosinophils # (Manual) 0.1 Nucleated RBCs 1 H Platelet Estimate NORMAL Plt Morphology Comment NORMAL RBC Morphology NOTED Polychromasia 1+ (0-2) Hypochromasia 1+ (5-14) Basophilic Stippling 1+ (0-2) Macrocytosis 1+ (5-14) Smear Path Review SEE NOTE VBG pH VBG pCO2 VBG pO2 VBG HCO3 VBG O2 Saturation VBG Base Excess Anion Gap 8 L Estim Creat Clear Calc 131.9 Estimated GFR > 60 Random Glucose 127 H Calcium 9.5 Phosphorus 3.7 Magnesium 2.2 B-Natriuretic Peptide 43 Procalcitonin Prolactin 01/10/22 06:29 MCV MCH MCHC RDW Plt Count MPV Immature Gran % (Auto) Neut % (Auto) Lymph % (Auto) [place] % (Auto) Eos % (Auto) Baso % (Auto) Lymph # (Auto) [place] # (Auto) Eos # (Auto) Baso # (Auto) Abs Immat Gran (auto) Absolute Neuts (auto) Absolute Nucleated RBC Nucleated RBC % (auto) Neutrophils % (Manual) Band Neutrophils % Lymphocytes % (Manual) Atypical Lymphs % (Man) Monocytes % (Manual) Eosinophils % (Manual) Abs Neuts (Manual) Lymphocytes # (Manual) Atyp Lymphs # (Manual) Monocytes # (Manual) Eosinophils # (Manual) Nucleated RBCs Platelet Estimate Plt Morphology Comment RBC Morphology Polychromasia Hypochromasia Basophilic Stippling Macrocytosis Smear Path Review VBG pH 7.35 VBG pCO2 98 VBG pO2 84 VBG HCO3 55 H VBG O2 Saturation 96.0 VBG Base Excess 22.7 Anion Gap Estim Creat Clear Calc Estimated GFR Random Glucose Calcium Phosphorus Magnesium B-Natriuretic Peptide Procalcitonin Prolactin Microbiology Microbiology Results: Microbiology 01/08/22 05:46 Blood Culture - Preliminary Blood - Venous No growth after 48 hours. 01/08/22 05:23 Blood Culture - Preliminary Blood - Venous No growth after 48 hours. Assessment and Plan (1) COPD exacerbation: Status: Acute (2) Hypercarbia: Status: Acute Plan hospital d#3 66yo M with COPD, HTN, schizophrenia, LYNN/OHS on biPAP, cor pulmonale, long-term resident of [facility] admitted to ICU 4/26/22 with acute/chronic hypoxic/hypercarbic respiratory failu re with PNA placed on BiPAP, HFNC, IV diuresis, steroids, and bronchodilators stepped down to [facility]MC # acute/chronic hypoxic/hypercarbic resp failure due to LYNN/OHS - BiPAP for naps and asleep, review BiPAP settings at SNF - HFNC while awake wean as tolerated # PNA - pip/sushant d#3, d/c levofoxacin, follow BCx, trend PCT # COPD exacerbation - wean steroids, continue bronchodilators - continue triple controller inhaler therapy # R-sided HF - maintenance furosemide # hyperK - give 1 dose SZC, hold losartan # HTN - hold losartan, continue amlodipine + metoprolol # schizophrenia - risperidone + benztropine # VTE ppx - LMWH Quality Stroke Does the patient have a stroke diagnosis?: No VTE Prior VTE?: No VTE Risk Level:: Medical - moderate - high VTE Device Contraindication: N/A - Device Ordered VTE Drug Contraindication: N/A - Med Ordered
[2022-01-10] MEDS: Chlorhexidine Gluc Oral Rinse 15 ML MOUTHWASH BUCCAL (12:15)
[2022-01-10] MEDS: Enoxaparin Sodium 40 MG/0.4 ML SYRINGE SUBCUT (12:20)
--- NOTE | 2022-01-10 14:53 | MHC.SLORD ---
Speech Language Pathology Order Status: Attempted this a.m. Pt sleeping, on high flow NC, did not wake for PO trials. Will re-attempt when more alert/awake.
[2022-01-10] MEDS: Pravastatin Sodium 20 MG TABLET PO (20:35)
[2022-01-11] VITALS (15 sets, daily range): BP systolic 141–172; BP diastolic 70–94; PULSE 60–83; RESP 18–22; TEMP 36.4–37; O2SAT 91–99; BMI 43.7
[2022-01-11] MEDS: Albuterol/Iprat 2.5/0.5MG 3 ML AMPUL.NEB INHALE ×5 (03:23→18:58)
[2022-01-11] MEDS: Piperacillin Sodium/Tazobactam 4.5 GM in 0.9 % Sodium Chloride 100 ML IV ×4 (06:15→22:19)
[2022-01-11 06:51] LABS: Venous Blood Gas Refer to POC result
[2022-01-11 06:51] LABS: VBG Base Excess 22.4 mmol/L; VBG HCO3 53 mmol/L (22-26); VBG pCO2 87 mmHg; VBG pH 7.39 (7.32-7.43); VBG pO2 90 mmHg
[2022-01-11] MEDS: Fluticasone/Vilanterol 100/25 BLST.W.DEV 1 PUFF INHALE (07:19)
[2022-01-11 07:40] LABS: Blood Urea Nitrogen 21 mg/dL (9-16); Calcium 9.5 mg/dL (8.4-10.2); Creatinine Clr Calc Pharmacy 131.2; Estimated Glomerular Filt Rate > 60; Glucose Random 116 mg/dL (60-115)
[2022-01-11 07:54] LABS: Anion Gap 9 (12-20); Carbon Dioxide 42 mmol/L (22-29); Chloride 93 mmol/L (96-108); Sodium 139 mmol/L (135-145)
[2022-01-11] MEDS: Multivitamin TABLET 1 TAB PO (09:14)
[2022-01-11] MEDS: Metoprolol Succinate ER 50 MG TAB.ER.24H PO (09:14)
[2022-01-11] MEDS: risperiDONE 1 MG TABLET PO ×2 (09:14→21:16)
[2022-01-11] MEDS: Montelukast Sodium 10 MG TABLET PO (09:14)
[2022-01-11] MEDS: amLODIPine Besylate 10 MG TABLET PO (09:14)
[2022-01-11] MEDS: Benztropine Mesylate 0.5 MG TABLET PO (09:14)
[2022-01-11] MEDS: Furosemide 20 MG TABLET PO (09:14)
[2022-01-11] MEDS: methylPREDNISolone Sod Succ 125 MG/2 ML VIAL 30 MG IVPUSH (09:15)
[2022-01-11] MEDS: Famotidine/PF 20 MG/2 ML VIAL IVPUSH ×2 (09:15→21:16)
[2022-01-11] MEDS: Chlorhexidine Gluc Oral Rinse 15 ML MOUTHWASH BUCCAL ×2 (10:32→21:15)
--- NOTE | 2022-01-11 11:28 | P.PNIM_ITS ---
Subjective Subjective Date of Service: 01/11/22 Interval History: Breathing improved No complaints Physical Exam Vital Signs: Vital Signs: Last Vital Signs Temp 98.1 F 01/11/22 11:12 Pulse 60 01/11/22 11:12 Resp 20 01/11/22 11:12 BP 148/70 H 01/11/22 11:12 Pulse Ox 96 01/11/22 11:12 Oxygen Flow Rate 45 01/09/22 04:00 BMI result Body Mass Index 43.7 Gen: in no acute distress HEENT: sclera anicteric, moist mucus membranes Neck: supple Lungs: diminished Heart: regular rate and rhythm, no murmurs Abd: soft, non-tender, non-distended, morbidly obese Ext: 1+ bilateral leg edema Skin: warm/well-perfused Neuro: alert and oriented x3, no focal findings Psych: appropriate affect Objective Data Active Medications Albuterol/Ipratropium (Albuterol/Iprat 2.5/0.5mg 3 Ml Ampul.Neb) 3 ml INHALE RQ4H [facility] Last Admin: 01/11/22 11:10 Dose: 3 ml Documented by: CALVIN Amlodipine Besylate (Amlodipine Besylate 10 Mg Tablet) 10 mg PO DAILY [facility]; Protocol Last Admin: 01/11/22 09:14 Dose: 10 mg Documented by: GEGE Benztropine Mesylate (Benztropine Mesylate 0.5 Mg Tablet) 0.5 mg PO DAILY [facility] Last Admin: 01/11/22 09:14 Dose: 0.5 mg Documented by: GEGE Bisacodyl (Bisacodyl 10 Mg Supp.Rect) 10 mg LA ONCE PRN PRN Reason: Constipation Chlorhexidine Gluconate (Chlorhexidine Gluc Oral Rinse 15 Ml Mouthwash) 15 ml BUCCAL Q8H [facility] Last Admin: 01/11/22 10:32 Dose: 15 ml Documented by: GEGE Enoxaparin Sodium (Enoxaparin Sodium 40 Mg/0.4 Ml Syringe) 40 mg SUBCUT Q24H [facility] Last Admin: 01/10/22 12:20 Dose: 40 mg Documented by: MICHELLE Famotidine (Famotidine/Pf 20 Mg/2 Ml Vial) 20 mg IVPUSH BID [facility] Last Admin: 01/11/22 09:15 Dose: 20 mg Documented by: GEGE Fluticasone/Vilanterol (Fluticasone/Vilanterol 100/25 Blst.W.Dev) 1 puff INHALE RDAILY [facility] Last Admin: 01/11/22 07:19 Dose: 1 puff Documented by: CALVIN Furosemide (Furosemide 20 Mg Tablet) 20 mg PO DAILY [facility]; Protocol Last Admin: 01/11/22 09:14 Dose: 20 mg Documented by: GEGE Piperacillin Sod/Tazobactam (Sod 4.5 gm/ Sodium Chloride) 100 mls @ 200 mls/hr IV Q6H [facility] Last Admin: 01/11/22 10:32 Dose: 200 mls/hr Documented by: GEGE Methylprednisolone Sodium Succinate (Methylprednisolone Sod Succ 125 Mg/2 Ml Vial) 30 mg IVPUSH BID [facility] Last Admin: 01/11/22 09:15 Dose: 30 mg Documented by: GEGE Metoprolol Succinate (Metoprolol Succinate Er 50 Mg Tab.Er.24h) 50 mg PO DAILY [facility]; Protocol Last Admin: 01/11/22 09:14 Dose: 50 mg Documented by: GEGE Montelukast Sodium (Montelukast Sodium 10 Mg Tablet) 10 mg PO DAILY [facility] Last Admin: 01/11/22 09:14 Dose: 10 mg Documented by: GEGE Multivitamins/Vitamin C (Multivitamin Tablet) 1 tab PO DAILY [facility] Last Admin: 01/11/22 09:14 Dose: 1 tab Documented by: GEGE Pharmacy Consult (Consult Rx Perform Med Rec) 1 each MISCELLANE ONCE PRN PRN Reason: Consult order Pravastatin Sodium (Pravastatin Sodium 20 Mg Tablet) 20 mg PO BEDTIME [facility] Last Admin: 01/10/22 20:35 Dose: 20 mg Documented by: OLIVER Risperidone (Risperidone 1 Mg Tablet) 1 mg PO BID [facility] Last Admin: 01/11/22 09:14 Dose: 1 mg Documented by: GEGE Tiotropium [place] (Tiotropium [place] 18 Mcg Cap.W.Dev) 1 puff INHALE RDAILY [facility] Last Admin: 01/11/22 07:19 Dose: 1 puff Documented by: CALVIN Labs CBC & Chem 7: 01/10/22 06:25 01/11/22 06:40 Labs: Laboratory Results - last 24 hr 01/11/22 01/11/22 06:40 06:44 VBG pH 7.39 VBG pCO2 87 VBG pO2 90 VBG HCO3 53 H VBG O2 Saturation 97.0 VBG Base Excess 22.4 Anion Gap 9 L Estim Creat Clear Calc 131.2 Estimated GFR > 60 Random Glucose 116 H Calcium 9.5 Microbiology Microbiology Results: Microbiology 01/08/22 05:46 Blood Culture - Preliminary Blood - Venous No growth after 48 hours. Assessment and Plan (1) COPD exacerbation: Status: Acute (2) Hypercarbia: Status: Acute Plan hospital d#4 66yo M with COPD, HTN, schizophrenia, LYNN/OHS on biPAP, cor pulmonale, long-term resident of [facility] admitted to ICU 01/08/22 with acute/chronic hypoxic/hypercarbic respiratory failure with PNA placed on BiPAP, HFNC, IV diuresis, steroids, and bronchodilators stepped down to [facility] # acute/chronic hypoxic/hypercarbic resp failure due to LYNN/OHS - BiPAP 06/07 for naps and asleep, review BiPAP settings at SNF - HFNC while awake wean as tolerated # PNA - pip/sushant d#4, d/c levofoxacin, follow BCx, trend PCT # COPD exacerbation - wean steroids, continue bronchodilators - continue triple controller inhaler therapy # R-sided HF - continue maintenance furosemide # hyperK - resolved p SZC x 1 dose + holding losartan # HTN - hold losartan, continue amlodipine + metoprolol # schizophrenia - risperidone + benztropine # VTE ppx - LMWH In my clinical judgment, the patient requires continued hospitalization for the following reasons: HFNC Quality Stroke Does the patient have a stroke diagnosis?: No VTE Prior VTE?: No VTE Risk Level:: Medical - moderate - high VTE Device Contraindication: N/A - Device Ordered VTE Drug Contraindication: N/A - Med Ordered
[2022-01-11] MEDS: Enoxaparin Sodium 40 MG/0.4 ML SYRINGE SUBCUT (11:54)
--- NOTE | 2022-01-11 12:00 | MHC.SL.SWA ---
Speech Pathologist Impression: Oropharyngeal dysphagia Risk of Aspiration Due to: Medically Fragile Dysphasia Diet Status: Upgrade Liquid Consistency and Strategies for Safe Swallow: Liquid Intake Recommendation: [place] Thick Liquid Intake Strategies: Small Sips No Straws Solid Food Consistency: Dietary Recommendations: Grnd/Mech Altered (NDD2) Additional Modifications to Solid Foods: Recommend upgrade to GROUND/MECH ALTERED (NDD2) solids and NECTAR THICK liquids, pills CRUSHED in PUREE. 1:1 assistance and aspiration precautions. Diet order updated by ROCKET ENGINE TESTER. Notified , RN, RD. ROCKET ENGINE TESTER to continue to follow. Oral Medication Intake: Crushed with Puree Please contact the pharmacy regarding appropriate crushable or liquid drug formulations that are available whenever modified delivery is recommended. Compensatory Strategies and Precautions to be Taken for Safe Swallow: Sitting Upright (90 deg) No Straw Small Bites and Sips Alternate Liquids/Solids Rate of Ingestion Change Oral Check Supervision While Eating and Drinking for Safe Swallow: Total Assistance (1:1) Swallowing Recommended Treatments: Compens. Strategy Educat. Recommendation for Speech: Inpatient Speech Therapy Comment: 1:1 assist Frequency/Duration: M-F Date Range for Service Req: Timeline to reassess: Industrial Therapist Clinican/Clinical Fellow: No Supervisory Statement: I have reviewed and agree with the student/clinical fellow's documentation: N/A Speech Language Pathologist: Monika Liz M.A., CCC-ROCKET ENGINE TESTER
--- NOTE | 2022-01-11 12:18 | MHC.CM.PN ---
Per RT/Shabbir, Patient's Bipap setting are 22/10, no avaps; this information has been relayed to the MD.
[2022-01-11 12:21] LABS: Procalcitonin 0.02 ng/mL
[2022-01-11] MEDS: methylPREDNISolone Sod Succ 40 MG/ML VIAL 20 MG IVPUSH (21:15)
[2022-01-11] MEDS: Pravastatin Sodium 20 MG TABLET PO (21:16)
[2022-01-12] VITALS (16 sets, daily range): BP systolic 126–147; BP diastolic 66–85; PULSE 63–86; RESP 16–24; TEMP 36.6–37.1; O2SAT 92–98
[2022-01-12] MEDS: Albuterol/Iprat 2.5/0.5MG 3 ML AMPUL.NEB INHALE ×7 (00:30→23:35)
[2022-01-12] MEDS: Chlorhexidine Gluc Oral Rinse 15 ML MOUTHWASH BUCCAL ×3 (04:18→20:26)
[2022-01-12] MEDS: Piperacillin Sodium/Tazobactam 4.5 GM in 0.9 % Sodium Chloride 100 ML IV ×4 (04:18→22:10)
[2022-01-12 06:03] LABS: VBG Base Excess 16.8 mmol/L; VBG HCO3 46 mmol/L (22-26); VBG pCO2 78 mmHg; VBG pH 7.38 (7.32-7.43); VBG pO2 86 mmHg; Venous Blood Gas Refer to POC result
[2022-01-12 06:28] LABS: Anion Gap 10 (12-20); Blood Urea Nitrogen 22 mg/dL (9-16); Carbon Dioxide 40 mmol/L (22-29); Chloride 94 mmol/L (96-108); Potassium 4.6 mmol/L (3.3-5.1); Sodium 139 mmol/L (135-145)
[2022-01-12 06:29] LABS: Calcium 10.1 mg/dL (8.4-10.2); Creatinine Clr Calc Pharmacy 147.1; Estimated Glomerular Filt Rate > 60; Glucose Random 97 mg/dL (60-115)
[2022-01-12] MEDS: Fluticasone/Vilanterol 100/25 BLST.W.DEV 1 PUFF INHALE (07:25)
[2022-01-12] MEDS: methylPREDNISolone Sod Succ 40 MG/ML VIAL 20 MG IVPUSH ×2 (09:48→20:26)
[2022-01-12] MEDS: Famotidine/PF 20 MG/2 ML VIAL IVPUSH ×2 (09:49→20:27)
[2022-01-12] MEDS: Metoprolol Succinate ER 50 MG TAB.ER.24H PO (09:49)
[2022-01-12] MEDS: Benztropine Mesylate 0.5 MG TABLET PO (09:49)
[2022-01-12] MEDS: risperiDONE 1 MG TABLET PO ×2 (09:49→20:27)
[2022-01-12] MEDS: amLODIPine Besylate 10 MG TABLET PO (09:49)
[2022-01-12] MEDS: Multivitamin TABLET 1 TAB PO (09:49)
[2022-01-12] MEDS: Montelukast Sodium 10 MG TABLET PO (09:49)
[2022-01-12] MEDS: Furosemide 20 MG TABLET PO (09:49)
--- NOTE | 2022-01-12 10:14 | HO.PM.IMPN ---
Subjective Subjective Date of Service: 01/12/22 Interval History: Breathing improved; no complaints. STill on HFNC Review of Systems Review of Systems: Yes all other systems are reviewed and are negative Physical Exam Vital Signs: Vital Signs: Last Vital Signs Temp 98.7 F 01/12/22 07:20 Pulse 63 01/12/22 07:25 Resp 22 H 01/12/22 07:25 BP 147/85 H 01/12/22 07:20 Pulse Ox 96 01/12/22 07:20 Oxygen Flow Rate 45 01/09/22 04:00 BMI result Body Mass Index 43.7 Gen: in no acute distress HEENT: sclera anicteric, moist mucus membranes Neck: supple Lungs: diminished Heart: regular rate and rhythm, no murmurs Abd: soft, non-tender, non-distended, morbidly obese Ext: 1+ bilateral leg edema Skin: warm/well-perfused Neuro: alert and oriented x3, no focal findings Psych: appropriate affect Objective Data Active Medications Albuterol/Ipratropium (Albuterol/Iprat 2.5/0.5mg 3 Ml Ampul.Neb) 3 ml INHALE RQ4H [facility] Last Admin: 01/12/22 07:25 Dose: 3 ml Documented by: TREY Amlodipine Besylate (Amlodipine Besylate 10 Mg Tablet) 10 mg PO DAILY [facility]; Protocol Last Admin: 01/12/22 09:49 Dose: 10 mg Documented by: BK Benztropine Mesylate (Benztropine Mesylate 0.5 Mg Tablet) 0.5 mg PO DAILY [facility] Last Admin: 01/12/22 09:49 Dose: 0.5 mg Documented by: BK Bisacodyl (Bisacodyl 10 Mg Supp.Rect) 10 mg ID ONCE PRN PRN Reason: Constipation Chlorhexidine Gluconate (Chlorhexidine Gluc Oral Rinse 15 Ml Mouthwash) 15 ml BUCCAL Q8H [facility] Last Admin: 01/12/22 04:18 Dose: 15 ml Documented by: SAMSON Enoxaparin Sodium (Enoxaparin Sodium 40 Mg/0.4 Ml Syringe) 40 mg SUBCUT Q24H [facility] Last Admin: 01/11/22 11:54 Dose: 40 mg Documented by: GEGE Famotidine (Famotidine/Pf 20 Mg/2 Ml Vial) 20 mg IVPUSH BID [facility] Last Admin: 01/12/22 09:49 Dose: 20 mg Documented by: BK Fluticasone/Vilanterol (Fluticasone/Vilanterol 100/25 Blst.W.Dev) 1 puff INHALE RDAILY [facility] Last Admin: 01/12/22 07:25 Dose: 1 puff Documented by: RTEY Furosemide (Furosemide 20 Mg Tablet) 20 mg PO DAILY [facility]; Protocol Last Admin: 01/12/22 09:49 Dose: 20 mg Documented by: BK Piperacillin Sod/Tazobactam (Sod 4.5 gm/ Sodium Chloride) 100 mls @ 200 mls/hr IV Q6H [facility] Last Infusion: 01/12/22 05:08 Dose: 0 mls/hr Documented by: SAMSON Methylprednisolone Sodium Succinate (Methylprednisolone Sod Succ 40 Mg/Ml Vial) 20 mg IVPUSH BID [facility] Last Admin: 01/12/22 09:48 Dose: 20 mg Documented by: BK Metoprolol Succinate (Metoprolol Succinate Er 50 Mg Tab.Er.24h) 50 mg PO DAILY [facility]; Protocol Last Admin: 01/12/22 09:49 Dose: 50 mg Documented by: BK Montelukast Sodium (Montelukast Sodium 10 Mg Tablet) 10 mg PO DAILY [facility] Last Admin: 01/12/22 09:49 Dose: 10 mg Documented by: BK Multivitamins/Vitamin C (Multivitamin Tablet) 1 tab PO DAILY [facility] Last Admin: 01/12/22 09:49 Dose: 1 tab Documented by: BK Pharmacy Consult (Consult Rx Perform Med Rec) 1 each MISCELLANE ONCE PRN PRN Reason: Consult order Pravastatin Sodium (Pravastatin Sodium 20 Mg Tablet) 20 mg PO BEDTIME [facility] Last Admin: 01/11/22 21:16 Dose: 20 mg Documented by: SAMSON Risperidone (Risperidone 1 Mg Tablet) 1 mg PO BID [facility] Last Admin: 01/12/22 09:49 Dose: 1 mg Documented by: BK Tiotropium [place] (Tiotropium [place] 18 Mcg Cap.W.Dev) 1 puff INHALE RDAILY [facility] Last Admin: 01/12/22 07:25 Dose: 1 puff Documented by: TREY Labs CBC & Chem 7: 01/10/22 06:25 01/12/22 05:50 Labs: Laboratory Results - last 24 hr 01/11/22 01/12/22 01/12/22 06:40 05:50 05:55 VBG pH 7.38 VBG pCO2 78 VBG pO2 86 VBG HCO3 46 H VBG O2 Saturation 96.0 VBG Base Excess 16.8 Anion Gap 10 L Estim Creat Clear Calc 147.1 Estimated GFR > 60 Random Glucose 97 Calcium 10.1 D Procalcitonin 0.02 Assessment and Plan (1) COPD exacerbation: Status: Acute (2) Hypercarbia: Status: Acute Plan hospital d#5 66yo M with COPD, HTN, schizophrenia, LYNN/OHS on biPAP, cor pulmonale, long-term resident of [facility] admitted to ICU 01/08/22 with acute/chronic hypoxic/hypercarbic respiratory failure with PNA placed on BiPAP, HFNC, IV diuresis, steroids, and bronchodilators stepped down to [facility] # acute/chronic hypoxic/hypercarbic resp failure due to LYNN/OHS - BiPAP 06/07 for naps and asleep, review [facility]PAP settings at [facility] - HFNC while awake to wean as tolerated # PNA - pip/sushant d#5 of 7, d/c'ed levofoxacin, BCx neg, PCT low # COPD exacerbation - wean steroids, continue bronchodilators - continue triple controller inhaler therapy # R-sided HF - continue maintenance furosemide # hyperK - resolved p SZC x 1 dose + holding losartan # HTN - hold losartan, continue amlodipine + metoprolol # dysphagia - [employer] following, advanced to NDD2 solids + nectar thick liquids # schizophrenia - risperidone + benztropine # VTE ppx - LMWH In my clinical judgment, the patient requires continued hospitalization for the following reasons: HFNC Quality Stroke Does the patient have a stroke diagnosis?: No VTE Prior VTE?: No VTE Risk Level:: Medical - moderate - high VTE Device Contraindication: N/A - Device Ordered VTE Drug Contraindication: N/A - Med Ordered
[2022-01-12] MEDS: Enoxaparin Sodium 40 MG/0.4 ML SYRINGE SUBCUT (12:23)
[2022-01-12] MEDS: Pravastatin Sodium 20 MG TABLET PO (20:27)
[2022-01-13] VITALS (13 sets, daily range): BP systolic 132–150; BP diastolic 66–89; PULSE 62–81; RESP 18–24; TEMP 36.2–36.8; O2SAT 92–97
[2022-01-13] MEDS: Piperacillin Sodium/Tazobactam 4.5 GM in 0.9 % Sodium Chloride 100 ML IV ×4 (04:19→23:45)
[2022-01-13] MEDS: Chlorhexidine Gluc Oral Rinse 15 ML MOUTHWASH BUCCAL ×3 (04:19→21:13)
[2022-01-13] MEDS: Albuterol/Iprat 2.5/0.5MG 3 ML AMPUL.NEB INHALE ×6 (04:39→23:20)
[2022-01-13] MEDS: Fluticasone/Vilanterol 100/25 BLST.W.DEV 1 PUFF INHALE (08:10)
[2022-01-13] MEDS: Metoprolol Succinate ER 50 MG TAB.ER.24H PO (08:53)
[2022-01-13] MEDS: risperiDONE 1 MG TABLET PO ×2 (08:53→21:13)
[2022-01-13] MEDS: Benztropine Mesylate 0.5 MG TABLET PO (08:53)
[2022-01-13] MEDS: Furosemide 20 MG TABLET PO (08:53)
[2022-01-13] MEDS: amLODIPine Besylate 10 MG TABLET PO (08:53)
[2022-01-13] MEDS: Multivitamin TABLET 1 TAB PO (08:53)
[2022-01-13] MEDS: Montelukast Sodium 10 MG TABLET PO (08:53)
[2022-01-13] MEDS: methylPREDNISolone Sod Succ 40 MG/ML VIAL 20 MG IVPUSH ×2 (08:54→21:13)
[2022-01-13] MEDS: Famotidine/PF 20 MG/2 ML VIAL IVPUSH ×2 (08:56→21:13)
--- NOTE | 2022-01-13 10:42 | P.PNIM_ITS ---
Subjective Subjective Date of Service: 01/13/22 Interval History: Breathing improved; no complaints Review of Systems Review of Systems: Yes all other systems are reviewed and are negative Physical Exam Vital Signs: Vital Signs: Last Vital Signs Temp 98.0 F 01/13/22 07:33 Pulse 72 01/13/22 08:13 Resp 18 01/13/22 08:13 BP 132/78 01/13/22 07:33 Pulse Ox 94 01/13/22 07:33 Oxygen Flow Rate 45 01/09/22 04:00 BMI result Body Mass Index 43.7 Gen: in no acute distress HEENT: sclera anicteric, moist mucus membranes Neck: supple Lungs: diminished Heart: regular rate and rhythm, no murmurs Abd: soft, non-tender, non-distended, morbidly obese Ext: 1+ bilateral leg edema Skin: warm/well-perfused Neuro: alert and oriented x3, no focal findings Psych: appropriate affect Objective Data Active Medications Albuterol/Ipratropium (Albuterol/Iprat 2.5/0.5mg 3 Ml Ampul.Neb) 3 ml INHALE RQ4H [facility] Last Admin: 01/13/22 08:10 Dose: 3 ml Documented by: TREY Amlodipine Besylate (Amlodipine Besylate 10 Mg Tablet) 10 mg PO DAILY [facility]; Protocol Last Admin: 01/13/22 08:53 Dose: 10 mg Documented by: BK Benztropine Mesylate (Benztropine Mesylate 0.5 Mg Tablet) 0.5 mg PO DAILY [facility] Last Admin: 01/13/22 08:53 Dose: 0.5 mg Documented by: BK Bisacodyl (Bisacodyl 10 Mg Supp.Rect) 10 mg [place] ONCE PRN PRN Reason: Constipation Chlorhexidine Gluconate (Chlorhexidine Gluc Oral Rinse 15 Ml Mouthwash) 15 ml BUCCAL Q8H [facility] Last Admin: 01/13/22 04:19 Dose: 15 ml Documented by: SAMSON Enoxaparin Sodium (Enoxaparin Sodium 40 Mg/0.4 Ml Syringe) 40 mg SUBCUT Q24H [facility] Last Admin: 01/12/22 12:23 Dose: 40 mg Documented by: BK Famotidine (Famotidine/Pf 20 Mg/2 Ml Vial) 20 mg IVPUSH BID [facility] Last Admin: 01/13/22 08:56 Dose: 20 mg Documented by: BK Fluticasone/Vilanterol (Fluticasone/Vilanterol 100/25 Blst.W.Dev) 1 puff INHALE RDAILY [facility] Last Admin: 01/13/22 08:10 Dose: 1 puff Documented by: TREY Furosemide (Furosemide 20 Mg Tablet) 20 mg PO DAILY [facility]; Protocol Last Admin: 01/13/22 08:53 Dose: 20 mg Documented by: BK Piperacillin Sod/Tazobactam (Sod 4.5 gm/ Sodium Chloride) 100 mls @ 200 mls/hr IV Q6H [facility] Last Infusion: 01/13/22 04:52 Dose: 0 mls/hr Documented by: SAMSON Methylprednisolone Sodium Succinate (Methylprednisolone Sod Succ 40 Mg/Ml Vial) 20 mg IVPUSH BID [facility] Last Admin: 01/13/22 08:54 Dose: 20 mg Documented by: BK Metoprolol Succinate (Metoprolol Succinate Er 50 Mg Tab.Er.24h) 50 mg PO DAILY [facility]; Protocol Last Admin: 01/13/22 08:53 Dose: 50 mg Documented by: BK Montelukast Sodium (Montelukast Sodium 10 Mg Tablet) 10 mg PO DAILY [facility] Last Admin: 01/13/22 08:53 Dose: 10 mg Documented by: BK Multivitamins/Vitamin C (Multivitamin Tablet) 1 tab PO DAILY [facility] Last Admin: 01/13/22 08:53 Dose: 1 tab Documented by: BK Pharmacy Consult (Consult Rx Perform Med Rec) 1 each MISCELLANE ONCE PRN PRN Reason: Consult order Pravastatin Sodium (Pravastatin Sodium 20 Mg Tablet) 20 mg PO BEDTIME [facility] Last Admin: 01/12/22 20:27 Dose: 20 mg Documented by: SAMSON Risperidone (Risperidone 1 Mg Tablet) 1 mg PO BID [facility] Last Admin: 01/13/22 08:53 Dose: 1 mg Documented by: BK Tiotropium [place] (Tiotropium [place] 18 Mcg Cap.W.Dev) 1 puff INHALE RDAILY [facility] Last Admin: 01/13/22 08:10 Dose: 1 puff Documented by: TREY Labs CBC & Chem 7: 01/10/22 06:25 01/12/22 05:50 Microbiology Microbiology Results: Microbiology 01/08/22 05:46 Blood Culture - Final Blood - Venous No growth after 5 days. 01/08/22 05:23 Blood Culture - Final Blood - Venous No growth after 5 days. Assessment and Plan (1) COPD exacerbation: Status: Acute (2) Hypercarbia: Status: Acute Plan hospital d#7 66yo M with COPD, HTN, schizophrenia, LYNN/OHS on biPAP, cor pulmonale, long-term resident of [facility] admitted to ICU 01/08/22 with acute/chronic hypoxic/hypercarbic respiratory failure with PNA placed on BiPAP, HFNC, IV diuresis, steroids, and bronchodilators stepped down to [facility] # acute/chronic hypoxic/hypercarbic resp failure due to LYNN/OHS - BiPAP 06/07 for naps and asleep, review BiPAP settings at [facility] - HFNC while awake to wean as tolerated based on today's VBG # PNA - pip/sushant d#6 of 7, d/c'ed levofoxacin, BCx neg, PCT low # COPD exacerbation - wean steroids, continue bronchodilators - continue triple controller inhaler therapy # R-sided HF - continue maintenance furosemide # hyperK - resolved p SZC x 1 dose + holding losartan # HTN - hold losartan, continue amlodipine + metoprolol # dysphagia - [employer] following, advanced to NDD2 solids + nectar thick liquids # schizophrenia - risperidone + benztropine # VTE ppx - LMWH In my clinical judgment, the patient requires continued hospitalization for the following reasons: HFNC Quality Stroke Does the patient have a stroke diagnosis?: No VTE Prior VTE?: No VTE Risk Level:: Medical - moderate - high VTE Device Contraindication: N/A - Device Ordered VTE Drug Contraindication: N/A - Med Ordered
[2022-01-13 10:51] LABS: Venous Blood Gas Refer to POC result
[2022-01-13 11:00] LABS: VBG Base Excess 13.8 mmol/L; VBG HCO3 41 mmol/L (22-26); VBG pCO2 61 mmHg; VBG pH 7.43 (7.32-7.43); VBG pO2 104 mmHg
[2022-01-13] MEDS: Enoxaparin Sodium 40 MG/0.4 ML SYRINGE SUBCUT (12:00)
[2022-01-13] MEDS: Pravastatin Sodium 20 MG TABLET PO (21:13)
[2022-01-14] VITALS (13 sets, daily range): BP systolic 131–172; BP diastolic 79–89; PULSE 66–76; RESP 14–24; TEMP 36.2–36.6; O2SAT 91–96; BMI 29.8
[2022-01-14] MEDS: Albuterol/Iprat 2.5/0.5MG 3 ML AMPUL.NEB INHALE ×6 (05:00→22:51)
[2022-01-14] MEDS: Piperacillin Sodium/Tazobactam 4.5 GM in 0.9 % Sodium Chloride 100 ML IV ×3 (06:07→16:14)
[2022-01-14 06:54] LABS: VBG Base Excess 9.7 mmol/L; VBG HCO3 37 mmol/L (22-26); VBG pCO2 60 mmHg; VBG pH 7.39 (7.32-7.43); VBG pO2 71 mmHg
[2022-01-14 06:55] LABS: Venous Blood Gas Refer to POC result
[2022-01-14 07:14] LABS: B Type Natriuretic Peptide < 10 pg/mL (<100)
[2022-01-14 07:31] LABS: Anion Gap 12 (12-20); Blood Urea Nitrogen 21 mg/dL (9-16); Calcium 10.3 mg/dL (8.4-10.2); Carbon Dioxide 33 mmol/L (22-29); Chloride 95 mmol/L (96-108); Creatinine Clr Calc Pharmacy 99.7; Estimated Glomerular Filt Rate > 60; Glucose Random 138 mg/dL (60-115); Potassium 4.6 mmol/L (3.3-5.1); Sodium 135 mmol/L (135-145)
[2022-01-14] MEDS: Fluticasone/Vilanterol 100/25 BLST.W.DEV 1 PUFF INHALE (07:57)
[2022-01-14] MEDS: Famotidine/PF 20 MG/2 ML VIAL IVPUSH ×2 (09:25→21:03)
[2022-01-14] MEDS: risperiDONE 1 MG TABLET PO ×2 (09:25→21:03)
[2022-01-14] MEDS: Multivitamin TABLET 1 TAB PO (09:25)
[2022-01-14] MEDS: Metoprolol Succinate ER 50 MG TAB.ER.24H PO (09:25)
[2022-01-14] MEDS: Benztropine Mesylate 0.5 MG TABLET PO (09:25)
[2022-01-14] MEDS: amLODIPine Besylate 10 MG TABLET PO (09:25)
[2022-01-14] MEDS: Furosemide 20 MG TABLET PO (09:25)
[2022-01-14] MEDS: Chlorhexidine Gluc Oral Rinse 15 ML MOUTHWASH BUCCAL ×2 (09:26→21:03)
[2022-01-14] MEDS: methylPREDNISolone Sod Succ 40 MG/ML VIAL 20 MG IVPUSH (09:26)
[2022-01-14] MEDS: Montelukast Sodium 10 MG TABLET PO (09:26)
--- NOTE | 2022-01-14 10:08 | P.PNIM_ITS ---
Subjective Subjective Date of Service: 01/14/22 Interval History: Breathing continues to improve. Still on HFNC during days. Review of Systems Review of Systems: Yes all other systems are reviewed and are negative Physical Exam Vital Signs: Vital Signs: Last Vital Signs Temp 97.6 F 01/14/22 07:44 Pulse 73 01/14/22 08:02 Resp 18 01/14/22 08:02 BP 131/83 01/14/22 07:44 Pulse Ox 96 01/14/22 07:44 Oxygen Flow Rate 45 01/09/22 04:00 BMI result Body Mass Index 29.8 Gen: in no acute distress HEENT: sclera anicteric, moist mucus membranes Neck: supple Lungs: diminished Heart: regular rate and rhythm, no murmurs Abd: soft, non-tender, non-distended, morbidly obese Ext: 1+ bilateral leg edema Skin: warm/well-perfused Neuro: alert and oriented x3, no focal findings Psych: appropriate affect Objective Data Active Medications Albuterol/Ipratropium (Albuterol/Iprat 2.5/0.5mg 3 Ml Ampul.Neb) 3 ml INHALE RQ4H [facility] Last Admin: 01/14/22 07:57 Dose: 3 ml Documented by: TREY Amlodipine Besylate (Amlodipine Besylate 10 Mg Tablet) 10 mg PO DAILY [facility]; Protocol Last Admin: 01/14/22 09:25 Dose: 10 mg Documented by: GEGE Benztropine Mesylate (Benztropine Mesylate 0.5 Mg Tablet) 0.5 mg PO DAILY [facility] Last Admin: 01/14/22 09:25 Dose: 0.5 mg Documented by: GEGE Bisacodyl (Bisacodyl 10 Mg Supp.Rect) 10 mg [place] ONCE PRN PRN Reason: Constipation Chlorhexidine Gluconate (Chlorhexidine Gluc Oral Rinse 15 Ml Mouthwash) 15 ml BUCCAL Q8H [facility] Last Admin: 01/14/22 09:26 Dose: 15 ml Documented by: GEGE Enoxaparin Sodium (Enoxaparin Sodium 40 Mg/0.4 Ml Syringe) 40 mg SUBCUT Q24H [facility] Last Admin: 01/13/22 12:00 Dose: 40 mg Documented by: MARI-DEAN Famotidine (Famotidine/Pf 20 Mg/2 Ml Vial) 20 mg IVPUSH BID [facility] Last Admin: 01/14/22 09:25 Dose: 20 mg Documented by: GEGE Fluticasone/Vilanterol (Fluticasone/Vilanterol 100/25 Blst.W.Dev) 1 puff INHALE RDAILY [facility] Last Admin: 01/14/22 07:57 Dose: 1 puff Documented by: TREY Furosemide (Furosemide 20 Mg Tablet) 20 mg PO DAILY [facility]; Protocol Last Admin: 01/14/22 09:25 Dose: 20 mg Documented by: GEGE Piperacillin Sod/Tazobactam (Sod 4.5 gm/ Sodium Chloride) 100 mls @ 200 mls/hr IV Q6H [facility] Stop: 01/14/22 18:00 Last Admin: 01/14/22 09:26 Dose: 200 mls/hr Documented by: GEGE Methylprednisolone Sodium Succinate (Methylprednisolone Sod Succ 40 Mg/Ml Vial) 20 mg IVPUSH BID [facility] Last Admin: 01/14/22 09:26 Dose: 20 mg Documented by: GEGE Metoprolol Succinate (Metoprolol Succinate Er 50 Mg Tab.Er.24h) 50 mg PO DAILY [facility]; Protocol Last Admin: 01/14/22 09:25 Dose: 50 mg Documented by: GEGE Montelukast Sodium (Montelukast Sodium 10 Mg Tablet) 10 mg PO DAILY [facility] Last Admin: 01/14/22 09:26 Dose: 10 mg Documented by: GEGE Multivitamins/Vitamin C (Multivitamin Tablet) 1 tab PO DAILY [facility] Last Admin: 01/14/22 09:25 Dose: 1 tab Documented by: GEGE Pharmacy Consult (Consult Rx Perform Med Rec) 1 each MISCELLANE ONCE PRN PRN Reason: Consult order Pravastatin Sodium (Pravastatin Sodium 20 Mg Tablet) 20 mg PO BEDTIME [facility] Last Admin: 01/13/22 21:13 Dose: 20 mg Documented by: SCOTT Risperidone (Risperidone 1 Mg Tablet) 1 mg PO BID [facility] Last Admin: 01/14/22 09:25 Dose: 1 mg Documented by: GEGE Tiotropium [place] (Tiotropium [place] 18 Mcg Cap.W.Dev) 1 puff INHALE RDAILY [facility] Last Admin: 01/14/22 07:57 Dose: 1 puff Documented by: TREY Labs CBC & Chem 7: 01/10/22 06:25 01/14/22 06:36 Labs: Laboratory Results - last 24 hr 01/13/22 01/14/22 01/14/22 10:43 06:36 06:36 VBG pH 7.43 VBG pCO2 61 VBG pO2 104 VBG HCO3 41 H VBG O2 Saturation 99.0 VBG Base Excess 13.8 Anion Gap 12 Estim Creat Clear Calc 99.7 Estimated GFR > 60 Random Glucose 138 H D Calcium 10.3 H B-Natriuretic Peptide < 10 01/14/22 06:41 VBG pH 7.39 VBG pCO2 60 VBG pO2 71 VBG HCO3 37 H VBG O2 Saturation 92.0 VBG Base Excess 9.7 Anion Gap Estim Creat Clear Calc Estimated GFR Random Glucose Calcium B-Natriuretic Peptide Microbiology Microbiology Results: Microbiology 01/08/22 05:46 Blood Culture - Final Blood - Venous No growth after 5 days. 01/08/22 05:23 Blood Culture - Final Blood - Venous No growth after 5 days. Assessment and Plan (1) COPD exacerbation: Status: Acute (2) Hypercarbia: Status: Acute [facility] hospital d#8 66yo M with COPD, HTN, schizophrenia, LYNN/OHS on biPAP, cor pulmonale, long-term resident of [facility] admitted to ICU 01/08/22 with acute/chronic hypoxic/hypercarbic respiratory failure with PNA placed on BiPAP, HFNC, IV diuresis, steroids, and bronchodilators stepped down to [facility] # acute/chronic hypoxic/hypercarbic resp failure due to LYNN/OHS - BiPAP 06/07 for naps and asleep, review BiPAP settings at [facility] - HFNC while awake to wean over the next 1-2d # PNA - pip/sushant d#7 of 7, d/c'ed levofoxacin, BCx neg, PCT low # COPD exacerbation - wean steroids, continue bronchodilators - continue triple controller inhaler therapy # R-sided HF - continue maintenance furosemide # hyperK - resolved p SZC x 1 dose + holding losartan # HTN - hold losartan, continue amlodipine + metoprolol # dysphagia - [employer] following, advanced to NDD2 solids + nectar thick liquids # schizophrenia - risperidone + benztropine # VTE ppx - LMWH In my clinical judgment, the patient requires continued hospitalization for the following reasons: HFNC Quality Stroke Does the patient have a stroke diagnosis?: No VTE Prior VTE?: No VTE Risk Level:: Medical - moderate - high VTE Device Contraindication: N/A - Device Ordered VTE Drug Contraindication: N/A - Med Ordered
[2022-01-14] MEDS: Enoxaparin Sodium 40 MG/0.4 ML SYRINGE SUBCUT (12:10)
--- NOTE | 2022-01-14 14:22 | MHC.CM.PN ---
per rounds pt to return to [facility] when off high flow 02
--- NOTE | 2022-01-14 16:10 | MHC.SLORD ---
Speech Language Pathology Order Status: Patient on ground/[facility] altered (NDD2) solids and nectar thick liquids. Plan to re-evaluate tomorrow for potential upgrade.
[2022-01-14] MEDS: Pravastatin Sodium 20 MG TABLET PO (21:03)
[2022-01-15] VITALS: BP 160/82; PULSE 67; RESP 19; TEMP 36.2; O2SAT 95
[2022-01-15 03:14] VITALS: BP 138/76; PULSE 72; RESP 18; TEMP 36.1; O2SAT 95
[2022-01-15] MEDS: Albuterol/Iprat 2.5/0.5MG 3 ML AMPUL.NEB INHALE ×3 (03:18→11:40)
[2022-01-15 06:36] LABS: VBG HCO3 38 mmol/L (22-26); VBG pCO2 54 mmHg; VBG pH 7.45 (7.32-7.43); VBG pO2 107 mmHg
[2022-01-15 06:36] LABS: Venous Blood Gas Refer to POC result
[2022-01-15 06:55] LABS: Anion Gap 10 (12-20); Blood Urea Nitrogen 17 mg/dL (9-16); Calcium 10.2 mg/dL (8.4-10.2); Carbon Dioxide 35 mmol/L (22-29); Chloride 96 mmol/L (96-108); Creatinine Clr Calc Pharmacy 115.7; Estimated Glomerular Filt Rate > 60; Glucose Random 141 mg/dL (60-115); Potassium 4.1 mmol/L (3.3-5.1); Sodium 137 mmol/L (135-145)
[2022-01-15 07:32] VITALS: BP 149/77; PULSE 71; RESP 18; TEMP 36.2; O2SAT 100
[2022-01-15] MEDS: Fluticasone/Vilanterol 100/25 BLST.W.DEV 1 PUFF INHALE (07:44)
[2022-01-15 07:46] VITALS: PULSE 70; RESP 18; O2SAT 94
[2022-01-15] MEDS: Famotidine/PF 20 MG/2 ML VIAL IVPUSH (09:01)
[2022-01-15] MEDS: risperiDONE 1 MG TABLET PO (09:01)
[2022-01-15] MEDS: predniSONE 20 MG TABLET PO (09:01)
[2022-01-15] MEDS: Metoprolol Succinate ER 50 MG TAB.ER.24H PO (09:01)
[2022-01-15] MEDS: Furosemide 20 MG TABLET PO (09:01)
[2022-01-15] MEDS: Benztropine Mesylate 0.5 MG TABLET PO (09:01)
[2022-01-15] MEDS: amLODIPine Besylate 10 MG TABLET PO (09:01)
[2022-01-15] MEDS: Multivitamin TABLET 1 TAB PO (09:01)
[2022-01-15] MEDS: Montelukast Sodium 10 MG TABLET PO (09:01)
[2022-01-15 10:59] VITALS: BP 149/92; PULSE 68; RESP 19; TEMP 36.2; O2SAT 94
--- NOTE | 2022-01-15 11:12 | P.DS_ITS ---
DS: Providers Provider Date of Service: 01/15/22 Date of admission: 01/08/22 10:24 Primary care physician: Chloe Harkins MD DS: Diagnosis Discharge Diagnosis (1) COPD exacerbation: Status: Acute (2) Hypercarbia: Status: Acute DS: Summary Hospital Course Hospital Course: Chief Complaint: Altered mental status 66-year-old schizoaffective at least moderately obese individual who is hypertensive and hyperlipidemic with underlying COPD very likely obesity hypoventilation syndrome who does have a BiPAP device for nocturnal use in the correction facility however he was noted to be altered brought to the ER noted to have acute on chronic hypercarbic and hypoxic respiratory failure moderately elevated BNP and what looked like some peripheral edema despite chronic diuretic therapy known history of cor pulmonale and the possible atelectasis versus infiltrate bibasilar on chest x-ray with a CT scan pending and placed on BiPAP with with progressively more aggressive tidal volume initially 450 and then eventually at 800 cc and pCO2 remained over 100 likely indicating a very extensive space disease. Hospital course 66yo M with COPD, HTN, schizophrenia, LYNN/OHS on biPAP, cor pulmonale, long-term resident of [facility] admitted to ICU 01/08/22 with acute/chronic hypoxic/hypercarbic respiratory failure with PNA,placed on BiPAP, HFNC, IV diuresis, steroids, and bronchodilators, with good response to above treatment and step-down stepped down to IMC on 01/09 # acute/chronic hypoxic/hypercarbic resp failure due to LYNN/OHS, patient treated with BiPAP with settings of 22/10 for naps and asleep, review BiPAP , treated with HFNC, serial VBG were obtained , pCO2 has improved from 98-54, oxygenation is stable 99% on 35% high-flow, therefore patient will be discharged on BiPAP and home O2 as before. # PNA patient finish 7 day course of antibiotic blood cultures negative and has low procalcitonin level # COPD exacerbation resolved continue bronchodilators and triple control inhaler therapy, being discharged on few more days of prednisone # R-sided HF stable continue maintenance furosemide, # hyperK resolved, losartan discontinued follow potassium level and blood pressure closely - resolved p SZC x 1 dose + holding losartan # HTN BP stable on amlodipine and metoprolol few high blood pressure readings follow BP and adjust dose of antihypertensive as needed # dysphagia seen by speech therapy tolerating NDD2 solids + nectar thick liquids # schizophrenia continue risperidone + benztropine Time Spent with Patient Time attestation: Total time spent providing and/or coordinating discharge services: Discharge coordination time: Greater than 30 minutes Quality: Safe Use of Opioids Does Pt have an Active Cancer Diagnosis on the Problem List?: No Quality: Stroke Does the patient have a stroke diagnosis?: No Physical Exam Vital Signs: Vital Signs: Last Vital Signs Temp 97.1 F 01/15/22 10:59 Pulse 68 01/15/22 10:59 Resp 19 01/15/22 10:59 BP 149/92 H 01/15/22 10:59 Pulse Ox 94 01/15/22 10:59 Oxygen Flow Rate 45 01/09/22 04:00 BMI result Body Mass Index 29.8 Const: Other: Gen: Awake alert,no acute distress HEENT: sclera anicteric, moist mucus membranes Neck: supple Lungs: diminished common no acute respiratory distress, no wheeze, no crackle Heart: regular rate and rhythm, no murmurs Abd: soft, non-tender, non-distended, morbidly obese Ext: 1+ bilateral leg edema Skin: warm/well-perfused Neuro: alert and oriented x3, no focal findings Psych: appropriate affect DS: Data Data Completed and Pending Completed studies during hospitalization [Text1]: Procedures Assistance with Respiratory Ventilation, 24-96 Consecutive Hours, Continuous Positive Airway Pressure (09/23/21) Assistance with Respiratory Ventilation, Less than 24 Consecutive Hours, Continuous Positive Airway Pressure (11/04/21) Insertion of Endotracheal Airway into Trachea, Via Natural or Artificial Opening (11/04/21) Insertion of Infusion Device into Right Internal Jugular Vein, Percutaneous Approach (09/23/21) Insertion of Infusion Device into Superior Vena Cava, Percutaneous Approach (11/04/21) Introduction of Vasopressor into Central Vein, Percutaneous Approach (11/04/21) Respiratory Ventilation, 24-96 Consecutive Hours (11/04/21) Respiratory Ventilation, Less than 24 Consecutive Hours (09/23/21) Ultrasonography of Superior Vena Cava, Guidance (11/04/21) Labs on day of discharge: Laboratory Results - last 24 hr 01/15/22 01/15/22 06:27 06:29 VBG pH 7.45 H VBG pCO2 54 VBG pO2 107 VBG HCO3 38 H VBG O2 Saturation 99.0 VBG Base Excess 12.0 Sodium 137 Potassium 4.1 Chloride 96 Carbon Dioxide 35 H Anion Gap 10 L BUN 17 H Creatinine 0.69 Estim Creat Clear Calc 115.7 Estimated GFR > 60 Random Glucose 141 H Calcium 10.2 Discharge Plan Discharge Patient Disposition: Xfer SNF Discharge Diagnosis: Acute on chronic hypoxic/hypercarbic respiratory failure COPD exacerbation Pneumonia Hyperkalemia Dysphagia [facility]errals: [facility] [place] [Outside] - 1 Week Chloe Harkins MD [Primary Care Provider] - 1 Week Discharge Medications: New prednisone 20 mg Tablet 20 mg PO DAILY Qty: 5 0RF omeprazole 20 mg capsule,delayed release(DR/EC) 20 mg PO DAILY Qty: 30 0RF ipratropium-albuterol 0.5 mg-3 mg(2.5 mg base)/3 mL Solution For Nebulization 3 ml inhalation QID Qty: 90 0RF Continued acetaminophen [Tylenol] 325 mg Tablet 650 mg PO Q4H PRN (Reason: Fever Or Pain) 0RF benztropine 0.5 mg Tablet 0.5 mg PO DAILY 0RF amlodipine 10 mg Tablet 10 mg PO DAILY 0RF bisacodyl 10 mg Suppository 10 mg IN ONCE PRN (Reason: Constipation) 0RF gabapentin 300 mg Capsule 300 mg PO TID 0RF montelukast [Singulair] 10 mg Tablet 10 mg PO DAILY 0RF pravastatin 20 mg Tablet 20 mg PO DAILY 0RF metoprolol succinate 25 mg Tablet Extended Release 24 Hr 50 mg PO DAILY 0RF risperidone 1 mg Tablet 1 mg PO BID 0RF Spiriva with HandiHaler 18 mcg Capsule, W/Inhalation Device 1 cap inhalation BEDTIME Qty: 0 0RF budesonide-formoterol [Symbicort] 160-4.5 mcg/actuation Hfa Aerosol Inhaler 2 puff INHALATION BID 0RF multivitamin Tablet 1 tab PO DAILY 0RF ipratropium-albuterol 0.5 mg-3 mg(2.5 mg base)/3 mL Solution For Nebulization 3 ml inhalation RQ4H PRN (Reason: shorntess of breath/weheeze) Qty: 1 0RF furosemide 20 mg tablet 1 tab PO DAILY 0RF Icy Hot Advanced Relief Patch 7.5 % Adhesive Patch,Medicated 1 patch TOPICAL DAILY 0RF Rx Instructions: APPLY TO RIGHT SHOULDER, REMOVE AT BEDTIME Discontinued losartan 50 mg Tablet 50 mg PO DAILY 0RF Discharge Orders: Discharge Order (Routine); Ordered 01/15/22 Ordered By: Karely Avila Diet: low fat, low cholesterol Activity on Discharge: As tolerated Stand Alone Forms: Patient Portal Discharge page Care Plan Goals: Acute on chronic hypercarbic and hypoxic respiratory failure continue BiPAP / at night time and during naps, use all home inhalers as before and continue DuoNeb q.i.d., stop using losartan due to hyperkalemia. Follow BP closely Health Concerns: Dysphagia seen by speech therapy tolerating NDD2 solids and nectar thick liquids, continue all home medications as above Plan of Treatment: Follow-up with primary care physician Assessment: Per discharge summary
[2022-01-15 11:40] VITALS: PULSE 66; RESP 18; O2SAT 100
--- NOTE | 2022-01-15 11:49 | MHC.CM.PN ---
Patient has been medically cleared for dc to return to SNF/LTC today. Patient will return to [place] at [facility] today at 2PM, via [facility]. CM has informed Patient's first contact/Francia at [phone] of today's dc and will mail IMM original to her and place a copy on the chart.
[2022-01-15] MEDS: Chlorhexidine Gluc Oral Rinse 15 ML MOUTHWASH BUCCAL (12:36)
[2022-01-15] MEDS: Enoxaparin Sodium 40 MG/0.4 ML SYRINGE SUBCUT (12:36)
[2022-01-15 13:41] LABS: COVID-19 Test Negative (Negative); IDNOW Serial# 16C4AD1C
== END 2022-01-15 17:30 | disposition skilled nursing facility (03) | DRG 190 ==
LOC: HO.ED 06:52 → HO.EDOVER 10:56 → HO.ICU 11:50 → HO.IMC 01-09 13:49
PROVIDERS: Emergency Medicine; Family Medicine; Physician Assistant; Admitting Provider Internal Medicine Cardiovascular Disease; Emergency Provider Emergency Medicine; PCP Internal Medicine; Visit Provider Hospitalist
DX: J44.1 Chronic obstructive pulmonary disease with (acute) exacerbation (principal); J18.9 Pneumonia, unspecified organism; J96.22 Acute and chronic respiratory failure with hypercapnia; J96.21 Acute and chronic respiratory failure with hypoxia; G93.41 Metabolic encephalopathy; E66.2 Morbid (severe) obesity with alveolar hypoventilation; J44.0 Chronic obstructive pulmonary disease with (acute) lower respiratory infection; Z68.38 Body mass index [BMI] 38.0-38.9, adult; I27.81 Cor pulmonale (chronic); R13.10 Dysphagia, unspecified; F20.9 Schizophrenia, unspecified; E87.5 Hyperkalemia; Z99.81 Dependence on supplemental oxygen; I11.0 Hypertensive heart disease with heart failure; I50.812 Chronic right heart failure; Z20.822 Contact with and (suspected) exposure to COVID-19; Z88.8 Allergy status to other drugs, medicaments and biological substances; Z79.52 Long term (current) use of systemic steroids; Z79.899 Other long term (current) drug therapy
CPT/HCPCS: 36415; 36600; 71045; 71250; 80048; 80307; 81001; 82803; 83605; 83735; 83880; 84100; 84145; 84484; 85007; 85025; 85027; 87040; 87635; 92526; 92610; 93005; 94660; 94799; 96365; 96375; 99285; C1758; J0696; J1650; J1940; J1956; J2543; J2920; J2930

== ENCOUNTER 2022-02-22 13:03 | Emergency (ER) | payer MEDICARE, MEDICAID, SELFPAY ==
--- NOTE | ~2022-02-22 | CT_ITS ---
EXAMINATION: CT BRAIN AND CT CERVICAL FACIAL BONES WITHOUT CONTRAST. CLINICAL INFORMATION: Right orbit swelling. COMPARISON: None TECHNIQUE: 5 mm thin axial and reformatted 2 mm thin sagittal and coronal images of brain were obtained without contrast. Subsequently axial 2 mm thin and reformatted 1 mm thin sagittal and coronal images of facial bones were obtained. DLP [id number] FINDINGS: Brain: There is no acute intra-axial, extra-axial bleed, masses or midline shift. There is no acute infarction in evolution. There is no edema. The lateral ventricles are symmetrical in size and configuration without enlargement. Bone windows reveal no calvarial abnormality. Bilateral paranasal sinuses and mastoid air cells are well-aerated. Facial bones: The paranasal sinuses are well-aerated without any mucoperiosteal thickening of the pelvis. There is a lamina papyracea defect along the right middle ethmoid sinus with mild post septal soft tissue swelling. Findings suggestive of fracture of lamina papyracea. The left lamina papyracea and the cribriform plate are intact. The nasal septum appears midline minutes normal turbinates. The nasal cavity and nasopharyngeal airway is widely patent. The bony orbits are intact the optic globes are symmetrical and normal. There is moderate right pre septal soft tissue swelling. No intraorbital soft tissue swelling seen. There is no nasal bone fracture or abnormality seen. Bilateral TM joints are symmetrical and normal. No visible mandibular fracture identified. CT/CT facial bones wo con IMPRESSION: Unremarkable CT brain exam. Preseptal right orbital soft tissue swelling with mild lamina papyracea fracture with soft tissue thickening of right middle ethmoid sinus and mild soft tissue thickening along the medial orbital rim.
[2022-02-22 13:16] VITALS: BP 156/74; BP 158/84; PULSE 73; PULSE 78; RESP 20; O2SAT 94; O2SAT 96; BMI 45.3
--- NOTE | 2022-02-22 13:21 | ED_ITS ---
HPI - Head Injury General Chief complaint: Fall Stated complaint: r eye pain Time Seen by Provider: 02/22/22 13:21 Source: patient Mode of arrival: ambulatory Limitations: no limitations History of Present Illness HPI Narrative: eye pain after falling and hitting head yesterday, no LOC MD Complaint: head injury Onset (ago): day(s) Mechanism of Injury: fall Place: home Loss of Consciousness: no Location of injury: other (right eye pain) Severity: mild Associated symptoms: denies other symptoms Related Data Home Medications Medication Instructions Recorded Confirmed acetaminophen 325 mg tablet 650 mg PO Q4H PRN Fever Or Pain 11/05/21 01/08/22 (Tylenol) amlodipine 10 mg tablet 10 mg PO DAILY 11/05/21 01/08/22 benztropine 0.5 mg tablet 0.5 mg PO DAILY 11/05/21 01/08/22 bisacodyl 10 mg rectal suppository 10 mg HI ONCE PRN Constipation 11/05/21 01/08/22 budesonide-formoterol HFA 160 2 puff inhalation BID 11/05/21 01/08/22 mcg-4.5 mcg/actuation aerosol inhaler (Symbicort) gabapentin 300 mg capsule 300 mg PO TID 11/05/21 01/08/22 metoprolol succinate 25 mg 50 mg PO DAILY 11/05/21 01/08/22 tablet,extended release 24 hr montelukast 10 mg tablet 10 mg PO DAILY 11/05/21 01/08/22 (Singulair) multivitamin 1 tab PO DAILY 11/05/21 01/08/22 pravastatin 20 mg tablet 20 mg PO DAILY 11/05/21 01/08/22 risperidone 1 mg tablet 1 mg PO BID 11/05/21 01/08/22 tiotropium bromide 18 mcg capsule 1 cap inhalation BEDTIME ##0 11/05/21 01/08/22 with inhalation device (Spiriva with HandiHaler) furosemide 20 mg tablet 1 tab PO DAILY 01/08/22 01/08/22 menthol 7.5 % topical patch (Icy 1 patch topical DAILY 01/08/22 01/08/22 Hot Advanced Relief Patch) Previous Rx's Medication Instructions Recorded ipratropium 0.5 mg-albuterol 3 mg 3 ml inhalation RQ4H PRN shorntess 11/13/21 (2.5 mg base)/3 mL nebulization of breath/weheeze #1 mL soln ipratropium 0.5 mg-albuterol 3 mg 3 ml inhalation QID #90 mL 01/15/22 (2.5 mg base)/3 mL nebulization soln omeprazole 20 mg capsule,delayed 20 mg PO DAILY #30 caps 01/15/22 release prednisone 20 mg tablet 20 mg PO DAILY #5 tabs 01/15/22 Allergies Allergy/AdvReac Type Severity Reaction Status Date / Time TRUMAN Inhibitors Allergy Unknown Verified 11/04/21 22:28 [facility] Past Medical History Medical History (Updated 02/22/22 @ 15:06 by Quang Washburn MD) Acute and chronic respiratory failure with hypercapnia Acute exacerbation of chronic obstructive airways disease Acute on chronic respiratory failure with hypoxia and hypercapnia Congestive heart failure COPD (chronic obstructive pulmonary disease) Cor pulmonale (chronic) Cor pulmonale (chronic) History of COVID-19 Hypercapnic respiratory failure Hypertension Metabolic encephalopathy Morbid obesity Morbid obesity Morbid obesity Obesity hypoventilation syndrome Obstructive sleep apnea Obstructive sleep apnea Obstructive sleep apnea syndrome in adult Schizoaffective disorder Schizophrenia Thrombocytopenia Social History Social History Household Members: Other Household Members Other:: snf Housing: [facility] Housing Other:: Longterm Facility Do you presently have visiting nurse or other home services: No (lives at snf) Unable to assess alcohol history related to: Unable to respond and Unknown Alcohol intake: unknown Patient Tobacco Use Status: Tobacco use Unknown Advance Directives: Yes Advance Directives on File: Yes Advance Directives Date on File: 01/08/22 service: No Current occupational status: disabled Physical Exam Vital Signs: Vital Signs: Last Vital Signs Pulse 73 02/22/22 13:16 Resp 20 02/22/22 13:16 BP 156/74 H 02/22/22 13:16 Pulse Ox 94 02/22/22 13:16 O2 Del Method 02/22/22 13:16 Oxygen Flow Rate 4 02/22/22 13:16 BMI result Body Mass Index 45.3 MDM - Head Injury Imaging Data head CT and facial CT: Radiologist's impression: Facial bones: The paranasal sinuses are well-aerated without any mucoperiosteal thickening of the pelvis. There is a lamina papyracea defect along the right middle ethmoid sinus with mild post septal soft tissue swelling. Findings suggestive of fracture of lamina papyracea. The left lamina papyracea and the cribriform plate are intact. The nasal septum appears midline minutes normal turbinates. The nasal cavity and nasopharyngeal airway is widely patent. The bony orbits are intact the optic globes are symmetrical and normal. There is moderate right pre septal soft tissue swelling. No intraorbital soft tissue swelling seen. There is no nasal bone fracture or abnormality seen. Bilateral TM joints are symmetrical and normal. No visible mandibular fracture identified. CT/CT facial bones wo con IMPRESSION: Unremarkable CT brain exam. ? Preseptal right orbital soft tissue swelling with mild lamina papyracea fracture with soft tissue thickening of right middle ethmoid sinus and mild soft tissue thickening along the medial orbital rim. Discharge Plan Discharge Clinical Impression: Orbital fracture Patient Disposition: [facility] Instructions: Facial Fracture (ED) Prescriptions: No [facility] acetaminophen [Tylenol] 325 mg Tablet 650 mg PO Q4H PRN (Reason: Fever Or Pain) benztropine 0.5 mg Tablet 0.5 mg PO DAILY amlodipine 10 mg Tablet 10 mg PO DAILY bisacodyl 10 mg Suppository 10 mg HI ONCE PRN (Reason: Constipation) gabapentin 300 mg Capsule 300 mg PO TID montelukast [Singulair] 10 mg Tablet 10 mg PO DAILY pravastatin 20 mg Tablet 20 mg PO DAILY metoprolol succinate 25 mg Tablet Extended Release 24 Hr 50 mg PO DAILY risperidone 1 mg Tablet 1 mg PO BID Spiriva with HandiHaler 18 mcg Capsule, W/Inhalation Device 1 cap inhalation BEDTIME Qty: 0 budesonide-formoterol [Symbicort] 160-4.5 mcg/actuation Hfa Aerosol Inhaler 2 puff INHALATION BID multivitamin Tablet 1 tab PO DAILY ipratropium-albuterol 0.5 mg-3 mg(2.5 mg base)/3 mL Solution For Nebulization 3 ml inhalation RQ4H PRN (Reason: shorntess of breath/weheeze) Qty: 1 0RF furosemide 20 mg tablet 1 tab PO DAILY Icy Hot Advanced Relief Patch 7.5 % Adhesive Patch,Medicated 1 patch TOPICAL DAILY Rx Instructions: APPLY TO RIGHT SHOULDER, REMOVE AT BEDTIME prednisone 20 mg Tablet 20 mg PO DAILY Qty: 5 0RF omeprazole 20 mg capsule,delayed release(DR/EC) 20 mg PO DAILY Qty: 30 0RF ipratropium-albuterol 0.5 mg-3 mg(2.5 mg base)/3 mL Solution For Nebulization 3 ml inhalation QID Qty: 90 0RF Referrals: Misael Barahona [Physician] - 1 week
[2022-02-22 16:41] VITALS: BP 144/86; PULSE 74; RESP 18; TEMP 36.9; O2SAT 95
== END 2022-02-22 16:43 | disposition skilled nursing facility (03) ==
PROVIDERS: Emergency Provider Emergency Medicine; PCP Internal Medicine
DX: S02.85XA Fracture of orbit, unspecified, initial encounter for closed fracture (principal); I11.0 Hypertensive heart disease with heart failure; I50.9 Heart failure, unspecified; J44.9 Chronic obstructive pulmonary disease, unspecified; W19.XXXA Unspecified fall, initial encounter; Y93.9 Activity, unspecified; Y92.009 Unspecified place in unspecified non-institutional (private) residence as the place of occurrence of the external cause; Y99.9 Unspecified external cause status
CPT/HCPCS: 70450; 70486; 99283; 99284

== ENCOUNTER 2022-03-04 06:26 | Emergency (ER) | payer MEDICARE, MEDICAID, SELFPAY ==
--- NOTE | 2022-03-04 06:33 | PC.NURSE ---
pt arrives to ED via EMS as a cardiac arrest, per EMS pt comes from alf, last known well at 0300. pt found at 0545 pulseless, CPR initiated. pt arrives in asystole, pt recieved 2x epi from EMS. pt attached to monitoring tech, no pulse, time of called at 0629 by MD Villanueva.
[2022-03-04 06:35] VITALS: BMI 42.0
[2022-03-04 06:40] VITALS: BMI 51.7
[2022-03-04 06:41] LABS: Glucose, Whole Blood 81 mg/dL (60-115)
--- NOTE | 2022-03-04 06:52 | ED_ITS ---
HPI - CPR General Chief Complaint: Cardiac Arrest/CPR Stated Complaint: CARDIAC ARREST,ASYSTOLE, CPR STARTED BY SNF STAFF Time Seen by Provider: 03/04/22 06:47 Source: EMS Mode of arrival: EMS Limitations: other History of Present Illness HPI narrative: Patient comes to the emergency room in cardiac arrest. Approximately, staff from [facility] saw the patient within normal limits between 02:13. At 05:30, when they went to check on the patient and give medications, they noted that the patient was not breathing and had no pulse. CPR was started. When EMS arrived, patient was in asystole, epinephrine x2 was given. Patient arrived to the emergency room still in the systole. In total, patient had 15 minutes of CPR, the whole time in asystole. Related Data Home Medications Medication Instructions Recorded Confirmed acetaminophen 325 mg tablet 650 mg PO Q4H PRN Fever Or Pain 11/05/21 01/08/22 (Tylenol) amlodipine 10 mg tablet 10 mg PO DAILY 11/05/21 01/08/22 benztropine 0.5 mg tablet 0.5 mg PO DAILY 11/05/21 01/08/22 bisacodyl 10 mg rectal suppository 10 mg OH ONCE PRN Constipation 11/05/21 01/08/22 budesonide-formoterol HFA 160 2 puff inhalation BID 11/05/21 01/08/22 mcg-4.5 mcg/actuation aerosol inhaler (Symbicort) gabapentin 300 mg capsule 300 mg PO TID 11/05/21 01/08/22 metoprolol succinate 25 mg 50 mg PO DAILY 11/05/21 01/08/22 tablet,extended release 24 hr montelukast 10 mg tablet 10 mg PO DAILY 11/05/21 01/08/22 (Singulair) multivitamin 1 tab PO DAILY 11/05/21 01/08/22 pravastatin 20 mg tablet 20 mg PO DAILY 11/05/21 01/08/22 risperidone 1 mg tablet 1 mg PO BID 11/05/21 01/08/22 tiotropium bromide 18 mcg capsule 1 cap inhalation BEDTIME ##0 11/05/21 01/08/22 with inhalation device (Spiriva with HandiHaler) furosemide 20 mg tablet 1 tab PO DAILY 01/08/22 01/08/22 menthol 7.5 % topical patch (Icy 1 patch topical DAILY 01/08/22 01/08/22 Hot Advanced Relief Patch) Previous Rx's Medication Instructions Recorded ipratropium 0.5 mg-albuterol 3 mg 3 ml inhalation RQ4H PRN shorntess 11/13/21 (2.5 mg base)/3 mL nebulization of breath/weheeze #1 mL soln ipratropium 0.5 mg-albuterol 3 mg 3 ml inhalation QID #90 mL 01/15/22 (2.5 mg base)/3 mL nebulization soln omeprazole 20 mg capsule,delayed 20 mg PO DAILY #30 caps 01/15/22 release prednisone 20 mg tablet 20 mg PO DAILY #5 tabs 01/15/22 Allergies Allergy/AdvReac Type Severity Reaction Status Date / Time TRUMAN Inhibitors Allergy Unknown Verified 11/04/21 22:28 Review of Systems Review of Systems: Yes Unobtainable due to mental condition [facility] Past Medical History Medical History Acute and chronic respiratory failure with hypercapnia Acute exacerbation of chronic obstructive airways disease Acute on chronic respiratory failure with hypoxia and hypercapnia Congestive heart failure COPD (chronic obstructive pulmonary disease) Cor pulmonale (chronic) Cor pulmonale (chronic) History of COVID-19 Hypercapnic respiratory failure Hypertension Metabolic encephalopathy Morbid obesity Morbid obesity Morbid obesity Obesity hypoventilation syndrome Obstructive sleep apnea Obstructive sleep apnea Obstructive sleep apnea syndrome in adult Schizoaffective disorder Schizophrenia Thrombocytopenia Social History Social History Household Members: Other Household Members Other:: snf Housing: Jail Housing Other:: [facility] Do you presently have visiting nurse or other home services: No (lives at snf) Unable to assess alcohol history related to: Unable to respond and Unknown Alcohol intake: unknown Patient Tobacco Use Status: Tobacco use Unknown Advance Directives: Yes Advance Directives on File: Yes Advance Directives Date on File: 01/08/22 service: No Current occupational status: disabled Physical Exam Vital Signs: Vital Signs: BMI result Body Mass Index 51.7 Const: Other: Appearance: Unresponsive, in cardiac arrest Eyes: Dilated ENT: Oropharyngeal airway in place Neck: Normal inspection. Neck supple. No lymph nodes noted. No crepitus CVS: Asystole Respiratory: No spontaneous respirations Abdomen: Soft, distended Skin: Skin cold Extremities: Mild bilateral pitting edema Neuro: Unresponsive Psych: Unresponsive Course Course Course Narrative: Patient was found in asystole. Unknown down time. Time of was called at 06:29 Patient is known to have respiratory issues. Patient likely was hypoxic, likely leading to cardiac arrest Cause of is likely natural. operations examiner will not be contacted. Organ donation has accepted the patient. I tried calling Josefa Araiza , who is listed as patient's primary contact. There is only an answering service. However, the name left on the answering service does not match Mrs. Araiza's name MDM - Cardiac Arrest/CPR Lab Data Labs: Lab Results 03/04/22 Range/Units 06:29 POC Glucose 81 (60-115) mg/dL Discharge Plan Discharge Clinical Impression: Cardiac arrest Patient Disposition: Prescriptions: No Action acetaminophen [Tylenol] 325 mg Tablet 650 mg PO Q4H PRN (Reason: Fever Or Pain) benztropine 0.5 mg Tablet 0.5 mg PO DAILY amlodipine 10 mg Tablet 10 mg PO DAILY bisacodyl 10 mg Suppository 10 mg [place] ONCE PRN (Reason: Constipation) gabapentin 300 mg Capsule 300 mg PO TID montelukast [Singulair] 10 mg Tablet 10 mg PO DAILY pravastatin 20 mg Tablet 20 mg PO DAILY metoprolol succinate 25 mg Tablet Extended Release 24 Hr 50 mg PO DAILY risperidone 1 mg Tablet 1 mg PO BID Spiriva with HandiHaler 18 mcg Capsule, W/Inhalation Device 1 cap inhalation BEDTIME Qty: 0 budesonide-formoterol [Symbicort] 160-4.5 mcg/actuation Hfa Aerosol Inhaler 2 puff INHALATION BID multivitamin Tablet 1 tab PO DAILY ipratropium-albuterol 0.5 mg-3 mg(2.5 mg base)/3 mL Solution For Nebulization 3 ml inhalation RQ4H PRN (Reason: shorntess of breath/weheeze) Qty: 1 0RF furosemide 20 mg tablet 1 tab PO DAILY Icy Hot Advanced Relief Patch 7.5 % Adhesive Patch,Medicated 1 patch TOPICAL DAILY Rx Instructions: APPLY TO RIGHT SHOULDER, REMOVE AT BEDTIME prednisone 20 mg Tablet 20 mg PO DAILY Qty: 5 0RF omeprazole 20 mg capsule,delayed release(DR/EC) 20 mg PO DAILY Qty: 30 0RF ipratropium-albuterol 0.5 mg-3 mg(2.5 mg base)/3 mL Solution For Nebulization 3 ml inhalation QID Qty: 90 0RF
--- NOTE | 2022-03-04 06:52 | PC.NURSE ---
pt last well time was between 2 -3am. Staff went to do morning check was found unresponsive no pulse. AED place and CPR started. EMS Called at 5:39. 2 rounds of epi first round at 6:05am. Second at 6:12am. no pulse, pt down for 50mins. Time of at 6:29am
--- NOTE | 2022-03-04 06:56 | PC.NURSE ---
this RN attempt calling pt contactJosefa with no answer.
--- NOTE | 2022-03-04 07:21 | PC.NURSE ---
contact mey called by md bustos- she [place] [facility] [place] other family
--- NOTE | 2022-03-04 08:31 | PC.NURSE ---
pt belongings to [facility]
== END 2022-03-04 08:31 | disposition expired ==
PROVIDERS: Emergency Provider Emergency Medicine
DX: I46.9 Cardiac arrest, cause unspecified (principal)
CPT/HCPCS: 82947; 99283